=== PATIENT | female | born 1935 | race Caucasian/White ===

== ENCOUNTER 2016-08-01 03:37 | Inpatient (IN) | payer OTHER ==
[2016-08-01] VITALS (27 sets, daily range): BP systolic 92–134; BP diastolic 45–89; PULSE 61–81; TEMP 36.4–37.6; O2SAT 93–100; Ht 154.9 cm; Wt 97.7 kg
[~2016-08-01] VITALS: Ht 154.9 cm; Wt 97.7 kg
[~2016-08-01 03:37] MED LIST: ACET-1256 PO; ALBUAER2 INH; AMPI500C9 PO; ASPI-391 PO; ASPI81TA28 PO; CALCTAB5 PO; CRAN1TAB6 PO; CRS/10 PO; FURO-85 PO; LEVO88TA PO; LPR25 PO; MISCTAB78 PO; MULTTAB58 PO; NXM/40 PO; OXYB15TA12 PO; WARF1TAB PO
--- NOTE | 2016-08-01 04:28 | EMERGENCY ROOM VISIT NOTE ---
History Report prepared by Lottie: Niesha Mcdermott Under the Supervision of: Dr. Bettye Jefferson D.O. First contact with patient: 03:43 Chief Complaint: SHORTNESS OF BREATH Stated Complaint: SHORT OF BREATH,DIZZY,WEAK History of Present Illness The patient is a 81 year old female who presents to the Emergency Room with complaints of constant shortness of breath beginning [employer]. The patient states that she has been feeling weak and generally unwell for the past 6 days. She notes dizziness and some blurry vision. She has not seen her PCP for these symptoms. Tonight the patient got up to go to the bathroom and became short of breath walking to the bathroom. Her shortness of breath has persisted and is worse with exertion. The patient denies abdominal pain and new or worsening leg swelling. Her daughters state that she has not been eating or drinking well. She is on Coumadin. She describes increasing weakness. She has been experiencing black tarry stools for the past 3 days. Source of History: patient, family (daughters) Onset: CON[employer]CT [employer] Position: chest Quality: other (SOB) Timing: constant Modifying Factors (Worsening): exertion Associated Symptoms: + melena, + weakness, No abdominal pain Note: Pt notes dizziness and blurry vision. Review of Systems See HPI for pertinent positives & negatives. A total of 10 systems reviewed and were otherwise negative. Past Medical & Surgical Medical Problems: (1) Acute kidney injury (2) Bleeding (3) Bronchitis (4) Chronic kidney disease (CKD) stage G3a/A1, moderately decreased glomerular filtration rate (GFR) between 45-59 mL/min/1.73 square meter and albuminuria creatinine ratio less than 30 mg/g (5) Congestive heart failure (6) GI bleed (7) H/O blood clots (8) Heart disease (9) Hyperlipemia (10) Hypertension (11) Hypothyroid (12) Myocardial infarction (13) Obesity (14) Osteoarthritis (15) Pacemaker (16) Pneumonia Surgical Problems: (1) History of appendectomy (2) History of total right knee replacement Family History Cancer Diabetes mellitus Heart disease Hypertension Social History Smoking Status: Never Smoker Alcohol Use: none Marital Status: Occupation Status: retired Current/Historical Medications Scheduled Acetaminophen (Tylenol), 1,000 MG PO PRN Ampicillin (Ampicillin), 2,000 MG PO UD Aspirin (Aspirin Ec), 81 MG PO QPM Calcium (Caltrate), 600 MG PO QPM Cholecalciferol (Vitamin D3), 1,000 UNITS PO DAILY Cranberry (Vaccinium Macrocarp (Cranberry), 4,200 MG PO QAM Doxycycline Hyclate (Doxycycline Hyclate), 100 MG PO BID Esomeprazole Magnesium (Nexium), 20 MG PO QAM Estrogens, Conjugated (Premarin), 0.625 MG PO DAILY Estrogens, Conjugated (Premarin), 1 APPL PV 2XWK Levothyroxine Sodium (Synthroid), 88 MCG PO QAM Metoprolol Tartrate (Lopressor), 25 MG PO BID Misc Natural Products (Osteo Bi-Flex Advanced Do), 1 TAB PO QAM Multiple Vitamin (Multivitamin), 1 TAB PO QPM Nystatin (Topical) (Nystop), 1 APPLN TD BID Oxybutynin Chloride (Ditropan Xl), 30 MG PO DAILY Rosuvastatin Calcium (Crestor), 10 MG PO QPM Warfarin Sodium (Coumadin), 1 MG PO 5XWK Warfarin Sodium (Coumadin), 2 MG PO 2XWK Scheduled PRN Albuterol (Ventolin), 1 PUFFS INH QID PRN for Shortness of Breath Furosemide (Lasix), 20 MG PO Q2D PRN for leg swelling Allergies Coded Allergies: Naproxen (Verified Allergy, Unknown, MILD ERYTHEMA AROUND EYES AND FACE, ) TOLERATES CELEBREX WITHOUT ISSUES Spironolactone (Unverified Allergy, Unknown, HYPERKALEMIA, 08/01/16) Morphine (Verified Adverse Reaction, Unknown, HALLUCINATIONS, 08/01/16) Physical Exam Vital Signs Date Time Temp Pulse Resp B/P Pulse Ox O2 Delivery O2 Flow Rate FiO2 08/01/16 06:15 37.3 78 20 93/64 97 Nasal Cannula 2.0 08/01/16 06:13 37.3 75 20 93/64 99 2.0 08/01/16 06:04 37.3 77 20 120/87 98 08/01/16 05:00 81 20 118/55 96 Room Air 08/01/16 04:54 80 08/01/16 04:05 97 Room Air 08/01/16 03:40 36.9 81 22 127/71 98 Physical Exam General: The patient is an 81 year old female who appears pale. HEENT: Head - normocephalic and atraumatic Pupils are equal, round, and reactive to light. Extraocular eye muscles are intact, and sclera are anicteric. Nose - moist nasal mucosa without discharge. Mouth - moist buccal mucosa. Oropharynx is nonerythematous and there is no tonsillar exudate or edema noted. Neck: Supple; no JVD, nuchal rigidity, cervical lymphadenopathy, or auscultated bruits. Heart: Regular rate and rhythm. There is a normal S1 and S2 with no murmurs, clicks, or gallops appreciated. Lungs: Rales at the bases, diminished breath sounds throughout. Abdomen: Soft, completely nontender, nondistended, with good bowel sounds. There are no palpable pulsatile masses or hepatosplenomegaly. There is no guarding, rigidity, or rebound noted. Rectal: Black tarry stool that was heme positive. Extremities: No evidence of cyanosis or clubbing. Trace pedal edema. There are easily palpable peripheral pulses. Skin: Pale, warm and dry with good turgor and no rashes. Medical Decision & Procedures ER Provider Diagnostic Interpretation: 2-view chest x-ray as interpreted by myself reveals pacemaker in place, no pulmonary infiltrates, stable cardiomegaly, mild left bibasilar atelectasis. Laboratory Results 08/01/16 03:59 Red Blood Count 1.36, Mean Corpuscular Volume 100.7, Mean Corpuscular Hemoglobin 30.9, Mean Corpuscular Hemoglobin Concent 30.7, Mean Platelet Volume 9.9, Neutrophils (%) (Auto) 71.7, Lymphocytes (%) (Auto) 16.7, Monocytes (%) ( Auto) 9.3, Eosinophils (%) (Auto) 0.9, Basophils (%) (Auto) 0.4, Neutrophils # ( Auto) 5.88, Lymphocytes # (Auto) 1.37, Monocytes # (Auto) 0.76, Eosinophils # ( Auto) 0.07, Basophils # (Auto) 0.03 08/01/16 03:59 Test 08/01/16 03:59 White Blood Count 8.19 K/uL (4.8-10.8) Red Blood Count 1.36 M/uL (4.2-5.4) Hemoglobin 4.2 g/dL (12.0-16.0) Hematocrit 13.7 % (37-47) Mean Corpuscular Volume 100.7 fL (80-100) Mean Corpuscular Hemoglobin 30.9 pg (25-34) Mean Corpuscular Hemoglobin Concent 30.7 g/dl (32-36) Platelet Count 264 K/uL (130-400) Mean Platelet Volume 9.9 fL (7.4-10.4) Neutrophils (%) (Auto) 71.7 % Lymphocytes (%) (Auto) 16.7 % Monocytes (%) (Auto) 9.3 % Eosinophils (%) (Auto) 0.9 % Basophils (%) (Auto) 0.4 % Neutrophils # (Auto) 5.88 K/uL (1.4-6.5) Lymphocytes # (Auto) 1.37 K/uL (1.2-3.4) Monocytes # (Auto) 0.76 K/uL (0.11-0.59) Eosinophils # (Auto) 0.07 K/uL (0-0.5) Basophils # (Auto) 0.03 K/uL (0-0.2) RDW Standard Deviation 65.9 fL (36.4-46.3) RDW Coefficient of Variation 18.2 % (11.5-14.5) Immature Granulocyte % (Auto) 1.0 % Immature Granulocyte # (Auto) 0.08 K/uL (0.00-0.02) Nucleated RBC Absolute Count (auto) 0.09 K/uL (0-0) Nucleated Red Blood Cells % 1.1 % Polychromasia 1+ Anisocytosis PRESENT Activated Partial Thromboplast Time 31.0 SECONDS (21.0-31.0) Partial Thromboplastin Ratio 1.2 Anion Gap 13.0 mmol/L (3-11) Est Creatinine Clear Calc Drug Dose 36.4 ml/min Estimated GFR () 44.6 Estimated GFR (Non- 38.4 BUN/Creatinine Ratio 29.4 (10-20) Calcium Level 8.5 mg/dl (8.5-10.1) Magnesium Level 1.8 mg/dl (1.8-2.4) Total Bilirubin 0.2 mg/dl (0.2-1) Aspartate Amino Transf (AST/SGOT) 17 U/L (15-37) Alanine Aminotransferase (ALT/SGPT) 16 U/L (12-78) Alkaline Phosphatase 54 U/L (45-117) Total Creatine Kinase 170 U/L (26-192) Creatine Kinase MB 5.0 ng/ml (0.5-3.6) Creatine Kinase MB Ratio 2.9 (0-3.0) Pro-B-Type Natriuretic Peptide 2024 pg/ml (0-1800) Total Protein 5.8 gm/dl (6.4-8.2) Albumin 3.0 gm/dl (3.4-5.0) Globulin 2.8 gm/dl (2.5-4.0) Albumin/Globulin Ratio 1.1 (0.9-2) Thyroid Stimulating Hormone (TSH) 3.930 uIu/ml (0.300-4.500) Laboratory results per my review. Medications Administered Medications (Trade) Dose Ordered Sig/Ce Route Start Time Stop Time Status Last Admin Dose Admin Phytonadione 10 mg/Sodium Chloride 51 ml @ 102 mls/hr ONE ONCE IV 08/01/16 06:00 08/01/16 06:29 DC 08/01/16 06:16 102 MLS/HR Pantoprazole Sodium 80 mg/ Dextrose 120 ml @ 480 mls/hr ONE STAT IV 08/01/16 05:58 08/01/16 06:12 DC 08/01/16 06:46 480 MLS/HR Pantoprazole Sodium/Dextrose (Protonix Inj/D5 100ml) 100 ml @ 20 mls/hr Q5H IV 08/01/16 06:00 08/31/16 05:59 08/01/16 20:45 20 MLS/HR Procedure Type and cross for 2 units of packed red blood cells. Transfuse 2 units of packed red blood cells. ECG Indication: SOB/dyspnea Rate (beats per minute): 78 Rhythm: other (dual chamber paced) Findings: other (dual chamber paced) ED Course 0357: Past medical records reviewed. The patient was evaluated in room B9. A complete history and physical exam was performed. An IV lock was initiated and labs were drawn as above. A type and screen was performed. A twelve-lead EKG was performed. A chest x-ray was performed as described above. 0432: I reassessed the patient at this time. She informed me that she has been having black tarry stools for the past 3 days. She is on Coumadin. I added coags testing. 0454: I reassessed the patient and performed a rectal examination that revealed black tarry stool that was heme positive. 0519: I reassessed the patient at this time. She is resting comfortably. I discussed the results and treatment plan with the patient and her daughters. I obtained consent for a blood transfusion. I answered all pertaining questions that they had. They expressed understanding and verbalized agreement. 0529: I spoke with Dr. Bhat. We discussed the patient's results and treatment plan. The patient will be evaluated by the [facility] for further management. Medical Decision The patient is an 81 year old female who presents to the ED with shortness of breath. Differential diagnosis includes CHF, cardiac ischemia, acute renal failure, pneumonia, anemia, GI bleeding. White count 8.1, hemoglobin 4.2, hematocrit 13.7, platelet count 264, troponin 0.114, BNP 2024, glucose 116, BUN 38, creatinine 1.3, INR 3.6. This is an 81-year-old female patient who presents to the emergency department with increasing weakness and shortness of breath. The patient was extremely pale and physical exam. She was noted a black tarry stools over the past couple of days. She is currently on Coumadin. The patient had a hemoglobin less than 5 on laboratory testing. She was typed and crossed for 2 units of packed red blood cells. Rectal exam did reveal heme positive black tarry stools. The patient is suffering from severe anemia. This most likely the cause of her weakness and shortness of breath. INR is elevated at 3.6. I do not see any reason to reverse this at this time. The patient will receive a blood transfusion. I discussed the case with the [facility] and they will evaluate for further management. Consults Time Called: [phone] Consulting Physician: Dr. Bhat Returned Call: [phone] Bhat. We discussed the patient's results and treatment plan. The patient will be evaluated by the [facility] for further management. Impression Primary Impression: Severe anemia Additional Impression: Elevated troponin Critical Care I have personally spent greater than 30 minutes of critical care time in the direct management of this patient. This includes bedside care, interpretation of diagnostic studies, and testing, discussion with consultants, patient, and family members, and other required patient management activities. This 30 minutes is in excess of all separately billable procedures. Scribe Attestation The scribe's documentation has been prepared under my direction and personally reviewed by me in its entirety. I confirm that the note above accurately reflects all work, treatment, procedures, and medical decision making performed by me. Departure Information Dispostion Being Evaluated By Hospitalist Referrals Elizabeth Hutchison D.O. (PCP) Patient Instructions My [facility] Problem Qualifiers
[2016-08-01 04:46] LABS: BUN/CREATININE RATIO 29.4 (10-20); CALCIUM 8.5 mg/dl (8.5-10.1); CREATININE 1.3 mg/dl (0.60-1.20); POTASSIUM 4.5 mmol/L (3.5-5.1)
[2016-08-01 04:52] LABS: ANISOCYTOSIS PRESENT; BASO % 0.4 %; BASO ABS # 0.03 K/uL (0-0.2); COMPLETE YES; EOS % 0.9 %; HEMATOCRIT 13.7 % (37-47); LYMPH % 16.7 %; LYMPH ABS # 1.37 K/uL (1.2-3.4); MEAN CELL VOLUME 100.7 fL (80-100); MEAN CORPUSCULAR HEMOGLOBIN 30.9 pg (25-34); MEAN CORPUSCULAR HGB CONC 30.7 g/dl (32-36); MEAN PLATELET VOLUME 9.9 fL (7.4-10.4); MONO % 9.3 %; NEUT % 71.7 %; PLATELET COUNT 264 K/uL (130-400); POLYCHROMASIA 1+; RED BLOOD COUNT 1.36 M/uL (4.2-5.4); WHITE BLOOD COUNT 8.19 K/uL (4.8-10.8)
[2016-08-01 04:53] LABS: ALB/GLOB RATIO 1.1 (0.9-2); CKMB/CK RATIO 2.9 (0-3.0)
[2016-08-01 04:54] LABS: PARTIAL THROMBOPLASTIN RATIO 1.2; PROTHROMBIN TIME (PATIENT) 40.1 SECONDS (9.0-12.0)
[2016-08-01 05:01] LABS: INR 3.6 (0.9-1.1)
[2016-08-01] MEDS ORDERED: VITAMIN D3 PO (05:12)
[2016-08-01] MEDS ORDERED: CHOL1CAP57 PO (05:26)
[2016-08-01] MEDS ORDERED: ESOM20CA PO (05:31)
[2016-08-01] MEDS ORDERED: NYST100010 TD (05:42)
[2016-08-01] MEDS ORDERED: PRM625 PO (05:46)
[2016-08-01] MEDS ORDERED: PRMVC PV (05:48)
[2016-08-01] MEDS ORDERED: DOXY1TAB6 PO (05:53)
[2016-08-01] MEDS ORDERED: PANTOprazole INJ 80 MG in DEXTROSE 5% 100ML IV STA (05:58)
[2016-08-01] MEDS ORDERED: PHYTONADIONE INJ 10 MG in SODIUM CHLORIDE 0.9% 50ML 50 ML IV ONE (06:00)
[2016-08-01] MEDS ORDERED: HYDROmorphone INJ 1 MG/ML SYR IV PRN (06:30)
[2016-08-01] MEDS ORDERED: NITROGLYCERIN 0.4 MG SL PER TAB CHARGE SL PRN (06:30)
[2016-08-01] MEDS ORDERED: TRAMADOL HCL 50 MG TAB PO PRN (06:30)
[2016-08-01 06:35] LABS: MAGNESIUM 1.8 mg/dl (1.8-2.4); THYROID STIMULATING HORMONE 3.93 uIu/ml (0.300-4.500)
--- NOTE | 2016-08-01 07:10 | DIAGNOSTIC IMAGING REPORT ---
CHEST 2 VIEWS ROUTINE CLINICAL HISTORY: sob dyspnea COMPARISON STUDY: 12/04/2014 FINDINGS: Mild thoracic aorta ectasia. Diaphragms smooth. Minimal atelectatic change left base. Lungs otherwise appear clear. Permanent bipolar cardiac pacemaker. IMPRESSION: Chronic and postoperative change. No acute process. Electronically signed by: Earnest Zamora M.D. 08/01/2016 7:09 AM Dictated Date/Time: 08/01/2016 7:08 AM
[2016-08-01] MEDS: PANTOprazole INJ 40 MG in DEXTROSE 5% 100ML IV SCH ×4 (07:11→20:45)
[2016-08-01] MEDS ORDERED: INFLUENZA ADMINISTRATION CHARGE ONE (07:30)
[2016-08-01] MEDS ORDERED: PNEUMOCOCCAL ADMINISTRATION CHARGE ONE (07:30)
[2016-08-01] MEDS ORDERED: ACETAMINOPHEN 325 MG TAB PO ONE (07:30)
[2016-08-01] MEDS ORDERED: PNEUMOCOCCAL POLYSACCHARIDES 25 MCG/0.5 ML VIAL/SYR IM. ONE (07:30)
[2016-08-01] MEDS ORDERED: INFLUENZA VIRUS QUAD VACCINE 0.5 ML SYR IM. ONE (07:30)
[2016-08-01] MEDS: SODIUM CHLORIDE 0.45% 1000ML 1,000 ML IV SCH ×3 (08:00→23:10)
--- NOTE | 2016-08-01 09:30 | HISTORY & PHYSICAL EXAMINATION ---
DATE OF ADMISSION: 08/01/2016 PRIMARY CARE PHYSICIAN: Dr. Hutchison. CHIEF COMPLAINT: weakness, black stools. HISTORY OF PRESENT ILLNESS: Medical history is significant for coronary artery disease as per records, hypertension, hyperlipidemia, hypothyroidism. SSS sp PPM Recent gynecologic procedure, hysteroscopy polypectomy at same day surgery by Gynecology last 08/2015. One week history of shortness of breath at rest. No chest pain. Patient feeling weak. Patient also noted black stools. Denies abdominal pain, no hematemesis/coffee-ground emesis. Denies uncontrolled reflux symptoms. Recent Doxycycline antibiotic intake for cellulitis. Patient brought to the Emergency Room. Hemoglobin was noted to be 4. One unit packed RBC ordered in the Emergency Room. MEDICAL HISTORY: As above. 2D echo from November 2014 showed EF 55-60%. LVH, abnormal septal motion secondary to pacemaker activation No previous endoscopies in the past. SURGERIES : gynecologic procedures, pacemaker placement and her tonsils taken out, appendectomy, thyroid lump removal. HOME MEDICATIONS: Include, aspirin, Coumadin, metoprolol, Caltrate, Nexium, Premarin, Lasix, multivitamins, Ditropan, Crestor. ALLERGIES: MORPHINE, NAPROXEN, SPIRONOLACTONE. FAMILY HISTORY: Heart disease. PERSONAL AND SOCIAL HISTORY: Nonsmoker, no chronic intake of alcoholic beverages. Homemaker in younger years. REVIEW OF SYSTEMS: As per HPI, all other ROS negative. PHYSICAL EXAMINATION: VITAL SIGNS: Blood pressure was noted to be 137/79, pulse rate 81, heart rate 18, temperature 36.6, sats 98 on room air. GENERAL: Noted to be obese, slightly anxious, no distress. SKIN: Pallor. HEENT: Pale palpebral conjunctivae. Dry mucosa. NECK: Short neck. LUNGS: Decreased effort. HEART: Regular rate and rhythm. ABDOMEN: Some distention, no tenderness. RECTAL: As per ER MD, black tarry stools heme positive. EXTREMITIES: Minimal LE edema. no tenderness NEUROLOGIC: No gross focality. LABS: Hemoglobin 4 from 10 last June 2016, from 13 from September 2015, hematocrit 33, white cell count 8, platelets 64. Sodium was noted to be 144, potassium 4.5, chloride 109, CO2 of 22, BUN 38, creatinine 1.3, glucose 110. INR was noted to be 3.6. trop 0.11 EKG paced rhythm ASSESSMENT: 1. Upper gastrointestinal bleeding Coumadin coagulopathy possible etiologies : esophagitis, gastritis, peptic ulcer disease, gastric tumor. 2. Symptomatic anemia secondary to above 3. SSS sp PPM, paced rhythm, INR supratherapeutic. 4. CAD as per records 6. HTN, BP on the lower side 7. Acute renal failure secondary to illness, meds PLAN: PCU. Serial HH, transfuse pRBC to maintain hemoglobin greater than 8 (hx CAD) hold aspirin and Coumadin for now. reversal of INR in order with vitamin K and FFP PPI bolus drip GI consult. UGIB monitor crea response to IVF, hold home diuretics for now until crea at baseline DVT prophylaxis, SCDs while off Coumadin and INR less than 2. DNR. Total critical care time was 50 minutes. MTDD
--- NOTE | 2016-08-01 09:50 | GASTROINTESTINAL CONSULTATION ---
DATE OF CONSULTATION: 08/01/2016 CHIEF COMPLAINT: Shortness of breath. HISTORY OF PRESENT ILLNESS: The patient is an 81-year-old female who presented to the Emergency Room with a complaint of shortness of breath beginning about 4 days prior to admission. She states over the last week or so she has had dark sticky stool multiple times per day. The patient has a history of heart disease and is both on Coumadin and aspirin as an outpatient. She denies a history of peptic ulcer disease or abdominal discomfort at this time. She denies having nausea, vomiting, hematemesis or bright red blood from the back side. PAST MEDICAL HISTORY: 1. Chronic kidney disease. 2. Congestive heart failure. 3. Atherosclerotic coronary artery disease. 4. Hyperkalemia. 5. Hypercholesterolemia. 6. Hypertension. 7. Obesity. 8. Osteoarthritis. 9. Pneumonia. 10. Recurrent blood clots. PAST SURGICAL HISTORY: 1. Pacemaker. 2. No abdominal surgeries noted by patient. OUTPATIENT MEDICATIONS: 1. Acetaminophen 1000 mg p.r.n. 2. Ampicillin 2000 mg daily. 3. Aspirin 81 mg daily. 4. Excedrin p.r.n. 5. Nexium 40 mg q.a.m. and 20 mg q.p.m. 6. Metoprolol 25 mg twice daily. 7. Multivitamin. 8. Oxybutynin. 9. Crestor 10 mg daily. 10. Coumadin as an outpatient. ALLERGIES: NAPROXEN, ALDACTONE, MORPHINE. FAMILY HISTORY: No history of esophageal cancer, gastric cancer or colon cancer. SOCIAL HISTORY: The patient is a nonsmoker, denies drinking alcohol. The patient lives with her family in [facility]. REVIEW OF SYSTEMS: GENERAL: No fevers, no chills. CARDIAC: No chest pain. No palpitations. PULMONARY: No cough. The patient does have shortness of breath with minimal exertion. GASTROINTESTINAL: Please see history of present illness. GENITOURINARY: No dysuria. DERMATOLOGIC: No rashes. No itching. NEUROLOGIC: No headache. MUSCULOSKELETAL: No joint pains, no muscle pains. GENITOURINARY: No dysuria. ENDOCRINE: No polyuria, no polyphagia. PHYSICAL EXAMINATION: VITAL SIGNS: Temperature is 36.4, pulse 72, respiratory rate 26, blood pressure is 113/45. HEENT: No scleral icterus noted. No JVD noted. LUNGS: Clear to auscultation. CARDIAC: Systolic murmur heard. ABDOMEN: Soft, nontender. No hepatosplenomegaly appreciated. EXTREMITIES: Trace edema, painful on both sides. The patient has had bilateral knee replacements. LABORATORY: White blood count 8.1, hemoglobin 4.2, hematocrit 13.7, platelet count is 264. PT is 40. INR 3.6. Chemistry -- sodium 144, potassium 4.5, chloride is 109, BUN 38, creatinine 1.3. AST 17, ALT 16, alkaline phosphatase 54. CPK is 170. Troponin 0.114. BNP 2024. Albumin 3.0. IMPRESSION: An 81-year-old female presenting with melena, likely an upper gastrointestinal etiology. Given her profound anemia, heart failure and positive troponin, would recommend transfusion and stabilization prior to any anticipated interventions. The patient should also be seen by cardiology for cardiac clearance prior to any endoscopic interventions. RECOMMENDATIONS: 1. Reversal of INR please. 2. Transfusion as required. 3. Protonix bolus plus Protonix drip as you are doing. 4. N.p.o. 5. Upper endoscopy to be performed on Tuesday unless clinical status changes. 6. Please call with any questions or concerns.
[2016-08-01] MEDS: LEVOTHYROXINE 88 MCG TAB PO SCH (10:45)
[2016-08-01] MEDS: METOPROLOL TARTRATE 25 MG TAB PO SCH ×2 (10:45→20:46)
[2016-08-01 17:10] LABS: HEMATOCRIT 19.1 % (37-47)
[2016-08-01 17:16] LABS: INR 1.3 (0.9-1.1); PROTHROMBIN TIME (PATIENT) 13.8 SECONDS (9.0-12.0)
[2016-08-01] MEDS ORDERED: FUROSEMIDE INJ 20 MG in SYRINGE 0 ML IV ONE (17:45)
[2016-08-01 19:06] LABS: URINE APPEARANCE CLEAR (CLEAR); URINE BILIRUBIN NEG (NEG); URINE COLOR YELLOW; URINE NITRITE NEG (NEG); URINE SPECIFIC GRAVITY 1.004 (1.000-1.030); UROBILINOGEN NEG (NEG); ZZUR CULT IF INDIC CLEAN CATCH NO
[2016-08-01 19:09] LABS: MANUAL MICROSCOPIC REQUIRED? NO; REVIEW REQ? NO
[2016-08-01] MEDS: MULTIVITAMIN TAB PO SCH (20:45)
[2016-08-01] MEDS: ROSUVASTATIN CALCIUM 10 MG TAB PO SCH (20:45)
[2016-08-02] VITALS (12 sets, daily range): BP systolic 119–153; BP diastolic 50–68; PULSE 62–86; TEMP 36.5–37; O2SAT 93–98
[2016-08-02] MEDS: PANTOprazole INJ 40 MG in DEXTROSE 5% 100ML IV SCH ×5 (02:06→19:37)
[2016-08-02] MEDS: LEVOTHYROXINE 88 MCG TAB PO SCH (05:37)
[2016-08-02 05:53] LABS: BASO % 0.3 %; BASO ABS # 0.02 K/uL (0-0.2); EOS % 2.6 %; HEMATOCRIT 25.6 % (37-47); IG% 0.9 %; LYMPH % 15.8 %; LYMPH ABS # 1.22 K/uL (1.2-3.4); MEAN CELL VOLUME 89.8 fL (80-100); MEAN CORPUSCULAR HEMOGLOBIN 29.5 pg (25-34); MEAN CORPUSCULAR HGB CONC 32.8 g/dl (32-36); MEAN PLATELET VOLUME 9.9 fL (7.4-10.4); MONO % 10.9 %; NEUT % 69.5 %; PLATELET COUNT 172 K/uL (130-400); RED BLOOD COUNT 2.85 M/uL (4.2-5.4)
[2016-08-02 06:13] LABS: INR 1.1 (0.9-1.1); PROTHROMBIN TIME (PATIENT) 12.3 SECONDS (9.0-12.0)
[2016-08-02 06:23] LABS: BUN/CREATININE RATIO 27.3 (10-20); CALCIUM 7.9 mg/dl (8.5-10.1); CREATININE 1.2 mg/dl (0.60-1.20); POTASSIUM 3.8 mmol/L (3.5-5.1)
[2016-08-02 06:36] LABS: COMPLETE YES; POLYCHROMASIA 1+
[2016-08-02] MEDS: METOPROLOL TARTRATE 25 MG TAB PO SCH ×2 (07:52→20:57)
--- NOTE | 2016-08-02 09:31 | Cardiology Consultation ---
Cardiology Consultation Date of Consultation: Aug 02, 2016 Requesting Physician: Maeve Attending Agricultural Equipment Operator: Javad (Earnest Watts PA-C) History of Present Illness Ms. Pickard is a very pleasant 81 year old female who is being seen at the request of Dr. Mcfarlane. Reasons for consultation include CAD, clearance for endoscopy. Ms. Pickard presented to the [facility] ER on 08/01/2016 with complaints of shortness of breath, generalized weakness, dizziness, and fatigue. Symptoms have become progressively worse over the past week. Black stools noted for about the past week. On ASA 81 mg/day and Coumadin anticoagulation. Presenting INR was 3.5. Notes, on questioning, taking Excedrin for headaches intermittently, daily for the past few days. No abdominal pain. No chest pain or discomfort. No pleuritic pain. No palpitations. No resting dyspnea, orthopnea, PND, or increased peripheral edema. No syncope. No fevers. Hemoglobin was 4.2 g/dL on presentation. Recta exam was heme positive, black tarry stools. She was received 5 units of pRBC's with improvement in presenting symptoms. Hemoglobin 8.4 g/dL this morning. (Earnest Watts PA-C) History Past Medical/Surgical History: May 2013 NSTEMI secondary to presumed embolic event Third-degree heart block status post pacemaker placement on 03/08/2007, generator exchange December 31, 2014 Asymptomatic paroxysmal atrial fibrillation Chronic Coumadin anticoagulation Chart history of diastolic heart failure secondary to hypertension Stage III chronic kidney disease, followed by Dr. Townsend Gout Hypertension Dyslipidemia [place]ingo thyroiditis Osteoarthritis Osteoporosis Migraine headaches Obesity Scraping of cervical canal lining in 1971 Tubal ligation in 1971 Appendectomy Removal of thyroid lesion in 1983 Family History: Mother at 94 from natural causes. Father at 42, hunting accident. Social History: Lifelong nonsmoker. No alcohol. No illegal drug use. Lives in [place]. . Five children. (Earnest Watts PA-C) Review Of Systems Compete Review of Systems: Headaches. PRN Excedrin. No head trauma Blurred vision over the past few days. Dental extractions in late 2015. Chronic urinary incontinence D&C in 08/2015 Lower extremity cellulitis, treated with a course of doxycycline in mid May 2016 Chronic hip and knee discomfort. Complete review of systems is as stated above, negative, or noncontributory. (Earnest Watts PA-C) Allergies Coded Allergies: Naproxen (Verified Allergy, Unknown, MILD ERYTHEMA AROUND EYES AND FACE, ) TOLERATES CELEBREX WITHOUT ISSUES Spironolactone (Unverified Allergy, Unknown, HYPERKALEMIA, 08/01/16) Morphine (Verified Adverse Reaction, Unknown, HALLUCINATIONS, 08/01/16) Medications Reported Home Medications Medications Dose Route/Sig Max Daily Dose Days Date Category Dose Instructions Doxycycline Hyclate 100 Mg Tab 100 Mg PO BID 7 08/01/16 Reported Premarin (Estrogens, Conjugated) 14 Appln/30 Gm Cr 1 Appl PV 2XWK 08/01/16 Reported Premarin (Estrogens Conjugated) 0.625 Mg Tab 0.625 Mg PO DAILY 08/01/16 Reported Nystop (Nystatin (Topical)) 100,000 Unit/Gm Pow 1 Appln TD BID 08/01/16 Reported APPLY TO GROIN TWICE DAILY. Nexium (Esomeprazole Magnesium) 20 Mg Capcr 20 Mg PO QAM 08/01/16 Reported Vitamin D3 (Cholecalciferol) 1,000 Unit Cap 1,000 Units PO DAILY 08/01/16 Reported Tylenol (Acetaminophen) 500 Mg Tab 1,000 Mg PO PRN 09/08/15 Reported Cranberry (Cranberry (Vaccinium Macrocarp) 600 Mg Tab 4,200 Mg PO QAM 09/08/15 Reported Ampicillin 500 Mg Cap 2,000 Mg PO UD 09/08/15 Reported BEFORE DENTAL WORK Osteo Bi-Flex Advanced Do ([facility]) 1 Tab Tab 1 Tab PO QAM 09/08/15 Reported Coumadin (Warfarin Sodium) 1 Mg Tab 2 Mg PO 2XWK 30 07/15/15 Reported TAKE 2 MG ON WEDNESDAYS/SATURDAYS. Ventolin (Albuterol) Inh 1 Puffs INH QID PRN 5 07/15/15 Reported Lopressor (Metoprolol Tartrate) 25 Mg Tab 25 Mg PO BID 07/15/15 Reported Lasix (Furosemide) 20 Mg Tab 20 Mg PO Q2D PRN 07/15/15 Reported Coumadin (Warfarin Sodium) 1 Mg Tab 1 Mg PO 5XWK 07/02/14 Reported TAKE 1MG EVERY TUESDAY/TUESDAY/TUESDAY/TUESDAY/TUESDAY. Multivitamin (Multiple Vitamin) 1 Tab Tab 1 Tab PO QPM 07/02/14 Reported Crestor (Rosuvastatin Calcium) 10 Mg Tab 10 Mg PO QPM 06/12/13 Reported Ditropan Xl (Oxybutynin Chloride) 15 Mg Tab 30 Mg PO DAILY 06/12/13 Reported Aspirin Ec (Aspirin) 81 Mg Tab 81 Mg PO QPM 06/12/13 Reported Synthroid (Levothyroxine Sodium) 88 Mcg Tab 88 Mcg PO QAM 06/12/13 Reported Caltrate (Calcium) 600 Mg Tab 600 Mg PO QPM 01/12/07 Reported (Earnest Watts PA-C) Physical Exam Vital Signs (Last 8hrs): Last 8 Hrs Date Time Temp Pulse Resp B/P Pulse Ox O2 Delivery O2 Flow Rate FiO2 08/02/16 08:00 98 Nasal Cannula 2.0 08/02/16 08:00 36.9 82 18 131/56 93 Room Air 08/02/16 04:09 36.9 62 17 139/55 98 2.0 08/02/16 04:00 98 Nasal Cannula 2.0 08/02/16 02:07 37.0 70 18 119/50 98 2.0 08/02/16 01:14 36.9 62 18 133/56 97 2.0 General: A&Ox3. NAD. Obese. Examined in the bedside chair HEENT: Normocephalic. Atraumatic. Conjunctiva/sclera pale. Neck: No carotid bruits. No overt JVD. Heart: Distant heart sounds. RRR. No murmurs appreciated. Lungs: Clear bilateral without rales, rhonchi, or wheeze. Abdomen: +BS. Soft. Obese. Extremities: Minimal edema. No clubbing. No cyanosis. Pulses: radial=2/4, posterior tibial=1/4. Neuro: No focal deficits. Psychiatric: Normal affect. (Earnest Watts PA-C) Data Last 24 Hours Test 08/01/16 15:52 08/01/16 16:57 08/01/16 18:50 08/01/16 23:23 Hemoglobin 6.3 g/dL 7.3 g/dL Hematocrit 19.1 % 22.0 % Troponin I 0.202 ng/ml Prothrombin Time 13.8 SECONDS Prothromb Time International Ratio 1.3 Urine Color YELLOW Urine Appearance CLEAR Urine pH 5.0 Urine Specific [place] 1.004 Urine Protein NEG Urine Glucose (UA) NEG Urine Ketones NEG Urine Occult Blood NEG Urine Nitrite NEG Urine Bilirubin NEG Urine Urobilinogen NEG Urine Leukocyte Esterase NEG Test 08/02/16 05:30 White Blood Count 7.70 K/uL Red Blood Count 2.85 M/uL Hemoglobin 8.4 g/dL Hematocrit 25.6 % Mean Corpuscular Volume 89.8 fL Mean Corpuscular Hemoglobin 29.5 pg Mean Corpuscular Hemoglobin Concent 32.8 g/dl Platelet Count 172 K/uL Mean Platelet Volume 9.9 fL Neutrophils (%) (Auto) 69.5 % Lymphocytes (%) (Auto) 15.8 % Monocytes (%) (Auto) 10.9 % Eosinophils (%) (Auto) 2.6 % Basophils (%) (Auto) 0.3 % Neutrophils # (Auto) 5.35 K/uL Lymphocytes # (Auto) 1.22 K/uL Monocytes # (Auto) 0.84 K/uL Eosinophils # (Auto) 0.20 K/uL Basophils # (Auto) 0.02 K/uL RDW Standard Deviation 53.6 fL RDW Coefficient of Variation 17.1 % Immature Granulocyte % (Auto) 0.9 % Immature Granulocyte # (Auto) 0.07 K/uL Polychromasia 1+ Prothrombin Time 12.3 SECONDS Prothromb Time International Ratio 1.1 Sodium Level 145 mmol/L Potassium Level 3.8 mmol/L Chloride Level 109 mmol/L Carbon Dioxide Level 27 mmol/L Anion Gap 9.0 mmol/L Blood Urea Nitrogen 33 mg/dl Creatinine 1.20 mg/dl Est Creatinine Clear Calc Drug Dose 39.0 ml/min Estimated GFR () 49.1 Estimated GFR (Non- 42.4 BUN/Creatinine Ratio 27.3 Random Glucose 91 mg/dl Calcium Level 7.9 mg/dl Troponin I 0.216 ng/ml Diagnostic cardiac catheterization performed by Dr. Gonsalves on June 15, 2013 revealed the following: Dominant right coronary artery that was noted to be smooth in appearance, widely patent, and within normal limits with the exception of evidence within the posterior descending branch of the right coronary artery of residual thrombus. Artery was noted to be completely patent throughout its course except for streaking in the distal right coronary artery that was felt to e consistent with residual thrombus. No other findings were noted in the right coronary artery. Left main trunk was patent. The left circumflex was noted to consist principally of her large lateral marginal branch and a large posterior marginal branch. Left circumflex was described is smooth in appearance, widely patent common within normal limits. The ramus intermedius was within normal limits. The LAD did not extend around the apex, bifurcating into 2 equal large branches with LAD system noted to be smooth in appearance, widely patent, and within normal limits. Resting echocardiography interpreted by Dr. Cesar on December 05, 2014 ([facility]) demonstrated the following: Left ventricular systolic function is normal. EF 55 to 60%. Borderline concentric left ventricular hypertrophy. Abnormal septal motion secondary to pacemaker activation. Moderate tricuspid regurgitation. Normal right ventricular systolic pressure. July 20, 2016 Device Interrogation revealed an appropriately functioning [employer] Advisa dual chamber device. Mode AAIR-DDDR, 60-130 bpm. Battery VOlgevity was 6 years. Voltage was 2.99 V. KEATON: 2.83 V. Time in AT/AF: < 0.1%. RV paced 100% of the time. Admission EKG revealed an atrial sensed ventricular paced rhythm. Telemetry: Atrial sensed ventricular paced rhythm. No arrhythmias observed. Admission CXR revealed chronic and postoperative change, without acute process as per Dr. Zamora. (Earnest Watts PA-C) Assessment & Plan Complex 81-year-old female seen in preoperative cardiology consultation prior to EGD, presenting with symptomatic anemia felt to be secondary to an upper gastrointestinal bleed. Elevated troponin observed, likely secondary to demand ischemia from the profound anemia, without overt angina symptoms. Options discussed with patient and family. Risks explained. I see no overt cardiac contraindications to EGD. Recommend uninterrupted continuation of beta-mateo therapy. Coumadin anticoagulation to be resumed when OK with GI, likely without ongoing use of ASA and Excedrin. Further recommendations pending the above, evaluation by Dr. Farnsworth, and her ongoing hospitalization. (Earnest Watts PA-C) Cardiology attending: Pt seen and examined, agree with findings and assessment as per Earnest Alonso. EGD negative, for colonoscopy in AM. Risk remains the same, no need to delay from cardiac standpoint. Cont beta mateo. Cont to monitor on tele. (Gilbert Farnsworth D.O.)
--- NOTE | 2016-08-02 09:43 | Clinical Documentation Query ---
[facility] : CLINICAL DOCUMENTATION QUERIES QUERY 1 OF 2 Patient is an 81 year old female who presented with weakness and shortness of breath, subsequently admitted with an upper GI bleed in the setting of coumadin and ASA therapy. As appropriate, consider clarification as suggested below as this impacts DRG assignment and measures of risk of mortality and severity of illness. In your clinical opinion is this patient being managed for: ( + ) GI bleed due to Coumadin and ASA use in the setting of possible gastritis, esophagitis, gastric tumor ( ) Other explanation of clinical findings (Please Explain) ( ) Unable to determine (Please Define) ( ) Need to Discuss ( ) Not Agree The medical record reflects the following clinical findings, treatment, and risk factors. Clinical Indicators: As above Treatment: INR reversal, withholding of Coumadin, ASA, GI consultation, serial labs, PPI infusion. Risk Factors: Age, coumadin, ASA use. QUERY 2 OF 2 Documentation includes CHF, not otherwise specified. Echocardiogram from 2015 demonstrated an LVEF of 55-60%, LVH, and abnormal septal motion secondary to pacemaker activation. Home treatment includes daily Lasix which is currently being held secondary to RENUKA. In your clinical opinion is this patient being managed for: ( + ) Chronic diastolic congestive heart failure ( ) Other explanation of clinical findings (Please Explain) ( ) Unable to determine (Please Define) ( ) Need to Discuss ( ) Not Agree The medical record reflects the following clinical findings, treatment, and risk factors. Clinical Indicators: As above Treatment: Serial labs, daily weights, I/O, home treatment regimen includes daily Lasix Risk Factors: Age, hypertension, CAD with MT Please clarify and document your clinical opinion in the progress notes and discharge summary. Terms such as "probable", "suspected", "likely", "questionable", "possible", or "still to be ruled out" are acceptable. IF IN AGREEMENT, YOU MUST DOCUMENT ABOVE DIAGNOSTIC STATEMENT IN DAILY PROGRESS NOTES AND DISCHARGE SUMMARY. This document is not part of the patient's record. Thank You, Gil Sommers, GINA [phone]
[2016-08-02] MEDS ORDERED: PROPOFOL IV EMULSION 10 MG/ML 20 ML VIAL IV ONE (10:15)
[2016-08-02] MEDS ORDERED: LIDOCAINE HCL 2% 2 ML VIAL (20MG/ML) ONE (10:15)
--- NOTE | 2016-08-02 12:43 | Progress Note ---
Internal Med Progress Note Date of Service: Aug 02, 2016. Provider Documentation: SUBJECTIVE: The patient was seen and examined Denies any complaints Admitted with Tiredness and exertional SOB Has had Melena since Tuesday last Feels fine this morning OBJECTIVE: Vital Signs-as noted below Exam: General-no distress at rest Eyes-normal ENT-normal Neck-supple Lungs-clear to ausucltate bilaterally Heart-Regular,no murmur appreciated Abdomen-Benign,no masses,bowel sound present Extremities-No edema Neuro-AAOx3 Lab data as noted below. ASSESSMENT & PLAN: Acute Blood Loss Anemia Secondary to Upper gastrointestinal bleeding likely due to esophagitis, gastritis, peptic ulcer disease, gastric tumor. Complicated by Coumadin coagulopathy Symptomatic anemia secondary to above PPI bolus and continue as drip Hold aspirin and Coumadin for now. Continue Transfusion-transfused 1 total of 5 Units of PRBC GI consulted-appreciate Input Hb >8 this morning Endoscopy today SSS sp PPM, paced rhythm, INR supra therapeutic.-3.6 Received Vit K IV n ER and later on FFP Recheck INR-1.1 CAD as per records No Acute symptoms Appreciate Cardiology input HTN, BP on the lower side Acute renal failure secondary Monitor PRP-creatinine improved DVT prophylaxis, SCDs while off Coumadin and INR less than 2. DNR. DISPOSITION Awaited Discussed with the family members Vital Signs: Date Time Temp Pulse Resp B/P Pulse Ox O2 Delivery O2 Flow Rate FiO2 08/02/16 12:00 98 Nasal Cannula 2.0 08/02/16 09:12 36.8 62 20 190/79 98 Room Air 08/02/16 08:00 98 Nasal Cannula 2.0 08/02/16 08:00 36.9 82 18 131/56 93 Room Air 08/02/16 04:09 36.9 62 17 139/55 98 2.0 08/02/16 04:00 98 Nasal Cannula 2.0 08/02/16 02:07 37.0 70 18 119/50 98 2.0 08/02/16 01:14 36.9 62 18 133/56 97 2.0 08/02/16 00:58 36.8 68 20 120/68 94 08/02/16 00:00 98 Nasal Cannula 2.0 08/02/16 00:00 36.5 68 22 120/68 98 Nasal Cannula 2.0 08/01/16 20:54 36.8 66 18 123/59 96 2.0 08/01/16 20:00 98 Nasal Cannula 2.0 08/01/16 19:52 36.8 63 20 119/57 98 08/01/16 19:16 37.0 70 20 116/57 98 2.0 08/01/16 18:41 36.6 66 18 120/51 99 08/01/16 18:25 36.8 63 18 120/51 97 08/01/16 18:05 37.0 75 18 110/72 97 2.0 08/01/16 16:00 37.1 65 19 126/57 98 2.0 08/01/16 16:00 Nasal Cannula 2.0 08/01/16 15:40 36.4 63 19 125/55 97 08/01/16 15:24 36.5 62 20 92/51 97 Nasal Cannula 1.0 08/01/16 14:40 37.2 61 18 116/55 99 2.0 08/01/16 13:05 37.1 66 18 130/52 99 08/01/16 12:58 37.0 64 21 129/57 99 2.0 Lab Results: Results Past 24 Hours Test 08/01/16 15:52 08/01/16 16:57 08/01/16 18:50 08/01/16 23:23 Range/Units Hemoglobin 6.3 7.3 12.0-16.0 g/dL Hematocrit 19.1 22.0 37-47 % Troponin I 0.202 0-0.045 ng/ml Prothrombin Time 13.8 9.0-12.0 SECONDS Prothromb Time International Ratio 1.3 0.9-1.1 Urine Color YELLOW Urine Appearance CLEAR CLEAR Urine pH 5.0 4.5-7.5 Urine Specific [place] 1.004 1.000-1.030 Urine Protein NEG NEG Urine Glucose (UA) NEG NEG Urine Ketones NEG NEG Urine Occult Blood NEG NEG Urine Nitrite NEG NEG Urine Bilirubin NEG NEG Urine Urobilinogen NEG NEG Urine Leukocyte Esterase NEG NEG Test 08/02/16 05:30 Range/Units White Blood Count 7.70 4.8-10.8 K/uL Red Blood Count 2.85 4.2-5.4 M/uL Hemoglobin 8.4 12.0-16.0 g/dL Hematocrit 25.6 37-47 % Mean Corpuscular Volume 89.8 80-100 fL Mean Corpuscular Hemoglobin 29.5 25-34 pg Mean Corpuscular Hemoglobin Concent 32.8 32-36 g/dl Platelet Count 172 130-400 K/uL Mean Platelet Volume 9.9 7.4-10.4 fL Neutrophils (%) (Auto) 69.5 % Lymphocytes (%) (Auto) 15.8 % Monocytes (%) (Auto) 10.9 % Eosinophils (%) (Auto) 2.6 % Basophils (%) (Auto) 0.3 % Neutrophils # (Auto) 5.35 1.4-6.5 K/uL Lymphocytes # (Auto) 1.22 1.2-3.4 K/uL Monocytes # (Auto) 0.84 0.11-0.59 K/uL Eosinophils # (Auto) 0.20 0-0.5 K/uL Basophils # (Auto) 0.02 0-0.2 K/uL RDW Standard Deviation 53.6 36.4-46.3 fL RDW Coefficient of Variation 17.1 11.5-14.5 % Immature Granulocyte % (Auto) 0.9 % Immature Granulocyte # (Auto) 0.07 0.00-0.02 K/uL Polychromasia 1+ Prothrombin Time 12.3 9.0-12.0 SECONDS Prothromb Time International Ratio 1.1 0.9-1.1 Sodium Level 145 136-145 mmol/L Potassium Level 3.8 3.5-5.1 mmol/L Chloride Level 109 98-107 mmol/L Carbon Dioxide Level 27 21-32 mmol/L Anion Gap 9.0 3-11 mmol/L Blood Urea Nitrogen 33 7-18 mg/dl Creatinine 1.20 0.60-1.20 mg/dl Est Creatinine Clear Calc Drug Dose 39.0 ml/min Estimated GFR () 49.1 Estimated GFR (Non- 42.4 BUN/Creatinine Ratio 27.3 10-20 Random Glucose 91 70-99 mg/dl Calcium Level 7.9 8.5-10.1 mg/dl Troponin I 0.216 0-0.045 ng/ml
--- NOTE | 2016-08-02 12:59 | Anesthesiology Progress Note ---
Anesthesia Post Op Note Date & Time Aug 02, 2016 at 12:59 Vital Signs Pain Intensity: 0 Vital Signs Past 12 Hours Date Time Temp Pulse Resp B/P Pulse Ox O2 Delivery O2 Flow Rate FiO2 08/02/16 12:50 67 16 174/79 96 Room Air 08/02/16 12:35 71 16 141/63 96 Room Air 08/02/16 12:00 98 Nasal Cannula 2.0 08/02/16 09:12 36.8 62 20 190/79 98 Room Air 08/02/16 08:00 98 Nasal Cannula 2.0 08/02/16 08:00 36.9 82 18 131/56 93 Room Air 08/02/16 04:09 36.9 62 17 139/55 98 2.0 08/02/16 04:00 98 Nasal Cannula 2.0 08/02/16 02:07 37.0 70 18 119/50 98 2.0 08/02/16 01:14 36.9 62 18 133/56 97 2.0 Notes Mental Status: alert / awake / arousable, participated in evaluation Pt Amnestic to Procedure: Yes Nausea / Vomiting: adequately controlled Pain: adequately controlled Airway Patency, RR, SpO2: stable & adequate BP & HR: stable & adequate Hydration State: stable & adequate Anesthetic Complications: no major complications apparent
--- NOTE | 2016-08-02 13:05 | GI REPORT ---
Procedure Date: 08/02/2016 12:11 PM Procedure: Upper GI endoscopy Indications: Anemia Medicines: See the Anesthesia note for documentation of the administered medications Complications: No immediate complications. Estimated Blood Loss: Estimated blood loss: none. Procedure: Pre-Anesthesia Assessment: - ASA Grade Assessment: III - A patient with severe systemic disease. After obtaining informed consent, the endoscope was passed under direct vision. Throughout the procedure, the patient's blood pressure, pulse, and oxygen saturations were monitored continuously. The On-site loaner was introduced through the mouth, and advanced to the second part of duodenum. The upper GI endoscopy was accomplished without difficulty. The patient tolerated the procedure well. Findings: The examined esophagus was normal. The stomach was normal. The examined duodenum was normal. Impression: - Normal esophagus. - Normal stomach. - Normal examined duodenum. - No specimens collected. Recommendation: - Discharge patient to home. Justino Davidson M.D. Justino Davidson MD 08/02/2016 1:05:35 PM This report has been signed electronically. Note Initiated On: 08/02/2016 12:11 PM I attest to the content of the Intraoperative Record and orders documented therein, exceptions below
[2016-08-02 14:01] LABS: BUN/CREATININE RATIO 26.9 (10-20); CALCIUM 8.1 mg/dl (8.5-10.1); CREATININE 1.1 mg/dl (0.60-1.20); MAGNESIUM 1.8 mg/dl (1.8-2.4); PHOSPHORUS 2.9 mg/dl (2.5-4.9); POTASSIUM 3.7 mmol/L (3.5-5.1)
--- NOTE | 2016-08-02 14:27 | Progress Note ---
Progress Note She has no evidence of ongoing bleed, and EGD neg for GI source of blood loss. Will plan cscopy tomorrow - d/w pt, she is agreeable to this.
[2016-08-02] MEDS: SODIUM CHLORIDE 0.45% 1000ML 1,000 ML IV SCH ×2 (15:50→23:17)
[2016-08-02] MEDS ORDERED: BISACODYL 5 MG TABEC PO SCH (17:00)
[2016-08-02] MEDS ORDERED: POLYETHYLENE (MIRALAX) 17 GM PACK PO SCH ×2 (17:00→21:00)
[2016-08-02] MEDS: ROSUVASTATIN CALCIUM 10 MG TAB PO SCH (20:57)
[2016-08-02] MEDS: MULTIVITAMIN TAB PO SCH (20:59)
[2016-08-03] VITALS (10 sets, daily range): BP systolic 94–176; BP diastolic 41–84; PULSE 67–93; TEMP 36.5–37.5; O2SAT 92–97
[2016-08-03] MEDS: ACETAMINOPHEN 325 MG TAB PO PRN ×2 (00:27→17:24)
[2016-08-03] MEDS: PANTOprazole INJ 40 MG in DEXTROSE 5% 100ML IV SCH ×5 (00:41→22:53)
[2016-08-03] MEDS: LEVOTHYROXINE 88 MCG TAB PO SCH (05:44)
[2016-08-03 06:36] LABS: BASO % 0.3 %; BASO ABS # 0.02 K/uL (0-0.2); EOS % 3.9 %; HEMATOCRIT 24.7 % (37-47); IG% 0.5 %; LYMPH % 17.3 %; LYMPH ABS # 1.01 K/uL (1.2-3.4); MEAN CELL VOLUME 91.5 fL (80-100); MEAN CORPUSCULAR HEMOGLOBIN 30.4 pg (25-34); MEAN CORPUSCULAR HGB CONC 33.2 g/dl (32-36); MEAN PLATELET VOLUME 10.4 fL (7.4-10.4); MONO % 14.2 %; NEUT % 63.8 %; PLATELET COUNT 196 K/uL (130-400); WHITE BLOOD COUNT 5.83 K/uL (4.8-10.8)
[2016-08-03 07:44] LABS: COMPLETE YES; POLYCHROMASIA 1+
[2016-08-03] MEDS: METOPROLOL TARTRATE 25 MG TAB PO SCH ×2 (08:31→20:45)
--- NOTE | 2016-08-03 09:25 | Cardiology Follow-Up ---
Subjective General Date of Service: Aug 03, 2016. Chief Complaint: GI bleed Pt evaluation today including: conversation w/ patient, conversation w/ family , physical exam, chart review, lab review, review of studies, review of inpatient medication list History of Present Illness Patient seen and examined. Family at bedside For colonoscopy today No chest pain. No palpitations. Stable dyspnea, without orthopnea or PND Telemetry: Atrial sensed ventricular paced rhythm. No arrhythmias observed. Allergies Coded Allergies: Naproxen (Verified Allergy, Unknown, MILD ERYTHEMA AROUND EYES AND FACE, ) TOLERATES CELEBREX WITHOUT ISSUES Spironolactone (Unverified Allergy, Unknown, HYPERKALEMIA, 08/01/16) Morphine (Verified Adverse Reaction, Unknown, HALLUCINATIONS, 08/01/16) Social History Smoking Status: Never Smoker Hx Tobacco Use In Past Year?: No Hx Alcohol Use - Type And Amou: No Hx Substance Use - Type And Am: No Problem List Medical Problems: (1) Elevated INR Status: Acute (2) Elevated troponin Status: Acute (3) Severe anemia Status: Acute (4) Vaginal bleeding Status: Acute (5) Vaginal bleeding Status: Acute Physical Exam Vital Signs Last Vital Signs Documentation Date Time Temp Pulse Resp B/P Pulse Ox O2 Delivery O2 Flow Rate FiO2 08/03/16 08:00 Room Air 08/03/16 07:35 36.5 72 16 129/54 92 08/02/16 16:00 2.0 Physical Exam Constitutional: Level of Distress: NAD Psychiatric: Mental Status: active & alert Orientation: to time, to place, to person Memory: recent memory normal, remote memory normal Head: normocephalic, atraumatic Eyes: Pupils: PERRLA Neck: pertinent finding (Normal JVP) Lungs: Respiratory effort: no dyspnea Auscultation: breath sounds normal, no wheezing, no rales/crackles, no rhonchi Cardiovascular: Heart Auscultation: RRR, no rubs, II/ VINAY Abdomen: Bowel Sounds: normal Inspection & Palpation: soft, non-distended, no tenderness, guarding & rebound, no masses Extremities: no cyanosis, no clubbing, edema Neurologic: Cranial Nerves: grossly intact Assessment and Plan Assessment and Plan 81-year-old female admitted with symptomatic anemia, gastrointestinal bleeding. EGD OK on 08/02/2016. For colonoscopy today. ASA and Coumadin held. Elevated troponin observed, likely secondary to demand ischemia from the profound anemia, without overt angina symptoms. Options discussed with patient and family. Risks explained. No cardiac contraindications to colonoscopy today. Recommend uninterrupted continuation of beta-mateo therapy. Coumadin anticoagulation to be resumed when OK with GI, likely without ongoing use of ASA. Cardiology attending: Pt seen and examined, agree with findings and assessment as per Earnest Briceño For colonoscopy today. No cardiac complaints. ASA and coumadin held. Trop likely secondary to demand ischemia with a Hgb of 4. Will follow Laboratory Results Last 24 Hours Test 08/02/16 13:23 08/03/16 05:59 Sodium Level 143 mmol/L Potassium Level 3.7 mmol/L Chloride Level 108 mmol/L Carbon Dioxide Level 25 mmol/L Anion Gap 10.0 mmol/L Blood Urea Nitrogen 30 mg/dl Creatinine 1.10 mg/dl Est Creatinine Clear Calc Drug Dose 42.5 ml/min Estimated GFR () 54.5 Estimated GFR (Non- 47.0 BUN/Creatinine Ratio 26.9 Random Glucose 95 mg/dl Calcium Level 8.1 mg/dl Phosphorus Level 2.9 mg/dl Magnesium Level 1.8 mg/dl White Blood Count 5.83 K/uL Red Blood Count 2.70 M/uL Hemoglobin 8.2 g/dL Hematocrit 24.7 % Mean Corpuscular Volume 91.5 fL Mean Corpuscular Hemoglobin 30.4 pg Mean Corpuscular Hemoglobin Concent 33.2 g/dl Platelet Count 196 K/uL Mean Platelet Volume 10.4 fL Neutrophils (%) (Auto) 63.8 % Lymphocytes (%) (Auto) 17.3 % Monocytes (%) (Auto) 14.2 % Eosinophils (%) (Auto) 3.9 % Basophils (%) (Auto) 0.3 % Neutrophils # (Auto) 3.71 K/uL Lymphocytes # (Auto) 1.01 K/uL Monocytes # (Auto) 0.83 K/uL Eosinophils # (Auto) 0.23 K/uL Basophils # (Auto) 0.02 K/uL RDW Standard Deviation 55.7 fL RDW Coefficient of Variation 17.3 % Immature Granulocyte % (Auto) 0.5 % Immature Granulocyte # (Auto) 0.03 K/uL Polychromasia 1+
[2016-08-03] MEDS ORDERED: PROPOFOL IV EMULSION 10 MG/ML 20 ML VIAL IV ONE (12:24)
--- NOTE | 2016-08-03 13:39 | GI REPORT ---
Procedure Date: 08/03/2016 12:05 PM Procedure: Colonoscopy Indications: Anemia Medicines: See the Anesthesia note for documentation of the administered medications Complications: No immediate complications. Estimated Blood Loss: Estimated blood loss: none. Procedure: Pre-Anesthesia Assessment: - ASA Grade Assessment: IV - A patient with severe systemic disease that is a constant threat to life. After I obtained informed consent, the scope was passed under direct vision. Throughout the procedure, the patient's blood pressure, pulse, and oxygen saturations were monitored continuously. The scope was introduced through the anus and advanced to the terminal ileum. The colonoscopy was somewhat difficult due to restricted mobility of the colon. The pediatric scope could not be advanced beyond the sigmoid colon. An upper endoscope was used, and was advanced to the terminal ileum. The patient tolerated the procedure well. The quality of the bowel preparation was fair. Findings: The perianal and digital rectal examinations were normal. Multiple small and large-mouthed diverticula were found in the entire colon. Three sessile polyps were found in the ascending colon. The polyps were 3 to 5 mm in size. These polyps were removed with a cold snare. Resection and retrieval were complete. A 1 mm polyp was found in the ascending colon. The polyp was sessile. The polyp was removed with a cold biopsy forceps. Resection and retrieval were complete. There was a mild shallow ulceration at the splenic flexure, and mild narrowing of the colon. This is likely secondary to colonic ischemia. This is not a source of pt's anemia. The exam was otherwise without abnormality. No soure of anemia was found. Impression: - Diverticulosis in the entire examined colon. - Three 3 to 5 mm polyps in the ascending colon, removed with a cold snare. Resected and retrieved. - One 1 mm polyp in the ascending colon, removed with a cold biopsy forceps. Resected and retrieved. - Evidence of colonic ischemia at splenic flexure. Recommendation: - Discharge patient to floor. See chart for recommendations. Justino Davidson M.D. Justino Davidson MD 08/03/2016 1:38:29 PM This report has been signed electronically. Note Initiated On: 08/03/2016 12:05 PM I attest to the content of the Intraoperative Record and orders documented therein, exceptions below
--- NOTE | 2016-08-03 14:22 | Anesthesiology Progress Note ---
Anesthesia Post Op Note Date & Time Aug 03, 2016 at 14:22 Vital Signs Pain Intensity: 0 Vital Signs Past 12 Hours Date Time Temp Pulse Resp B/P Pulse Ox O2 Delivery O2 Flow Rate FiO2 08/03/16 14:11 67 21 154/92 96 Room Air 3.0 08/03/16 13:51 69 21 157/96 96 Room Air 08/03/16 13:36 69 20 151/64 94 Room Air 73 08/03/16 13:21 73 20 136/62 94 Room Air 3.0 08/03/16 12:01 37.2 93 20 152/86 94 Room Air 08/03/16 11:27 36.9 67 16 130/41 92 Room Air 08/03/16 09:56 Room Air 08/03/16 08:00 Room Air 08/03/16 07:35 36.5 72 16 129/54 92 Room Air 08/03/16 06:05 36.8 86 17 138/74 93 Room Air 08/03/16 04:22 36.8 86 17 138/74 93 Room Air 08/03/16 04:00 93 Room Air Notes Mental Status: alert / awake / arousable, participated in evaluation Pt Amnestic to Procedure: Yes Nausea / Vomiting: adequately controlled Pain: adequately controlled Airway Patency, RR, SpO2: stable & adequate BP & HR: stable & adequate Hydration State: stable & adequate Anesthetic Complications: no major complications apparent
--- NOTE | 2016-08-03 15:00 | Progress Note ---
Progress Note Colonoscopy today by Dr. Davidson: Diverticulosis in the entire examined colon. - Three 3 to 5 mm polyps in the ascending colon, removed with a cold snare. Resected and retrieved. - One 1 mm polyp in the ascending colon, removed with a cold biopsy forceps. Resected and retrieved. - Evidence of colonic ischemia at splenic flexure. Recommend: Regular diet. OP VCE OK to resume Coumadin in 3-4 days. (Odalis Wheeler,C.R.N.P.) Attg addendum: I discussed plan of care with family in great detail. Neither EGD nor cscopy showed source of GIB. She may have small bowel AVM's as possible cause for anemia. Will plan for outpt VCE; otherwise, no further inpt GI w/u planned. Please resume low dose ASA. Will defer need for anticoagulation to cardiology service, but if there is plan to continue, please wait 3 days prior to resuming. (Justino Davidson M.D.)
--- NOTE | 2016-08-03 15:07 | Progress Note ---
Internal Med Progress Note Date of Service: Aug 03, 2016. Provider Documentation: SUBJECTIVE: The patient was seen and examined Denies any complaints Admitted with Tiredness and exertional SOB Has had Melena since Tuesday last Feels fine this morning OBJECTIVE: Vital Signs-as noted below Exam: General-no distress at rest Eyes-normal ENT-normal Neck-supple Lungs-clear to ausucltate bilaterally Heart-Regular,no murmur appreciated Abdomen-Benign,no masses,bowel sound present Extremities-No edema Neuro-AAOx3 Lab data as noted below. ASSESSMENT & PLAN: Acute Blood Loss Anemia Secondary to Upper gastrointestinal bleeding likely due to esophagitis, gastritis, peptic ulcer disease, gastric tumor. Complicated by Coumadin coagulopathy Symptomatic anemia secondary to above PPI bolus and continue as drip Hold aspirin and Coumadin for now. Continue Transfusion-transfused 1 total of 5 Units of PRBC GI consulted-appreciate Input Hb >8 this morning EGD::Impression: - Normal esophagus. - Normal stomach. - Normal examined duodenum. - No specimens collected. Recommendation: - Discharge patient to floor Colonoscopy::- Three 3 to 5 mm polyps in the ascending colon, removed with a cold snare. Resected and retrieved. - One 1 mm polyp in the ascending colon, removed with a cold biopsy forceps. Resected and retrieved. - Evidence of colonic ischemia at splenic flexure. Recommend: Regular diet. OP VCE OK to resume Coumadin in 3-4 days. SSS sp PPM, paced rhythm, INR supra therapeutic.-3.6 Received Vit K IV n ER and later on FFP Recheck INR-1.1 will restart Coumadin in 3 to 4 days CAD as per records No Acute symptoms Appreciate Cardiology input and recommendation HTN, BP on the lower side Acute renal failure secondary Monitor PRP-creatinine improved DVT prophylaxis, SCDs while off Coumadin and INR less than 2. DNR. DISPOSITION Awaited Discussed with the family members Vital Signs: Date Time Temp Pulse Resp B/P Pulse Ox O2 Delivery O2 Flow Rate FiO2 08/03/16 14:25 Room Air 08/03/16 14:11 67 21 154/92 96 Room Air 3.0 08/03/16 13:51 69 21 157/96 96 Room Air 08/03/16 13:36 69 20 151/64 94 Room Air 73 08/03/16 13:21 73 20 136/62 94 Room Air 3.0 08/03/16 12:01 37.2 93 20 152/86 94 Room Air 08/03/16 11:27 36.9 67 16 130/41 92 Room Air 08/03/16 09:56 Room Air 08/03/16 08:00 Room Air 08/03/16 07:35 36.5 72 16 129/54 92 Room Air 08/03/16 06:05 36.8 86 17 138/74 93 Room Air 08/03/16 04:22 36.8 86 17 138/74 93 Room Air 08/03/16 04:00 93 Room Air 08/03/16 00:17 37.1 86 20 94/72 97 Room Air 08/03/16 00:01 97 Room Air 08/02/16 20:04 36.7 86 20 153/58 94 Room Air 08/02/16 20:00 94 Room Air 08/02/16 16:00 98 Nasal Cannula 2.0 08/02/16 15:56 36.5 70 18 121/67 95 Room Air Lab Results: Results Past 24 Hours Test 08/03/16 05:59 Range/Units White Blood Count 5.83 4.8-10.8 K/uL Red Blood Count 2.70 4.2-5.4 M/uL Hemoglobin 8.2 12.0-16.0 g/dL Hematocrit 24.7 37-47 % Mean Corpuscular Volume 91.5 80-100 fL Mean Corpuscular Hemoglobin 30.4 25-34 pg Mean Corpuscular Hemoglobin Concent 33.2 32-36 g/dl Platelet Count 196 130-400 K/uL Mean Platelet Volume 10.4 7.4-10.4 fL Neutrophils (%) (Auto) 63.8 % Lymphocytes (%) (Auto) 17.3 % Monocytes (%) (Auto) 14.2 % Eosinophils (%) (Auto) 3.9 % Basophils (%) (Auto) 0.3 % Neutrophils # (Auto) 3.71 1.4-6.5 K/uL Lymphocytes # (Auto) 1.01 1.2-3.4 K/uL Monocytes # (Auto) 0.83 0.11-0.59 K/uL Eosinophils # (Auto) 0.23 0-0.5 K/uL Basophils # (Auto) 0.02 0-0.2 K/uL RDW Standard Deviation 55.7 36.4-46.3 fL RDW Coefficient of Variation 17.3 11.5-14.5 % Immature Granulocyte % (Auto) 0.5 % Immature Granulocyte # (Auto) 0.03 0.00-0.02 K/uL Polychromasia 1+
[2016-08-03] MEDS ORDERED: NURSING VERBAL MED ORDER ONE (18:00)
[2016-08-03] MEDS: ROSUVASTATIN CALCIUM 10 MG TAB PO SCH (20:44)
[2016-08-03] MEDS: MULTIVITAMIN TAB PO SCH (20:45)
[2016-08-04] VITALS (11 sets, daily range): BP systolic 117–151; BP diastolic 51–78; PULSE 69–93; TEMP 36.6–37.4; O2SAT 92–97
[2016-08-04] MEDS: PANTOprazole INJ 40 MG in DEXTROSE 5% 100ML IV SCH ×2 (03:34→08:17)
[2016-08-04] MEDS: LEVOTHYROXINE 88 MCG TAB PO SCH (05:42)
[2016-08-04 05:49] LABS: BASO % 0.2 %; BASO ABS # 0.01 K/uL (0-0.2); EOS % 4.4 %; HEMATOCRIT 24.8 % (37-47); IG% 0.3 %; LYMPH % 16.3 %; LYMPH ABS # 1.04 K/uL (1.2-3.4); MEAN CELL VOLUME 92.2 fL (80-100); MEAN CORPUSCULAR HEMOGLOBIN 29.7 pg (25-34); MEAN CORPUSCULAR HGB CONC 32.3 g/dl (32-36); MONO % 14.2 %; NEUT % 64.6 %; PLATELET COUNT 190 K/uL (130-400); RED BLOOD COUNT 2.69 M/uL (4.2-5.4); WHITE BLOOD COUNT 6.39 K/uL (4.8-10.8)
[2016-08-04 06:24] LABS: COMPLETE YES
[2016-08-04 06:31] LABS: BUN/CREATININE RATIO 12.6 (10-20); MAGNESIUM 1.8 mg/dl (1.8-2.4); POTASSIUM 3.5 mmol/L (3.5-5.1)
[2016-08-04] MEDS: METOPROLOL TARTRATE 25 MG TAB PO SCH ×2 (08:16→21:18)
--- NOTE | 2016-08-04 09:19 | Cardiology Follow-Up ---
Subjective General Date of Service: Aug 04, 2016. Chief Complaint: GI bleed Pt evaluation today including: conversation w/ patient, physical exam, chart review, lab review, review of studies, review of inpatient medication list History of Present Illness Patient seen and examined. No chest pain. No palpitations. Stable dyspnea, without orthopnea or PND Telemetry: Atrial sensed ventricular paced rhythm. Allergies Coded Allergies: Naproxen (Verified Allergy, Unknown, MILD ERYTHEMA AROUND EYES AND FACE, ) TOLERATES CELEBREX WITHOUT ISSUES Spironolactone (Unverified Allergy, Unknown, HYPERKALEMIA, 08/01/16) Morphine (Verified Adverse Reaction, Unknown, HALLUCINATIONS, 08/01/16) Social History Smoking Status: Never Smoker Hx Tobacco Use In Past Year?: No Hx Alcohol Use - Type And Amou: No Hx Substance Use - Type And Am: No Problem List Medical Problems: (1) Elevated INR Status: Acute (2) Elevated troponin Status: Acute (3) Severe anemia Status: Acute (4) Vaginal bleeding Status: Acute (5) Vaginal bleeding Status: Acute Physical Exam Vital Signs Last Vital Signs Documentation Date Time Temp Pulse Resp B/P Pulse Ox O2 Delivery O2 Flow Rate FiO2 08/04/16 07:59 36.6 78 18 128/78 92 08/04/16 04:05 Room Air 08/03/16 14:11 3.0 Physical Exam Constitutional: Level of Distress: NAD Psychiatric: Mental Status: active & alert Orientation: to time, to place, to person Memory: recent memory normal, remote memory normal Head: normocephalic, atraumatic Eyes: Pupils: PERRLA Neck: pertinent finding (Normal JVP) Lungs: Respiratory effort: no dyspnea Auscultation: breath sounds normal, no wheezing, no rales/crackles, no rhonchi Cardiovascular: Heart Auscultation: RRR, no rubs, II/ VINAY Abdomen: Bowel Sounds: normal Inspection & Palpation: soft, non-distended, no tenderness, guarding & rebound, no masses Extremities: no cyanosis, no clubbing, edema Neurologic: Cranial Nerves: grossly intact Assessment and Plan Assessment and Plan 81-year-old female admitted with symptomatic anemia, gastrointestinal bleeding. Neither EGD nor colonoscopy revealed a source. Outpatient video endoscopy planned. Elevated troponin observed, likely secondary to demand ischemia from the profound anemia, without overt angina symptoms. Recommend uninterrupted continuation of beta-mateo therapy. Coumadin anticoagulation to be resumed in 3-4 days. Please call if any questions or concerns. Cardiology follow-up with Dr. Liam Cesar DO, [facility], [facility] on 09/15/2016 @ 9:25 AM Laboratory Results Last 24 Hours Test 08/04/16 05:27 White Blood Count 6.39 K/uL Red Blood Count 2.69 M/uL Hemoglobin 8.0 g/dL Hematocrit 24.8 % Mean Corpuscular Volume 92.2 fL Mean Corpuscular Hemoglobin 29.7 pg Mean Corpuscular Hemoglobin Concent 32.3 g/dl Platelet Count 190 K/uL Mean Platelet Volume 10.0 fL Neutrophils (%) (Auto) 64.6 % Lymphocytes (%) (Auto) 16.3 % Monocytes (%) (Auto) 14.2 % Eosinophils (%) (Auto) 4.4 % Basophils (%) (Auto) 0.2 % Neutrophils # (Auto) 4.13 K/uL Lymphocytes # (Auto) 1.04 K/uL Monocytes # (Auto) 0.91 K/uL Eosinophils # (Auto) 0.28 K/uL Basophils # (Auto) 0.01 K/uL RDW Standard Deviation 54.6 fL RDW Coefficient of Variation 16.6 % Immature Granulocyte % (Auto) 0.3 % Immature Granulocyte # (Auto) 0.02 K/uL Red Blood Cell Morphology Unremarkable Sodium Level 144 mmol/L Potassium Level 3.5 mmol/L Chloride Level 109 mmol/L Carbon Dioxide Level 26 mmol/L Anion Gap 9.0 mmol/L Blood Urea Nitrogen 13 mg/dl Creatinine 1.00 mg/dl Est Creatinine Clear Calc Drug Dose 46.8 ml/min Estimated GFR () 61.2 Estimated GFR (Non- 52.8 BUN/Creatinine Ratio 12.6 Random Glucose 93 mg/dl Calcium Level 8.0 mg/dl Magnesium Level 1.8 mg/dl
--- NOTE | 2016-08-04 11:20 | Progress Note ---
Internal Med Progress Note Date of Service: Aug 04, 2016. Provider Documentation: SUBJECTIVE: The patient was seen and examined Denies any complaints Admitted with Tiredness and exertional SOB Has had Melena before admission OBJECTIVE: Vital Signs-as noted below Exam: General-no distress at rest Eyes-normal ENT-normal Neck-supple Lungs-clear to ausucltate bilaterally Heart-Regular,no murmur appreciated Abdomen-Benign,no masses,bowel sound present Extremities-No edema Neuro-AAOx3 Lab data as noted below. ASSESSMENT & PLAN: Acute Blood Loss Anemia Secondary to Upper gastrointestinal bleeding likely due to esophagitis, gastritis, peptic ulcer disease, gastric tumor. Complicated by Coumadin coagulopathy Symptomatic anemia secondary to above PPI bolus and continue as drip Hold aspirin and Coumadin for now. Continue Transfusion-transfused 1 total of 5 Units of PRBC GI consulted-appreciate Input EGD::Impression: - Normal esophagus. - Normal stomach. - Normal examined duodenum. - No specimens collected. Recommendation: - Discharge patient to floor Colonoscopy::- Three 3 to 5 mm polyps in the ascending colon, removed with a cold snare. Resected and retrieved. - One 1 mm polyp in the ascending colon, removed with a cold biopsy forceps. Resected and retrieved. - Evidence of colonic ischemia at splenic flexure. Recommend: Regular diet. OP VCE OK to resume Coumadin in 3-4 days. Hb 8.0 this morning Start Iron,Protonix to oral Transfer to Medical Recheck Hb in AM -if >8 will discharge SSS sp PPM, paced rhythm, INR supra therapeutic.-3.6 Received Vit K IV n ER and later on FFP Recheck INR-1.1 will restart Coumadin in 2-3 days CAD as per records No Acute symptoms Appreciate Cardiology input and recommendation HTN, BP on the lower side Acute renal failure secondary Monitor PRP-Improved to Normal DVT prophylaxis, SCDs while off Coumadin and INR less than 2. DNR. DISPOSITION Awaited Discussed with the family members again today Discharge tomorow Vital Signs: Date Time Temp Pulse Resp B/P Pulse Ox O2 Delivery O2 Flow Rate FiO2 08/04/16 08:00 92 Room Air 08/04/16 07:59 36.6 78 18 128/78 92 08/04/16 04:05 36.8 74 25 133/58 92 Room Air 08/04/16 04:00 92 Room Air 08/04/16 00:04 37.4 74 27 117/51 93 Room Air 08/04/16 00:01 93 Room Air 08/03/16 20:22 37.5 93 20 176/59 93 Room Air 08/03/16 20:00 93 Room Air 08/03/16 16:05 36.9 70 24 158/84 92 Room Air 08/03/16 16:00 Room Air 08/03/16 14:25 Room Air 08/03/16 14:11 67 21 154/92 96 Room Air 3.0 08/03/16 13:51 69 21 157/96 96 Room Air 08/03/16 13:36 69 20 151/64 94 Room Air 73 08/03/16 13:21 73 20 136/62 94 Room Air 3.0 08/03/16 12:01 37.2 93 20 152/86 94 Room Air 08/03/16 11:27 36.9 67 16 130/41 92 Room Air Lab Results: Results Past 24 Hours Test 08/04/16 05:27 Range/Units White Blood Count 6.39 4.8-10.8 K/uL Red Blood Count 2.69 4.2-5.4 M/uL Hemoglobin 8.0 12.0-16.0 g/dL Hematocrit 24.8 37-47 % Mean Corpuscular Volume 92.2 80-100 fL Mean Corpuscular Hemoglobin 29.7 25-34 pg Mean Corpuscular Hemoglobin Concent 32.3 32-36 g/dl Platelet Count 190 130-400 K/uL Mean Platelet Volume 10.0 7.4-10.4 fL Neutrophils (%) (Auto) 64.6 % Lymphocytes (%) (Auto) 16.3 % Monocytes (%) (Auto) 14.2 % Eosinophils (%) (Auto) 4.4 % Basophils (%) (Auto) 0.2 % Neutrophils # (Auto) 4.13 1.4-6.5 K/uL Lymphocytes # (Auto) 1.04 1.2-3.4 K/uL Monocytes # (Auto) 0.91 0.11-0.59 K/uL Eosinophils # (Auto) 0.28 0-0.5 K/uL Basophils # (Auto) 0.01 0-0.2 K/uL RDW Standard Deviation 54.6 36.4-46.3 fL RDW Coefficient of Variation 16.6 11.5-14.5 % Immature Granulocyte % (Auto) 0.3 % Immature Granulocyte # (Auto) 0.02 0.00-0.02 K/uL Red Blood Cell Morphology Unremarkable Sodium Level 144 136-145 mmol/L Potassium Level 3.5 3.5-5.1 mmol/L Chloride Level 109 98-107 mmol/L Carbon Dioxide Level 26 21-32 mmol/L Anion Gap 9.0 3-11 mmol/L Blood Urea Nitrogen 13 7-18 mg/dl Creatinine 1.00 0.60-1.20 mg/dl Est Creatinine Clear Calc Drug Dose 46.8 ml/min Estimated GFR () 61.2 Estimated GFR (Non- 52.8 BUN/Creatinine Ratio 12.6 10-20 Random Glucose 93 70-99 mg/dl Calcium Level 8.0 8.5-10.1 mg/dl Magnesium Level 1.8 1.8-2.4 mg/dl
[2016-08-04] MEDS: FERROUS GLUCONATE 324 MG TAB PO SCH (18:09)
[2016-08-04] MEDS: PANTOprazole SOD 40 MG TAB PO SCH (21:18)
[2016-08-04] MEDS: ROSUVASTATIN CALCIUM 10 MG TAB PO SCH (21:18)
[2016-08-04] MEDS: MULTIVITAMIN TAB PO SCH (21:18)
[2016-08-05] MEDS: LEVOTHYROXINE 88 MCG TAB PO SCH (05:57)
[2016-08-05 07:26] LABS: BASO % 0.3 %; BASO ABS # 0.02 K/uL (0-0.2); EOS % 4.3 %; HEMATOCRIT 25.5 % (37-47); IG% 0.3 %; LYMPH % 15.7 %; LYMPH ABS # 0.99 K/uL (1.2-3.4); MEAN CELL VOLUME 91.7 fL (80-100); MEAN CORPUSCULAR HEMOGLOBIN 29.5 pg (25-34); MEAN CORPUSCULAR HGB CONC 32.2 g/dl (32-36); MEAN PLATELET VOLUME 9.8 fL (7.4-10.4); MONO % 16.3 %; NEUT % 63.1 %; PLATELET COUNT 209 K/uL (130-400); RED BLOOD COUNT 2.78 M/uL (4.2-5.4)
[2016-08-05] MEDS: METOPROLOL TARTRATE 25 MG TAB PO SCH (07:28)
[2016-08-05 07:45] LABS: COMPLETE YES; HYPOCHROMIA PRESENT
[2016-08-05 07:48] VITALS: BP 166/97; PULSE 87; TEMP 37; O2SAT 94
[2016-08-05] MEDS: PANTOprazole SOD 40 MG TAB PO SCH (08:54)
[2016-08-05] MEDS: FERROUS GLUCONATE 324 MG TAB PO SCH (08:54)
[2016-08-05 11:21] VITALS: BP 116/71; PULSE 69; TEMP 36.4; O2SAT 95
--- NOTE | 2016-08-05 11:45 | Progress Note ---
Internal Med Progress Note Date of Service: Aug 05, 2016. Provider Documentation: SUBJECTIVE: The patient was seen and examined Denies any complaints Admitted with Tiredness and exertional SOB Has had Melena before admission No more Melena Feels a lot better today ready to be discharged OBJECTIVE: Vital Signs-as noted below Exam: General-no distress at rest Eyes-normal ENT-normal Neck-supple Lungs-clear to ausucltate bilaterally Heart-Regular,no murmur appreciated Abdomen-Benign,no masses,bowel sound present Extremities-No edema Neuro-AAOx3 Lab data as noted below. ASSESSMENT & PLAN: Acute Blood Loss Anemia Secondary to Upper gastrointestinal bleeding likely due to esophagitis, gastritis, peptic ulcer disease, gastric tumor. Complicated by Coumadin coagulopathy Symptomatic anemia secondary to above PPI bolus and continue as drip Hold aspirin and Coumadin for now. Continue Transfusion-transfused a total of 5 Units of PRBC GI consulted-appreciate Input EGD::Impression: - Normal esophagus. - Normal stomach. - Normal examined duodenum. - No specimens collected. Recommendation: - Discharge patient to floor Colonoscopy::- Three 3 to 5 mm polyps in the ascending colon, removed with a cold snare. Resected and retrieved. - One 1 mm polyp in the ascending colon, removed with a cold biopsy forceps. Resected and retrieved. - Evidence of colonic ischemia at splenic flexure. Recommend: Regular diet. OP VCE OK to resume Coumadin in 3-4 days. Hb 8.0 this morning Start Iron,Protonix to oral Transfer to Medical Recheck Hb in AM -if >8 will discharge Will discharge today SSS sp PPM, paced rhythm, INR supra therapeutic.-3.6 Received Vit K IV n ER and later on FFP Recheck INR-1.1 will restart Coumadin in 2 days days No more Aspirin CAD as per records No Acute symptoms Appreciate Cardiology input and recommendation HTN, BP on the lower side Acute renal failure secondary Monitor PRP-Improved to Normal DVT prophylaxis, SCDs while off Coumadin and INR less than 2. DNR. DISPOSITION Awaited Discussed with the family members again today Discharge today Vital Signs: Date Time Temp Pulse Resp B/P Pulse Ox O2 Delivery O2 Flow Rate FiO2 08/05/16 11:21 36.4 69 16 116/71 95 Room Air 08/05/16 08:05 Room Air 08/05/16 07:48 37.0 87 16 166/97 94 Room Air 08/05/16 00:00 Room Air 08/04/16 23:45 37.0 93 20 147/74 93 08/04/16 21:17 77 151/69 08/04/16 20:15 Room Air 08/04/16 15:45 Room Air 08/04/16 15:10 36.6 69 18 122/60 94 Room Air 08/04/16 12:06 36.9 16 130/67 97 Room Air Lab Results: Results Past 24 Hours Test 08/05/16 07:08 Range/Units White Blood Count 6.30 4.8-10.8 K/uL Red Blood Count 2.78 4.2-5.4 M/uL Hemoglobin 8.2 12.0-16.0 g/dL Hematocrit 25.5 37-47 % Mean Corpuscular Volume 91.7 80-100 fL Mean Corpuscular Hemoglobin 29.5 25-34 pg Mean Corpuscular Hemoglobin Concent 32.2 32-36 g/dl Platelet Count 209 130-400 K/uL Mean Platelet Volume 9.8 7.4-10.4 fL Neutrophils (%) (Auto) 63.1 % Lymphocytes (%) (Auto) 15.7 % Monocytes (%) (Auto) 16.3 % Eosinophils (%) (Auto) 4.3 % Basophils (%) (Auto) 0.3 % Neutrophils # (Auto) 3.97 1.4-6.5 K/uL Lymphocytes # (Auto) 0.99 1.2-3.4 K/uL Monocytes # (Auto) 1.03 0.11-0.59 K/uL Eosinophils # (Auto) 0.27 0-0.5 K/uL Basophils # (Auto) 0.02 0-0.2 K/uL RDW Standard Deviation 52.9 36.4-46.3 fL RDW Coefficient of Variation 15.8 11.5-14.5 % Immature Granulocyte % (Auto) 0.3 % Immature Granulocyte # (Auto) 0.02 0.00-0.02 K/uL Hypochromasia PRESENT Macrocytosis PRESENT
[2016-08-05] MEDS ORDERED: FRRG PO (11:59)
--- NOTE | 2016-08-05 12:04 | Discharge Instructions ---
Discharge Instructions Admission Reason for Admission: Gi Bleed Discharge Discharge Diagnosis / Problem: Acute Blood Loss Anemia,S/P 5 Units of PRBC,No bleeding site in Endoscopies Discharge Goals Goal(s): Prevent Disease Progression Activity Recommendations Activity Limitations: resume your previous activity . Instructions / Follow-Up Instructions / Follow-Up Your Doctors office will call with appointment,Coagulation clinic will call for follow up.START TAKING COUMADIN FROM TUESDAY Current Hospital Diet Patient's current hospital diet: Regular Diet Discharge Diet Recommended Diet: Regular Diet Procedures Procedures Performed: EGD AND COLONOSCOPY Pending Studies Studies pending at discharge: no Medical Emergencies . Who to Call and When: Medical Emergencies: If at any time you feel your situation is an emergency, please call 911 immediately. . Non-Emergent Contact Non-Emergency issues call your: Primary Care Provider . Past History Medical & Surgical History: (1) Chronic kidney disease (CKD) stage G3a/A1, moderately decreased glomerular filtration rate (GFR) between 45-59 mL/min/1.73 square meter and albuminuria creatinine ratio less than 30 mg/g (2) GI bleed (3) Severe anemia (4) CAD (coronary artery disease) (5) Atrial fibrillation (6) Pacemaker (7) Diastolic CHF, chronic . "Provider Documentation" section prepared by Jannie Mcfarlane. VTE Core Measure Inpt VTE Proph given/why not?: SCD's
[2016-08-05 13:33] VITALS: BP 116/71; PULSE 69; TEMP 36.4; O2SAT 95
--- NOTE | 2016-08-05 17:25 | Discharge Summary ---
Discharge Summary Admission Date: Aug 01, 2016 at 06:21 Discharge Date: Aug 05, 2016 Principal Diagnosis: Acute Blood Loss Anemia,S/P 5 Units of PRBC,No bleeding site in Endoscopies Secondary Diagnoses/Problems: Please see H&P Procedures: EGD and Colonoscopy Consultations: Cardiology and GI Medication Reconciliation New Medications: Ferrous Gluconate (Ferrous Gluconate) 324 Mg Tab 324 MG PO BIDM for 30 Days, #60 TAB Continued Medications: Acetaminophen (Tylenol) 500 Mg Tab 1000 MG PO PRN, TAB Albuterol (Ventolin) Inh 1 PUFFS INH QID PRN for Shortness of Breath for 5 Days, INHALER Ampicillin (Ampicillin) 500 Mg Cap 2000 MG PO UD, CAP BEFORE DENTAL WORK Calcium (Caltrate) 600 Mg Tab 600 MG PO QPM, 0 Refills Cholecalciferol (Vitamin D3) 1,000 Unit Cap 1000 UNITS PO DAILY Cranberry (Vaccinium Macrocarp (Cranberry) 600 Mg Tab 4200 MG PO QAM Esomeprazole Magnesium (Nexium) 20 Mg Capcr 20 MG PO QAM, CAP Estrogens, Conjugated (Premarin) 0.625 Mg Tab 0.625 MG PO DAILY, TAB Estrogens, Conjugated (Premarin) 14 Appln/30 Gm Cr 1 APPL PV 2XWK Furosemide (Lasix) 20 Mg Tab 20 MG PO Q2D PRN for leg swelling, TAB Levothyroxine Sodium (Synthroid) 88 Mcg Tab 88 MCG PO QAM, TAB Metoprolol Tartrate (Lopressor) 25 Mg Tab 12.5 MG PO BID, TAB Misc Natural Products (Osteo Bi-Flex Advanced Do) 1 Tab Tab 1 TAB PO QAM Multiple Vitamin (Multivitamin) 1 Tab Tab 1 TAB PO QPM, TAB Nystatin (Topical) (Nystop) 100,000 Unit/Gm Pow 1 APPLN TD BID APPLY TO GROIN TWICE DAILY. Oxybutynin Chloride (Ditropan Xl) 15 Mg Tab 30 MG PO DAILY Rosuvastatin Calcium (Crestor) 10 Mg Tab 10 MG PO QPM, TAB Warfarin Sodium (Coumadin) 1 Mg Tab 1 MG PO 5XWK, TAB TAKE 1MG EVERY TUESDAY/TUESDAY/TUESDAY/TUESDAY/TUESDAY. Warfarin Sodium (Coumadin) 1 Mg Tab 2 MG PO 2XWK for 30 Days, TAB 5 Refills TAKE 2 MG ON WEDNESDAYS/SATURDAYS. Discontinued Medications: Aspirin (Aspirin Ec) 81 Mg Tab 81 MG PO QPM Doxycycline Hyclate (Doxycycline Hyclate) 100 Mg Tab 100 MG PO BID for 7 Days, #14 TAB Admission Information HPI (per Admitting provider): DATE OF ADMISSION: 08/01/2016 PRIMARY CARE PHYSICIAN: Dr. Hutchison. CHIEF COMPLAINT: weakness, black stools. HISTORY OF PRESENT ILLNESS: Medical history is significant for coronary artery disease as per records, hypertension, hyperlipidemia, hypothyroidism. SSS sp PPM Recent gynecologic procedure, hysteroscopy polypectomy at same day surgery by Gynecology last 08/2015. One week history of shortness of breath at rest. No chest pain. Patient feeling weak. Patient also noted black stools. Denies abdominal pain, no hematemesis/coffee-ground emesis. Denies uncontrolled reflux symptoms. Recent Doxycycline antibiotic intake for cellulitis. Patient brought to the Emergency Room. Hemoglobin was noted to be 4. One unit packed RBC ordered in the Emergency Room. MEDICAL HISTORY: As above. 2D echo from November 2014 showed EF 55-60%. LVH, abnormal septal motion secondary to pacemaker activation No previous endoscopies in the past. SURGERIES : gynecologic procedures, pacemaker placement and her tonsils taken out, appendectomy, thyroid lump removal. HOME MEDICATIONS: Include, aspirin, Coumadin, metoprolol, Caltrate, Nexium, Premarin, Lasix, multivitamins, Ditropan, Crestor. ALLERGIES: MORPHINE, NAPROXEN, SPIRONOLACTONE. FAMILY HISTORY: Heart disease. PERSONAL AND SOCIAL HISTORY: Nonsmoker, no chronic intake of alcoholic beverages. Homemaker in younger years. REVIEW OF SYSTEMS: As per HPI, all other ROS negative. PHYSICAL EXAMINATION: VITAL SIGNS: Blood pressure was noted to be 137/79, pulse rate 81, heart rate 18, temperature 36.6, sats 98 on room air. GENERAL: Noted to be obese, slightly anxious, no distress. SKIN: Pallor. HEENT: Pale palpebral conjunctivae. Dry mucosa. NECK: Short neck. LUNGS: Decreased effort. HEART: Regular rate and rhythm. ABDOMEN: Some distention, no tenderness. RECTAL: As per ER MD, black tarry stools heme positive. EXTREMITIES: Minimal LE edema. no tenderness NEUROLOGIC: No gross focality. LABS: Hemoglobin 4 from 10 last June 2016, from 13 from September 2015, hematocrit 33, white cell count 8, platelets 64. Sodium was noted to be 144, potassium 4.5, chloride 109, CO2 of 22, BUN 38, creatinine 1.3, glucose 110. INR was noted to be 3.6. trop 0.11 EKG paced rhythm ASSESSMENT: 1. Upper gastrointestinal bleeding Coumadin coagulopathy possible etiologies : esophagitis, gastritis, peptic ulcer disease, gastric tumor. 2. Symptomatic anemia secondary to above 3. SSS sp PPM, paced rhythm, INR supratherapeutic. 4. CAD as per records 6. HTN, BP on the lower side 7. Acute renal failure secondary to illness, meds PLAN: PCU. Serial HH, transfuse pRBC to maintain hemoglobin greater than 8 (hx CAD) hold aspirin and Coumadin for now. reversal of INR in order with vitamin K and FFP PPI bolus drip GI consult. UGIB monitor crea response to IVF, hold home diuretics for now until crea at baseline DVT prophylaxis, SCDs while off Coumadin and INR less than 2. DNR. Total critical care time was 50 minutes. Hospital Course Acute Blood Loss Anemia Secondary to Upper gastrointestinal bleeding likely due to esophagitis, gastritis, peptic ulcer disease, gastric tumor. Complicated by Coumadin coagulopathy Symptomatic anemia secondary to above PPI bolus and continue as drip Hold aspirin and Coumadin for now. Continue Transfusion-transfused a total of 5 Units of PRBC GI consulted-appreciate Input EGD::Impression: - Normal esophagus. - Normal stomach. - Normal examined duodenum. - No specimens collected. Recommendation: - Discharge patient to floor Colonoscopy::- Three 3 to 5 mm polyps in the ascending colon, removed with a cold snare. Resected and retrieved. - One 1 mm polyp in the ascending colon, removed with a cold biopsy forceps. Resected and retrieved. - Evidence of colonic ischemia at splenic flexure. Recommend: Regular diet. OP VCE OK to resume Coumadin in 3-4 days. Hb 8.0 this morning Start Iron,Protonix to oral Transfer to Medical Recheck Hb in AM -if >8 will discharge Will discharge today SSS sp PPM, paced rhythm, INR supra therapeutic.-3.6 Received Vit K IV n ER and later on FFP Recheck INR-1.1 will restart Coumadin in 2 days days No more Aspirin CAD as per records No Acute symptoms Appreciate Cardiology input and recommendation HTN, BP on the lower side Acute renal failure secondary Monitor PRP-Improved to Normal DVT prophylaxis, SCDs while off Coumadin and INR less than 2. DNR. DISPOSITION Awaited Discussed with the family members again today Discharge today Total time spent on discharge = 35 minutes This includes examination of the patient, discharge planning, medication reconciliation, and communication with other providers. Discharge Instructions Admission Reason for Admission: Gi Bleed Discharge Discharge Diagnosis / Problem: Acute Blood Loss Anemia,S/P 5 Units of PRBC,No bleeding site in Endoscopies Discharge Goals Goal(s): Prevent Disease Progression Activity Recommendations Activity Limitations: resume your previous activity . Instructions / Follow-Up Instructions / Follow-Up Your Doctors office will call with appointment,Coagulation clinic will call for follow up.START TAKING COUMADIN FROM TUESDAY Current Hospital Diet Patient's current hospital diet: Regular Diet Discharge Diet Recommended Diet: Regular Diet Procedures Procedures Performed: EGD AND COLONOSCOPY Pending Studies Studies pending at discharge: no Medical Emergencies . Who to Call and When: Medical Emergencies: If at any time you feel your situation is an emergency, please call 911 immediately. . Non-Emergent Contact Non-Emergency issues call your: Primary Care Provider . Past History Medical & Surgical History: (1) Chronic kidney disease (CKD) stage G3a/A1, moderately decreased glomerular filtration rate (GFR) between 45-59 mL/min/1.73 square meter and albuminuria creatinine ratio less than 30 mg/g (2) GI bleed (3) Severe anemia (4) CAD (coronary artery disease) (5) Atrial fibrillation (6) Pacemaker (7) Diastolic CHF, chronic . "Provider Documentation" section prepared by Jannie Mcfarlane. VTE Core Measure Inpt VTE Proph given/why not?: SCD's <Electronically signed by Jannie Mcfarlane M.D.> Additional Copies To Elizabeth Hutchison D.O.
[2016-12-10] MEDS ORDERED: PANT40TA PO (11:57)
== END 2016-08-05 13:45 | disposition home or self-care (01) | DRG 813 ==
LOC: ENRESERVDT → ENRESERVTM → C.EDB 03:38 → C.2E 06:21 → C.MSN 08-04 11:24
PROVIDERS: ADMIT Internal Medicine; ATTEND Internal Medicine
PROC: 0DJ08ZZ Inspection of Upper Intestinal Tract, Via Natural or Artificial Opening Endoscopic (ICD-10-PCS; principal; 2016-08-02 09:08)
PROC: 0DBK8ZX Excision of Ascending Colon, Via Natural or Artificial Opening Endoscopic, Diagnostic (ICD-10-PCS; 2016-08-03)
DX: D68.32 Hemorrhagic disorder due to extrinsic circulating anticoagulants (principal); N17.9 Acute kidney failure, unspecified; I50.32 Chronic diastolic (congestive) heart failure; Z68.41 Body mass index [BMI] 40.0-44.9, adult; D62 Acute posthemorrhagic anemia; K55.1 Chronic vascular disorders of intestine; K92.2 Gastrointestinal hemorrhage, unspecified; T45.515A Adverse effect of anticoagulants, initial encounter; K57.30 Diverticulosis of large intestine without perforation or abscess without bleeding; E78.5 Hyperlipidemia, unspecified; I48.0 Paroxysmal atrial fibrillation; N18.3 Chronic kidney disease, stage 3 (moderate); E03.9 Hypothyroidism, unspecified; I25.2 Old myocardial infarction; I25.10 Atherosclerotic heart disease of native coronary artery without angina pectoris; I12.9 Hypertensive chronic kidney disease with stage 1 through stage 4 chronic kidney disease, or unspecified chronic kidney disease; M10.9 Gout, unspecified; E66.9 Obesity, unspecified; Z66 Do not resuscitate; Z79.01 Long term (current) use of anticoagulants; Z79.82 Long term (current) use of aspirin; Z79.899 Other long term (current) drug therapy; Z95.0 Presence of cardiac pacemaker

== ENCOUNTER → 2016-10-27 | Outpatient (CLI) | payer OTHER ==
[~2016-10-27] MED LIST changes: -ASPI-391 PO; -ASPI81TA28 PO; +CHOL1CAP57 PO; +ESOM20CA PO; +FRRG PO; -NXM/40 PO; +NYST100010 TD; +PANT40TA PO; +PRM625 PO; +PRMVC PV
--- NOTE | 2016-10-27 13:33 | MAMMOGRAPHY REPORT ---
UNILATERAL LEFT DIGITAL DIAGNOSTIC MAMMOGRAM TOMOSYNTHESIS WITH CAD AND TARGETED LEFT ULTRASOUND: 10/27/2016 CLINICAL HISTORY: Six-month follow-up of left breast asymmetry. A biopsy was recommended of the asy mmetry, however, the patient opted for follow-up. TECHNIQUE: Breast tomosynthesis in addition to standard 2D mammography was performed. Current study was also evaluated with a Computer Aided Detection (CAD) system. Left CC and MLO 2-D and tomosynth esis images were obtained. COMPARISON: Comparison is made to exams dated: 04/19/2016 ultrasound, 04/19/2016 mammogram, 6 mammogram, 02/26/2015 mammogram, 08/22/2013 mammogram, and 07/13/2012 mammogram - [facility]. BREAST COMPOSITION: The tissue of the left breast is almost entirely fatty. FINDINGS: Again noted is a focal asymmetry in the left 12:00 breast which contains at least one punc bergeron calcification. The asymmetry measures approximately 10 x 5 x 9 mm, and is stable compared to t March 2016 exam although has slowly increased in size dating back to 2007. Given the slight in terval increase in size, the finding is indeterminant and biopsy is recommended. The remainder of t he left breast is stable compared to prior exams, without suspicious masses, calcifications, or area s of architectural distortion noted. Small cluster of benign-appearing calcifications in the left m edial breast is stable. Targeted ultrasound was performed of the left 12:00 and subareolar breast in the region of the mammo graphic asymmetry. No sonographic correlate for the asymmetry is seen. No suspicious masses are no trent. IMPRESSION: ACR BI-RADS CATEGORY 4: SUSPICIOUS, TARGETED ULTRASOUND ACR BI-RADS CATEGORY 4: SUSPICI OUS Stable size of the focal asymmetry with associated punctate calcification in the left 12:00 breast c ompared to the March 2016 exam. However, the mass has slowly increased compared to prior exams an d therefore the mass is indeterminant for malignancy. No sonographic correlate is evident. Recomme nd stereotactic biopsy for further evaluation. A phone call was made to the physician's office to confirm faxed results were received. The patient has been verbally notified of the results. She tentatively scheduled the biopsy before leaving the department. I will leave it up to the patient's referring physician if she can safely discontinue Coumadin prior to the procedure. Approximately 10% of breast cancers are not detected with mammography. A negative mammographic repor t should not delay biopsy if a clinically suggestive mass is present. Cecily Gold M.D. ah/:10/27/2016 11:35:02 Director Of Early Childhood: Ashlee CABAN)([place]), [facility] letter sent: Abnormal 4/5 BI-RADS Code: ACR BI-RADS Category 4: Suspicious Ultrasound BI-RADS: ACR BI-RADS Category 4: Suspic ious
== END | disposition home or self-care (01) ==
LOC: C.MAMM 09:58
PROVIDERS: ATTEND Family Medicine
DX: Z09 Encounter for follow-up examination after completed treatment for conditions other than malignant neoplasm (principal); N64.89 Other specified disorders of breast; R92.1 Mammographic calcification found on diagnostic imaging of breast; N63 Unspecified lump in breast

== ENCOUNTER → 2016-11-05 | Outpatient (CLI) | payer OTHER ==
--- NOTE | 2016-11-05 13:43 | Discharge Instructions ---
Discharge Instructions Procedure Procedure Date: November 05, 2016. Reason for visit: Left Calcs. Discharge Discharge Date: November 05, 2016. Discharge Diagnosis: status post breast biopsy Instructions Activity Recommendations: Additional Limitations (see below) Return to School/Work: no limitations Recommended Home Diet: No Limitations Provider Instructions: ACTIVITY RECOMMENDATIONS: * No lifting, pushing, pulling or exercising the affected side for three days. RETURN TO SCHOOL/WORK: * You may return to work/school after the procedure, but do not perform any strenuous activities for 24 to 48 hours. MEDICATIONS: * Tylenol (two 325 mg) every four to six hours if needed for mild pain (if not allergic to Tylenol). DIET: * Resume previous diet. SPECIAL CARE INSTRUCTIONS: * Keep biopsy site dry for 24 hours. May shower after 24 hours, but do not soak (bathe) incision. * May remove Tegaderm (plastic patch) tomorrow AFTER showering. * Leave the steri-strips on for one week. Allow the steri-strips to fall off by themselves. If not off after one week, you may remove them. You may place a Bandaid crosswise over the strips, if desired. * Apply ice 10 minutes on and 10 minutes off as needed. * Wear a bra at bedtime to sleep more comfortably for 2-3 days. * Your referring physician should have the results after approximately 5 to 7 business days. * Call for unusual bleeding, fever, drainage, etc or if you have any questions call during normal business hours or after hours call Dr Gold, [phone]. FOLLOW UP VISIT: Follow-up with Referring Physician as scheduled. Allergies Coded Allergies: Naproxen (Verified Allergy, Unknown, MILD ERYTHEMA AROUND EYES AND FACE, ) TOLERATES CELEBREX WITHOUT ISSUES Spironolactone (Unverified Allergy, Unknown, HYPERKALEMIA, 08/01/16) Morphine (Verified Adverse Reaction, Unknown, HALLUCINATIONS, 08/01/16) Mello Clarke Recommendations: Call your doctor if: * Temperature above 101 degrees * Pain not relieved by pain medicine ordered * There is increased drainage or redness from any incision * You have any unanswered questions or concerns. Your Doctors Instructions noted above were prepared by provider Cecily Gold. Patient Signature Section: Patient Instructions Signature Page Stacey Pickrad Patient (or Guardian) Signature/Date: I have read and understand the instructions given to me by my caregivers. Caregiver/RN/Doctor Signature/Date: The above-named patient and/or guardian has received patient instructions on this date. + Original Patient Signature Page (only) stays with chart. Please make copy for patient.
--- NOTE | 2016-11-05 15:06 | MAMMOGRAPHY REPORT ---
UNILATERAL LEFT DIGITAL DIAGNOSTIC MAMMOGRAM: 11/05/2016 CLINICAL HISTORY: Status post left breast stereotactic biopsy. TECHNIQUE: Left CC and ML views were obtained. COMPARISON: Comparison is made to exams dated: 10/27/2016 mammogram, 04/19/2016 mammogram, 03/03/2016 m ammogram, 02/26/2015 mammogram, and 10/27/2016 ultrasound - [facility]. BREAST COMPOSITION: The tissue of the left breast is almost entirely fatty. FINDINGS: A preprocedural left cc view was obtained for biopsy planning purposes. Postprocedural l eft CC and ML views were also obtained. A new biopsy marker clip is seen within the left breast sta tus post left breast stereotactic biopsy. There is inferior migration of the biopsy marker clip fro m the biopsy site by approximately 7 cm, likely due to accordion effect. No significant postbiopsy hematoma is seen. IMPRESSION: POST PROCEDURE IMAGING FOR MARKER PLACEMENT New biopsy marker clip status post left breast stereotactic biopsy, with inferior migration of the b iopsy marker clip as discussed above. Pathology results are pending. Approximately 10% of breast cancers are not detected with mammography. A negative mammographic repor t should not delay biopsy if a clinically suggestive mass is present. Cecily Gold M.D. ah/:11/05/2016 14:07:47 Accredited Farm Manager: Ines VALENTE(Eneida)(M), [facility] BI-RADS Code: Post Procedure Imaging For Marker Placement
--- NOTE | 2016-11-05 15:06 | MAMMOGRAPHY REPORT ---
STEREOTACTIC GUIDED BIOPSY LEFT BREAST: 11/05/2016 CLINICAL HISTORY: Focal asymmetry in the left 12:00 breast with associated calcification. PATIENT CONSENT: The procedure, risks, benefits, and alternatives of stereotactic biopsy with clip p lacement were discussed with the patient, and verbal and written consent was obtained. A timeout wa s performed immediately prior to the procedure. PROCEDURE DESCRIPTION: With stereotactic guidance, aseptic technique, and lidocaine as a local anest hetic (1% lidocaine to anesthetize the skin and 1% lidocaine with epinephrine to anesthetize the alexandru per tissues), the area of concern was sampled multiple times with a 9-gauge vacuum-assisted biopsy n eedle ([employer] Ev[employer]). The path of approach was caudocranial. The specimen radiograph demonstrates t he punctate calcification associated with the asymmetry to be present in the samples. A metallic ma rker clip was placed at the biopsy site. This was confirmed on postprocedure mammograms. Direct pr essure was applied at the biopsy site and hemostasis was readily achieved. The patient tolerated th e procedure without complication. She was given wound care instructions. COMPARISON: Comparison is made to exams dated: 10/27/2016 mammogram, 04/19/2016 ultrasound, 6 mammogram, 03/03/2016 mammogram, and 02/26/2015 mammogram - [facility]. IMPRESSION: STEREOTACTIC GUIDED BIOPSY Stereotactic biopsy of focal asymmetry with an associated punctate calcification in the left 12:00 b reast, with clip placement. The patient will receive pathology results from her referring provider. Cecily Gold M.D. ah/:11/05/2016 13:46:33 Hydroponics Grower: Ines VALENTE(Eneida)(M), [facility]
== END | disposition home or self-care (01) ==
LOC: C.MAMM 12:36
PROVIDERS: ATTEND Family Medicine
DX: N60.92 Unspecified benign mammary dysplasia of left breast (principal); N60.89 Other benign mammary dysplasias of unspecified breast; R92.0 Mammographic microcalcification found on diagnostic imaging of breast

== ENCOUNTER → 2016-12-10 | Outpatient (CLI) | payer OTHER ==
[2016-12-10 13:44] LABS: BLOOD UREA NITROGEN 26 mg/dl (7-18); BUN/CREATININE RATIO 25.8 (10-20); CARBON DIOXIDE 27 mmol/L (21-32); CHLORIDE 108 mmol/L (98-107); GLUCOSE 87 mg/dl (70-99); POTASSIUM 4.2 mmol/L (3.5-5.1); SODIUM 144 mmol/L (136-145)
[2016-12-10 13:45] LABS: PHOSPHORUS 2.8 mg/dl (2.5-4.9)
[2016-12-10 18:27] LABS: CALCIUM 9.5 mg/dl (8.5-10.1)
== END | disposition home or self-care (01) ==
LOC: C.LAB 12:00
PROVIDERS: ATTEND Internal Medicine
DX: Z01.818 Encounter for other preprocedural examination (principal); N18.3 Chronic kidney disease, stage 3 (moderate)

== ENCOUNTER → 2016-12-20 | Day surgery (SDC) | payer OTHER ==
[2016-12-10 11:57] VITALS: BMI 39.0
--- NOTE | 2016-12-10 12:42 | PAT Medication Instructions ---
Service Date Dec 10, 2016. Current Home Medication List Acetaminophen (Tylenol), 1,000 MG PO PRN Albuterol (Ventolin), 1 PUFFS INH QID PRN for Shortness of Breath Ampicillin (Ampicillin), 2,000 MG PO UD Calcium (Caltrate), 600 MG PO QPM Cholecalciferol (Vitamin D3), 2,000 UNITS PO QPM Cranberry (Vaccinium Macrocarp (Cranberry), 4,200 MG PO QAM Estrogens, Conjugated (Premarin), 1 APPL PV 2XWK Ferrous Gluconate (Ferrous Gluconate), 324 MG PO BIDM Furosemide (Lasix), 20 MG PO Q2D PRN for leg swelling Levothyroxine Sodium (Synthroid), 88 MCG PO QAM Metoprolol Tartrate (Lopressor), 12.5 MG PO BID Misc Natural Products (Osteo Bi-Flex Advanced Do), 1 TAB PO QAM Multiple Vitamin (Multivitamin), 1 TAB PO QPM Nystatin (Topical) (Nystop), 1 APPLN TD BID Oxybutynin Chloride (Ditropan Xl), 30 MG PO QPM Pantoprazole (Protonix), 40 MG PO QAM Rosuvastatin Calcium (Crestor), 10 MG PO QPM Warfarin Sodium (Coumadin), 1 MG PO 5XWK Warfarin Sodium (Coumadin), 2 MG PO 1xweek Medication Instructions For Your Scheduled Surgery Ampicillin (Ampicillin), 2,000 MG PO UD (only used prior to dental procedures) - Per surgeon/federal district clerk for instructions: Warfarin Sodium (Coumadin), 1 MG PO 5XWK Warfarin Sodium (Coumadin), 2 MG PO 1xweek - Hold the following medications starting 12/11/16: Cranberry (Vaccinium Macrocarp (Cranberry), 4,200 MG PO QAM - Hold the following medications 24 hours prior to surgery: Nystatin (Topical) (Nystop), 1 APPLN TD BID Estrogens, Conjugated (Premarin), 1 APPL PV 2XWK - Hold the following medications the morning of surgery: Misc Natural Products (Osteo Bi-Flex Advanced Do), 1 TAB PO QAM Furosemide (Lasix), 20 MG PO Q2D PRN for leg swelling Ferrous Gluconate (Ferrous Gluconate), 324 MG PO BIDM - Take the following medications the morning of surgery with a sip of water: Pantoprazole (Protonix), 40 MG PO QAM Metoprolol Tartrate (Lopressor), 12.5 MG PO BID Levothyroxine Sodium (Synthroid), 88 MCG PO QAM Albuterol (Ventolin), 1 PUFFS INH QID PRN for Shortness of Breath (bring with you to hospital morning of surgery; use if needed) Acetaminophen (Tylenol), 1,000 MG PO PRN (if needed) - Take the following medications as scheduled the night before surgery: Rosuvastatin Calcium (Crestor), 10 MG PO QPM Oxybutynin Chloride (Ditropan Xl), 30 MG PO QPM Multiple Vitamin (Multivitamin), 1 TAB PO QPM Metoprolol Tartrate (Lopressor), 12.5 MG PO BID Ferrous Gluconate (Ferrous Gluconate), 324 MG PO BIDM Cholecalciferol (Vitamin D3), 2,000 UNITS PO QPM Calcium (Caltrate), 600 MG PO QPM Albuterol (Ventolin), 1 PUFFS INH QID PRN for Shortness of Breath Acetaminophen (Tylenol), 1,000 MG PO PRN If you have any questions please call us at [phone] or [phone] or [phone]
[2016-12-10 13:13] LABS: HEMATOCRIT 41.7 % (37-47); MEAN CELL VOLUME 88.9 fL (80-100); MEAN CORPUSCULAR HEMOGLOBIN 30.1 pg (25-34); MEAN CORPUSCULAR HGB CONC 33.8 g/dl (32-36); MEAN PLATELET VOLUME 11.4 fL (7.4-10.4); PLATELET COUNT 211 K/uL (130-400); RED BLOOD COUNT 4.69 M/uL (4.2-5.4); WHITE BLOOD COUNT 5.96 K/uL (4.8-10.8)
[~2016-12-20] VITALS: Ht 157.5 cm; Wt 96.5 kg
[~2016-12-20] MED LIST changes: +ATROPINE SULFATE 0.1 MG/ML 5ML SYR IV PRN; +BUPIVACAINE 0.5 % 5 MG/1 ML MPF 30ML VIAL ONE; -ESOM20CA PO; +EpHEDrine SULFATE INJ 50 MG/ML AMP IV PRN; +FENTANYL CITRATE INJ 50 MCG/1 ML 2 ML VIAL IV PRN; +FENTANYL CITRATE INJ 50 MCG/1 ML 2 ML VIAL ONE; +ISOSULFAN BLUE 10 MG/ML VIAL 5 ML ONE; +LACTATED RINGER'S 1000ML 1,000 ML IV SCH; +LIDOCAINE HCL 2% 2 ML VIAL (20MG/ML) ONE; +LIDOCAINE/EPINEPHRINE 1% 20 ML VIAL ONE; +MIDAZOLAM HCL 1 MG/ML 2ML VIAL ONE; +ONDANSETRON INJ 2 MG/ML 2 ML VIAL IV PRN; +ONDANSETRON INJ 2 MG/ML 2 ML VIAL ONE; +OXYCODONE/ACETAMINOPHEN 5-325 TAB PO PRN; -PRM625 PO; +PROPOFOL IV EMULSION 10 MG/ML 20 ML VIAL IV ONE; +ROCURONIUM BROMIDE 10 MG/ML 5 ML VIAL ONE; +SODIUM CHLORIDE 0.9% 1000ML 1,000 ML IV SCH
[2016-12-20 10:11] VITALS: BP 176/90; PULSE 86; TEMP 36.7; O2SAT 95; Ht 157.5 cm; Wt 96.5 kg
[2016-12-20 10:38] LABS: INR 1.1 (0.9-1.1); PARTIAL THROMBOPLASTIN RATIO 1.1
--- NOTE | 2016-12-20 11:53 | History & Physical Bridge Note ---
H&P Re-Evaluation Bridge Note: I have examined the patient, reviewed the History & Physical and in the interval since the performance of the History & Physical I have noted the following changes of clinical significance: No changes noted
--- NOTE | 2016-12-20 15:13 | [facility] Post Operative Brief Note ---
Immediate Operative Summary Operative Date Dec 20, 2016. Pre-Operative Diagnosis Invasive ductal carcinoma, left breast. Post-Operative Diagnosis Same as preop. Procedure(s) Performed Left Breast Needle Localization, Lumpectomy Surgeon Dr. Kendrick Case Coordinator Surgeon(s) Alexandrea Joe, PAC Estimated Blood Loss 10 ml Findings See dictation Specimens A: Suspected cavity from left breast, white stitch anterior, black lateral, purple inferior (out of body at 1450) B: Clip site left breast, blue stitch inferior, white anterior, black lateral (out of body at 1455). Faxitron done in room at Dr. Askew called with report at 1502. Drains None Anesthesia General Complication(s) None Disposition Recovery Room / PACU
--- NOTE | 2016-12-20 15:17 | Discharge Instructions ---
Discharge Instructions Date of Service Dec 20, 2016. Admission Reason for Admission: Left Breast Malginant Neoplasm W/Hosp Loc Discharge Discharge Diagnosis / Problem: Same Discharge Goals Goal(s): Improve disease control Activity Recommendations Activity Limitations: per Instructions/Follow-up section . Instructions / Follow-Up Instructions / Follow-Up MEDICATIONS: Resume previous medications unless instructed otherwise by your surgeon. * Percocet 5/325 mg one tablet every 4 hours as needed for pain. SPECIAL CARE INSTRUCTIONS: * Wear bra day and night until seen in office. * May shower in 24 hours. Let water run over steri strips and pat dry. * Leave steri strips on for one week. * Call the surgeon's office with any questions or concerns - (ex. temperature higher than 101 degrees F, excessive bleeding or pain). FOLLOW UP VISIT: If not already scheduled, please call the office for a follow-up appointment for next week at . Current Hospital Diet Patient's current hospital diet: Discharge Diet Recommended Diet: Regular Diet Procedures Procedures Performed: Left Breast Needle Localization, Lumpectomy Pending Studies Studies pending at discharge: no Medical Emergencies . Who to Call and When: Medical Emergencies: If at any time you feel your situation is an emergency, please call 241 immediately. . Non-Emergent Contact Non-Emergency issues call your: Primary Care Provider, Surgeon Call Non-Emergent contact if: your pain is worsening, wound has increased redness, wound has increased pain . "Provider Documentation" section prepared by Earnest Kendrick. . VTE Core Measure Inpt VTE Proph given/why not?: Treatment not indicated
--- NOTE | 2016-12-20 15:48 | Anesthesiology Progress Note ---
Anesthesia Post Op Note Date & Time Dec 20, 2016 at 15:48 Vital Signs Pain Intensity: 0 Vital Signs Past 12 Hours Date Time Temp Pulse Resp B/P (MAP) Pulse Ox O2 Delivery O2 Flow Rate FiO2 12/20/16 15:40 60 15 152/89 100 Mask 8 12/20/16 15:30 61 15 168/79 100 Mask 10 12/20/16 15:24 36.5 62 20 162/75 100 Mask 10 12/20/16 10:11 36.7 86 20 176/90 (118) 95 Room Air Notes Mental Status: alert / awake / arousable, participated in evaluation Pt Amnestic to Procedure: Yes Nausea / Vomiting: adequately controlled Pain: adequately controlled Airway Patency, RR, SpO2: stable & adequate BP & HR: stable & adequate Hydration State: stable & adequate Anesthetic Complications: no major complications apparent
--- NOTE | 2016-12-20 16:00 | MAMMOGRAPHY REPORT ---
NEEDLE LOCALIZATION LEFT BREAST: 12/20/2016 CLINICAL HISTORY: 81-year-old woman with biopsy-proven left breast cancer in the central/6:00 posteri or left breast. She presents for preoperative needle and wire localization. Review of postprocedure mammograms after the stereotactic biopsy performed 11/05/2016, migration of the biopsy marker clip w as noted on the MLO view. The biopsy marker clip appeared inferiorly displaced from the biopsy cavit y by 7.3 cm. COMPARISON: Comparison is made to exams dated: 11/05/2016 stereotactic biopsy, 10/27/2016 ultrasound, mammogram, 04/19/2016 ultrasound, and 04/19/2016 mammogram - [facility]. PATIENT CONSENT: The risks of the procedure were explained to the patient and informed consent was ob tained. The patient denied allergy to lidocaine and also reported she did not eat or drink anything this morning that would preclude anesthesia. PROCEDURE DESCRIPTION: Prior to the procedure Diamond Picker left CC and ML 2-D digital images were obtained. A dumbbell shaped metallic biopsy marker is noted in the 6:00 posterior left breast. Best appreciat ed on the CC view is a 10 mm asymmetry which is just lateral and posterior to the biopsy marker clip. The customer service cashier ML view was compared to both the preprocedure and postprocedure lateral views of the left breast. Given the distance of the biopsy marker clip from the previous location of the biopsied mas s, a decision was made to localize both areas separately with different needles. With the patient standing and the left breast in CC from below compression, the asymmetry was visuali zed and targeted with an alphanumeric grid. The skin of the inferior left breast was cleansed with a lcohol. 1% buffered lidocaine without epinephrine was a web consultant as local anesthesia. A 10 cm Hawki ns 2 needle and wire combination was inserted into the breast. Then the biopsy marker clip was local ized. Additional buffered lidocaine was administered. A 3 cm Kopan's needle and wire were inserted into the breast. Adequate depth of the needles was confirmed within and LV view. After repositionin g both needles they were ultimately locked in placed and the patient left the department in satisfact ory condition, transferred to Hospital operating room. A specimen radiograph was obtained in the area of the biopsy marker clip. The surgical specimen demo nstrates a portion of the localizing needle and wire as well as the biopsy marker clip, compatible wi th successful preoperative localization and subsequent surgical excision. A specimen radiograph was not obtained for the longer 10 cm localizing needle as no radiographic abnormality remained after the biopsy. IMPRESSION: NEEDLE LOCALIZATION Status post preoperative localization for biopsy-proven carcinoma in the posterior left breast and se cond area of localization for the biopsy marker clip which was displaced from the biopsy cavity by 7 cm. The patient will receive notification of the final pathology results from her referring physician. Twyla Askew M.D. ay/:12/20/2016 15:24:51 Grill Attendant: Ines Lara, [facility]
--- NOTE | 2016-12-20 16:00 | MAMMOGRAPHY REPORT ---
SPECIMEN: 12/20/2016 CLINICAL HISTORY: Surgical specimen left breast. Please refer to the report from left breast image guided localization performed at the same time for full detail. IMPRESSION: SPECIMEN Please refer to the report from left breast image guided localization performed at the same time for full detail. Twyla Askew M.D. ay/:12/20/2016 14:44:57 County Coroner: Ines Lara, [facility]
[2016-12-20 16:15] VITALS: BP 148/78; PULSE 66; TEMP 36.4; O2SAT 94
[2016-12-20 16:45] VITALS: BP 122/76; PULSE 67; O2SAT 92
[2016-12-20 17:15] VITALS: BP 143/70; PULSE 66; TEMP 36.3; O2SAT 94
--- NOTE | 2016-12-20 20:32 | OPERATIVE REPORT ---
DATE OF OPERATION: 12/20/2016 PREOPERATIVE DIAGNOSIS: Carcinoma of the left breast. POSTOPERATIVE DIAGNOSIS: Same. PROCEDURE: Left breast needle-localized lumpectomy. SURGEON: Dr. Kendrick. DAY CARE HOME MOTHER: Alexandrea Joe PA-C FINDINGS: The patient had a previous biopsy of the left breast by stereotactic technique. 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 She was to have lumpectomy. The patient went for needle localization and I had a discussion with the radiologist. She contacted the personnel who had done the stereotactic biopsy and through there discussion, they felt that the clip had migrated for quite a distance up to 7 cm away from the biopsy cavity. For that reason, the clip was localized as well as the previous suspected area of biopsy, although that was not obvious by mammogram. Two lumpectomies were performed, although the tissue areas were fairly contiguous. The clip was within the specimen by radiography after it was removed. TECHNIQUE: The patient was taken to radiology where the 2 needle localizations were performed. She was then brought to the operating room where she was placed on the operating table, given intravenous sedation and the area was prepped and draped in the usual sterile fashion. We initially used local for the procedure; however, we maximized the amount of local and she was still having some discomfort, so general anesthesia was then induced. The course of the needles was placed on the skin and incision was chosen. This was marked on the skin. The skin was anesthetized with 50:50 mixture of 1% Xylocaine with epinephrine as well as 0.5% Marcaine. Skin incision was made and was carried down through the subcutaneous tissue. The shorter needle which localized the clip was able to be palpated after skin flaps were created medially and laterally. I then dissected deeply and was able to identify the deeper needle going to what was felt to be the previous biopsy cavity. I decided to dissect that first. Flaps were made just above the breast tissue working medially and laterally until I could feel the course of the needle. Then I worked deeply on the medial lateral side, then superiorly and then worked the posterior dissection. I encountered the needle and so elevated additional tissue behind it to include that in the specimen. Once I had that deep dissection out to the portion of the needle to be resected, the needle was cut and the final dissections were completed. The specimen was marked with a white stitch anteriorly, black stitch laterally and a purple stitch inferiorly. Hemostasis was obtained. I then performed the lateral, medial and superior dissections around the needle that was localizing the clip. Then I completed the lateral dissection and divided the medial and then completed the posterior dissection. This was also marked with a white stitch anteriorly, a black stitch laterally and a blue stitch inferiorly. The area was inspected for bleeding and none was seen. The deep tissues were approximated with interrupted 2-0 Vicryl. The deep subcutaneous tissue was closed with running 2-0 Vicryl. The superficial subcutaneous tissue was closed with running 3-0 Vicryl and the skin was closed with 4-0 Monocryl in a running subcuticular fashion. The skin was cleansed, dried, benzoin placed. Steri-Strips applied. The estimated blood loss was 10 mL. Sponge, needle and instrument counts were correct prior to closure. The patient tolerated the surgical procedure without complication and was transferred to recovery. I attest to the content of the Intraoperative Record and any orders documented therein. Any exception s are noted below.
== END | disposition home or self-care (01) ==
LOC: C.ACU 08:25
PROVIDERS: ATTEND Surgery
DX: C50.912 Malignant neoplasm of unspecified site of left female breast (principal); I48.91 Unspecified atrial fibrillation; N18.3 Chronic kidney disease, stage 3 (moderate); E78.5 Hyperlipidemia, unspecified; E06.3 Autoimmune thyroiditis; M10.9 Gout, unspecified; M19.90 Unspecified osteoarthritis, unspecified site; I13.0 Hypertensive heart and chronic kidney disease with heart failure and stage 1 through stage 4 chronic kidney disease, or unspecified chronic kidney disease; I50.30 Unspecified diastolic (congestive) heart failure; Z80.1 Family history of malignant neoplasm of trachea, bronchus and lung; Z80.42 Family history of malignant neoplasm of prostate; Z80.3 Family history of malignant neoplasm of breast

== ENCOUNTER → 2017-06-10 | Outpatient (CLI) | payer OTHER ==
[~2017-06-10] MED LIST changes: -ACET-1256 PO; -ATROPINE SULFATE 0.1 MG/ML 5ML SYR IV PRN; -BUPIVACAINE 0.5 % 5 MG/1 ML MPF 30ML VIAL ONE; -EpHEDrine SULFATE INJ 50 MG/ML AMP IV PRN; -FENTANYL CITRATE INJ 50 MCG/1 ML 2 ML VIAL IV PRN; -FENTANYL CITRATE INJ 50 MCG/1 ML 2 ML VIAL ONE; -ISOSULFAN BLUE 10 MG/ML VIAL 5 ML ONE; -LACTATED RINGER'S 1000ML 1,000 ML IV SCH; -LIDOCAINE HCL 2% 2 ML VIAL (20MG/ML) ONE; -LIDOCAINE/EPINEPHRINE 1% 20 ML VIAL ONE; -MIDAZOLAM HCL 1 MG/ML 2ML VIAL ONE; -ONDANSETRON INJ 2 MG/ML 2 ML VIAL IV PRN; -ONDANSETRON INJ 2 MG/ML 2 ML VIAL ONE; -OXYCODONE/ACETAMINOPHEN 5-325 TAB PO PRN; -PROPOFOL IV EMULSION 10 MG/ML 20 ML VIAL IV ONE; -ROCURONIUM BROMIDE 10 MG/ML 5 ML VIAL ONE; -SODIUM CHLORIDE 0.9% 1000ML 1,000 ML IV SCH
--- NOTE | 2017-06-10 12:55 | MAMMOGRAPHY REPORT ---
BILATERAL DIGITAL DIAGNOSTIC MAMMOGRAM TOMOSYNTHESIS WITH CAD: 06/10/2017 CLINICAL HISTORY: History of left breast cancer status post lumpectomy November 2016. The patient did no t undergo radiation therapy. She reports no current complaints. TECHNIQUE: Breast tomosynthesis in addition to standard 2D mammography was performed. Current study was also evaluated with a Computer Aided Detection (CAD) system. Bilateral CC and MLO 2-D and tomosy nthesis images and spot magnification left CC and ML views were obtained. COMPARISON: Comparison is made to exams dated: 12/20/2016 specimen, 12/20/2016 specimen, 11/05/2016 inessa mogram, 11/05/2016 stereotactic biopsy, 10/27/2016 ultrasound, and 10/27/2016 mammogram - [facility]. BREAST COMPOSITION: The tissue of both breasts is almost entirely fatty. FINDINGS: There are new post surgical changes in the left central breast from prior lumpectomy, incl uding new density and architectural distortion at the lumpectomy bed. A few new calcifications are s een at the lumpectomy bed, best seen on the spot magnification cc views, which are shown to be locate d in the inferior breast as well as the central breast on the true lateral view. The calcifications are punctate and linear in morphology. The calcifications are probably benign and may represent dyst rophic calcifications from fat necrosis. The remainder of both breasts are stable compared to prior exams, without suspicious masses, calcific ations, or areas of architectural distortion noted. 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 IMPRESSION: ACR-BI-RADS CATEGORY 3: PROBABLY BENIGN 1. New post surgical changes in the left breast from prior lumpectomy. A few new calcifications are seen at the lumpectomy bed, which are probably benign and may represent fat necrosis. Recommend foll ow-up diagnostic mammograms of the left breast in 6 months to reevaluate. 2. No mammographic evidence of malignancy in the right breast. Recommend follow-up in one year. The patient has been verbally notified of the results. Approximately 10% of breast cancers are not detected with mammography. A negative mammographic report should not delay biopsy if a clinically suggestive mass is present. Cecily Gold M.D. ah/:06/10/2017 11:57:41 Flat Bed Knitter: Ashlee CABAN)([place]), [facility] letter sent: Personal History 3 BI-RADS Code: ACR-BI-RADS Category 3: Probably Benign
== END | disposition home or self-care (01) ==
LOC: C.MAMM 10:52
PROVIDERS: ATTEND Family Medicine
DX: Z98.890 Other specified postprocedural states (principal); R92.1 Mammographic calcification found on diagnostic imaging of breast

== ENCOUNTER 2017-06-22 11:22 | Emergency (ER) | payer OTHER ==
[2017-06-22 11:25] VITALS: TEMP 36.5
[2017-06-22] MEDS ORDERED: ACETAMINOPHEN 500 MG TAB PO STA (12:04)
[2017-06-22] MEDS ORDERED: ONDANSETRON INJ 2 MG/ML 2 ML VIAL IV STA (12:04)
--- NOTE | 2017-06-22 12:13 | EMERGENCY ROOM VISIT NOTE ---
History Report prepared by Lottie: Ana Lilia Oconnell Under the Supervision of: Dr. Clayton Bejarano M.D. First contact with patient: 12:00 Chief Complaint: LEG PAIN,LEG INJURY Stated Complaint: R LEG PAIN History of Present Illness The patient is a 82 year old female with a past medical history of atrial fibrillation, CAD, CKD stage 3, CHF, GI bleed, blood clots, subacute thyroiditis, hyperlipidemia, hypertension, hypothyroid, myocardial infarction, and osteoarthritis who presents to the ED with a cc of waxing and waning right leg pain beginning 3-4 days ago. Positive erythema that began several months ago and cellulitis. The patient denies taking any medication for her pain or being on any antibiotics. The patient states that she takes Coumadin for blood clots. She notes that she does have compression stocking, but rarely wears them because they tend to fall down. Source of History: patient Onset: 3-4 days ago Position: leg (right) Quality: other (leg pain) Timing: waxes/wanes Review of Systems See HPI for pertinent positives and negatives. A total of ten systems were reviewed and were otherwise negative. Past Medical & Surgical Medical Problems: (1) Atrial fibrillation (2) Bleeding (3) Bronchitis (4) CAD (coronary artery disease) (5) Chronic kidney disease (CKD) stage G3a/A1, moderately decreased glomerular filtration rate (GFR) between 45-59 mL/min/1.73 square meter and albuminuria creatinine ratio less than 30 mg/g (6) Complete heart block (7) Diastolic CHF, chronic (8) GI bleed (9) H/O blood clots (10) Hx of subacute thyroiditis (11) Hyperlipemia (12) Hypertension (13) Hypothyroid (14) Migraine with aura (15) Myocardial infarction (16) Obesity (17) Osteoarthritis (18) Pacemaker (19) Pneumonia Surgical Problems: (1) H/O tubal ligation (2) History of appendectomy (3) History of total right knee replacement (4) S/P appendectomy (5) S/P placement of cardiac pacemaker (6) S/P removal of thyroid nodule (7) S/p scraping of cervical canal lining Family History Cancer Diabetes mellitus Heart disease Hypertension Social History Smoking Status: Never Smoker Alcohol Use: none Marital Status: Occupation Status: retired Current/Historical Medications Scheduled Amlodipine Besylate (Amlodipine Besylate), 1 TAB PO DAILY Ampicillin (Ampicillin), 2,000 MG PO UD Calcitriol (Calcitriol), 1 CAP PO UD Calcium Carbonate-Vitamin D W/ (Caltrate 600 Plus), 1 TAB PO DAILY Cephalexin Monohydrate (Keflex), 500 MG PO QID Cholecalciferol (Vitamin D3), 2,000 UNITS PO QPM Cranberry (Vaccinium Macrocarp (Cranberry), 4,200 MG PO QAM Ferrous Gluconate (Ferrous Gluconate), 1 TAB PO BIDM Furosemide (Lasix), 20 MG PO DAILY Levothyroxine Sodium (Synthroid), 88 MCG PO QAM Metoprolol Tartrate (Lopressor), 1 TAB PO BID Misc Natural Products (Osteo Bi-Flex Advanced Do), 1 TAB PO QAM Multiple Vitamin (Multivitamin), 1 TAB PO QPM Nystatin (Topical) (Nystop), 1 APPLN TD BID Oxybutynin Chloride (Oxybutynin Chloride Er), 1 TAB PO DAILY Pantoprazole (Protonix), 40 MG PO QAM Rosuvastatin Calcium (Crestor), 10 MG PO QPM Warfarin Sodium (Coumadin), 1 MG PO 5XWK Warfarin Sodium (Coumadin), 2 MG PO 1xweek Allergies Coded Allergies: Morphine (Verified Adverse Reaction, Unknown, HALLUCINATIONS, 06/22/17) NSAIDs (Verified Adverse Reaction, Unknown, MILD ERYTHEMA AROUND EYES AND FACE, 06/22/17) tolerates celebrex Spironolactone (Unverified Adverse Reaction, Unknown, HYPERKALEMIA, ) Physical Exam Vital Signs Date Time Temp Pulse Resp B/P (MAP) Pulse Ox O2 Delivery O2 Flow Rate FiO2 06/22/17 14:33 67 17 146/70 96 Room Air 06/22/17 13:07 63 17 158/90 93 Room Air 06/22/17 11:25 36.5 113 18 164/101 96 Room Air Physical Exam GENERAL: Obese. Awake, alert, well-appearing, NAD HENT: Normocephalic, atraumatic. EYES: Normal conjunctiva. Sclera non-icteric. NECK: Supple. No nuchal rigidity. FROM. RESPIRATORY: CTAB, no rhonchi, wheezing, crackles CARDIAC: Device in left chest. RRR, no MRG ABDOMEN: Soft, NTND, BS+ MSK: No chest wall TTP, no LE edema NEURO: GCS 15, CN 2-12 intact, moves all 4s on command SKIN: Some mild redness over bilateral anterior and posterior calves, no asymmetry in size, small area to posterior right skin grade 1 ulcer/wound without purulent drainage. No jaundice noted. Medical Decision & Procedures Laboratory Results 06/22/17 11:55 Red Blood Count 4.10, Mean Corpuscular Volume 94.1, Mean Corpuscular Hemoglobin 31.7, Mean Corpuscular Hemoglobin Concent 33.7, Mean Platelet Volume 11.9, Neutrophils (%) (Auto) 60.9, Lymphocytes (%) (Auto) 21.1, Monocytes (%) (Auto) 14.3, Eosinophils (%) (Auto) 3.0, Basophils (%) (Auto) 0.5, Neutrophils # (Auto ) 3.68, Lymphocytes # (Auto) 1.27, Monocytes # (Auto) 0.86, Eosinophils # (Auto ) 0.18, Basophils # (Auto) 0.03 06/22/17 05:21 Test 06/22/17 05:21 06/22/17 11:55 06/22/17 13:39 Anion Gap 6.0 mmol/L (3-11) Estimated GFR () 51.3 Estimated GFR (Non- 44.3 BUN/Creatinine Ratio 30.0 (10-20) Calcium Level 9.4 mg/dl (8.5-10.1) White Blood Count 6.03 K/uL (4.8-10.8) Red Blood Count 4.10 M/uL (4.2-5.4) Hemoglobin 13.0 g/dL (12.0-16.0) Hematocrit 38.6 % (37-47) Mean Corpuscular Volume 94.1 fL (80-100) Mean Corpuscular Hemoglobin 31.7 pg (25-34) Mean Corpuscular Hemoglobin Concent 33.7 g/dl (32-36) Platelet Count 199 K/uL (130-400) Mean Platelet Volume 11.9 fL (7.4-10.4) Neutrophils (%) (Auto) 60.9 % Lymphocytes (%) (Auto) 21.1 % Monocytes (%) (Auto) 14.3 % Eosinophils (%) (Auto) 3.0 % Basophils (%) (Auto) 0.5 % Neutrophils # (Auto) 3.68 K/uL (1.4-6.5) Lymphocytes # (Auto) 1.27 K/uL (1.2-3.4) Monocytes # (Auto) 0.86 K/uL (0.11-0.59) Eosinophils # (Auto) 0.18 K/uL (0-0.5) Basophils # (Auto) 0.03 K/uL (0-0.2) RDW Standard Deviation 47.8 fL (36.4-46.3) RDW Coefficient of Variation 14.0 % (11.5-14.5) Immature Granulocyte % (Auto) 0.2 % Immature Granulocyte # (Auto) 0.01 K/uL (0.00-0.02) Erythrocyte Sedimentation Rate 35 mm/hr (0-21) Prothrombin Time 28.7 SECONDS (9.0-12.0) Prothromb Time International Ratio 2.8 (0.9-1.1) Activated Partial Thromboplast Time 38.0 SECONDS (21.0-31.0) Partial Thromboplastin Ratio 1.5 Laboratory results reviewed by me Medications Administered Medications (Trade) Dose Ordered Sig/Ce Route Start Time Stop Time Status Last Admin Dose Admin Acetaminophen (Tylenol Tab) 1,000 mg NOW STAT PO 06/22/17 12:04 06/22/17 12:05 DC 06/22/17 12:59 1,000 MG Clindamycin HCl (Cleocin Cap) 450 mg NOW ONCE PO 06/22/17 12:45 06/22/17 12:46 DC 06/22/17 12:58 450 MG Cephalexin Monohydrate (Keflex Cap) 500 mg NOW ONCE PO 06/22/17 12:45 06/22/17 12:46 DC 06/22/17 12:58 500 MG ECG Indication: other (leg pain) Rate (beats per minute): 63 Rhythm: other (v-paced ) Findings: LBBB, Q waves (Inferior and anterior ), T-wave inversion (in high lateral leads), other (Wide QRS) ED Course 1209: The patient was evaluated in room C02. A complete history and physical exam was performed. 1331: I reevaluated the patient, who was resting comfortably. 1545: I reevaluated the patient. Discussed results and discharge instructions: She verbalized understanding and agreement. The patient is ready for discharge. Medical Decision The patient is a 82 year old female with a past medical history of atrial fibrillation, CAD, CKD stage 3, CHF, GI bleed, blood clots, subacute thyroiditis, hyperlipidemia, hypertension, hypothyroid, myocardial infarction, and osteoarthritis who presents to the ED with a cc of waxing and waning right leg pain beginning 3-4 days ago. Differential diagnosis: Etiologies such as cellulitis, abscess, MRSA infection, DVT, necrotizing fasciitis, dermatitis, drug eruption, as well as others were entertained.. Patient was seen and evaluated the bedside. Patient has complained of some mild pain in bilateral lower extremities. Patient believes this is been more chronic in nature. On exam the patient does have some redness to the bilateral lower extremities however there is very little warmth. Patient is a small area of open skin without any purulent drainage on the posterior aspect of her right calf. Patient does not display any asymmetry with regard to her lower extremities. Patient did have blood work that was completed and the patient was given antibiotics. Patient white blood cell count 6000. We were able to obtain records from her INR was checked this morning which was reportedly 2.5. Patient's BNP was fairly unremarkable. Patient's BUNs was slightly higher than normal patient was told that she likely needs some additional hydration. Patient was able tolerate by mouth fluids here and do not believe that she is to the hospital for this at this time. Given the patient's fairly normal white count with what I believe is likely some chronic venous stasis changes more so than cellulitis the patient should be suitable for outpatient follow-up and treatment. Patient was told to take antibiotics given the open wound that is very shallow. Patient was also told that she is placed in about appointment over the area and should place something underneath the leg in order to alleviate any pressure and/or subsequent pressure ulcers that could develop. Patient was given strict follow-up, discharge, and return precautions. All questions were answered. Patient was deemed suitable for outpatient follow-up at this time. Patient agreed with the plan of care and was safely discharged home. Medication Reconcilliation Current Medication List: was personally reviewed by me Blood Pressure Screening Patient's blood pressure: Elevated blood pressure Blood pressure disposition: Referred to PCP Impression Primary Impression: Leg pain, left Additional Impressions: Leg pain, right Lymphedema Cellulitis Scribe Attestation The scribe's documentation has been prepared under my direction and personally reviewed by me in its entirety. I confirm that the note above accurately reflects all work, treatment, procedures, and medical decision making performed by me. Departure Information Dispostion Home / Self-Care Prescriptions Cephalexin Monohydrate (Keflex) 500 Mg Cap 500 MG PO QID for 7 Days, #28 CAP Prov: Clayton Bejarano M.D. 06/22/17 Referrals Elizabeth Hutchison D.O. (PCP) Forms HOME CARE DOCUMENTATION FORM, IMPORTANT VISIT INFORMATION Patient Instructions Cellulitis Dc, ED Lymphedema, My [facility] Additional Instructions Please return to the emergency department if you have worsening or recurrent symptoms not amenable to at-home treatment. Please call for a follow-up appointment with her primary care physician. Please take your medications as prescribed. If you have other concerns and/or complaints please feel free to also call your primary care physician's office or return the ED for further evaluation, management, and treatment. Please try to continue to use compression stockings. He may apply antibiotic ointment to the small open area over the back of your right leg. You may also support the leg in order to remove pressure on the area. You may take 600 mg Ibuprofen every 6 hours as needed for pain with food for no more than 2 consecutive days. You may take tylenol 1000 mg every 6 hours as needed for pain. You may take motrin and tylenol separately or at the same time. Take your medications as prescribed. If taking an antibiotic consider taking a probiotic and/or eating yogurt, but at the least, please take with food as it can cause upset stomach. You have been examined and treated today on an emergency basis only. This is not a substitute for, or an effort to provide, complete comprehensive medical care. It is impossible to recognize and treat all injuries or illnesses in a single emergency department visit. It is therefore important that you follow up closely with [facility], your PCP, and/or your specialist(s). Call as soon as possible for an appointment. Thank you for your time and consideration. I look forward to speaking with you again soon. Please don't hesitate to call us if you have any questions. Problem Qualifiers Additional Impressions: Cellulitis Site of cellulitis: extremity Site of cellulitis of extremity: lower extremity Laterality: right Qualified Codes: L03.115 - Cellulitis of right lower limb
[2017-06-22 12:40] LABS: BASO % 0.5 %; BASO ABS # 0.03 K/uL (0-0.2); COMPLETE YES; HEMATOCRIT 38.6 % (37-47); IG% 0.2 %; LYMPH % 21.1 %; LYMPH ABS # 1.27 K/uL (1.2-3.4); MEAN CELL VOLUME 94.1 fL (80-100); MEAN CORPUSCULAR HEMOGLOBIN 31.7 pg (25-34); MEAN CORPUSCULAR HGB CONC 33.7 g/dl (32-36); MEAN PLATELET VOLUME 11.9 fL (7.4-10.4); MONO % 14.3 %; NEUT % 60.9 %; PLATELET COUNT 199 K/uL (130-400); WHITE BLOOD COUNT 6.03 K/uL (4.8-10.8)
[2017-06-22] MEDS ORDERED: NRV/5 PO (12:41)
[2017-06-22] MEDS ORDERED: CALCTAB7 PO (12:41)
[2017-06-22] MEDS ORDERED: OXYB15TA PO (12:41)
[2017-06-22] MEDS ORDERED: CEPHALEXIN MONOHYDRATE 250 MG CAP PO ONE (12:45)
[2017-06-22] MEDS ORDERED: CLINDAMYCIN HCL 150 MG CAP PO ONE (12:45)
[2017-06-22] MEDS ORDERED: CALC1CAP36 PO (12:56)
[2017-06-22] MEDS ORDERED: FERR325T18 PO (12:56)
[2017-06-22] MEDS ORDERED: CEPH500C PO (14:08)
[2017-06-22 14:14] LABS: INR 2.8 (0.9-1.1); PARTIAL THROMBOPLASTIN RATIO 1.5; PROTHROMBIN TIME (PATIENT) 28.7 SECONDS (9.0-12.0)
[2017-06-22 14:21] LABS: BLOOD UREA NITROGEN 35 mg/dl (7-18); CALCIUM 9.4 mg/dl (8.5-10.1); CARBON DIOXIDE 30 mmol/L (21-32); CHLORIDE 105 mmol/L (98-107); CREATININE 1.15 mg/dl (0.60-1.20); GLUCOSE 89 mg/dl (70-99); POTASSIUM 3.5 mmol/L (3.5-5.1); SODIUM 140 mmol/L (136-145)
[2017-06-22 14:33] VITALS: BP 146/70; PULSE 67; O2SAT 96
== END 2017-06-22 15:15 | disposition home or self-care (01) ==
LOC: C.EDB 11:23 → C.EDC 15:15
DX: M79.605 Pain in left leg (principal); M79.604 Pain in right leg; I89.0 Lymphedema, not elsewhere classified; L03.115 Cellulitis of right lower limb; S81.801A Unspecified open wound, right lower leg, initial encounter; X58.XXXA Exposure to other specified factors, initial encounter; I48.91 Unspecified atrial fibrillation; I25.10 Atherosclerotic heart disease of native coronary artery without angina pectoris; I13.0 Hypertensive heart and chronic kidney disease with heart failure and stage 1 through stage 4 chronic kidney disease, or unspecified chronic kidney disease; N18.3 Chronic kidney disease, stage 3 (moderate); I50.30 Unspecified diastolic (congestive) heart failure; E78.5 Hyperlipidemia, unspecified; E03.9 Hypothyroidism, unspecified; M19.90 Unspecified osteoarthritis, unspecified site; E06.1 Subacute thyroiditis; I25.2 Old myocardial infarction; E66.9 Obesity, unspecified; Z86.718 Personal history of other venous thrombosis and embolism; Z95.0 Presence of cardiac pacemaker; Z98.51 Tubal ligation status; Z96.651 Presence of right artificial knee joint; Z79.01 Long term (current) use of anticoagulants; Z83.3 Family history of diabetes mellitus; Z82.49 Family history of ischemic heart disease and other diseases of the circulatory system; I44.7 Left bundle-branch block, unspecified; R94.31 Abnormal electrocardiogram [ECG] [EKG]

== ENCOUNTER 2017-09-29 17:19 | Emergency (ER) | payer OTHER ==
[~2017-09-29] VITALS: Ht 157.5 cm; Wt 103.1 kg
[~2017-09-29 17:19] MED LIST changes: -ALBUAER2 INH; +CALC1CAP36 PO; -CALCTAB5 PO; +CALCTAB7 PO; +FERR325T18 PO; -FRRG PO; +NRV/5 PO; +OXYB15TA PO; -OXYB15TA12 PO; -PRMVC PV
[2017-09-29 17:39] VITALS: TEMP 36.8
[2017-09-29] MEDS ORDERED: SODIUM CHLORIDE 0.9% 500ML 500 ML IV STA (17:58)
--- NOTE | 2017-09-29 18:00 | EMERGENCY ROOM VISIT NOTE ---
History Report prepared by Lottie: Hermila Magallon Under the Supervision of: Dr. Otoniel Acuña D.O. First contact with patient: 17:45 Chief Complaint: DEHYDRATION Stated Complaint: CONFUSION, STRANGE BEHAVIOR, DEHYDRATED History of Present Illness The patient is a 82 year old female who presents to the Emergency Room with complaints of confusion beginning a week ago. Per family, the patient may have a UTI, as she had similar symptoms the last time she had a UTI. Per daughter, the patient has been more confused lately and has been saying things that do not make sense. Per granddaughter, the patient has had muffled hearing, blurry vision, and a cough, but no fevers. Per family, the patient has not started new medications and has not had recent falls. The patient denies having pain anywhere. She does report that her legs have been swollen for awhile. Her family reports that the patient's walking has been unsteady lately and that she has more so been shuffling. The patient reports having a normal appetite. Source of History: patient, family Onset: 1 week ago Position: other (global) Quality: other (confusion ) Associated Symptoms: + cough, No fevers Note: additional symptoms: muffled hearing, blurry vision Review of Systems See HPI for pertinent positives & negatives. A total of 10 systems reviewed and were otherwise negative. Past Medical & Surgical Medical Problems: (1) Atrial fibrillation (2) Bleeding (3) Bronchitis (4) CAD (coronary artery disease) (5) Chronic kidney disease (CKD) stage G3a/A1, moderately decreased glomerular filtration rate (GFR) between 45-59 mL/min/1.73 square meter and albuminuria creatinine ratio less than 30 mg/g (6) Complete heart block (7) Diastolic CHF, chronic (8) GI bleed (9) H/O blood clots (10) Hx of subacute thyroiditis (11) Hyperlipemia (12) Hypertension (13) Hypothyroid (14) Migraine with aura (15) Myocardial infarction (16) Obesity (17) Osteoarthritis (18) Pacemaker (19) Pneumonia Surgical Problems: (1) H/O tubal ligation (2) History of appendectomy (3) History of total right knee replacement (4) S/P appendectomy (5) S/P placement of cardiac pacemaker (6) S/P removal of thyroid nodule (7) S/p scraping of cervical canal lining Family History Cancer Diabetes mellitus Heart disease Hypertension Social History Smoking Status: Never Smoker Alcohol Use: none Marital Status: Occupation Status: retired Current/Historical Medications Scheduled Amlodipine Besylate (Amlodipine Besylate), 1 TAB PO DAILY Ampicillin (Ampicillin), 2,000 MG PO UD Calcitriol (Calcitriol), 1 CAP PO UD Calcium Carbonate-Vitamin D W/ (Caltrate 600 Plus), 1 TAB PO DAILY Cholecalciferol (Vitamin D3), 2,000 UNITS PO QPM Cranberry (Vaccinium Macrocarp (Cranberry), 4,200 MG PO QAM Ferrous Gluconate (Ferrous Gluconate), 1 TAB PO BIDM Furosemide (Lasix), 20 MG PO DAILY Levothyroxine Sodium (Synthroid), 88 MCG PO QAM Metoprolol Tartrate (Lopressor), 1 TAB PO BID Misc Natural Products (Osteo Bi-Flex Advanced Do), 1 TAB PO QAM Multiple Vitamin (Multivitamin), 1 TAB PO QPM Nystatin (Topical) (Nystop), 1 APPLN TD BID Oxybutynin Chloride (Oxybutynin Chloride Er), 1 TAB PO DAILY Pantoprazole (Protonix), 40 MG PO QAM Rosuvastatin Calcium (Crestor), 10 MG PO QPM Warfarin Sodium (Coumadin), 1 MG PO 5XWK Warfarin Sodium (Coumadin), 2 MG PO 1xweek Allergies Coded Allergies: Morphine (Verified Adverse Reaction, Unknown, HALLUCINATIONS, 06/22/17) NSAIDs (Verified Adverse Reaction, Unknown, MILD ERYTHEMA AROUND EYES AND FACE, 06/22/17) tolerates celebrex Spironolactone (Unverified Adverse Reaction, Unknown, HYPERKALEMIA, ) Physical Exam Vital Signs Date Time Temp Pulse Resp B/P (MAP) Pulse Ox O2 Delivery O2 Flow Rate FiO2 09/29/17 21:37 64 147/78 93 09/29/17 21:23 61 93 09/29/17 20:53 61 21 95 09/29/17 20:23 61 24 94 09/29/17 20:18 74 172/93 92 Room Air 09/29/17 19:50 60 23 93 09/29/17 19:31 122/97 09/29/17 19:20 60 22 92 09/29/17 19:15 61 27 92 Room Air 09/29/17 18:26 70 09/29/17 18:18 93 Room Air 09/29/17 17:39 36.8 64 20 148/88 92 Room Air Physical Exam GENERAL: Patient is awake, alert, and in no acute distress. Patient is resting comfortably and showing no signs of anxiety EYES: The conjunctivae are clear. The pupils are round and reactive. EARS, NOSE, MOUTH AND THROAT: The nose is without any evidence of any deformity. Mucous membranes are dry tongue is midline NECK: The neck is nontender and supple. RESPIRATORY: Diminished throughout, no tachypnea or conversational dyspnea noted. CARDIOVASCULAR: Regular rate and rhythm noted there no murmurs rubs or gallops normal S1 normal S2 GASTROINTESTINAL: The abdomen is soft. Bowel sounds are present in all quadrants. Abdomen is nontender MUSCULOSKELETAL/EXTREMITIES: There is no evidence of gross deformity full range of motion is noted in the hips and shoulders SKIN: There is no obvious evidence of any rash. There are no petechiae, pallor or cyanosis noted. Venous stasis changes noted bilaterally. Edema noted bilaterally. NEUROLOGIC: Patient is awake alert to person place and situation. Strength diminished but symmetric. Medical Decision & Procedures ER Provider Diagnostic Interpretation: Radiology results as stated below per my review and radiologist interpretation: CHEST ONE VIEW PORTABLE CLINICAL HISTORY: 82 years-old Female presenting with EVALUATE ALTERED MENTAL STATUS/WEAKNESS. TECHNIQUE: Portable upright AP view of the chest was obtained. COMPARISON: 08/01/2016. FINDINGS: Left subclavian pacer with leads to the right atrium and right ventricular apex. Atherosclerosis and tortuosity of the prominent thoracic aorta. Cardiac silhouette mildly enlarged, unchanged. Pulmonary vasculature mildly prominent. Mildly low lung volumes with hypoventilatory changes. No focal opacity. No large effusion or pneumothorax. Osseous structures normal. Upper abdomen normal. IMPRESSION: 1. Cardiomegaly with mild volume overload. No vicki pulmonary edema. 2. Mildly low lung volumes with hypoventilatory changes. Electronically signed by: Wicho Higgins M.D. 09/29/2017 6:18 PM Dictated Date/Time: 09/29/2017 6:17 PM HEAD WITHOUT CONTRAST (CT) CLINICAL HISTORY: 82 years-old Female presenting with EVALUATE ALTERED MENTAL STATUS/WEAKNESS, confusion for one week. TECHNIQUE: Multidetector CT imaging of the head was performed without the use of intravenous contrast. IV contrast: None. A dose lowering technique was used consistent with the principles of ALARA (as low as reasonably achievable). COMPARISON: 07/02/2014. CT DOSE (mGy.cm): The estimated cumulative dose is 537.48 mGy.cm. FINDINGS: Ethylene Oxide Panelboard Operator topogram: Unremarkable. Proportional ventricular and sulcal prominence with the exception of the vertex, which demonstrates a greater degree of sulcal effacement and gyral crowding. Abnormal decrease in the callosal angle, which measures approximately 40 degrees. Brain parenchyma normal in appearance with preserved lozada-white differentiation. No mass effect or midline shift. No hemorrhage or acute territorial infarct. No extra-axial fluid collection. Paranasal sinuses and mastoid air cells clear. Calvarium intact. IMPRESSION: 1. Findings suggest normal pressure hydrocephalus. No other evidence of acute intracranial pathology. Electronically signed by: Wicho Higgins M.D. 09/29/2017 6:48 PM Dictated Date/Time: 09/29/2017 6:45 PM Laboratory Results 09/29/17 17:55 Red Blood Count 4.27, Mean Corpuscular Volume 93.4, Mean Corpuscular Hemoglobin 31.1, Mean Corpuscular Hemoglobin Concent 33.3, Mean Platelet Volume 11.0, Neutrophils (%) (Auto) 60.7, Lymphocytes (%) (Auto) 22.8, Monocytes (%) (Auto) 12.3, Eosinophils (%) (Auto) 3.3, Basophils (%) (Auto) 0.6, Neutrophils # (Auto ) 3.83, Lymphocytes # (Auto) 1.44, Monocytes # (Auto) 0.78, Eosinophils # (Auto ) 0.21, Basophils # (Auto) 0.04 09/29/17 17:55 Test 09/29/17 17:55 09/29/17 18:21 09/29/17 18:35 White Blood Count 6.32 K/uL (4.8-10.8) Red Blood Count 4.27 M/uL (4.2-5.4) Hemoglobin 13.3 g/dL (12.0-16.0) Hematocrit 39.9 % (37-47) Mean Corpuscular Volume 93.4 fL (80-100) Mean Corpuscular Hemoglobin 31.1 pg (25-34) Mean Corpuscular Hemoglobin Concent 33.3 g/dl (32-36) Platelet Count 233 K/uL (130-400) Mean Platelet Volume 11.0 fL (7.4-10.4) Neutrophils (%) (Auto) 60.7 % Lymphocytes (%) (Auto) 22.8 % Monocytes (%) (Auto) 12.3 % Eosinophils (%) (Auto) 3.3 % Basophils (%) (Auto) 0.6 % Neutrophils # (Auto) 3.83 K/uL (1.4-6.5) Lymphocytes # (Auto) 1.44 K/uL (1.2-3.4) Monocytes # (Auto) 0.78 K/uL (0.11-0.59) Eosinophils # (Auto) 0.21 K/uL (0-0.5) Basophils # (Auto) 0.04 K/uL (0-0.2) RDW Standard Deviation 47.3 fL (36.4-46.3) RDW Coefficient of Variation 13.9 % (11.5-14.5) Immature Granulocyte % (Auto) 0.3 % Immature Granulocyte # (Auto) 0.02 K/uL (0.00-0.02) Prothrombin Time 24.9 SECONDS (9.0-12.0) Prothromb Time International Ratio 2.4 (0.9-1.1) Activated Partial Thromboplast Time 35.3 SECONDS (21.0-31.0) Partial Thromboplastin Ratio 1.4 Anion Gap 5.0 mmol/L (3-11) Est Creatinine Clear Calc Drug Dose 33.7 ml/min Estimated GFR () 39.1 Estimated GFR (Non- 33.7 BUN/Creatinine Ratio 23.5 (10-20) Calcium Level 9.9 mg/dl (8.5-10.1) Phosphorus Level 3.3 mg/dl (2.5-4.9) Magnesium Level 2.0 mg/dl (1.8-2.4) Total Bilirubin 0.5 mg/dl (0.2-1) Direct Bilirubin 0.2 mg/dl (0-0.2) Aspartate Amino Transf (AST/SGOT) 21 U/L (15-37) Alanine Aminotransferase (ALT/SGPT) 19 U/L (12-78) Alkaline Phosphatase 123 U/L (45-117) Troponin I < 0.015 ng/ml (0-0.045) Pro-B-Type Natriuretic Peptide 2288 pg/ml (0-1800) Total Protein 8.6 gm/dl (6.4-8.2) Albumin 3.9 gm/dl (3.4-5.0) Lipase 101 U/L (73-393) Thyroid Stimulating Hormone (TSH) 4.050 uIu/ml (0.300-4.500) Bedside Glucose 91 mg/dl (70-90) Urine Color YELLOW Urine Appearance CLEAR (CLEAR) Urine pH 5.0 (4.5-7.5) Urine Specific [place] 1.014 (1.000-1.030) Urine Protein NEG (NEG) Urine Glucose (UA) NEG (NEG) Urine Ketones NEG (NEG) Urine Occult Blood NEG (NEG) Urine Nitrite NEG (NEG) Urine Bilirubin NEG (NEG) Urine Urobilinogen NEG (NEG) Urine Leukocyte Esterase NEG (NEG) Urine Opiates Screen NEG (NEG) Urine Methadone, Qualitative NEG (NEG) Urine Barbiturates NEG (NEG) Urine Phencyclidine (PCP) Level NEG (NEG) Ur Amphetamine/Methamphetamine NEG (NEG) MDMA (Ecstasy) Screen NEG (NEG) Urine Benzodiazepines Screen NEG (NEG) Urine Cocaine Metabolite NEG (NEG) Urine Marijuana (THC) NEG (NEG) Date/Time Source Procedure Growth Status 09/29/17 18:35 Urine,Catheterized Urine Culture - Final NO GROWTH - LESS THAN 1,000 COLONIES/ML Complete Laboratory results per my review. Medications Administered Medications (Trade) Dose Ordered Sig/Ce Route Start Time Stop Time Status Last Admin Dose Admin Sodium Chloride 500 ml @ 999 mls/hr Q31M STAT IV 09/29/17 17:58 09/29/17 18:28 DC 09/29/17 18:00 999 MLS/HR ECG Per My Interpretation Indication: weakness Rate (beats per minute): 62 Rhythm: other (ventricular paced) Findings: other (no creek beats ) Change: no significant change ED Course 1753: The patient was evaluated in room B4B. A complete history and physical examination were performed. 1757: Ordered Sodium Chloride 500 ml @ 999 mls/hr IV. 2129: Upon reevaluation, the patient is resting. I discussed the results and treatment plan with her. She verbalized agreement of the treatment plan. She was discharged home. Medical Decision Differential diagnosis: Etiologies such as metabolic, infection, hypoglycemia, electrolyte abnormalities , cardiac sources, intracerebral event, toxicologic, neurologic, as well as others were entertained. Nursing notes reviewed. Additional history is obtained from the patient's daughters. The patient is an 82-year-old female who presented to the emergency department with family members for an evaluation. The patient was felt to be confused and having changes in her mental status. The patient's daughters state that she has had similar symptoms in the past with urinary tract infections. The patient was found to have some signs of dehydration on physical exam as well as laboratory studies. She was treated with IV fluids in the emergent department. On subsequent reevaluation she was feeling somewhat improved. I discussed the patient's laboratory and radiographic studies with her daughters. She was encouraged to continue all medications as prescribed. She was also encouraged to call her primary care physician to schedule a follow-up appointment. Otherwise I recommended that they return to the emergency department immediately if symptoms change worsen or the need arises. Medication Reconcilliation Current Medication List: was personally reviewed by me Blood Pressure Screening Patient's blood pressure: Elevated blood pressure Blood pressure disposition: Referred to PCP Impression Primary Impression: Altered mental status Additional Impression: Dehydration Scribe Attestation The scribe's documentation has been prepared under my direction and personally reviewed by me in its entirety. I confirm that the note above accurately reflects all work, treatment, procedures, and medical decision making performed by me. Departure Information Dispostion Home / Self-Care Referrals Elizabeth Hutchison D.O. (PCP) Forms HOME CARE DOCUMENTATION FORM, IMPORTANT VISIT INFORMATION, WORK / SCHOOL INSTRUCTIONS Patient Instructions ED Confusion, ED Dehydration, My [facility] Additional Instructions Call your family doctor in the morning to schedule a follow-up appointment. Continue all medications as prescribed. Return to the emergency department if symptoms change worsen or the need arises. Problem Qualifiers Primary Impression: Altered mental status Altered mental status type: unspecified Qualified Codes: R41.82 - Altered mental status, unspecified
[2017-09-29 18:08] LABS: BASO % 0.6 %; BASO ABS # 0.04 K/uL (0-0.2); EOS % 3.3 %; EOS ABS # 0.21 K/uL (0-0.5); HEMATOCRIT 39.9 % (37-47); HEMOGLOBIN 13.3 g/dL (12.0-16.0); IG# 0.02 K/uL (0.00-0.02); LYMPH % 22.8 %; LYMPH ABS # 1.44 K/uL (1.2-3.4); MEAN CELL VOLUME 93.4 fL (80-100); MEAN CORPUSCULAR HEMOGLOBIN 31.1 pg (25-34); MEAN CORPUSCULAR HGB CONC 33.3 g/dl (32-36); MONO % 12.3 %; MONO ABS # 0.78 K/uL (0.11-0.59); NEUT % 60.7 %; NEUT ABS # 3.83 K/uL (1.4-6.5); PLATELET COUNT 233 K/uL (130-400); RED CELL DISTRIBUTION WIDTH CV 13.9 % (11.5-14.5); RED CELL DISTRIBUTION WIDTH SD 47.3 fL (36.4-46.3); WHITE BLOOD COUNT 6.32 K/uL (4.8-10.8)
[2017-09-29 18:18] VITALS: O2SAT 93; Ht 157.5 cm; Wt 103.1 kg
--- NOTE | 2017-09-29 18:20 | DIAGNOSTIC IMAGING REPORT ---
CHEST ONE VIEW PORTABLE CLINICAL HISTORY: 82 years-old Female presenting with EVALUATE ALTERED MENTAL STATUS/WEAKNESS. TECHNIQUE: Portable upright AP view of the chest was obtained. COMPARISON: 08/01/2016. FINDINGS: Left subclavian pacer with leads to the right atrium and right ventricular apex. Atherosclerosis and tortuosity of the prominent thoracic aorta. Cardiac silhouette mildly enlarged, unchanged. Pulmonary vasculature mildly prominent. Mildly low lung volumes with hypoventilatory changes. No focal opacity. No large effusion or pneumothorax. Osseous structures normal. Upper abdomen normal. IMPRESSION: 1. Cardiomegaly with mild volume overload. No vicki pulmonary edema. 2. Mildly low lung volumes with hypoventilatory changes. Electronically signed by: Wicho Higgins M.D. 09/29/2017 6:18 PM Dictated Date/Time: 09/29/2017 6:17 PM
[2017-09-29 18:21] LABS: INR 2.4 (0.9-1.1); PTT PATIENT 35.3 SECONDS (21.0-31.0)
[2017-09-29 18:29] LABS: ALBUMIN 3.9 gm/dl (3.4-5.0); ALT/SGPT 19 U/L (12-78); AST/SGOT 21 U/L (15-37); BLOOD UREA NITROGEN 34 mg/dl (7-18); CALCIUM 9.9 mg/dl (8.5-10.1); CARBON DIOXIDE 31 mmol/L (21-32); CREATININE 1.44 mg/dl (0.60-1.20); GLUCOSE 83 mg/dl (70-99); LIPASE 101 U/L (73-393); POTASSIUM 3.7 mmol/L (3.5-5.1); SODIUM 141 mmol/L (136-145)
[2017-09-29 18:37] LABS: ALKALINE PHOSPHATASE 123 U/L (45-117); PHOSPHORUS 3.3 mg/dl (2.5-4.9); TOTAL PROTEIN 8.6 gm/dl (6.4-8.2)
--- NOTE | 2017-09-29 18:49 | DIAGNOSTIC IMAGING REPORT ---
HEAD WITHOUT CONTRAST (CT) CLINICAL HISTORY: 82 years-old Female presenting with EVALUATE ALTERED MENTAL STATUS/WEAKNESS, confusion for one week. TECHNIQUE: Multidetector CT imaging of the head was performed without the use of intravenous contrast. IV contrast: None. A dose lowering technique was used consistent with the principles of ALARA (as low as reasonably achievable). COMPARISON: 07/02/2014. CT DOSE (mGy.cm): The estimated cumulative dose is 537.48 mGy.cm. FINDINGS: Road Worker topogram: Unremarkable. Proportional ventricular and sulcal prominence with the exception of the vertex, which demonstrates a greater degree of sulcal effacement and gyral crowding. Abnormal decrease in the callosal angle, which measures approximately 40 degrees. Brain parenchyma normal in appearance with preserved lozada-white differentiation. No mass effect or midline shift. No hemorrhage or acute territorial infarct. No extra-axial fluid collection. Paranasal sinuses and mastoid air cells clear. Calvarium intact. IMPRESSION: 1. Findings suggest normal pressure hydrocephalus. No other evidence of acute intracranial pathology. Electronically signed by: Wicho Higgins M.D. 09/29/2017 6:48 PM Dictated Date/Time: 09/29/2017 6:45 PM
[2017-09-29 21:37] VITALS: BP 147/78; PULSE 64; O2SAT 93
== END 2017-09-29 21:46 | disposition home or self-care (01) ==
LOC: C.EDB 17:20
DX: R41.82 Altered mental status, unspecified (principal); E86.0 Dehydration; Z87.440 Personal history of urinary (tract) infections; I48.91 Unspecified atrial fibrillation; I25.10 Atherosclerotic heart disease of native coronary artery without angina pectoris; N18.3 Chronic kidney disease, stage 3 (moderate); I50.32 Chronic diastolic (congestive) heart failure; E78.5 Hyperlipidemia, unspecified; I13.0 Hypertensive heart and chronic kidney disease with heart failure and stage 1 through stage 4 chronic kidney disease, or unspecified chronic kidney disease; E03.9 Hypothyroidism, unspecified; I25.2 Old myocardial infarction; E66.9 Obesity, unspecified; M19.90 Unspecified osteoarthritis, unspecified site; Z87.01 Personal history of pneumonia (recurrent); Z95.0 Presence of cardiac pacemaker; Z98.51 Tubal ligation status; Z96.651 Presence of right artificial knee joint; Z80.9 Family history of malignant neoplasm, unspecified; Z83.3 Family history of diabetes mellitus; Z82.49 Family history of ischemic heart disease and other diseases of the circulatory system; Z79.899 Other long term (current) drug therapy; Z79.01 Long term (current) use of anticoagulants; Z88.5 Allergy status to narcotic agent; Z88.8 Allergy status to other drugs, medicaments and biological substances

== ENCOUNTER 2017-11-04 18:08 | Emergency (ER) | payer OTHER ==
[~2017-11-04] VITALS: Ht 165.1 cm; Wt 102.8 kg
[2017-11-04 18:13] VITALS: TEMP 36.9; Ht 165.1 cm; Wt 102.8 kg
--- NOTE | 2017-11-04 19:05 | DIAGNOSTIC IMAGING REPORT ---
CHEST ONE VIEW PORTABLE HISTORY: 82 years-old Female EVALUATE WEAKNESS acute weakness COMPARISON: Chest radiograph 09/29/2017 TECHNIQUE: Portable AP view of the chest FINDINGS: Cardiac silhouette is enlarged. Unchanged positioning of the leads from the left subclavian pacer. Mild pulmonary vascular congestion without overt pulmonary edema. No pneumothorax or large pleural effusion. Mild right hemidiaphragmatic elevation with subsegmental left basilar opacities. Degenerative changes of the shoulders and spine. IMPRESSION: 1. Cardiomegaly with mild pulmonary vascular congestion. 2. Subsegmental left basilar opacities favor atelectasis. 3. Mild right hemidiaphragmatic elevation. The above report was generated using voice recognition software. It may contain grammatical, syntax or spelling errors. Electronically signed by: Iglesia Byers M.D. 11/04/2017 7:04 PM Dictated Date/Time: 11/04/2017 7:02 PM
--- NOTE | 2017-11-04 19:12 | EMERGENCY ROOM VISIT NOTE ---
History Report prepared by Lottie: Liam Valencia Under the Supervision of: Dr. Clayton Bejarano M.D. First contact with patient: 18:19 Chief Complaint: CONFUSION Stated Complaint: CONFUSION/DELUSIONS History of Present Illness The patient is a 82 year old white female with a past medical history of AFib on coumadin, AZ/CAD, CHF, HLD, HTN, and a pacemaker who presents to the ED with a cc of intermittent confusion beginning a couple of months ago. Patient is present with her daughters. Daughters states that the patient's confusion has been getting worse overall since . They states that confusion is not worse during any particular time of the day. Daughters states that they took the patient to a neurologist but "they did not find anything". She states that she takes blood thinning medication. Patient states that she has a chronic cough. Patient denies smoking. Pertinent past medical history includes UTIs. Negative symptoms include any urinary symptoms. Source of History: patient Onset: Couple months ago Position: head Timing: intermittent Modifying Factors (Relieving): other (None) Associated Symptoms: + cough, No urinary symptoms Review of Systems See HPI for pertinent positives and negatives. A total of ten systems were reviewed and were otherwise negative. Past Medical & Surgical Medical Problems: (1) Atrial fibrillation (2) Bleeding (3) Bronchitis (4) CAD (coronary artery disease) (5) Chronic kidney disease (CKD) stage G3a/A1, moderately decreased glomerular filtration rate (GFR) between 45-59 mL/min/1.73 square meter and albuminuria creatinine ratio less than 30 mg/g (6) Complete heart block (7) Diastolic CHF, chronic (8) GI bleed (9) H/O blood clots (10) Hx of subacute thyroiditis (11) Hyperlipemia (12) Hypertension (13) Hypothyroid (14) Migraine with aura (15) Myocardial infarction (16) Obesity (17) Osteoarthritis (18) Pacemaker (19) Pneumonia Surgical Problems: (1) H/O tubal ligation (2) History of appendectomy (3) History of total right knee replacement (4) S/P appendectomy (5) S/P placement of cardiac pacemaker (6) S/P removal of thyroid nodule (7) S/p scraping of cervical canal lining Family History Cancer Diabetes mellitus Heart disease Hypertension Social History Smoking Status: Never Smoker Alcohol Use: none Marital Status: Occupation Status: retired Current/Historical Medications Scheduled Amlodipine Besylate (Amlodipine Besylate), 1 TAB PO DAILY Ampicillin (Ampicillin), 2,000 MG PO UD Calcitriol (Calcitriol), 1 CAP PO UD Calcium Carbonate-Vitamin D W/ (Caltrate 600 Plus), 1 TAB PO DAILY Cholecalciferol (Vitamin D3), 2,000 UNITS PO QPM Cranberry (Vaccinium Macrocarp (Cranberry), 4,200 MG PO QAM Ferrous Gluconate (Ferrous Gluconate), 1 TAB PO BIDM Furosemide (Lasix), 20 MG PO DAILY Levothyroxine Sodium (Synthroid), 88 MCG PO QAM Metoprolol Tartrate (Lopressor), 1 TAB PO BID Misc Natural Products (Osteo Bi-Flex Advanced Do), 1 TAB PO QAM Multiple Vitamin (Multivitamin), 1 TAB PO QPM Nystatin (Topical) (Nystop), 1 APPLN TD BID Oxybutynin Chloride (Oxybutynin Chloride Er), 1 TAB PO DAILY Pantoprazole (Protonix), 40 MG PO QAM Rosuvastatin Calcium (Crestor), 10 MG PO QPM Warfarin Sodium (Coumadin), 1 MG PO 5XWK Warfarin Sodium (Coumadin), 2 MG PO 1xweek Allergies Coded Allergies: Morphine (Verified Adverse Reaction, Unknown, HALLUCINATIONS, 11/04/17) NSAIDs (Verified Adverse Reaction, Unknown, MILD ERYTHEMA AROUND EYES AND FACE, 11/04/17) tolerates celebrex Spironolactone (Unverified Adverse Reaction, Unknown, HYPERKALEMIA, ) Physical Exam Vital Signs Date Time Temp Pulse Resp B/P (MAP) Pulse Ox O2 Delivery O2 Flow Rate FiO2 11/04/17 20:57 95 18 136/110 92 Room Air 11/04/17 19:28 61 11/04/17 19:20 90 Room Air 11/04/17 18:13 36.9 65 20 148/87 92 Room Air Physical Exam GENERAL: Awake, alert, well-appearing, NAD, wearing glasses, AO x 3 HENT: Normocephalic, atraumatic. EYES: Normal conjunctiva. Sclera non-icteric. PERRL. No anisocoria. NECK: Supple. No nuchal rigidity. FROM. RESPIRATORY: CTAB, no rhonchi, wheezing, crackles CARDIAC: RRR, no MRG ABDOMEN: Soft, NTND, BS+ MSK: No chest wall TTP, 2+ bilateral LLE edema, device in left chest NEURO: CN 2-12 intact, 5/5 upper and lower extremity strength, no dysmetria, no drift, good finger to nose, no sensory deficits. Finger count grossly normal. SKIN: No rash or jaundice noted. Medical Decision & Procedures ER Provider Diagnostic Interpretation: Radiology results as stated below per my review and radiologist interpretation: CHEST ONE VIEW PORTABLE HISTORY: 82 years-old Female EVALUATE WEAKNESS acute weakness COMPARISON: Chest radiograph 09/29/2017 TECHNIQUE: Portable AP view of the chest FINDINGS: Cardiac silhouette is enlarged. Unchanged positioning of the leads from the left subclavian pacer. Mild pulmonary vascular congestion without overt pulmonary edema. No pneumothorax or large pleural effusion. Mild right hemidiaphragmatic elevation with subsegmental left basilar opacities. Degenerative changes of the shoulders and spine. IMPRESSION: 1. Cardiomegaly with mild pulmonary vascular congestion. 2. Subsegmental left basilar opacities favor atelectasis. 3. Mild right hemidiaphragmatic elevation. The above report was generated using voice recognition software. It may contain grammatical, syntax or spelling errors. Electronically signed by: Iglesia Byers M.D. 11/04/2017 7:04 PM Laboratory Results 11/04/17 19:20 Red Blood Count 4.70, Mean Corpuscular Volume 90.0, Mean Corpuscular Hemoglobin 30.6, Mean Corpuscular Hemoglobin Concent 34.0, Mean Platelet Volume 11.0, Neutrophils (%) (Auto) 65.2, Lymphocytes (%) (Auto) 20.6, Monocytes (%) (Auto) 10.8, Eosinophils (%) (Auto) 2.7, Basophils (%) (Auto) 0.6, Neutrophils # (Auto ) 4.36, Lymphocytes # (Auto) 1.38, Monocytes # (Auto) 0.72, Eosinophils # (Auto ) 0.18, Basophils # (Auto) 0.04 11/04/17 19:20 Test 11/04/17 19:20 11/04/17 22:45 White Blood Count 6.69 K/uL (4.8-10.8) Red Blood Count 4.70 M/uL (4.2-5.4) Hemoglobin 14.4 g/dL (12.0-16.0) Hematocrit 42.3 % (37-47) Mean Corpuscular Volume 90.0 fL (80-100) Mean Corpuscular Hemoglobin 30.6 pg (25-34) Mean Corpuscular Hemoglobin Concent 34.0 g/dl (32-36) Platelet Count 220 K/uL (130-400) Mean Platelet Volume 11.0 fL (7.4-10.4) Neutrophils (%) (Auto) 65.2 % Lymphocytes (%) (Auto) 20.6 % Monocytes (%) (Auto) 10.8 % Eosinophils (%) (Auto) 2.7 % Basophils (%) (Auto) 0.6 % Neutrophils # (Auto) 4.36 K/uL (1.4-6.5) Lymphocytes # (Auto) 1.38 K/uL (1.2-3.4) Monocytes # (Auto) 0.72 K/uL (0.11-0.59) Eosinophils # (Auto) 0.18 K/uL (0-0.5) Basophils # (Auto) 0.04 K/uL (0-0.2) RDW Standard Deviation 45.9 fL (36.4-46.3) RDW Coefficient of Variation 13.9 % (11.5-14.5) Immature Granulocyte % (Auto) 0.1 % Immature Granulocyte # (Auto) 0.01 K/uL (0.00-0.02) Prothrombin Time 31.1 SECONDS (9.0-12.0) Prothromb Time International Ratio 3.0 (0.9-1.1) Activated Partial Thromboplast Time 38.7 SECONDS (21.0-31.0) Partial Thromboplastin Ratio 1.5 Anion Gap 6.0 mmol/L (3-11) Est Creatinine Clear Calc Drug Dose 39.1 ml/min Estimated GFR () 43.4 Estimated GFR (Non- 37.5 BUN/Creatinine Ratio 20.2 (10-20) Calcium Level 9.3 mg/dl (8.5-10.1) Phosphorus Level 3.3 mg/dl (2.5-4.9) Magnesium Level 1.7 mg/dl (1.8-2.4) Total Bilirubin 0.7 mg/dl (0.2-1) Direct Bilirubin 0.2 mg/dl (0-0.2) Aspartate Amino Transf (AST/SGOT) 21 U/L (15-37) Alanine Aminotransferase (ALT/SGPT) 20 U/L (12-78) Alkaline Phosphatase 126 U/L (45-117) Troponin I < 0.015 ng/ml (0-0.045) Pro-B-Type Natriuretic Peptide 1654 pg/ml (0-1800) Total Protein 8.8 gm/dl (6.4-8.2) Albumin 3.7 gm/dl (3.4-5.0) Lipase 99 U/L (73-393) Thyroid Stimulating Hormone (TSH) 2.290 uIu/ml (0.300-4.500) Urine Color YELLOW Urine Appearance CLEAR (CLEAR) Urine pH 5.0 (4.5-7.5) Urine Specific [place] 1.018 (1.000-1.030) Urine Protein NEG (NEG) Urine Glucose (UA) NEG (NEG) Urine Ketones NEG (NEG) Urine Occult Blood NEG (NEG) Urine Nitrite NEG (NEG) Urine Bilirubin NEG (NEG) Urine Urobilinogen NEG (NEG) Urine Leukocyte Esterase SMALL (NEG) Urine WBC (Auto) 1-5 /hpf (0-5) Urine RBC (Auto) 0-4 /hpf (0-4) Urine Hyaline Casts (Auto) 1-5 /lpf (0-5) Urine Epithelial Cells (Auto) >30 /lpf (0-5) Urine Bacteria (Auto) NEG (NEG) Laboratory results reviewed by me Medications Administered Medications (Trade) Dose Ordered Sig/Ce Route Start Time Stop Time Status Last Admin Dose Admin Magnesium Oxide (Mag-Ox Tab) 800 mg ONE STAT PO 11/04/17 20:07 11/04/17 20:08 DC 11/04/17 20:20 800 MG ECG Per My Interpretation Indication: other (Confusion) Rate (beats per minute): 62 Rhythm: other (V-paced) Findings: Q waves (Anterior and inferior), no ectopy, other (Wide QRS) ED Course 1824: The patient was evaluated in room C10. A complete history and physical exam was performed. 1907: I reevaluated the patient. Discussed results and discharge instructions. She verbalized understanding and agreement. The patient is ready for discharge. Medical Decision Nursing notes reviewed. Ancillary studies and prior records reviewed. The patient is a 82 year old white female with a past medical history of AFib on coumadin, AZ/CAD, CHF, HLD, HTN, and a pacemaker who presents to the ED with a cc of intermittent confusion beginning a couple of months ago. The patient's presentation and history were concerning for metabolic, infection , hypo/hyperglycemia, electrolyte abnormalities, cardiac sources, intracerebral event, toxicologic, neurologic, as well as others were entertained. Patient was seen and evaluated the bedside. Patient is a and O 3 with a GCS of 15 and the patient does not have a focal neurologic deficit. Per the daughters at the bedside they have been concerned about confusion. The patient has been worked up as an outpatient has been seen by the neurology service. She reportedly does have a history of hydrocephalus. The patient does have a history of urinary tract infections. She does complain of a mild cough but it is nonproductive. The patient is a non-smoker she denies any chest pain, shortness of breath, abdominal pain, nausea, vomiting. Patient did have blood work completed, EKG, troponin, chest x-ray, urinalysis. Patient's EKG is V paced and unchanged from priors. Patient blood work is fairly unremarkable. Patient did have mild hypomagnesemia which is repleted. Troponin is not elevated. Chest x-ray shows some vascular congestion but no evidence of pneumonia. Patient initially missed the year and had to give us urine specimen. Patient CT the brain did show ventriculomegaly but this is unchanged from priors. We did discuss that there may be some contributing component of possible NPH however she would also have urinary incontinence likely unsteady gait which is not present. The patient does have a follow-up with neurology. Given her waxing and waning symptoms with unremarkable blood work this may be related to possible delirium versus dementia. There also may be an element of NPH. We did discuss possibility of multiple TIAs however given the waxing waning time course which has been quite prolonged this may be possible but I believe less likely. UA does not show any evidence of urinary tract infection. I did have assistant case manager talk to the family about in-home care options. Patient does have a safe place to go this evening does have family that checks up on her with regularity. Patient was deemed suitable for outpatient follow-up and treatment at this time. Patient was given strict follow-up, discharge, and return precautions. All questions were answered. Patient was deemed suitable for outpatient follow- up at this time. Patient agreed with the plan of care and was safely discharged home. Head Trauma GCS Score: 15 Medication Reconcilliation Current Medication List: was personally reviewed by me Blood Pressure Screening Patient's blood pressure: Elevated blood pressure Blood pressure disposition: Referred to PCP Impression Primary Impression: Confusion Scribe Attestation The scribe's documentation has been prepared under my direction and personally reviewed by me in its entirety. I confirm that the note above accurately reflects all work, treatment, procedures, and medical decision making performed by me. Departure Information Dispostion Home / Self-Care Referrals Elizabeth Hutchison D.O. (PCP) Patient Instructions Delirium Care, Delirium Prevent, ED Confusion, My [facility] Additional Instructions Please return to the emergency department if you have worsening or recurrent symptoms not amenable to at-home treatment. Please call for a follow-up appointment with her primary care physician. Please take your medications as prescribed. If you have other concerns and/or complaints please feel free to also call your primary care physician's office or return the ED for further evaluation, management, and treatment. Take your medications as prescribed. You have been examined and treated today on an emergency basis only. This is not a substitute for, or an effort to provide, complete comprehensive medical care. It is impossible to recognize and treat all injuries or illnesses in a single emergency department visit. It is therefore important that you follow up closely with [facility], your PCP, and/or your specialist(s). Call as soon as possible for an appointment. Thank you for your time and consideration. I look forward to speaking with you again soon. Please don't hesitate to call us if you have any questions.
[2017-11-04 19:20] VITALS: O2SAT 90
[2017-11-04 19:35] LABS: BASO % 0.6 %; BASO ABS # 0.04 K/uL (0-0.2); EOS % 2.7 %; EOS ABS # 0.18 K/uL (0-0.5); HEMATOCRIT 42.3 % (37-47); HEMOGLOBIN 14.4 g/dL (12.0-16.0); IG# 0.01 K/uL (0.00-0.02); LYMPH % 20.6 %; LYMPH ABS # 1.38 K/uL (1.2-3.4); MEAN CORPUSCULAR HEMOGLOBIN 30.6 pg (25-34); MONO % 10.8 %; MONO ABS # 0.72 K/uL (0.11-0.59); NEUT % 65.2 %; NEUT ABS # 4.36 K/uL (1.4-6.5); PLATELET COUNT 220 K/uL (130-400); RED CELL DISTRIBUTION WIDTH CV 13.9 % (11.5-14.5); RED CELL DISTRIBUTION WIDTH SD 45.9 fL (36.4-46.3); WHITE BLOOD COUNT 6.69 K/uL (4.8-10.8)
[2017-11-04 19:46] LABS: PTT PATIENT 38.7 SECONDS (21.0-31.0)
[2017-11-04 19:52] LABS: ALBUMIN 3.7 gm/dl (3.4-5.0); ALT/SGPT 20 U/L (12-78); AST/SGOT 21 U/L (15-37); BLOOD UREA NITROGEN 27 mg/dl (7-18); CALCIUM 9.3 mg/dl (8.5-10.1); CARBON DIOXIDE 27 mmol/L (21-32); CREATININE 1.32 mg/dl (0.60-1.20); GLUCOSE 93 mg/dl (70-99); LIPASE 99 U/L (73-393); POTASSIUM 4.2 mmol/L (3.5-5.1); SODIUM 139 mmol/L (136-145)
[2017-11-04 20:00] LABS: ALKALINE PHOSPHATASE 126 U/L (45-117); PHOSPHORUS 3.3 mg/dl (2.5-4.9); TOTAL PROTEIN 8.8 gm/dl (6.4-8.2)
[2017-11-04] MEDS ORDERED: MAGNESIUM OXIDE 400 MG TAB PO STA (20:07)
--- NOTE | 2017-11-04 21:36 | DIAGNOSTIC IMAGING REPORT ---
HEAD CT NONCONTRAST CT DOSE: 537.48 mGy.cm HISTORY: EVALUATE WEAKNESS TECHNIQUE: Multiaxial CT images of the head were performed without the use of intravenous contrast. Automated exposure control was utilized for this study. A dose lowering technique was utilized adhering to the principles of ALARA. Comparison: Head CT 09/29/2017. Findings: The paranasal sinuses and mastoid air cells are clear. The calvarium and skull base are intact. There is no mass, hematoma, midline shift, acute infarct. Moderate ventriculomegaly, unchanged. Periventricular white matter hypodensity is also unchanged. This is nonspecific but favors microvascular ischemic change. Impression: No significant change compared to the prior study. No acute intracranial abnormality. Stable moderate ventriculomegaly. Electronically signed by: Hussain Killian M.D. 11/04/2017 9:34 PM Dictated Date/Time: 11/04/2017 9:31 PM
[2017-11-04 23:52] VITALS: BP 160/80; PULSE 61; O2SAT 91
== END 2017-11-04 23:59 | disposition home or self-care (01) ==
LOC: C.EDB 18:10 → C.EDC 23:59
DX: R41.0 Disorientation, unspecified (principal); R05 Cough; I48.91 Unspecified atrial fibrillation; E83.42 Hypomagnesemia; R94.02 Abnormal brain scan; E78.5 Hyperlipidemia, unspecified; I13.0 Hypertensive heart and chronic kidney disease with heart failure and stage 1 through stage 4 chronic kidney disease, or unspecified chronic kidney disease; N18.3 Chronic kidney disease, stage 3 (moderate); I25.10 Atherosclerotic heart disease of native coronary artery without angina pectoris; E03.9 Hypothyroidism, unspecified; Z79.01 Long term (current) use of anticoagulants; Z79.899 Other long term (current) drug therapy; Z95.0 Presence of cardiac pacemaker; Z82.49 Family history of ischemic heart disease and other diseases of the circulatory system; Z88.6 Allergy status to analgesic agent; Z88.8 Allergy status to other drugs, medicaments and biological substances

== ENCOUNTER 2017-11-08 18:25 | Inpatient (IN) | payer OTHER ==
[~2017-11-08] VITALS: Ht 157.5 cm; Wt 96.1 kg
[2017-11-08] MEDS ORDERED: AMOX500C3 PO (19:40)
[2017-11-08 19:41] LABS: BASO % 0.4 %; BASO ABS # 0.02 K/uL (0-0.2); EOS % 3.9 %; EOS ABS # 0.21 K/uL (0-0.5); HEMATOCRIT 38.7 % (37-47); HEMOGLOBIN 13.1 g/dL (12.0-16.0); IG# 0.01 K/uL (0.00-0.02); LYMPH % 20.7 %; LYMPH ABS # 1.13 K/uL (1.2-3.4); MEAN CELL VOLUME 89.8 fL (80-100); MEAN CORPUSCULAR HEMOGLOBIN 30.4 pg (25-34); MEAN CORPUSCULAR HGB CONC 33.9 g/dl (32-36); MEAN PLATELET VOLUME 10.6 fL (7.4-10.4); MONO % 13.8 %; MONO ABS # 0.75 K/uL (0.11-0.59); NEUT ABS # 3.33 K/uL (1.4-6.5); PLATELET COUNT 229 K/uL (130-400); RED CELL DISTRIBUTION WIDTH CV 14.1 % (11.5-14.5); RED CELL DISTRIBUTION WIDTH SD 46.7 fL (36.4-46.3); WHITE BLOOD COUNT 5.45 K/uL (4.8-10.8)
[2017-11-08 19:48] LABS: INR 2.6 (0.9-1.1)
[2017-11-08 20:18] LABS: ALBUMIN 3.7 gm/dl (3.4-5.0); ALT/SGPT 20 U/L (12-78); BLOOD UREA NITROGEN 24 mg/dl (7-18); CALCIUM 9.5 mg/dl (8.5-10.1); CARBON DIOXIDE 28 mmol/L (21-32); CREATININE 1.33 mg/dl (0.60-1.20); GLUCOSE 103 mg/dl (70-99); SODIUM 138 mmol/L (136-145)
--- NOTE | 2017-11-08 20:19 | DIAGNOSTIC IMAGING REPORT ---
HEAD WITHOUT CONTRAST (CT) CLINICAL HISTORY: 82 years-old Female with ams intermittent. Acutely altered mental status TECHNIQUE: Multiple axial CT images of the head were obtained without contrast. A dose lowering technique was utilized adhering to the principles of ALARA. CT DOSE: 537.48 mGy.cm COMPARISON: None. FINDINGS: No acute intracranial hemorrhage, midline shift, intracranial mass, hydrocephalus, territorial ischemia or abnormal extra-axial collection. Mild to moderate brain atrophy redemonstrated with moderate dilation of the lateral and third ventricles which appears to be out of proportion to the degree of cerebral atrophy. Transverse dimension of the lateral ventricles measures up to 4.6 cm, previously 4.8 cm. Mild ill-defined areas of low-attenuation within the periventricular white matter suggest chronic microvascular ischemic changes. Cerebral vascular calcifications are seen at the level of the skull base. The calvarium is intact. The paranasal sinuses, mastoid air cells, and middle ear cavities are clear. IMPRESSION: 1. No acute intracranial abnormality. 2. Redemonstration of moderate ventricular dilation which appears to be slightly out of proportion to the degree of cerebral atrophy. These findings may be secondary to ex vacuo changes or normal pressure hydrocephalus within the appropriate clinical setting. The above report was generated using voice recognition software. It may contain grammatical, syntax or spelling errors. Electronically signed by: Iglesia Byers M.D. 11/08/2017 8:17 PM Dictated Date/Time: 11/08/2017 8:14 PM
[2017-11-08 20:42] LABS: ALKALINE PHOSPHATASE 114 U/L (45-117); AST/SGOT 28 U/L (15-37); POTASSIUM 4.6 mmol/L (3.5-5.1); TOTAL PROTEIN 8.4 gm/dl (6.4-8.2)
--- NOTE | 2017-11-08 21:27 | EMERGENCY ROOM VISIT NOTE ---
History Report prepared by Lottie: Neda Bean Under the Supervision of: Dr. Janie Chawla D.O. First contact with patient: 18:39 Chief Complaint: CONFUSION Stated Complaint: CONFUSION SENT BY NEUROLOGY History of Present Illness The patient is an 82 year old female who presents to the Emergency Room with complaints of waxing and waning confusion starting 1.5 months ago. The patient' s daughter spoke with neurology today who recommended that she come to the ED to be admitted for further work up. The patient has been seen in the ED for this confusion in the past. She followed up with neurology as an outpatient and had blood work and a CT. Her confusion seems to be increasing in frequency and lasts for hours at a time. It seems to be worse when she wakes up from sleep. She denies any recent illness, travel, medication changes, or dietary changes. The patient states that she currently feels well. She herself has not noticed any confusion. She has headaches at times which she states are not as severe as the headaches she had in the past. She has a history of migraines. She denies any decreased appetite, change in bowel movement, urinary symptoms, dizziness, lightheadedness, increased leg swelling, or difficulty walking. She notes that she cannot have an MRI because of her pacemaker. Source of History: patient, family Onset: 1.5 months ago Position: head Quality: other (confusion) Timing: waxes/wanes Modifying Factors (Worsening): other (waking from sleep) Associated Symptoms: + headache, No urinary symptoms Review of Systems See HPI for pertinent positives & negatives. A total of 10 systems reviewed and were otherwise negative. Past Medical & Surgical Medical Problems: (1) ARF (acute renal failure) (2) Atrial fibrillation (3) Bleeding (4) Bronchitis (5) CAD (coronary artery disease) (6) Chronic kidney disease (CKD) stage G3a/A1, moderately decreased glomerular filtration rate (GFR) between 45-59 mL/min/1.73 square meter and albuminuria creatinine ratio less than 30 mg/g (7) Complete heart block (8) Confusion (9) Delirium (10) Diastolic CHF, chronic (11) GI bleed (12) H/O blood clots (13) Hx of subacute thyroiditis (14) Hyperlipemia (15) Hypertension (16) Hypothyroid (17) Migraine with aura (18) Myocardial infarction (19) Obesity (20) Osteoarthritis (21) Pacemaker (22) Pneumonia Surgical Problems: (1) H/O tubal ligation (2) History of appendectomy (3) History of total right knee replacement (4) S/P appendectomy (5) S/P placement of cardiac pacemaker (6) S/P removal of thyroid nodule (7) S/p scraping of cervical canal lining Family History Cancer Diabetes mellitus Heart disease Hypertension Social History Smoking Status: Never Smoker Alcohol Use: none Marital Status: Occupation Status: retired Current/Historical Medications Scheduled Amlodipine Besylate (Amlodipine Besylate), 1 TAB PO DAILY Amoxicillin (Amoxil), 2,000 MG PO UD Calcitriol (Calcitriol), 1 CAP PO MWF Calcium Carbonate-Vitamin D W/ (Caltrate 600 Plus), 1 TAB PO QPM Cholecalciferol (Vitamin D3), 2,000 UNITS PO QPM Cranberry (Vaccinium Macrocarp (Cranberry), 4,200 MG PO QAM Ferrous Gluconate (Ferrous Gluconate), 1 TAB PO BIDM Furosemide (Lasix), 20 MG PO DAILY Levothyroxine Sodium (Synthroid), 88 MCG PO QAM Metoprolol Tartrate (Lopressor), 1 TAB PO BID Misc Natural Products (Osteo Bi-Flex Advanced Do), 1 TAB PO DAILY Multiple Vitamin (Multivitamin), 1 TAB PO QPM Nystatin (Topical) (Nystop), 1 APPLN TD BID Oxybutynin Chloride (Oxybutynin Chloride Er), 1 TAB PO QPM Pantoprazole (Protonix), 40 MG PO QAM Rosuvastatin Calcium (Crestor), 10 MG PO QPM Warfarin Sodium (Coumadin), 1 MG PO 5XWK Warfarin Sodium (Coumadin), 2 MG PO 1xweek Allergies Coded Allergies: Morphine (Verified Adverse Reaction, Unknown, HALLUCINATIONS, 11/04/17) NSAIDs (Verified Adverse Reaction, Unknown, MILD ERYTHEMA AROUND EYES AND FACE, 11/04/17) tolerates celebrex Spironolactone (Unverified Adverse Reaction, Unknown, HYPERKALEMIA, ) Physical Exam Vital Signs Date Time Temp Pulse Resp B/P (MAP) Pulse Ox O2 Delivery O2 Flow Rate FiO2 11/08/17 22:08 60 18 131/85 95 Room Air 5/15/18 21:00 65 16 122/65 95 Room Air 11/08/17 20:30 61 11/08/17 18:31 37.2 66 18 101/46 93 Room Air Physical Exam GENERAL: alert, well appearing, well nourished, no distress, non-toxic EYE EXAM: normal conjunctiva, PERRL and EOM's grossly intact OROPHARYNX: no exudate, no erythema, lips, buccal mucosa, and tongue normal and mucous membranes are moist NECK: supple, no nuchal rigidity, no adenopathy, non-tender LUNGS: Clear to auscultation. Normal chest wall mechanics HEART: no murmurs, S1 normal and S2 normal ABDOMEN: abdomen soft, non-tender, normo-active bowel sounds, no masses, no rebound or guarding. BACK: Back is symmetrical on inspection and there is no deformity, no midline tenderness, no CVA tenderness. SKIN: no rashes and no bruising UPPER EXTREMITIES: upper extremities are grossly normal. LOWER EXTREMITIES: No pitting edema. NEURO EXAM: Normal sensorium, cranial nerves II-XII intact, normal speech, no weakness of arms, no weakness of legs. No drift. Finger to nose intact. Gross sensation intact. Medical Decision & Procedures ER Provider Diagnostic Interpretation: Radiology results have been interpreted by the radiologist and reviewed by me. HEAD WITHOUT CONTRAST (CT) CLINICAL HISTORY: 82 years-old Female with ams intermittent. Acutely altered mental status TECHNIQUE: Multiple axial CT images of the head were obtained without contrast. A dose lowering technique was utilized adhering to the principles of ALARA. CT DOSE: 537.48 mGy.cm COMPARISON: None. FINDINGS: No acute intracranial hemorrhage, midline shift, intracranial mass, hydrocephalus, territorial ischemia or abnormal extra-axial collection. Mild to moderate brain atrophy redemonstrated with moderate dilation of the lateral and third ventricles which appears to be out of proportion to the degree of cerebral atrophy. Transverse dimension of the lateral ventricles measures up to 4.6 cm, previously 4.8 cm. Mild ill-defined areas of low-attenuation within the periventricular white matter suggest chronic microvascular ischemic changes. Cerebral vascular calcifications are seen at the level of the skull base. The calvarium is intact. The paranasal sinuses, mastoid air cells, and middle ear cavities are clear. IMPRESSION: 1. No acute intracranial abnormality. 2. Redemonstration of moderate ventricular dilation which appears to be slightly out of proportion to the degree of cerebral atrophy. These findings may be secondary to ex vacuo changes or normal pressure hydrocephalus within the appropriate clinical setting. The above report was generated using voice recognition software. It may contain grammatical, syntax or spelling errors. Electronically signed by: Iglesia Byers M.D. 11/08/2017 8:17 PM Dictated Date/Time: 11/08/2017 8:14 PM Laboratory Results 11/08/17 19:30 Red Blood Count 4.31, Mean Corpuscular Volume 89.8, Mean Corpuscular Hemoglobin 30.4, Mean Corpuscular Hemoglobin Concent 33.9, Mean Platelet Volume 10.6, Neutrophils (%) (Auto) 61.0, Lymphocytes (%) (Auto) 20.7, Monocytes (%) (Auto) 13.8, Eosinophils (%) (Auto) 3.9, Basophils (%) (Auto) 0.4, Neutrophils # (Auto ) 3.33, Lymphocytes # (Auto) 1.13, Monocytes # (Auto) 0.75, Eosinophils # (Auto ) 0.21, Basophils # (Auto) 0.02 11/08/17 19:30 Test 11/08/17 19:30 11/08/17 21:00 11/08/17 21:25 White Blood Count 5.45 K/uL (4.8-10.8) Red Blood Count 4.31 M/uL (4.2-5.4) Hemoglobin 13.1 g/dL (12.0-16.0) Hematocrit 38.7 % (37-47) Mean Corpuscular Volume 89.8 fL (80-100) Mean Corpuscular Hemoglobin 30.4 pg (25-34) Mean Corpuscular Hemoglobin Concent 33.9 g/dl (32-36) Platelet Count 229 K/uL (130-400) Mean Platelet Volume 10.6 fL (7.4-10.4) Neutrophils (%) (Auto) 61.0 % Lymphocytes (%) (Auto) 20.7 % Monocytes (%) (Auto) 13.8 % Eosinophils (%) (Auto) 3.9 % Basophils (%) (Auto) 0.4 % Neutrophils # (Auto) 3.33 K/uL (1.4-6.5) Lymphocytes # (Auto) 1.13 K/uL (1.2-3.4) Monocytes # (Auto) 0.75 K/uL (0.11-0.59) Eosinophils # (Auto) 0.21 K/uL (0-0.5) Basophils # (Auto) 0.02 K/uL (0-0.2) RDW Standard Deviation 46.7 fL (36.4-46.3) RDW Coefficient of Variation 14.1 % (11.5-14.5) Immature Granulocyte % (Auto) 0.2 % Immature Granulocyte # (Auto) 0.01 K/uL (0.00-0.02) Prothrombin Time 26.6 SECONDS (9.0-12.0) Prothromb Time International Ratio 2.6 (0.9-1.1) Anion Gap 6.0 mmol/L (3-11) Est Creatinine Clear Calc Drug Dose 36.5 ml/min Estimated GFR () 43.0 Estimated GFR (Non- 37.1 BUN/Creatinine Ratio 17.9 (10-20) Calcium Level 9.5 mg/dl (8.5-10.1) Magnesium Level 1.7 mg/dl (1.8-2.4) Total Bilirubin 0.6 mg/dl (0.2-1) Aspartate Amino Transf (AST/SGOT) 28 U/L (15-37) Alanine Aminotransferase (ALT/SGPT) 20 U/L (12-78) Alkaline Phosphatase 114 U/L (45-117) Troponin I < 0.015 ng/ml (0-0.045) Total Protein 8.4 gm/dl (6.4-8.2) Albumin 3.7 gm/dl (3.4-5.0) Globulin 4.7 gm/dl (2.5-4.0) Albumin/Globulin Ratio 0.8 (0.9-2) Thyroid Stimulating Hormone (TSH) 3.450 uIu/ml (0.300-4.500) Chemistry Specimen Hemolysis Lyme Disease IgG Antibody NEG (NEG) Lyme Disease IgM Antibody NEG (NEG) Urine Color YELLOW Urine Appearance CLEAR (CLEAR) Urine pH 6.0 (4.5-7.5) Urine Specific [place] 1.016 (1.000-1.030) Urine Protein NEG (NEG) Urine Glucose (UA) NEG (NEG) Urine Ketones NEG (NEG) Urine Occult Blood NEG (NEG) Urine Nitrite NEG (NEG) Urine Bilirubin NEG (NEG) Urine Urobilinogen NEG (NEG) Urine Leukocyte Esterase NEG (NEG) Ammonia 13.0 umol/L (11-32) Laboratory results per my review. Medications Administered Medications (Trade) Dose Ordered Sig/Ce Route Start Time Stop Time Status Last Admin Dose Admin Doxycycline Hyclate 100 mg/ Dextrose 110 ml @ 50 mls/hr NOW STAT IV 11/08/17 22:19 11/09/17 00:30 11/08/17 22:53 50 MLS/HR ECG Per My Interpretation Indication: altered mental status Rate (beats per minute): 70 Rhythm: other (paced) Findings: no acute ischemic change, left axis deviation, other (prolonged intervals consistent with pacing) ED Course 1843: The patient was evaluated in room B4B. A complete history and physical exam was performed. 1899: I discussed the patient's case with Dr. Frost, [facility] neurology. She will look up the information on the patient and call back. 1911: Dr. Frost called back and recommended repeat head CT and labs. She states the patient will likely need an EEG. 2106: Upon reevaluation, the patient is stable. I discussed the findings and the treatment plan with the patient's family. They express agreement and understanding. She will be evaluated for further management. 2117: I reviewed the patient's case with Dr. Bhat, [facility]. He will evaluate the patient for further management. Medical Decision Differential diagnoses includes but is not limited to toxic, metabolic, infectious, traumatic, cardiac, neurologic, hematologic, psychiatric and inflammatory etiologies. Patient well-appearing here, awake alert and oriented, no focal neuro deficits. Patient with no recent trauma, no infection, no medication changes and recent labs and imaging did not show any acute pathology. Patient unable to undergo an MRI due to indwelling pacemaker. Case discussed with neurology at outside due to confusion regarding patient's presentation she had had outpatient neurology appointments already and this had been ongoing for 6 weeks. She recommended repeat head CT and labs which were all reassuring. Concern giving accompanying staring spells intermittently for possible partial complex seizures. She recommended admission for EEG and additional neuro evaluation and treatment. Patient and family were agreeable with this. Case discussed with [facility] for additional evaluation and management including my discussion with neurology. I do not suspect occult infectious etiology at this time. Patient with no obvious staring episodes or seizure-like activity while here. Patient with no other acute focal neuro deficits at this time. Medication Reconcilliation Current Medication List: was personally reviewed by me Blood Pressure Screening Patient's blood pressure: Normal blood pressure Blood pressure disposition: Did not require urgent referral Consults Time Called: 1856 Consulting Physician: Garth Finnegan neurology Returned Call: 1899 I discussed the patient's case with her. She will look up the information on the patient and call back. Additional Consults: Time Called: 2113 Consulted Physician: Garth Craven hospitalist Returned Call: 2117 Additional Comments: I reviewed the patient's case with him. He will evaluate the patient for further management. Impression Primary Impression: Altered mental status Additional Impressions: Hypomagnesemia Obesity Scribe Attestation The scribe's documentation has been prepared under my direction and personally reviewed by me in its entirety. I confirm that the note above accurately reflects all work, treatment, procedures, and medical decision making performed by me. Departure Information Dispostion Being Evaluated By Hospitalist Referrals Elizabeth Hutchison D.O. (PCP) Patient Instructions My [facility] Problem Qualifiers Primary Impression: Altered mental status Altered mental status type: transient alteration of awareness Qualified Codes : R40.4 - Transient alteration of awareness Additional Impressions: Obesity Obesity type: unspecified obesity type Obesity classification: unspecified obesity classification Serious obesity comorbidity presence: unspecified whether serious comorbidity present Qualified Codes: E66.9 - Obesity, unspecified
[2017-11-08] MEDS ORDERED: DOXYCYCLINE IV 100 MG in DEXTROSE 5% 100ML 100 ML IV STA (22:19)
--- NOTE | 2017-11-08 22:32 | DIAGNOSTIC IMAGING REPORT ---
CHEST ONE VIEW PORTABLE HISTORY: 82 years-old Female renal failure acute renal failure COMPARISON: Chest radiograph 11/04/2017 TECHNIQUE: Portable AP view of the chest FINDINGS: The patient is mildly rotated to the right. Cardiac silhouette is enlarged. Left subclavian pacer appears unchanged. No pneumothorax, large pleural effusion or overt pulmonary edema. Mild pulmonary vascular congestion. Subsegmental left greater than right bibasilar opacities suggest atelectasis. Mild right hemidiaphragmatic elevation. Degenerative changes of the shoulders and spine. IMPRESSION: Cardiomegaly with mild pulmonary vascular congestion . The above report was generated using voice recognition software. It may contain grammatical, syntax or spelling errors. Electronically signed by: Iglesia Byers M.D. 11/08/2017 10:30 PM Dictated Date/Time: 11/08/2017 10:29 PM
[2017-11-08] MEDS ORDERED: PROCHLORPERAZINE INJ 5 MG in SYRINGE 4 ML IV PRN (23:00)
[2017-11-08] MEDS ORDERED: NITROGLYCERIN 0.4 MG SL PER TAB CHARGE SL PRN (23:00)
[2017-11-08] MEDS ORDERED: TRAMADOL HCL 50 MG TAB PO PRN (23:00)
[2017-11-08] MEDS ORDERED: ACETAMINOPHEN 325 MG TAB PO PRN (23:00)
[2017-11-08 23:45] VITALS: BP 154/90; PULSE 65; TEMP 37; O2SAT 93; Ht 157.5 cm; Wt 96.1 kg
[2017-11-09] VITALS (9 sets, daily range): BP systolic 115–166; BP diastolic 62–102; PULSE 20–76; TEMP 36.4–36.9; O2SAT 90–93
[2017-11-09 05:41] LABS: BASO % 0.4 %; BASO ABS # 0.02 K/uL (0-0.2); EOS % 3.3 %; EOS ABS # 0.17 K/uL (0-0.5); HEMATOCRIT 35.9 % (37-47); IG# 0.02 K/uL (0.00-0.02); LYMPH % 24.3 %; LYMPH ABS # 1.26 K/uL (1.2-3.4); MEAN CORPUSCULAR HEMOGLOBIN 30.1 pg (25-34); MEAN CORPUSCULAR HGB CONC 33.4 g/dl (32-36); MEAN PLATELET VOLUME 10.9 fL (7.4-10.4); MONO % 14.6 %; MONO ABS # 0.76 K/uL (0.11-0.59); NEUT ABS # 2.96 K/uL (1.4-6.5); PLATELET COUNT 180 K/uL (130-400); RED CELL DISTRIBUTION WIDTH CV 14.1 % (11.5-14.5); RED CELL DISTRIBUTION WIDTH SD 46.4 fL (36.4-46.3); WHITE BLOOD COUNT 5.19 K/uL (4.8-10.8)
[2017-11-09 05:52] LABS: INR 2.6 (0.9-1.1)
[2017-11-09 06:07] LABS: CALCIUM 8.9 mg/dl (8.5-10.1); CREATININE 1.13 mg/dl (0.60-1.20)
[2017-11-09] MEDS: MAGNESIUM SULFATE 1GM / D5W 100 ML IV SCH ×5 (06:08→10:37)
[2017-11-09] MEDS: LEVOTHYROXINE 88 MCG TAB PO SCH (06:12)
[2017-11-09 06:24] LABS: POTASSIUM 3.9 mmol/L (3.5-5.1)
[2017-11-09] MEDS: FERROUS GLUCONATE 324 MG TAB PO SCH ×2 (08:03→17:09)
[2017-11-09] MEDS: METOPROLOL TARTRATE 25 MG TAB PO SCH ×2 (08:04→20:36)
[2017-11-09] MEDS: AMLODIPINE BESYLATE 5 MG TAB PO SCH (08:04)
[2017-11-09] MEDS: DOXYCYCLINE HYCLATE 100 MG CAP PO SCH ×2 (08:04→20:36)
[2017-11-09] MEDS: PANTOprazole SOD 40 MG TAB PO SCH (08:04)
--- NOTE | 2017-11-09 08:43 | HISTORY & PHYSICAL EXAMINATION ---
DATE OF ADMISSION: 11/08/2017 PRIMARY CARE DOCTOR: Dr. Hutchison CHIEF COMPLAINT: checkup as per the patient. Episodic confusion, sent by neurology as per family HISTORY OF PRESENT ILLNESS: History obtained from patient, family, and records. Patient is a fair historian. Medical history significant for chronic diastolic heart failure, SSS sp PPM on Coumadin, CAD as per records, hypertension. L Breast cancer status post surgery Recent confinement in last July 2016 for UGIB, Coumadin coagulopathy. Normal EGD, colonoscopy showed polyps. Coumadin eventually resumed. The last 6 weeks, the patient was noted by family to have episodic confusion, packing her bags to go somewhere, confused as to day and night. Patient had 2 ER visits, subsequently sent home. Seen by PCP last month, concern for possible dementia. Patient seen by [facility] in the office. Outpatient lab work normal. Possible element of depression as per notes. Family given information about possible initiation of therapy with Aricept and Namenda. Yesterday the patient was noted to have an episodic of disorientation. No chest pain, no SOB, Both legs always swollen as per family. Wound on the right posterior leg with some yellow drainage the last few days as per daughter. Patient denies bladder discomfort. Patient sent by the neurologist to the Emergency Room. Patient's mentation currently at baseline as per family. MEDICAL HISTORY: As above. SURGERIES: Pacemaker placement, tubal ligation, knee replacement, appendectomy, thyroid surgery, gynecologic procedures. HOME MEDICATIONS: Include Caltrate, vitamin D, cranberry, calcitriol, ferrous gluconate, Lasix, Synthroid, Lopressor, multivitamins, Nystop, oxybutynin, Protonix, Crestor, Coumadin. ALLERGIES: Allergic to MORPHINE, CYMBALTA, NSAIDs. FAMILY HISTORY: There is a family history of heart disease. PERSONAL AND SOCIAL HISTORY: Nonsmoker. No chronic intake of alcoholic beverages. Lives by herself in an apartment. REVIEW OF SYSTEMS: As per HPI, all 10 systems reviewed, all other ROS negative. PHYSICAL EXAMINATION: VITAL SIGNS: Blood pressure was noted to be 131/80, pulse rate 68, RR 18, temperature 37.2, sats 98 on room air. GENERAL: Noted to be obese, slightly anxious, no respiratory distress. Oriented to month and year. SKIN: Normal color, warm. HEENT: [place] palpebral conjunctiva. No ptosis. Dry mucosa. NECK: Short, supple. CHEST: Decreased effort. No tenderness. HEART: RRR, no murmurs EXTREMITIES: Induration of both lower extremities with an coin-sized open wound on the right posterior leg with scant drainage. DATA: EKG as per my interpretation paced rhythm. Chest x-ray, mild pulmonary congestion. CT head with demonstration of moderate ventricular dilatation, slightly out of portion, some degree of cerebral atrophy secondary to extensive white matter changes or NPH with an appropriate clinical setting. ASSESSMENT: 1. Delirium, episodic encephalopathy possible dementia, no previous diagnosis. Rule out partial complex seizures as per Neurology 2. Persistent leg swelling, pulmonary congestion on CXR sans dyspnea, overt weight gain symptoms possible subacute congestive heart failure. hx diastolic dysfunction EF 55-60% TTE 2014 3. Lower extremity cellulitis w/ draining RLE wound. no sepsis. Underlying venous insufficiency Home Norvasc possibly contributory to chronic leg swelling 4. SSS sp PPM, paced rhythm, on Coumadin. INR therapeutic. 5. Coronary artery disease as per records. 6. Acute renal failure. 7. hx breast cancer L sp surgery PLAN: PCU Updated 2D echo RE poss CHF. Baseline UA, monitor renal function for now. Hold home diuretics given equivocal volume status. EEG RE recurrent episodic confusion as per Neurology recommendations. Further eval/management of episodic encephalopathy as per [facility]. Doxycycline, local measures for lower extremity cellulitis. Decrease home Norvasc dose. PT and OT evaluation. DVT prophylaxis, Coumadin, INR 2-3. DNR PER THE PATIENT'S previous wishes. Patient's daughter requesting updates from providers. Miss Maureen West thru [phone]. MTDD
--- NOTE | 2017-11-09 14:20 | ECHOCARDIOGRAM REPORT ---
*NOTICE TO RECEIVING CONSTITUTION PARTY AGENCY This information is strictly Confidential and protected under [place] law. [place] law prohibits you from making any further disclosure of this information unless further disclosure is expressly permitted by the written consent of the person to whom it pertains or is authorized by law. A general authorization for the release of medical or other information is not sufficient for this purpose. Hospital accepts no responsibility if the information is made available to any other person, INCLUDING THE PATIENT. Interpretation Summary * Name: HERNAN CAMPOS Study Date: 11/09/2017 06:29 AM BP: 127/63 mmHg * Patient Location: [facility] HR: 61 * : 1935 (M/d/yyyy) Gender: Female Height: 62 in * Age: 82 yrs Ethnicity: [place] Weight: 224 lb * Ordering Physician: Tee Bhat * Referring Physician: Africa Santiago * Performed By: Jackie Marks RDCS * * Reason For Study: CHF * BSA: 2.0 m2 * -- Conclusions -- * The left ventricle is normal in size. * There is borderline concentric left ventricular hypertrophy. * Ejection Fraction = 60-65%. * Apical wall motion abnormality may reflect pacemaker activation. * The left atrium is moderately dilated. * The right atrium is mildly dilated. * The right ventricular systolic function is normal. * Aortic valve sclerosis mild, without significant aortic valvular stenosis. * There is mild mitral regurgitation. * There is severe tricuspid regurgitation. Procedure Details * A complete two-dimensional transthoracic echocardiogram was performed (2D, M-mode, Doppler and color flow Doppler). Left Ventricle * The left ventricle is normal in size. * There is borderline concentric left ventricular hypertrophy. * Ejection Fraction = 60-65%. * Left ventricular systolic function is normal. * Apical wall motion abnormality may reflect pacemaker activation. Right Ventricle * There is a pacemaker lead in the right ventricle. * The right ventricle is normal size. * The right ventricular systolic function is normal. Atria * The left atrium is moderately dilated. * The right atrium is mildly dilated. * No ASD detected; PFO is not assessed. Mitral Valve * The mitral valve anatomy is normal. * There is mild mitral regurgitation. Tricuspid Valve * The tricuspid valve is not well visualized, but is grossly normal. * There is severe tricuspid regurgitation. Aortic Valve * Aortic valve sclerosis mild, without significant aortic valvular stenosis. Pulmonic Valve * The pulmonic valve is not well visualized. Great Vessels * The aortic root and proximal ascending aorta are normal sized. Pericardium/Pleural * There is no pericardial effusion. MMode 2D Measurements and Calculations IVSd 1.1 cm LVIDd 3.6 cm LVIDs 2.4 cm LVPWd 1.2 cm IVS/LVPW 0.97 FS 33.8 % EDV(Teich) 53.8 ml ESV(Teich) 19.5 ml EF(Teich) 63.7 % EDV(cubed) 46.0 ml ESV(cubed) 13.3 ml EF(cubed) 71.0 % LV mass(C)d 133.2 grams LV mass(C)dI 66.4 grams/m\S\2 SV(Teich) 34.2 ml SI(Teich) 17.1 ml/m\S\2 SV(cubed) 32.6 ml SI(cubed) 16.3 ml/m\S\2 Ao root diam 3.1 cm Ao root area 7.4 cm\S\2 ACS 1.7 cm LA dimension 3.4 cm asc Aorta Diam 3.3 cm LA/Ao 1.1 LVOT diam 1.7 cm LVOT area 2.2 cm\S\2 LVAd ap4 20.3 cm\S\2 LVLd ap4 7.4 cm EDV(MOD-sp4) 45.6 ml EDV(sp4-el) 47.1 ml LVAs ap4 11.3 cm\S\2 LVLs ap4 6.1 cm ESV(MOD-sp4) 17.3 ml ESV(sp4-el) 17.9 ml EF(MOD-sp4) 62.0 % EF(sp4-el) 62.1 % LVAd ap2 24.3 cm\S\2 LVLd ap2 7.5 cm EDV(MOD-sp2) 64.9 ml EDV(sp2-el) 66.5 ml LVAs ap2 13.4 cm\S\2 LVLs ap2 6.3 cm ESV(MOD-sp2) 23.6 ml ESV(sp2-el) 24.0 ml EF(MOD-sp2) 63.6 % EF(sp2-el) 63.9 % LVLd %diff 1.4 % EDV(MOD-bp) 55.1 ml LVLs %diff 3.4 % ESV(MOD-bp) 20.5 ml EF(MOD-bp) 62.8 % SV(MOD-sp4) 28.3 ml SI(MOD-sp4) 14.1 ml/m\S\2 SV(MOD-sp2) 41.3 ml SI(MOD-sp2) 20.6 ml/m\S\2 SV(MOD-bp) 34.6 ml SI(MOD-bp) 17.2 ml/m\S\2 SV(sp4-el) 29.3 ml SI(sp4-el) 14.6 ml/m\S\2 SV(sp2-el) 42.5 ml SI(sp2-el) 21.2 ml/m\S\2 Doppler Measurements and Calculations MV E max irena 107.2 cm/sec MV A max irena 34.9 cm/sec MV E/A 3.1 MV dec time 0.27 sec Ao V2 max 149.3 cm/sec Ao max PG 8.9 mmHg Ao max PG (full) 4.8 mmHg SHARON(V,A) 1.5 cm\S\2 SHARON(V,D) 1.5 cm\S\2 LV V1 max PG 4.1 mmHg LV V1 max 101.4 cm/sec PA V2 max 90.9 cm/sec PA max PG 3.3 mmHg PA acc slope 880.5 cm/sec\S\2 PA acc time 0.08 sec TR max irena 254.4 cm/sec PA pr(Accel) 42.6 mmHg
--- NOTE | 2017-11-09 14:26 | Neurology Consultation ---
Neurology Consultation Date of Consultation: November 09, 2017. Attending Physician: Roland Merrill M.D. Primary Care Physician: Elizabeth Hutchison D.O. Reason for Consultation: episodic confusion History of Present Illness Source: patient, family Stacey is a 82 year old female with chronic diastolic heart failure, complete heart block, status post pacemaker placement, CAD, HTN, AF, on Coumadin. In the past 6 weeks, the patient was noted by family to have episodic confusion, packing her bags to go somewhere, confused as to day and night. She was brought to the ED x 2 and sent home and has been seen in neurology and in the past month for possible dementia. Outpatient followup B12 normal, likely element of depression and a discussion regarding starting Aricept or Namenda. She had another episode of disorientation, and difficulty ambulating due to LE swelling. She states she feel fine today. Daughter is in the room and states she is having episodic confusion. She is still living alone and is sleeping alot and not eating regularly. denies CP, SOB, abdominal pain, one sided weakness, numbness tingling, N, V, +incontinence, confusion, gait issues. Past Medical/Surgical History Medical Problems: (1) Altered mental status Status: Acute (2) Altered mental status Status: Acute (3) Cellulitis Status: Acute (4) Confusion Status: Acute (5) Dehydration Status: Acute (6) Elevated INR Status: Acute (7) Elevated troponin Status: Acute (8) Hypomagnesemia Status: Acute (9) Leg pain, left Status: Acute (10) Leg pain, right Status: Acute (11) Lymphedema Status: Acute (12) Severe anemia Status: Acute (13) Vaginal bleeding Status: Acute (14) Vaginal bleeding Status: Acute Social History Smoking Status: Never smoker Marital Status: Occupation Status: retired Allergies Coded Allergies: Morphine (Verified Adverse Reaction, Unknown, HALLUCINATIONS, 11/04/17) NSAIDs (Verified Adverse Reaction, Unknown, MILD ERYTHEMA AROUND EYES AND FACE, 11/04/17) tolerates celebrex Spironolactone (Unverified Adverse Reaction, Unknown, HYPERKALEMIA, ) Current Inpatient Medications Current Inpatient Medications Medications (Trade) Dose Ordered Sig/Ce Route Start Time Stop Time Status Last Admin Dose Admin Doxycycline Hyclate (Vibramycin Cap) 100 mg BID PO 11/09/17 09:00 11/19/17 08:59 11/09/17 08:04 100 MG Acetaminophen (Tylenol Tab) 650 mg Q4H PRN PO 11/08/17 23:00 12/08/17 22:59 Nitroglycerin (Nitrostat Tab) 0.4 mg UD PRN SL 11/08/17 23:00 12/08/17 22:59 Amlodipine Besylate (Norvasc Tab) 2.5 mg DAILY PO 11/09/17 09:00 12/09/17 08:59 11/09/17 08:04 2.5 MG Ferrous Gluconate (Ferrous Gluconate Tab) 324 mg BIDM PO 11/09/17 08:00 12/09/17 07:59 11/09/17 08:03 324 MG Levothyroxine Sodium (Synthroid Tab) 88 mcg DAILYBB PO 11/09/17 06:30 12/09/17 06:29 11/09/17 06:12 88 MCG Metoprolol Tartrate (Lopressor Tab) 25 mg BID PO 11/09/17 09:00 12/09/17 08:59 11/09/17 08:04 25 MG Multivitamins (Multivitamin Tab) 1 tab QPM PO 11/09/17 21:00 12/09/17 20:59 Pantoprazole Sodium (Protonix Tab) 40 mg QAM PO 11/09/17 09:00 12/09/17 08:59 11/09/17 08:04 40 MG Rosuvastatin Calcium (Crestor Tab) 10 mg QPM PO 11/09/17 21:00 12/09/17 20:59 Oxybutynin Chloride (Ditropan-Xl Tab) 15 mg QPM PO 11/09/17 21:00 12/09/17 20:59 Prochlorperazine Edisylate 5 mg/ Syringe 5 ml @ 5 mls/min Q6H PRN IV 11/08/17 23:00 12/08/17 22:59 Tramadol HCl (Ultram Tab) 25 mg Q6H PRN PO 11/08/17 23:00 12/08/17 22:59 Physical Exam Vital Signs (Past 24 Hrs): Date Time Temp Pulse Resp B/P (MAP) Pulse Ox O2 Delivery O2 Flow Rate FiO2 11/09/17 12:00 Room Air 5/16/18 11:41 36.5 60 16 118/63 (81) 91 Room Air 11/09/17 08:03 76 142/102 (115) 11/09/17 08:00 Room Air 11/09/17 07:19 36.9 61 16 127/63 (84) 90 Room Air 11/09/17 04:00 93 Room Air 11/09/17 03:30 36.6 72 20 166/84 (111) 93 Room Air 11/08/17 23:45 37.0 65 28 154/90 93 Room Air 11/08/17 23:25 60 16 131/85 98 Room Air 11/08/17 22:08 60 18 131/85 95 Room Air 11/08/17 21:00 65 16 122/65 95 Room Air 11/08/17 20:30 61 11/08/17 18:31 37.2 66 18 101/46 93 Room Air Physical Exam: Constitutional: appearance nourished, obese Ears, Nose, Mouth and Throat: mucous membranes moist, no injection and skin normal, eyes normal Cardiovascular: normal S-1 and S-2 and regular rate and rhythm Respiratory: course breath sounds Musculoskeletal: bilateral LE edema with ozzing leg cellulitis Skin: no stigmata of neurocutaneous disease noted and normal and intact Eyes: extraocular muscles intact (EOMI) and pupils equal, round and reactive to light (PERRL) NEUROLOGIC EXAMINATION: Mental status: Alert and interactive Oriented 2017, president Veronica, [facility] Oriented to person Speech fluent with no evidence of aphasia Cranial Nerves smile eye brow raise, tongue midline Reflexes: Deep tendon reflexes were symmetrical and decreased bilaterally LE Plantar responses were flexor. Sensory: decreased sensation to vibration intact to cool, GT proprioception intact Coordination: finger to nose no bi pass Gait/Stance: Posture lying in bed Motor: Negative for pronator drift of out stretched arms with eyes closed. Strength: biceps triceps hand director of dance intrinsics 5/5 bilaterally, hip flex against gravity no against resistance, plantar flex ext 5/5 bilaterally Laboratory Results Past 24 Hours: 11/09/17 05:14 Red Blood Count 3.99, Mean Corpuscular Volume 90.0, Mean Corpuscular Hemoglobin 30.1, Mean Corpuscular Hemoglobin Concent 33.4, Mean Platelet Volume 10.9, Neutrophils (%) (Auto) 57.0, Lymphocytes (%) (Auto) 24.3, Monocytes (%) (Auto) 14.6, Eosinophils (%) (Auto) 3.3, Basophils (%) (Auto) 0.4, Neutrophils # (Auto ) 2.96, Lymphocytes # (Auto) 1.26, Monocytes # (Auto) 0.76, Eosinophils # (Auto ) 0.17, Basophils # (Auto) 0.02 11/09/17 05:14 Test 11/08/17 19:30 11/08/17 21:00 11/08/17 21:25 11/09/17 05:14 Total Bilirubin 0.6 mg/dl (0.2-1) Aspartate Amino Transf (AST/SGOT) 28 U/L (15-37) Alanine Aminotransferase (ALT/SGPT) 20 U/L (12-78) Alkaline Phosphatase 114 U/L (45-117) Troponin I < 0.015 ng/ml (0-0.045) Total Protein 8.4 gm/dl (6.4-8.2) Albumin 3.7 gm/dl (3.4-5.0) Globulin 4.7 gm/dl (2.5-4.0) Albumin/Globulin Ratio 0.8 (0.9-2) Thyroid Stimulating Hormone (TSH) 3.450 uIu/ml (0.300-4.500) Chemistry Specimen Hemolysis Lyme Disease IgG Antibody NEG (NEG) Lyme Disease IgM Antibody NEG (NEG) Urine Color YELLOW Urine Appearance CLEAR (CLEAR) Urine pH 6.0 (4.5-7.5) Urine Specific [place] 1.016 (1.000-1.030) Urine Protein NEG (NEG) Urine Glucose (UA) NEG (NEG) Urine Ketones NEG (NEG) Urine Occult Blood NEG (NEG) Urine Nitrite NEG (NEG) Urine Bilirubin NEG (NEG) Urine Urobilinogen NEG (NEG) Urine Leukocyte Esterase NEG (NEG) Ammonia 13.0 umol/L (11-32) White Blood Count 5.19 K/uL (4.8-10.8) Red Blood Count 3.99 M/uL (4.2-5.4) Hemoglobin 12.0 g/dL (12.0-16.0) Hematocrit 35.9 % (37-47) Mean Corpuscular Volume 90.0 fL (80-100) Mean Corpuscular Hemoglobin 30.1 pg (25-34) Mean Corpuscular Hemoglobin Concent 33.4 g/dl (32-36) Platelet Count 180 K/uL (130-400) Mean Platelet Volume 10.9 fL (7.4-10.4) Neutrophils (%) (Auto) 57.0 % Lymphocytes (%) (Auto) 24.3 % Monocytes (%) (Auto) 14.6 % Eosinophils (%) (Auto) 3.3 % Basophils (%) (Auto) 0.4 % Neutrophils # (Auto) 2.96 K/uL (1.4-6.5) Lymphocytes # (Auto) 1.26 K/uL (1.2-3.4) Monocytes # (Auto) 0.76 K/uL (0.11-0.59) Eosinophils # (Auto) 0.17 K/uL (0-0.5) Basophils # (Auto) 0.02 K/uL (0-0.2) RDW Standard Deviation 46.4 fL (36.4-46.3) RDW Coefficient of Variation 14.1 % (11.5-14.5) Immature Granulocyte % (Auto) 0.4 % Immature Granulocyte # (Auto) 0.02 K/uL (0.00-0.02) Prothrombin Time 26.4 SECONDS (9.0-12.0) Prothromb Time International Ratio 2.6 (0.9-1.1) Anion Gap 5.0 mmol/L (3-11) Est Creatinine Clear Calc Drug Dose 42.1 ml/min Estimated GFR () 52.4 Estimated GFR (Non- 45.2 BUN/Creatinine Ratio 18.7 (10-20) Calcium Level 8.9 mg/dl (8.5-10.1) Magnesium Level 1.5 mg/dl (1.8-2.4) Imaging CT head- . No acute intracranial abnormality. Redemonstration of moderate ventricular dilation which appears to be slightly out of proportion to the degree of cerebral atrophy. These findings may be secondary to ex vacuo changes or normal pressure hydrocephalus within the appropriate clinical setting. CXR -Cardiomegaly with mild pulmonary vascular congestion . Impression 82 year old female with episodic confusion, gait dysfunction Plan 1. PT/OT for discharge needs 2. CT head with large ventricles likely ex vacuo 3. unable to have MRI due to pacemaker 4. care mgt for placement issues- likely will need higher level of care at discharge 5. EEG -preliminary read no seizure focas 6. discussed possible start of Aricept or Namenda at office visit - daughter would like to address 7. discussed likely depression is part of the disinterest and increased sleeping. Will start Zolfoft 25 mg daily and then after 7 days increase to 50 mg daily 8. after evaluation of Zoloft effects will discuss the start of Aricept in several months. I have seen and discussed above patient with Dr Africa Frost, neurology Pt seen and examined, suspect AD with fluctuation rather than sz. No evidence on gait testing of NPH. Pt spends much of day sleeping. Suspect she would benefit from more socialization such as a senior center.Will start Zoloft re above to see if that is helpful and will start Aricept as outpt. It is unclear re episodic confusion that pt would be safe without 24 hour day care. It may be reasonable to have inpt rehab and have detailed neuropsych testing at that time to determine competence, ability to live alone. CELI Frost MD
--- NOTE | 2017-11-09 17:40 | ELECTROENCEPHALOGRAPH REPORT ---
REQUESTING PHYSICIAN: Tee Bhat MD CLINICAL DIAGNOSIS: Confusion, question nonconvulsive seizure activity. ELECTROENCEPHALOGRAM DIAGNOSIS: Essentially normal during wakefulness. DESCRIPTION OF TRACING: This EEG was done as a bedside recording with photic stimulation and simultaneous video analysis of patient movement and behavior being obtained. Hyperventilation was not performed. Drowsiness and light sleep were not recorded. During wakefulness, there is evidence for a background rhythm in the alpha range of up to 9 to occasionally 10 Hz of maximum frequency and 30-40 microvolts of maximum amplitude. This is maximum in posterior head regions and bilaterally symmetrical. Polymorphic mid to slightly lower frequency theta activity of modest voltage is seen over all head regions without clear focal or regional predominance. Anterior head region maximum bilaterally symmetrical low voltage fast activity in the beta range is present. Photic stimulation provokes a modest driving response without a photomyogenic or photoparoxysmal component. At no time during the waking or drowsy tracings, there is evidence for potentially epileptogenic activity in the form of polyspike or spike wave bursts, focal sharp waves or focal spikes. INTERPRETATION: This EEG is essentially normal during wakefulness without evidence for focal or generalized encephalopathy and without evidence for potentially epileptogenic activity.
--- NOTE | 2017-11-09 18:35 | Progress Note ---
Internal Med Progress Note Date of Service: November 09, 2017. Provider Documentation: SUBJECTIVE: Patient on exam has been alert and able to answer questions appropriately with regards to time, place, home situation, and her activities. Patient's daughter has reported today that her mental status at baseline but patient has intermittent problems with memory OBJECTIVE: GENERAL: no distress Neuro: Oriented as above SKIN: Normal color, warm. Eyes: EOMI NECK: no JVD CHEST: fair air entry, no use of accessory muscles HEART: regular rate EXTREMITIES: redness of lower extremities, chronic skin changes of lower extremities, lower extremity skin is somewhat hard, wound on the right posterior leg ASSESSMENT & PLAN: Patient primarily admitted for intermittent episodes of memory deficits vs delirium and here in the hospital to rule out other etiologies of confusion -Patient had CT head images reviewed by neurology and that CT head with large ventricles likely ex vacuo rather than a normal pressure hydrocephalus -EEG -preliminary read no seizure focus -memory problems could be related to depression: neurology service started Zolfoft 25 mg daily and then after 7 days increase to 50 mg daily -may have component of dementia but this is not present today on exam: possible start of Aricept or Namenda at next neurology office visit for possible dementia -TSH normal, check B12, folate, RPR -no obvious sources of infection to cause altered mental status: UA negative, patient was started on doxycycline for possible lower extremity cellulitis but as per patient's family member Maureen West at bedside ([phone]) patient has chronic lower extremity leg and skin problems before without recent problems with memory, will continue doxycycline Patient has history of venous insufficiency, hx diastolic dysfunction EF 55-60% TTE 2014, Coronary artery disease, pacemaker and on Coumadin for atrial fibrillation, INR therapeutic. CXR: Cardiomegaly with mild pulmonary vascular congestion Echocardiogram 11/09/17 The left ventricle is normal in size. There is borderline concentric left ventricular hypertrophy. Ejection Fraction = 60-65%. Apical wall motion abnormality may reflect pacemaker activation. The left atrium is moderately dilated. The right atrium is mildly dilated. The right ventricular systolic function is normal. Aortic valve sclerosis mild, without significant aortic valvular stenosis. There is mild mitral regurgitation. There is severe tricuspid regurgitation. Patient has been breathing on room air and despite mild pulmonary congestion the echocardiogram shows normal systolic function. Will hold off giving Lasix at this time Home Norvasc may possibly be contributory to pedal edema but this has not been given in high doses and does not explain chronic lower extremity skin changes, can continue Norvasc Hypomagnesemia -serum magnesium as low as 1.5, patient has received a total of 4 grams of IV magnesium, check magnesium levels and replete as needed -avoid diuretics at this time RENUKA resolving, continue to monitor renal function PT/OT PT: She would benefit from rehab with P.T./OT services following discharge to improve her activity tolerance, balance, strength, and level of independence with mobility and ADLs. Vital Signs: Date Time Temp Pulse Resp B/P (MAP) Pulse Ox O2 Delivery O2 Flow Rate FiO2 11/09/17 16:09 92 Room Air 11/09/17 15:23 36.4 62 62 115/62 (79) 92 Room Air 20 11/09/17 12:00 Room Air 11/09/17 11:41 36.5 60 16 118/63 (81) 91 Room Air 11/09/17 08:03 76 142/102 (115) 11/09/17 08:00 Room Air 11/09/17 07:19 36.9 61 16 127/63 (84) 90 Room Air 11/09/17 04:00 93 Room Air 11/09/17 03:30 36.6 72 20 166/84 (111) 93 Room Air 11/08/17 23:45 37.0 65 28 154/90 93 Room Air 11/08/17 23:25 60 16 131/85 98 Room Air 11/08/17 22:08 60 18 131/85 95 Room Air 11/08/17 21:00 65 16 122/65 95 Room Air 11/08/17 20:30 61 Lab Results: Results Past 24 Hours Test 11/08/17 19:30 11/08/17 21:00 11/08/17 21:25 11/09/17 05:14 Range/Units White Blood Count 5.45 5.19 4.8-10.8 K/uL Red Blood Count 4.31 3.99 4.2-5.4 M/uL Hemoglobin 13.1 12.0 12.0-16.0 g/dL Hematocrit 38.7 35.9 37-47 % Mean Corpuscular Volume 89.8 90.0 80-100 fL Mean Corpuscular Hemoglobin 30.4 30.1 25-34 pg Mean Corpuscular Hemoglobin Concent 33.9 33.4 32-36 g/dl Platelet Count 229 180 130-400 K/uL Mean Platelet Volume 10.6 10.9 7.4-10.4 fL Neutrophils (%) (Auto) 61.0 57.0 % Lymphocytes (%) (Auto) 20.7 24.3 % Monocytes (%) (Auto) 13.8 14.6 % Eosinophils (%) (Auto) 3.9 3.3 % Basophils (%) (Auto) 0.4 0.4 % Neutrophils # (Auto) 3.33 2.96 1.4-6.5 K/uL Lymphocytes # (Auto) 1.13 1.26 1.2-3.4 K/uL Monocytes # (Auto) 0.75 0.76 0.11-0.59 K/uL Eosinophils # (Auto) 0.21 0.17 0-0.5 K/uL Basophils # (Auto) 0.02 0.02 0-0.2 K/uL RDW Standard Deviation 46.7 46.4 36.4-46.3 fL RDW Coefficient of Variation 14.1 14.1 11.5-14.5 % Immature Granulocyte % (Auto) 0.2 0.4 % Immature Granulocyte # (Auto) 0.01 0.02 0.00-0.02 K/uL Prothrombin Time 26.6 26.4 9.0-12.0 SECONDS Prothromb Time International Ratio 2.6 2.6 0.9-1.1 Sodium Level 138 142 136-145 mmol/L Potassium Level 4.6 3.9 3.5-5.1 mmol/L Chloride Level 105 106 98-107 mmol/L Carbon Dioxide Level 28 30 21-32 mmol/L Anion Gap 6.0 5.0 3-11 mmol/L Blood Urea Nitrogen 24 21 7-18 mg/dl Creatinine 1.33 1.13 0.60-1.20 mg/dl Est Creatinine Clear Calc Drug Dose 36.5 42.1 ml/min Estimated GFR () 43.0 52.4 Estimated GFR (Non- 37.1 45.2 BUN/Creatinine Ratio 17.9 18.7 10-20 Random Glucose 103 82 70-99 mg/dl Calcium Level 9.5 8.9 8.5-10.1 mg/dl Magnesium Level 1.7 1.5 1.8-2.4 mg/dl Total Bilirubin 0.6 0.2-1 mg/dl Aspartate Amino Transf (AST/SGOT) 28 15-37 U/L Alanine Aminotransferase (ALT/SGPT) 20 12-78 U/L Alkaline Phosphatase 114 45-117 U/L Troponin I < 0.015 0-0.045 ng/ml Total Protein 8.4 6.4-8.2 gm/dl Albumin 3.7 3.4-5.0 gm/dl Globulin 4.7 2.5-4.0 gm/dl Albumin/Globulin Ratio 0.8 0.9-2 Thyroid Stimulating Hormone (TSH) 3.450 0.300-4.500 uIu/ml Chemistry Specimen Hemolysis Lyme Disease IgG Antibody NEG NEG Lyme Disease IgM Antibody NEG NEG Urine Color YELLOW Urine Appearance CLEAR CLEAR Urine pH 6.0 4.5-7.5 Urine Specific [place] 1.016 1.000-1.030 Urine Protein NEG NEG Urine Glucose (UA) NEG NEG Urine Ketones NEG NEG Urine Occult Blood NEG NEG Urine Nitrite NEG NEG Urine Bilirubin NEG NEG Urine Urobilinogen NEG NEG Urine Leukocyte Esterase NEG NEG Ammonia 13.0 11-32 umol/L
[2017-11-09] MEDS ORDERED: MULTIVITAMIN TAB PO SCH (21:00)
[2017-11-09] MEDS ORDERED: ROSUVASTATIN CALCIUM 10 MG TAB PO SCH (21:00)
[2017-11-09] MEDS ORDERED: OXYBUTYNIN CHLORIDE 5 MG TABCR PO SCH (21:00)
[2017-11-10] MEDS: LEVOTHYROXINE 88 MCG TAB PO SCH (06:02)
[2017-11-10 06:16] LABS: BASO % 0.4 %; BASO ABS # 0.02 K/uL (0-0.2); EOS % 4.8 %; EOS ABS # 0.27 K/uL (0-0.5); HEMATOCRIT 38.7 % (37-47); HEMOGLOBIN 12.8 g/dL (12.0-16.0); IG# 0.01 K/uL (0.00-0.02); LYMPH ABS # 0.96 K/uL (1.2-3.4); MEAN CELL VOLUME 90.6 fL (80-100); MEAN CORPUSCULAR HGB CONC 33.1 g/dl (32-36); MEAN PLATELET VOLUME 10.9 fL (7.4-10.4); MONO % 11.7 %; MONO ABS # 0.66 K/uL (0.11-0.59); NEUT % 65.9 %; NEUT ABS # 3.73 K/uL (1.4-6.5); PLATELET COUNT 211 K/uL (130-400); RED CELL DISTRIBUTION WIDTH CV 14.3 % (11.5-14.5); RED CELL DISTRIBUTION WIDTH SD 46.9 fL (36.4-46.3); WHITE BLOOD COUNT 5.65 K/uL (4.8-10.8)
[2017-11-10 06:49] LABS: ALBUMIN 3.5 gm/dl (3.4-5.0); CALCIUM 9.2 mg/dl (8.5-10.1); CREATININE 1.16 mg/dl (0.60-1.20); POTASSIUM 4.3 mmol/L (3.5-5.1); TOTAL PROTEIN 7.6 gm/dl (6.4-8.2)
[2017-11-10 07:25] VITALS: BP 137/80; PULSE 61; TEMP 36.6; O2SAT 90
[2017-11-10 08:00] VITALS: O2SAT 90
[2017-11-10] MEDS: FERROUS GLUCONATE 324 MG TAB PO SCH ×2 (08:01→17:07)
[2017-11-10] MEDS: METOPROLOL TARTRATE 25 MG TAB PO SCH (08:01)
[2017-11-10] MEDS: PANTOprazole SOD 40 MG TAB PO SCH (08:01)
[2017-11-10] MEDS: DOXYCYCLINE HYCLATE 100 MG CAP PO SCH (08:01)
[2017-11-10] MEDS: AMLODIPINE BESYLATE 5 MG TAB PO SCH (08:03)
[2017-11-10] MEDS ORDERED: SERTRALINE HCL 50 MG TAB PO SCH (09:00)
[2017-11-10 11:14] VITALS: BP 131/84; PULSE 76; TEMP 36.3; O2SAT 91
--- NOTE | 2017-11-10 14:31 | Neurology Progress Notes ---
Neurology Progress Note Date of Service November 10, 2017. Faheem Ibarra is a 82 year old female with chronic diastolic heart failure, complete heart block, status post pacemaker placement, CAD, HTN, AF, on Coumadin. In the past 6 weeks, the patient was noted by family to have episodic confusion, packing her bags to go somewhere, confused as to day and night. She was brought to the ED x 2 and sent home and has been seen in neurology and in the past month for possible dementia. Outpatient followup B12 normal, likely element of depression and a discussion regarding starting Aricept or Namenda. She had another episode of disorientation, and difficulty ambulating due to LE swelling. She states she feel fine today. Today she is out of bed walking around the room. When asked if she should be walking without nursing she says no but she is fine. discussed being accepted at [facility] but she doesn't want to go there. denies CP, SOB, abdominal pain, one sided weakness, numbness tingling, N, V, +incontinence, confusion, gait issues. Objective Date Time Temp Pulse Resp B/P (MAP) Pulse Ox O2 Delivery O2 Flow Rate FiO2 11/10/17 11:14 36.3 76 18 131/84 (100) 91 Room Air 11/10/17 08:00 90 Room Air 11/10/17 07:25 36.6 61 16 137/80 (99) 90 Room Air 11/10/17 00:00 Room Air 11/09/17 23:57 36.4 63 18 154/96 (115) 91 Room Air 11/09/17 20:26 36.5 65 18 124/79 (94) 93 Room Air 11/09/17 20:00 Room Air 11/09/17 16:09 92 Room Air 11/09/17 15:23 36.4 62 62 115/62 (79) 92 Room Air 20 Last 24 Hours Test 11/09/17 19:01 11/10/17 05:43 Magnesium Level 2.6 mg/dl 2.3 mg/dl Vitamin B12 Level 516 pg/mL Folate > 24.00 ng/mL Rapid Plasma Reagin NONREACTIVE White Blood Count 5.65 K/uL Red Blood Count 4.27 M/uL Hemoglobin 12.8 g/dL Hematocrit 38.7 % Mean Corpuscular Volume 90.6 fL Mean Corpuscular Hemoglobin 30.0 pg Mean Corpuscular Hemoglobin Concent 33.1 g/dl Platelet Count 211 K/uL Mean Platelet Volume 10.9 fL Neutrophils (%) (Auto) 65.9 % Lymphocytes (%) (Auto) 17.0 % Monocytes (%) (Auto) 11.7 % Eosinophils (%) (Auto) 4.8 % Basophils (%) (Auto) 0.4 % Neutrophils # (Auto) 3.73 K/uL Lymphocytes # (Auto) 0.96 K/uL Monocytes # (Auto) 0.66 K/uL Eosinophils # (Auto) 0.27 K/uL Basophils # (Auto) 0.02 K/uL RDW Standard Deviation 46.9 fL RDW Coefficient of Variation 14.3 % Immature Granulocyte % (Auto) 0.2 % Immature Granulocyte # (Auto) 0.01 K/uL Prothrombin Time 20.3 SECONDS Prothromb Time International Ratio 2.0 Sodium Level 139 mmol/L Potassium Level 4.3 mmol/L Chloride Level 103 mmol/L Carbon Dioxide Level 31 mmol/L Anion Gap 5.0 mmol/L Blood Urea Nitrogen 23 mg/dl Creatinine 1.16 mg/dl Est Creatinine Clear Calc Drug Dose 40.9 ml/min Estimated GFR () 50.8 Estimated GFR (Non- 43.8 BUN/Creatinine Ratio 19.5 Random Glucose 92 mg/dl Calcium Level 9.2 mg/dl Total Bilirubin 0.5 mg/dl Aspartate Amino Transf (AST/SGOT) 22 U/L Alanine Aminotransferase (ALT/SGPT) 19 U/L Alkaline Phosphatase 101 U/L Total Protein 7.6 gm/dl Albumin 3.5 gm/dl Globulin 4.1 gm/dl Albumin/Globulin Ratio 0.9 Imaging: no new imaging Exam: gen: alert NAD neuro: know she is at [facility], 2018, [place] lungs: CTA CV RRR walking around room without walker and sits in chair when asked to sit down finger to nose no bi pass, no pronator drift Current Inpatient Medications Medications (Trade) Dose Ordered Sig/Ce Route Start Time Stop Time Status Last Admin Dose Admin Doxycycline Hyclate (Vibramycin Cap) 100 mg BID PO 11/09/17 09:00 11/19/17 08:59 11/10/17 08:01 100 MG Acetaminophen (Tylenol Tab) 650 mg Q4H PRN PO 11/08/17 23:00 12/08/17 22:59 Nitroglycerin (Nitrostat Tab) 0.4 mg UD PRN SL 11/08/17 23:00 12/08/17 22:59 Amlodipine Besylate (Norvasc Tab) 2.5 mg DAILY PO 11/09/17 09:00 12/09/17 08:59 11/10/17 08:03 2.5 MG Ferrous Gluconate (Ferrous Gluconate Tab) 324 mg BIDM PO 11/09/17 08:00 12/09/17 07:59 11/10/17 08:01 324 MG Levothyroxine Sodium (Synthroid Tab) 88 mcg DAILYBB PO 11/09/17 06:30 12/09/17 06:29 11/10/17 06:02 88 MCG Metoprolol Tartrate (Lopressor Tab) 25 mg BID PO 11/09/17 09:00 12/09/17 08:59 11/10/17 08:01 25 MG Multivitamins (Multivitamin Tab) 1 tab QPM PO 11/09/17 21:00 12/09/17 20:59 11/09/17 20:36 1 TAB Pantoprazole Sodium (Protonix Tab) 40 mg QAM PO 11/09/17 09:00 12/09/17 08:59 11/10/17 08:01 40 MG Rosuvastatin Calcium (Crestor Tab) 10 mg QPM PO 11/09/17 21:00 12/09/17 20:59 11/09/17 20:38 10 MG Oxybutynin Chloride (Ditropan-Xl Tab) 15 mg QPM PO 11/09/17 21:00 12/09/17 20:59 11/09/17 20:37 15 MG Prochlorperazine Edisylate 5 mg/ Syringe 5 ml @ 5 mls/min Q6H PRN IV 11/08/17 23:00 12/08/17 22:59 Sertraline HCl (Zoloft Tab) 25 mg QAM PO 11/10/17 09:00 11/16/17 09:01 11/10/17 08:00 25 MG Sertraline HCl (Zoloft Tab) 25 mg QAM PO 11/17/17 09:00 12/17/17 08:59 Impression 82 year old female with episodic confusion, gait dysfunction Plan 1. PT/OT for discharge needs 2. CT head with large ventricles likely ex vacuo 3. unable to have MRI due to pacemaker 4. care mgt for placement issues- likely will need higher level of care at discharge 5. EEG -preliminary read no seizure focus 6. discussed possible start of Aricept or Namenda at office visit - daughter would like to address 7. discussed likely depression is part of the disinterest and increased sleeping. Will start Zolfoft 25 mg daily and then after 7 days increase to 50 mg daily 8. after evaluation of Zoloft effects will discuss the start of Aricept in several months. 9. need to address with family patient living alone and concern for falls and confusion neurology follow up in 2-[address] Africa Frost or Africa GERONIMO I have discussed above patient with Dr Africa Frost, neurology Agree, CELI Frost MD
[2017-11-10 16:03] VITALS: BP 117/63; PULSE 64; TEMP 36.5; O2SAT 91
[2017-11-10] MEDS ORDERED: DXY100 PO (16:39)
[2017-11-10] MEDS ORDERED: WARFARIN SOD 1 MG TAB PO ONE (16:45)
--- NOTE | 2017-11-10 17:04 | Progress Note ---
Internal Med Progress Note Date of Service: November 10, 2017. Provider Documentation: SUBJECTIVE: Patient on exam has been alert and able to answer questions appropriately. Patient denies new complaints OBJECTIVE: GENERAL: no distress Neuro: Oriented as above SKIN: Normal color, warm. Eyes: EOMI NECK: no JVD CHEST: fair air entry, no use of accessory muscles HEART: regular rate EXTREMITIES: redness of lower extremities, chronic skin changes of lower extremities, lower extremity skin is somewhat hard, wound on the right posterior leg ASSESSMENT & PLAN: Hospital Course Patient primarily admitted for intermittent episodes of memory deficits vs delirium and here in the hospital to rule out other etiologies of confusion -Patient had CT head images reviewed by neurology and that CT head with large ventricles likely ex vacuo rather than a normal pressure hydrocephalus -EEG -preliminary read no seizure focus -memory problems could be related to depression: neurology service started Zolfoft 25 mg daily and then after 7 days increase to 50 mg daily -may have component of dementia but this is not present today on exam: possible start of Aricept or Namenda at next neurology office visit for possible dementia -TSH / B12 / Folate levels normal. RPR normal -no obvious sources of infection to cause altered mental status: UA negative, patient was started on doxycycline for possible lower extremity cellulitis but as per patient's family member Maureen West at bedside ([phone]) patient has chronic lower extremity leg and skin problems before without recent problems with memory -Patient to continue doxycycline as outpatient. Patient has history of venous insufficiency, hx diastolic dysfunction EF 55-60% TTE 2014, Coronary artery disease, pacemaker and on Coumadin for atrial fibrillation, INR therapeutic. Continue home dose coumadin CXR: Cardiomegaly with mild pulmonary vascular congestion Echocardiogram 11/09/17 The left ventricle is normal in size. There is borderline concentric left ventricular hypertrophy. Ejection Fraction = 60-65%. Apical wall motion abnormality may reflect pacemaker activation. The left atrium is moderately dilated. The right atrium is mildly dilated. The right ventricular systolic function is normal. Aortic valve sclerosis mild, without significant aortic valvular stenosis. There is mild mitral regurgitation. There is severe tricuspid regurgitation. Patient has been breathing on room air and despite mild pulmonary congestion the echocardiogram shows normal systolic function. Can resume home Lasix Continue home dose amlodipine for blood pressure Hypomagnesemia -on admission days the serum magnesium as low as 1.5, patient has received a total of 4 grams of IV magnesium and magnesium levels normalized -Can resume home Lasix on discharge RENUKA resolved, Can resume home Lasix on discharge Ambulatory dysfunction PT/OT PT: She would benefit from rehab with P.T./OT services following discharge to improve her activity tolerance, balance, strength, and level of independence with mobility and ADLs. Discharge Instructions Discharge to [facility] Patient should continue home medications. Continue Doxycycline for 7 more days for cellulitis of lower extremity. Wound care for lower extremities Other new medication is Zolfoft 25 mg daily and then after 7 days increase to 50 mg daily as per neurology service for depression Neurology follow up in 2-[address] Africa Frost or Africa Santiago PAC Vital Signs: Date Time Temp Pulse Resp B/P (MAP) Pulse Ox O2 Delivery O2 Flow Rate FiO2 11/10/17 16:03 36.5 64 20 117/63 (81) 91 Room Air 11/10/17 11:14 36.3 76 18 131/84 (100) 91 Room Air 11/10/17 08:00 90 Room Air 11/10/17 07:25 36.6 61 16 137/80 (99) 90 Room Air 11/10/17 00:00 Room Air 11/09/17 23:57 36.4 63 18 154/96 (115) 91 Room Air 11/09/17 20:26 36.5 65 18 124/79 (94) 93 Room Air 11/09/17 20:00 Room Air Lab Results: Results Past 24 Hours Test 11/09/17 19:01 11/10/17 05:43 Range/Units Magnesium Level 2.6 2.3 1.8-2.4 mg/dl Vitamin B12 Level 516 211-911 pg/mL Folate > 24.00 >5.38 ng/mL Rapid Plasma Reagin NONREACTIVE NONREACT White Blood Count 5.65 4.8-10.8 K/uL Red Blood Count 4.27 4.2-5.4 M/uL Hemoglobin 12.8 12.0-16.0 g/dL Hematocrit 38.7 37-47 % Mean Corpuscular Volume 90.6 80-100 fL Mean Corpuscular Hemoglobin 30.0 25-34 pg Mean Corpuscular Hemoglobin Concent 33.1 32-36 g/dl Platelet Count 211 130-400 K/uL Mean Platelet Volume 10.9 7.4-10.4 fL Neutrophils (%) (Auto) 65.9 % Lymphocytes (%) (Auto) 17.0 % Monocytes (%) (Auto) 11.7 % Eosinophils (%) (Auto) 4.8 % Basophils (%) (Auto) 0.4 % Neutrophils # (Auto) 3.73 1.4-6.5 K/uL Lymphocytes # (Auto) 0.96 1.2-3.4 K/uL Monocytes # (Auto) 0.66 0.11-0.59 K/uL Eosinophils # (Auto) 0.27 0-0.5 K/uL Basophils # (Auto) 0.02 0-0.2 K/uL RDW Standard Deviation 46.9 36.4-46.3 fL RDW Coefficient of Variation 14.3 11.5-14.5 % Immature Granulocyte % (Auto) 0.2 % Immature Granulocyte # (Auto) 0.01 0.00-0.02 K/uL Prothrombin Time 20.3 9.0-12.0 SECONDS Prothromb Time International Ratio 2.0 0.9-1.1 Sodium Level 139 136-145 mmol/L Potassium Level 4.3 3.5-5.1 mmol/L Chloride Level 103 98-107 mmol/L Carbon Dioxide Level 31 21-32 mmol/L Anion Gap 5.0 3-11 mmol/L Blood Urea Nitrogen 23 7-18 mg/dl Creatinine 1.16 0.60-1.20 mg/dl Est Creatinine Clear Calc Drug Dose 40.9 ml/min Estimated GFR () 50.8 Estimated GFR (Non- 43.8 BUN/Creatinine Ratio 19.5 10-20 Random Glucose 92 70-99 mg/dl Calcium Level 9.2 8.5-10.1 mg/dl Total Bilirubin 0.5 0.2-1 mg/dl Aspartate Amino Transf (AST/SGOT) 22 15-37 U/L Alanine Aminotransferase (ALT/SGPT) 19 12-78 U/L Alkaline Phosphatase 101 45-117 U/L Total Protein 7.6 6.4-8.2 gm/dl Albumin 3.5 3.4-5.0 gm/dl Globulin 4.1 2.5-4.0 gm/dl Albumin/Globulin Ratio 0.9 0.9-2
--- NOTE | 2017-11-10 17:06 | Discharge Instructions ---
Discharge Instructions Date of Service November 10, 2017. Admission Reason for Admission: Delirium Discharge Discharge Diagnosis / Problem: mental status was evaluated, depression, leg cellulitis, hypomagnesemia Discharge Goals Goal(s): Improve function, Improve disease control Activity Recommendations Activity Limitations: per Instructions/Follow-up section Shower/Bathe: no limitations . Instructions / Follow-Up Instructions / Follow-Up Hospital Course Patient primarily admitted for intermittent episodes of memory deficits vs delirium and here in the hospital to rule out other etiologies of confusion -Patient had CT head images reviewed by neurology and that CT head with large ventricles likely ex vacuo rather than a normal pressure hydrocephalus -EEG -preliminary read no seizure focus -memory problems could be related to depression: neurology service started Zolfoft 25 mg daily and then after 7 days increase to 50 mg daily -may have component of dementia but this is not present today on exam: possible start of Aricept or Namenda at next neurology office visit for possible dementia -TSH / B12 / Folate levels normal. RPR normal -no obvious sources of infection to cause altered mental status: UA negative, patient was started on doxycycline for possible lower extremity cellulitis but as per patient's family member Maureen West at bedside ([phone]) patient has chronic lower extremity leg and skin problems before without recent problems with memory -Patient to continue doxycycline as outpatient. Patient has history of venous insufficiency, hx diastolic dysfunction EF 55-60% TTE 2014, Coronary artery disease, pacemaker and on Coumadin for atrial fibrillation, INR therapeutic. Continue home dose coumadin CXR: Cardiomegaly with mild pulmonary vascular congestion Echocardiogram 11/09/17 The left ventricle is normal in size. There is borderline concentric left ventricular hypertrophy. Ejection Fraction = 60-65%. Apical wall motion abnormality may reflect pacemaker activation. The left atrium is moderately dilated. The right atrium is mildly dilated. The right ventricular systolic function is normal. Aortic valve sclerosis mild, without significant aortic valvular stenosis. There is mild mitral regurgitation. There is severe tricuspid regurgitation. Patient has been breathing on room air and despite mild pulmonary congestion the echocardiogram shows normal systolic function. Can resume home Lasix Continue home dose amlodipine for blood pressure Hypomagnesemia -on admission days the serum magnesium as low as 1.5, patient has received a total of 4 grams of IV magnesium and magnesium levels normalized -Can resume home Lasix on discharge RENUKA resolved, Can resume home Lasix on discharge Ambulatory dysfunction PT/OT PT: She would benefit from rehab with P.T./OT services following discharge to improve her activity tolerance, balance, strength, and level of independence with mobility and ADLs. Discharge Instructions Discharge to [facility] Patient should continue home medications. Continue Doxycycline for 7 more days for cellulitis of lower extremity. Wound care for lower extremities Other new medication is Zolfoft 25 mg daily and then after 7 days increase to 50 mg daily as per neurology service for depression Neurology follow up in 2-[address] Africa Frost or Africa Santiago [facility] Diet Patient's current hospital diet: AHA Diet (Heart Healthy) Discharge Diet Recommended Diet: AHA Diet (Heart Healthy) Pending Studies Studies pending at discharge: no Laboratory Results 11/10/17 05:43 Red Blood Count 4.27, Mean Corpuscular Volume 90.6, Mean Corpuscular Hemoglobin 30.0, Mean Corpuscular Hemoglobin Concent 33.1, Mean Platelet Volume 10.9, Neutrophils (%) (Auto) 65.9, Lymphocytes (%) (Auto) 17.0, Monocytes (%) (Auto) 11.7, Eosinophils (%) (Auto) 4.8, Basophils (%) (Auto) 0.4, Neutrophils # (Auto ) 3.73, Lymphocytes # (Auto) 0.96, Monocytes # (Auto) 0.66, Eosinophils # (Auto ) 0.27, Basophils # (Auto) 0.02 11/10/17 05:43 Test 11/08/17 19:30 11/08/17 21:00 11/08/17 21:25 11/09/17 19:01 Troponin I < 0.015 ng/ml (0-0.045) Thyroid Stimulating Hormone (TSH) 3.450 uIu/ml (0.300-4.500) Chemistry Specimen Hemolysis Lyme Disease IgG Antibody NEG (NEG) Lyme Disease IgM Antibody NEG (NEG) Urine Color YELLOW Urine Appearance CLEAR (CLEAR) Urine pH 6.0 (4.5-7.5) Urine Specific [place] 1.016 (1.000-1.030) Urine Protein NEG (NEG) Urine Glucose (UA) NEG (NEG) Urine Ketones NEG (NEG) Urine Occult Blood NEG (NEG) Urine Nitrite NEG (NEG) Urine Bilirubin NEG (NEG) Urine Urobilinogen NEG (NEG) Urine Leukocyte Esterase NEG (NEG) Ammonia 13.0 umol/L (11-32) Vitamin B12 Level 516 pg/mL (211-911) Folate > 24.00 ng/mL (>5.38) Rapid Plasma Reagin NONREACTIVE (NONREACT) Test 11/10/17 05:43 White Blood Count 5.65 K/uL (4.8-10.8) Red Blood Count 4.27 M/uL (4.2-5.4) Hemoglobin 12.8 g/dL (12.0-16.0) Hematocrit 38.7 % (37-47) Mean Corpuscular Volume 90.6 fL (80-100) Mean Corpuscular Hemoglobin 30.0 pg (25-34) Mean Corpuscular Hemoglobin Concent 33.1 g/dl (32-36) Platelet Count 211 K/uL (130-400) Mean Platelet Volume 10.9 fL (7.4-10.4) Neutrophils (%) (Auto) 65.9 % Lymphocytes (%) (Auto) 17.0 % Monocytes (%) (Auto) 11.7 % Eosinophils (%) (Auto) 4.8 % Basophils (%) (Auto) 0.4 % Neutrophils # (Auto) 3.73 K/uL (1.4-6.5) Lymphocytes # (Auto) 0.96 K/uL (1.2-3.4) Monocytes # (Auto) 0.66 K/uL (0.11-0.59) Eosinophils # (Auto) 0.27 K/uL (0-0.5) Basophils # (Auto) 0.02 K/uL (0-0.2) RDW Standard Deviation 46.9 fL (36.4-46.3) RDW Coefficient of Variation 14.3 % (11.5-14.5) Immature Granulocyte % (Auto) 0.2 % Immature Granulocyte # (Auto) 0.01 K/uL (0.00-0.02) Prothrombin Time 20.3 SECONDS (9.0-12.0) Prothromb Time International Ratio 2.0 (0.9-1.1) Anion Gap 5.0 mmol/L (3-11) Est Creatinine Clear Calc Drug Dose 40.9 ml/min Estimated GFR () 50.8 Estimated GFR (Non- 43.8 BUN/Creatinine Ratio 19.5 (10-20) Calcium Level 9.2 mg/dl (8.5-10.1) Magnesium Level 2.3 mg/dl (1.8-2.4) Total Bilirubin 0.5 mg/dl (0.2-1) Aspartate Amino Transf (AST/SGOT) 22 U/L (15-37) Alanine Aminotransferase (ALT/SGPT) 19 U/L (12-78) Alkaline Phosphatase 101 U/L (45-117) Total Protein 7.6 gm/dl (6.4-8.2) Albumin 3.5 gm/dl (3.4-5.0) Globulin 4.1 gm/dl (2.5-4.0) Albumin/Globulin Ratio 0.9 (0.9-2) Medical Emergencies . Who to Call and When: Medical Emergencies: If at any time you feel your situation is an emergency, please call 911 immediately. . Non-Emergent Contact Non-Emergency issues call your: Primary Care Provider Call Non-Emergent contact if: you have any medication questions . . "Provider Documentation" section prepared by Roland Merrill. .
[2017-11-10] MEDS ORDERED: ZLF50 PO (17:08)
--- NOTE | 2017-11-10 17:16 | Discharge Summary ---
Discharge Summary Date of Service November 10, 2017. Discharge Summary Admission Date: November 08, 2017 at 22:27 Discharge Date: November 10, 2017 Discharge Disposition: Rehab ([facility]) Principal Diagnosis: mental status was evaluated, depression, leg cellulitis, hypomagnesemia, ambulatory dysfunction, anticoagulated on coumadin for atrial fibrillation Medication Reconciliation New Medications: Doxycycline Hyclate (Doxycycline Hyclate) 100 Mg Cap 100 MG PO BID for 7 Days, #14 CAP Sertraline HCl (Sertraline HCl) 50 Mg Tab 25 MG PO QAM for 7 Days, #4 TAB Continued Medications: Amlodipine Besylate (Amlodipine Besylate) 5 Mg Tab 1 TAB PO DAILY Calcitriol (Calcitriol) 0.25 Mcg Cap 1 CAP PO MWF Calcium Carbonate-Vitamin D W/ (Caltrate 600 Plus) 1 Tab Tab 1 TAB PO QPM, TAB Cholecalciferol (Vitamin D3) 1,000 Unit Cap 2000 UNITS PO QPM Cranberry (Vaccinium Macrocarp (Cranberry) 600 Mg Tab 4200 MG PO QAM Ferrous Gluconate (Ferrous Gluconate) 324 Mg Tab 1 TAB PO BIDM Furosemide (Lasix) 20 Mg Tab 20 MG PO DAILY, TAB Levothyroxine Sodium (Synthroid) 88 Mcg Tab 88 MCG PO QAM, TAB Metoprolol Tartrate (Lopressor) 25 Mg Tab 1 TAB PO BID, TAB Misc Natural Products (Osteo Bi-Flex Advanced Do) 1 Tab Tab 1 TAB PO DAILY Multiple Vitamin (Multivitamin) 1 Tab Tab 1 TAB PO QPM, TAB Nystatin (Topical) (Nystop) 100,000 Unit/Gm Pow 1 APPLN TD BID APPLY TO GROIN TWICE DAILY. Oxybutynin Chloride (Oxybutynin Chloride Er) 15 Mg Tab 1 TAB PO QPM Pantoprazole (Protonix) 40 Mg Tab 40 MG PO QAM, TAB Rosuvastatin Calcium (Crestor) 10 Mg Tab 10 MG PO QPM, TAB Warfarin Sodium (Coumadin) 1 Mg Tab 1 MG PO 5XWK, TAB TAKE 1MG EVERY TUESDAY//TUESDAY/TUESDAY/TUESDAY, tuesday. Warfarin Sodium (Coumadin) 1 Mg Tab 2 MG PO 1xweek for 30 Days, TAB 5 Refills TAKE 2 MG ON Tuesday Discontinued Medications: Amoxicillin (Amoxil) 500 Mg Cap 2000 MG PO UD TAKE BEFORE BREAKFAST Admission Information HPI (per Admitting provider): CHIEF COMPLAINT: checkup as per the patient. Episodic confusion, sent by neurology as per family HISTORY OF PRESENT ILLNESS: History obtained from patient, family, and records. Patient is a fair historian. Medical history significant for chronic diastolic heart failure, SSS sp PPM on Coumadin, CAD as per records, hypertension. L Breast cancer status post surgery Recent confinement in last July 2016 for UGIB, Coumadin coagulopathy. Normal EGD, colonoscopy showed polyps. Coumadin eventually resumed. The last 6 weeks, the patient was noted by family to have episodic confusion, packing her bags to go somewhere, confused as to day and night. Patient had 2 ER visits, subsequently sent home. Seen by PCP last month, concern for possible dementia. Patient seen by [facility] in the office. Outpatient lab work normal. Possible element of depression as per notes. Family given information about possible initiation of therapy with Aricept and Namenda. Yesterday the patient was noted to have an episodic of disorientation. No chest pain, no SOB, Both legs always swollen as per family. Wound on the right posterior leg with some yellow drainage the last few days as per daughter. Patient denies bladder discomfort. Patient sent by the neurologist to the Emergency Room. Patient's mentation currently at baseline as per family. MEDICAL HISTORY: As above. SURGERIES: Pacemaker placement, tubal ligation, knee replacement, appendectomy, thyroid surgery, gynecologic procedures. HOME MEDICATIONS: Include Caltrate, vitamin D, cranberry, calcitriol, ferrous gluconate, Lasix, Synthroid, Lopressor, multivitamins, Nystop, oxybutynin, Protonix, Crestor, Coumadin. ALLERGIES: Allergic to MORPHINE, CYMBALTA, NSAIDs. FAMILY HISTORY: There is a family history of heart disease. PERSONAL AND SOCIAL HISTORY: Nonsmoker. No chronic intake of alcoholic beverages. Lives by herself in an apartment. REVIEW OF SYSTEMS: As per HPI, all 10 systems reviewed, all other ROS negative. Physical Exam (per Admitting): PHYSICAL EXAMINATION: VITAL SIGNS: Blood pressure was noted to be 131/80, pulse rate 68, RR 18, temperature 37.2, sats 98 on room air. GENERAL: Noted to be obese, slightly anxious, no respiratory distress. Oriented to month and year. SKIN: Normal color, warm. HEENT: [place] palpebral conjunctiva. No ptosis. Dry mucosa. NECK: Short, supple. CHEST: Decreased effort. No tenderness. HEART: RRR, no murmurs EXTREMITIES: Induration of both lower extremities with an coin-sized open wound on the right posterior leg with scant drainage. Hospital Course Hospital Course Patient primarily admitted for intermittent episodes of memory deficits vs delirium and here in the hospital to rule out other etiologies of confusion -Patient had CT head images reviewed by neurology and that CT head with large ventricles likely ex vacuo rather than a normal pressure hydrocephalus -EEG -preliminary read no seizure focus -memory problems could be related to depression: neurology service started Zolfoft 25 mg daily and then after 7 days increase to 50 mg daily -may have component of dementia but this is not present today on exam: possible start of Aricept or Namenda at next neurology office visit for possible dementia -TSH / B12 / Folate levels normal. RPR normal -no obvious sources of infection to cause altered mental status: UA negative, patient was started on doxycycline for possible lower extremity cellulitis but as per patient's family member Maureen West at bedside ([phone]) patient has chronic lower extremity leg and skin problems before without recent problems with memory -Patient to continue doxycycline as outpatient. Patient has history of venous insufficiency, hx diastolic dysfunction EF 55-60% TTE 2014, Coronary artery disease, pacemaker and on Coumadin for atrial fibrillation, INR therapeutic. Continue home dose coumadin CXR: Cardiomegaly with mild pulmonary vascular congestion Echocardiogram 11/09/17 The left ventricle is normal in size. There is borderline concentric left ventricular hypertrophy. Ejection Fraction = 60-65%. Apical wall motion abnormality may reflect pacemaker activation. The left atrium is moderately dilated. The right atrium is mildly dilated. The right ventricular systolic function is normal. Aortic valve sclerosis mild, without significant aortic valvular stenosis. There is mild mitral regurgitation. There is severe tricuspid regurgitation. Patient has been breathing on room air and despite mild pulmonary congestion the echocardiogram shows normal systolic function. Can resume home Lasix Continue home dose amlodipine for blood pressure Hypomagnesemia -on admission days the serum magnesium as low as 1.5, patient has received a total of 4 grams of IV magnesium and magnesium levels normalized -Can resume home Lasix on discharge RENUKA resolved, Can resume home Lasix on discharge Ambulatory dysfunction PT/OT PT: She would benefit from rehab with P.T./OT services following discharge to improve her activity tolerance, balance, strength, and level of independence with mobility and ADLs. Discharge Instructions Discharge to [facility] Patient should continue home medications. Continue Doxycycline for 7 more days for cellulitis of lower extremity. Wound care for lower extremities Other new medication is Zolfoft 25 mg daily and then after 7 days increase to 50 mg daily as per neurology service for depression Neurology follow up in 2-[address] Africa Frost or Africa GERONIMO Total time spent on discharge = 40 minutes This includes examination of the patient, discharge planning, medication reconciliation, and communication with other providers. Discharge Instructions see above
[2017-11-10 17:20] VITALS: BP 117/63; PULSE 64; TEMP 36.5; O2SAT 91
[2017-11-17] MEDS ORDERED: SERTRALINE HCL 50 MG TAB PO SCH (09:00)
== END 2017-11-10 17:47 | DRG 948 ==
LOC: C.EDB 18:28 → C.MED 22:27 → ENRESERV 23:01
PROVIDERS: ADMIT Hospitalist; ATTEND Hospitalist
DX: R41.0 Disorientation, unspecified (principal); I48.91 Unspecified atrial fibrillation; I25.10 Atherosclerotic heart disease of native coronary artery without angina pectoris; N18.3 Chronic kidney disease, stage 3 (moderate); I50.32 Chronic diastolic (congestive) heart failure; E78.5 Hyperlipidemia, unspecified; E03.9 Hypothyroidism, unspecified; I25.2 Old myocardial infarction; Z95.0 Presence of cardiac pacemaker; Z79.01 Long term (current) use of anticoagulants; L03.115 Cellulitis of right lower limb; N17.9 Acute kidney failure, unspecified; E83.42 Hypomagnesemia; R94.8 Abnormal results of function studies of other organs and systems; I36.1 Nonrheumatic tricuspid (valve) insufficiency; F32.9 Major depressive disorder, single episode, unspecified; F03.90 Unspecified dementia, unspecified severity, without behavioral disturbance, psychotic disturbance, mood disturbance, and anxiety

== ENCOUNTER → 2018-01-17 | Outpatient (CLI) | payer OTHER ==
[~2018-01-17] MED LIST changes: -AMPI500C9 PO; +DXY100 PO; +ZLF50 PO
[2018-01-17 13:25] LABS: INR 2.6 (0.9-1.1)
== END | disposition home or self-care (01) ==
LOC: C.LABOAKS 16:25
PROVIDERS: ATTEND Pharmacist Pharmacotherapy
DX: Z79.01 Long term (current) use of anticoagulants (principal); Z51.81 Encounter for therapeutic drug level monitoring

== ENCOUNTER → 2018-02-14 | Outpatient (CLI) | payer OTHER ==
[2018-02-14 13:07] LABS: INR 2.6 (0.9-1.1)
[2018-02-14 13:31] LABS: PHOSPHORUS 3.2 mg/dl (2.5-4.9)
== END | disposition home or self-care (01) ==
LOC: C.LABOAKS 16:16
PROVIDERS: ATTEND Family Medicine
DX: E03.9 Hypothyroidism, unspecified (principal); N18.3 Chronic kidney disease, stage 3 (moderate); I48.2 Chronic atrial fibrillation

== ENCOUNTER 2018-09-08 19:45 | Inpatient (IN) ==
--- NOTE | 2018-09-08 20:44 | XRay Report ---
XR chest 1V portable CLINICAL HISTORY: Weakness, acute change in mental status. Influenza. COMPARISON STUDY: 04/10/2018 FINDINGS: The heart is mildly enlarged. There is aortic tortuosity/ectasia. There is a left subclavia n dual-chamber central venous pacemaker. There is elevation of the interstitium, likely secondary to mild pulmonary vascular congestion/fluid overload. There are no pleural effusions.[ IMPRESSION: Cardiomegaly and radiographic evidence of mild pulmonary vascular congestion/fluid overlo ad. No evidence of lobar consolidation Electronically signed by: Lencho Rey M.D. 09/08/2018 8:43 PM
[2018-09-08 20:46] LABS: Basophils # (auto) 0.03 K/uL (0-0.2); Basophils % (auto) 0.4 %; Eosinophils # (auto) 0.22 K/uL (0-0.5); Eosinophils % (auto) 3.3 %; Hematocrit (blood only) 39.2 % (37-47); Hemoglobin 12.7 g/dL (12.0-16.0); Immature Granulocytes # (auto) 0.02 K/uL (0.00-0.02); Immature Granulocytes % (auto) 0.3 %; Lymphocytes # (auto) 1.02 K/uL (1.2-3.4); Lymphocytes % (auto) 15.3 %; Mean Corpuscular Hgb Conc 32.4 g/dL (32-36); Mean Corpuscular Volume 91.6 fL (80-100); Mean Platelet Volume 11.5 fL (7.4-10.4); Monocytes # (auto) 0.84 K/uL (0.11-0.59); Monocytes % (auto) 12.6 %; Neutrophils # (auto) 4.55 K/uL (1.4-6.5); Neutrophils % (auto) 68.1 %; Platelet Count 210 K/uL (130-400); RDW Coefficient of Variation 16.3 % (11.5-14.5); Red Blood Count 4.28 M/uL (4.2-5.4); White Blood Count 6.68 K/uL (4.8-10.8)
[2018-09-08 20:54] LABS: Alanine Aminotransferase 20 U/L (12-78); Albumin Level 3.9 gm/dl (3.4-5.0); Aspartate Aminotransferase 28 U/L (15-37); BUN Creatinine Ratio 21.4 (10-20); Blood Urea Nitrogen 21 mg/dl (7-18); Calcium 9.6 mg/dl (8.5-10.1); Carbon Dioxide 35 mmol/L (21-32); Chloride 103 mmol/L (98-107); Creatinine Clr Calc Pharmacy 49.3 ml/min; Est GFR (African American) 60.3; Est GFR (Non-African American) 52.1; Glucose 101 mg/dl (70-99); Magnesium 1.6 mg/dl (1.8-2.4); Potassium 3.6 mmol/L (3.5-5.1); Sodium 142 mmol/L (136-145)
[2018-09-08 21:02] LABS: INR 3.4 (0.9-1.1); Partial Thromboplastin Ratio 1.6; Partial Thromboplastin Time 43.7 Seconds (21.0-31.0); Prothrombin Time 32.2 Seconds (9.0-12.0)
[2018-09-08 21:06] LABS: Albumin Globulin Ratio 0.8 (0.9-2); Alkaline Phosphatase 170 U/L (45-117); Bilirubin,Total 0.9 mg/dl (0.2-1); Globulin 4.6 gm/dl (2.5-4.0); Total Protein 8.5 gm/dl (6.4-8.2); Troponin I < 0.015 ng/ml (0-0.045)
--- NOTE | 2018-09-08 21:29 | CT Scan Report ---
CT head/brain wo con CLINICAL HISTORY: confusion COMPARISON STUDY: 11/08/2017 TECHNIQUE: Axial CT of the brain is performed from the vertex to the skull base. IV contrast was not administered for this examination. A dose lowering technique was utilized adhering to the principles of ALARA. CT DOSE: 709.48 mGy.cm FINDINGS: No intra or extra-axial mass lesions are visualized. There is no CT evidence of acute cortical infarc tion. There is no evidence of midline shift. There is no acute hemorrhage. No calvarial fractures ar e visualized. There are patchy white matter hypodensities likely on a small vessel basis. There is persistent ventricular dilatation, similar to the prior study and again, slightly out of pro portion to the degree of atrophy. There is no evidence of acute sinusitis IMPRESSION: 1. No acute intracranial findings 2. Stable mild ventricular dilatation Electronically signed by: Lencho Rey M.D. 09/08/2018 9:27 PM
[2018-09-08] MEDS ORDERED: FUROSEMIDE 20 MG in SYRINGE 0 ML IV ONE ×2 (21:48→23:53)
[2018-09-08] MEDS ORDERED: FUROSEMIDE 40 MG/4 ML VIAL IV ONE (22:05)
[2018-09-08 22:06] LABS: Appearance Urine Clear (Clear); Bacteria Urine Automated 4+ (Negative); Bilirubin Urine Negative (Negative); Blood Urine Trace (Negative); Color Urine Dark Yellow; Glucose Urine UA Negative (Negative); Ketones Urine Negative (Negative); Leukocyte Esterase Urine Negative (Negative); Nitrite Urine Positive (Negative); Protein Urine 1+ (Negative); RBC Urine Automated 0-4 /hpf (0-4); Specific Gravity Urine 1.019 (1.000-1.030); Urobilinogen Urine Negative (Negative)
--- NOTE | 2018-09-08 23:11 | History & Physical Report ---
Date of Service September 08, 2018 Assessment & Plan (1) Acute on chronic diastolic CHF (congestive heart failure): 83-year-old female with a past medical history of diastolic congestive heart failure, hypertension, sick sinus syndrome status post pacemaker, dementia, venous insufficiency/recurrent lower extremity cellulitis presents with increased confusion and shortness of breath Acute hypoxic respiratory distress in the setting of acute on chronic diastolic heart failure Patient currently has a new oxygen requirement, crackles were appreciated on exam and subjectively the family says that her lower extremity edema is worsened, chest x-ray showed mild pulmonary congestion We will admit to telemetry, diuresis follow I's and O's, weights, Perla catheter in place Previous echo on 11/09/2017 EF of 60-65%, aortic sclerosis without significant stenosis. We will repeat echo. Treating with IV Lasix, 40 mg in the ED, low-sodium diet, 1500 cc fluid restriction Ordering BNP, EKG to be done in the ED Metabolic encephalopathyacute on chronic, baseline dementia As noted in HPI patient has increased hallucinations over the past 6 months, recently had her Aricept stopped as a possible contributor to hallucinations It is possible that the patient has had increased hallucinations over the past couple days secondary to hypoxia Head CT was negative, did show stable ventricle dilation which was seen on previous imaging PT/OT, speech consult Check TSH, B12 CAD/hypertension Continue metoprolol, amlodipine Continue rosuvastatin Sick sinus syndrome status post pacemaker placement INR is 3.4, will hold Coumadin, follow INR Depression Continue sertraline Venous insufficiency, recurrent lower extremity cellulitis Worsening edema and likely secondary to CHF, if the patient develops fevers or white count, would consider adding on antibiotic treatment Asymptomatic bacteriuria We will follow cultures, recommend adding antibiotic if develops fevers/white count CODE STATUS DNR DVT prophylaxis Resume Coumadin when INR is between 2-3 (2) Hypothyroid: (3) Hypertension: (4) Hyperlipemia: (5) CAD (coronary artery disease): (6) Atrial fibrillation: (7) Pacemaker: (8) Diastolic CHF, chronic: (9) Dementia: History of Present Illness Primary Care Provider: DEL 83-year-old female with a past medical history of diastolic congestive heart failure, hypertension, sick sinus syndrome status post pacemaker, dementia, venous insufficiency/recurrent lower extremity cellulitis presents with increased confusion and shortness of breath noted by family. Family remarks that the patient has been experiencing hallucinations over the past 6 months and that they have recently increased in recent days. The patient states that she is aware that she is having hallucinationsshe states that she hears music that is not there. The family saysthat her Aricept was recently stopped as her PCP was concerned that this was the culprit for worsening hallucinations. In addition, the patient notes increased shortness of breath. She states that she is more dyspneic with exertion and has dyspnea at rest as well. Patient had the flu 3 weeks ago. She denies any signs and symptoms of gastrointestinal or URI infections. She denies dysuria. The patient is a resident of the [place]. Review of systems Constitutional; patient denies fevers, chills, night sweats Chest; denies chest pain, but his shortness of breath as described above and has an occasional cough, no hemoptysis, occasional nosebleeds GI; no abdominal pain, no nausea vomiting or diarrhea ; no dysuria, no increased frequency Allergies Allergy/AdvReac Type Severity Reaction Status Date / Time morphine AdvReac Unknown HALLUCINATI Verified 09/08/18 22:53 ONS NSAIDS (Non-Steroidal AdvReac Unknown MILD Verified 09/08/18 22:53 Anti-Inflamma ERYTHEMA AROUND EYES AND FACE spironolactone AdvReac Unknown HYPERKALEMI Unverified 09/08/18 22:53 A Home Medications Home Medications Medication Instructions Recorded Confirmed Type acetaminophen [Tylenol Extra 500 mg PO QID PRN 09/08/18 09/08/18 History Strength] amlodipine [Norvasc] 5 mg PO DAILY 09/08/18 09/08/18 History amoxicillin 2,000 mg PO DIRECTED 09/08/18 09/08/18 History calcitriol 0.25 mcg PO 3XWK 09/08/18 09/08/18 History calcium carbonate [Tums] 200 mg PO TID PRN 09/08/18 09/08/18 History calcium carbonate-vitamin D3 1 tab PO QPM 09/08/18 09/08/18 History [Oyster Shell Calcium-Vit D3] cholecalciferol (vitamin D3) 2,000 unit PO QPM 09/08/18 09/08/18 History [Vitamin D3] docusate sodium [Colace] 100 mg PO BID PRN 09/08/18 09/08/18 History ferrous gluconate 324 mg PO BID 09/08/18 09/08/18 History furosemide [Lasix] 20 mg PO DAILY 09/08/18 09/08/18 History levothyroxine [Synthroid] 88 mcg PO DAILY 09/08/18 09/08/18 History metoprolol tartrate 25 mg PO BID 09/08/18 09/08/18 History multivitamin [Daily-Radha] 1 tab PO DAILY 09/08/18 09/08/18 History oxybutynin chloride [Ditropan XL] 15 mg PO QPM 09/08/18 09/08/18 History pantoprazole [Protonix] 40 mg PO DAILY 09/08/18 09/08/18 History rosuvastatin [Crestor] 10 mg PO HS 09/08/18 09/08/18 History sertraline [Zoloft] 100 mg PO DAILY 09/08/18 09/08/18 History warfarin [Coumadin] 1 mg PO DAILY 09/08/18 09/08/18 History Past Med/Surg History Medical History Dementia (Chronic) Hyperlipemia (Chronic) Osteoarthritis (Chronic) Obesity (Chronic) Hypothyroid (Chronic) Hypertension (Chronic) Diastolic CHF, chronic (Chronic) Complete heart block (Chronic) Pacemaker (Chronic) Atrial fibrillation (Chronic) "paroxysmal" Hx of subacute thyroiditis (Chronic) CAD (coronary artery disease) (Chronic) Migraine with aura (Chronic) Surgical History S/P placement of cardiac pacemaker (Chronic) "03/08/07 dual chamber [employer]onic ADDR01; Dr Galdamez; generator exchange December 31, 2014" On 08/02/16 14:09 Nichole Reyes wrote "03/08/07 dual chamber [employer]onic ADDR01; Dr Galdamez; replaced 2014" H/O tubal ligation (Chronic) S/P appendectomy (Chronic) S/P removal of thyroid nodule (Chronic) Family History Other No significant family history Social History Preferred Language: Japanese Communication Ability: Effective Manager Of Transportation Required: No Beliefs That Will Affect Care: None Current Living Situation: Personal Care Facility Other Information That Helps Us Care for You: No Feels Safe at Home: Yes Safety Concerns: Feels Safe At This Time Smoking Status: Never smoker Hx Alcohol Use: No Hx Substance Use: No Review of Systems All systems reviewed, negative except for mentioned in HPI Physical Exam Vital Signs (Past 24 Hours): Last Vital Signs Temp 36.8 C 09/08/18 19:53 Pulse 6 L 09/08/18 22:37 Resp 20 09/08/18 22:37 BP 120/96 09/08/18 20:44 Pulse Ox 91 09/08/18 22:37 Constitutional: WD/WN, vitals as above Eyes: PERRL, conjunctivae normal, anicteric sclerae ENMT: external ear and nose normal, oropharynx normal Respiratory: + labored breathing; + abnormal respiratory effort Auscultation: + diminished lung sounds (Bilateral bases) and + crackles ( bilateral ); no wheezes Cardiovascular: RRR, no murmur, no edema Gastrointestinal (Abdomen): normal bowel sounds, soft, nontender, no hepatosplenomegaly Musculoskeletal: Head/Neck/Chest: normocephalic and head atraumatic Extremities: strength 5/5 throughout Skin: Bilateral lower extremity edema +3, dry/erythematous skin of bilateral lower extremities, warmth to bilateral extremities Neurologic: normal touch/pain/proprioception, CN's II-XI intact bilaterally, moves all extremities and awake Cranial Nerves: PERRL Alert and oriented to person place, but not time. Answering questions appropriately Results & Data Laboratory Results Laboratory Last Values WBC 6.68 K/uL (4.8-10.8) 09/08/18 Unknown RBC 4.28 M/uL (4.2-5.4) 09/08/18 Unknown Hgb 12.7 g/dL (12.0-16.0) 09/08/18 Unknown Hct 39.2 % (37-47) 09/08/18 Unknown MCV 91.6 fL (80-100) 09/08/18 Unknown MCH 29.7 pg (25-34) 09/08/18 Unknown MCHC 32.4 g/dL (32-36) 09/08/18 Unknown RDW Std Deviation 54.0 fL (36.4-46.3) H 09/08/18 Unknown RDW Coeff of Libby 16.3 % (11.5-14.5) H 09/08/18 Unknown Plt Count 210 K/uL (130-400) 09/08/18 Unknown MPV 11.5 fL (7.4-10.4) H 09/08/18 Unknown Immature Gran % (Auto) 0.3 % 09/08/18 Unknown Neut % (Auto) 68.1 % 09/08/18 Unknown Lymph % (Auto) 15.3 % 09/08/18 Unknown Kidder % (Auto) 12.6 % 09/08/18 Unknown Eos % (Auto) 3.3 % 09/08/18 Unknown Baso % (Auto) 0.4 % 09/08/18 Unknown Immature Gran # (Auto) 0.02 K/uL (0.00-0.02) 09/08/18 Unknown Neut # (Auto) 4.55 K/uL (1.4-6.5) 09/08/18 Unknown Lymph # (Auto) 1.02 K/uL (1.2-3.4) L 09/08/18 Unknown Kidder # (Auto) 0.84 K/uL (0.11-0.59) H 09/08/18 Unknown Eos # (Auto) 0.22 K/uL (0-0.5) 09/08/18 Unknown Baso # (Auto) 0.03 K/uL (0-0.2) 09/08/18 Unknown PT 32.2 Seconds (9.0-12.0) H 09/08/18 Unknown INR 3.4 (0.9-1.1) H 09/08/18 Unknown APTT 43.7 Seconds (21.0-31.0) H 09/08/18 Unknown PTT Ratio 1.6 09/08/18 Unknown Sodium 142 mmol/L (136-145) 09/08/18 Unknown Potassium 3.6 mmol/L (3.5-5.1) 09/08/18 Unknown Chloride 103 mmol/L (98-107) 09/08/18 Unknown Carbon Dioxide 35 mmol/L (21-32) H 09/08/18 Unknown Anion Gap 4.0 (3-11) 09/08/18 Unknown BUN 21 mg/dl (7-18) H 09/08/18 Unknown Creatinine 1.00 mg/dl (0.6-1.2) 09/08/18 Unknown Est Cr Clr Drug Dosing 49.3 ml/min 09/08/18 Unknown Est GFR ( Amer) 60.3 09/08/18 Unknown Est GFR (Non-Af Amer) 52.1 09/08/18 Unknown BUN/Creatinine Ratio 21.4 (10-20) H 09/08/18 Unknown Glucose 101 mg/dl (70-99) H 09/08/18 Unknown POC Glucose 99 (70-99) 09/08/18 19:58 Calcium 9.6 mg/dl (8.5-10.1) 09/08/18 Unknown Magnesium 1.6 mg/dl (1.8-2.4) L 09/08/18 Unknown Total Bilirubin 0.9 mg/dl (0.2-1) 09/08/18 Unknown AST 28 U/L (15-37) 09/08/18 Unknown ALT 20 U/L (12-78) 09/08/18 Unknown Alkaline Phosphatase 170 U/L (45-117) H 09/08/18 Unknown Troponin I < 0.015 ng/ml (0-0.045) 09/08/18 Unknown Total Protein 8.5 gm/dl (6.4-8.2) H 09/08/18 Unknown Albumin 3.9 gm/dl (3.4-5.0) 09/08/18 Unknown Globulin 4.6 gm/dl (2.5-4.0) H 09/08/18 Unknown Albumin/Globulin Ratio 0.8 (0.9-2) L 09/08/18 Unknown TSH 3.640 uIu/ml (0.300-4.500) 09/08/18 Unknown Urine Color Dark Yellow 09/08/18 21:44 Urine Appearance Clear (Clear) 09/08/18 21:44 Urine pH 6.0 (4.5-7.5) 09/08/18 21:44 Ur Specific Kennedy 1.019 (1.000-1.030) 09/08/18 21:44 Urine Protein 1+ (Negative) H 09/08/18 21:44 Urine Glucose (UA) Negative (Negative) 09/08/18 21:44 Urine Ketones Negative (Negative) 09/08/18 21:44 Urine Blood Trace (Negative) H 09/08/18 21:44 Urine Nitrite Positive (Negative) H 09/08/18 21:44 Urine Bilirubin Negative (Negative) 09/08/18 21:44 Urine Urobilinogen Negative (Negative) 09/08/18 21:44 Ur Leukocyte Esterase Negative (Negative) 09/08/18 21:44 Urine WBC (Auto) 1-5 /hpf (0-5) 09/08/18 21:44 Urine RBC (Auto) 0-4 /hpf (0-4) 09/08/18 21:44 U Hyaline Cast (Auto) 1-5 /lpf (0-5) 09/08/18 21:44 U Epithel Cells (Auto) 10-20 /lpf (0-5) H 09/08/18 21:44 Urine Bacteria (Auto) 4+ (Negative) H 09/08/18 21:44 Diagnostic Findings XRay Report Patient: HERNAN CAMPOS Date: 09/08/18 MR#: [id number]: C/O MYRNA ANTONIO Acct ID:[id number]: [id number] [employer] Date: [address] [place] [address] Zip: [place] [address] Age: 83Location: ED Sex: F Room/Bed: Att Phy: Diagnosis: CONFUSION Leanna Phy: [facility] Date: 09/08/18 Fam Phy: Interpreting Phy: Lencho Rey MD Admit Phy: Ordering Phy: TEMP,ED cc: ~ XR chest 1V portable CLINICAL HISTORY: Weakness, acute change in mental status. Influenza. COMPARISON STUDY: 04/10/2018 FINDINGS: The heart is mildly enlarged. There is aortic tortuosity/ectasia. There is a left subclavian dual-chamber central venous pacemaker. There is elevation of the interstitium, likely secondary to mild pulmonary vascular congestion/fluid overload. There are no pleural effusions.[ IMPRESSION: Cardiomegaly and radiographic evidence of mild pulmonary vascular congestion/fluid overload. No evidence of lobar consolidation Electronically signed by: Lencho Rey M.D. 09/08/2018 8:43 PM Dictated: 09/08/182041 Transcribed: 09/08/182041 [phone] Scan Report Patient: HERNAN CAMPOS Date: 09/08/18 MR#: [id number]: C/O MYRNA ANTONIO Acct ID:[id number]: [id number] [employer] Date: [address] [place] [address] Zip: [place] [id number] Age: 83Location: ED Sex: F Room/Bed: Att Phy: Diagnosis: CONFUSION Leanna Phy: [facility] Date: 09/08/18 [facility] Phy: Interpreting Phy: Lencho Rey MD Admit Phy: Ordering Phy: Gil Avalos M.D. cc: ~ CT head/brain wo con CLINICAL HISTORY: confusion COMPARISON STUDY: 11/08/2017 TECHNIQUE: Axial CT of the brain is performed from the vertex to the skull base. IV contrast was not administered for this examination. A dose lowering technique was utilized adhering to the principles of ALARA. CT DOSE: 709.48 mGy.cm FINDINGS: No intra or extra-axial mass lesions are visualized. There is no CT evidence of acute cortical infarction. There is no evidence of midline shift. There is no acute hemorrhage. No calvarial fractures are visualized. There are patchy white matter hypodensities likely on a small vessel basis. There is persistent ventricular dilatation, similar to the prior study and again, slightly out of proportion to the degree of atrophy. There is no evidence of acute sinusitis IMPRESSION: 1. No acute intracranial findings 2. Stable mild ventricular dilatation Electronically signed by: Lencho Rey M.D. 09/08/2018 9:27 PM Dictated: 09/08/182125 Transcribed: 09/08/182125 Supervising Physician Co-Signing Physician Notes Patient seen and examined, chart reviewed, case discussed with Dr. Cartagena and I agree with his assessment and plan as above. Patient is an 83yo C female with history of CHF, pacer, venous insufficiency presenting with hallucinations. On exam she is afebrile, hypertensive, tachypneic at 24bpm, 81% on room air - O2 placed Sleeping comfortably, arousable Heart +S1/S2, regular Lungs diminished breath sounds, no rales/rhonchi/wheezes Abd - +BS, soft, NT/ND Ext stasis dermatitis Labs and images reviewed 83yo female with hallucinations, confusion, SOB. Seems to be volume overloaded -Diuresis with IV Lasix -Will treat UTI with IV Ceftriaxone as it may be contributing to confusion -Remainder of plan as above
--- NOTE | 2018-09-08 23:18 | Emergency Department Note ---
Entered by John Baig acting as a scribe for Gil Avalos MD History of Present Illness General Chief complaint: Altered Mental Status Stated complaint: CONFUSION Time Seen by Provider: 09/08/18 20:45 Source: family (daughter) History of Present Illness Onset (ago): hour(s) (prior to arrival) Location: head (altered mental status) Pain Consistency: + other (worsening) Relieved By: + none Associated symptoms: + denies other symptoms (urinary symptoms, trouble breathing) and + other (dehydrated, right leg pain); no fever/chills The patient is a 83 year old F who presents to the Emergency Room with complaints of worsening altered mental status starting prior to arrival. The HPI was provided by the patients daughter. She states that the patient currently lives at the [facility]. She notes that she was called because the patient fell down to the ground after sitting on her bed. She adds that the patient currently has leg swelling. She states that the facility that she is staying at usually wraps her legs, which helps with her leg swelling, but did not today. She notes that the patient is normally confused at baseline but has worsening hallucinations this week. She adds that the patient did not eat or drink today. She states that the patient is currently dehydrated and has right leg pain. She denies that the patient has a fever, urinary symptoms, trouble breathing. She states that the patient is currently on warfarin and Lasiks. She notes that the patient has a history of right leg arthritis and the flu a couple of weeks ago. She denies that the patient has a history of asthma. The HPI is limited due to the patients condition of dementia. Home Medications Home Medications Medication Instructions Recorded Confirmed Type acetaminophen [Tylenol Extra 500 mg PO QID PRN 09/08/18 09/08/18 History Strength] amlodipine [Norvasc] 5 mg PO DAILY 09/08/18 09/08/18 History amoxicillin 2,000 mg PO DIRECTED 09/08/18 09/08/18 History calcitriol 0.25 mcg PO 3XWK 09/08/18 09/08/18 History calcium carbonate [Tums] 200 mg PO TID PRN 09/08/18 09/08/18 History calcium carbonate-vitamin D3 1 tab PO QPM 09/08/18 09/08/18 History [Oyster Shell Calcium-Vit D3] cholecalciferol (vitamin D3) 2,000 unit PO QPM 09/08/18 09/08/18 History [Vitamin D3] docusate sodium [Colace] 100 mg PO BID PRN 09/08/18 09/08/18 History ferrous gluconate 324 mg PO BID 09/08/18 09/08/18 History furosemide [Lasix] 20 mg PO DAILY 09/08/18 09/08/18 History levothyroxine [Synthroid] 88 mcg PO DAILY 09/08/18 09/08/18 History metoprolol tartrate 25 mg PO BID 09/08/18 09/08/18 History multivitamin [Daily-Radha] 1 tab PO DAILY 09/08/18 09/08/18 History oxybutynin chloride [Ditropan XL] 15 mg PO QPM 09/08/18 09/08/18 History pantoprazole [Protonix] 40 mg PO DAILY 09/08/18 09/08/18 History rosuvastatin [Crestor] 10 mg PO HS 09/08/18 09/08/18 History sertraline [Zoloft] 100 mg PO DAILY 09/08/18 09/08/18 History warfarin [Coumadin] 1 mg PO DAILY 09/08/18 09/08/18 History Allergies Allergy/AdvReac Type Severity Reaction Status Date / Time morphine AdvReac Unknown HALLUCINATI Verified 09/08/18 22:53 ONS NSAIDS (Non-Steroidal AdvReac Unknown MILD Verified 09/08/18 22:53 Anti-Inflamma ERYTHEMA AROUND EYES AND FACE spironolactone AdvReac Unknown HYPERKALEMI Unverified 09/08/18 22:53 A Past Med/Surg History Medical History Dementia (Chronic) Hyperlipemia (Chronic) Osteoarthritis (Chronic) Obesity (Chronic) Hypothyroid (Chronic) Hypertension (Chronic) Diastolic CHF, chronic (Chronic) Complete heart block (Chronic) Pacemaker (Chronic) Atrial fibrillation (Chronic) "paroxysmal" Hx of subacute thyroiditis (Chronic) CAD (coronary artery disease) (Chronic) Migraine with aura (Chronic) Surgical History S/P placement of cardiac pacemaker (Chronic) "03/08/07 dual chamber [employer]onic ADDR01; Dr Galdamez; generator exchange December 31, 2014" On 08/02/16 14:09 Nichole Reyes wrote "03/08/07 dual chamber Medtronic ADDR01; Dr Galdamez; replaced 2014" H/O tubal ligation (Chronic) S/P appendectomy (Chronic) S/P removal of thyroid nodule (Chronic) Family History Other No significant family history Social History Communication Ability: Effective Beliefs That Will Affect Care: None Current Living Situation: Personal Care Facility Other Information That Helps Us Care for You: No Feels Safe at Home: Yes Safety Concerns: Feels Safe At This Time Smoking Status: Never smoker Hx Alcohol Use: No Hx Substance Use: No Review of Systems See HPI for pertinent positives & negatives. and A total of 10 systems reviewed and were otherwise negative ROS is limited due to the patient's condition of dementia. Physical Exam Vital Signs Vital Signs - 24 hr 09/08/18 19:53 09/08/18 19:59 09/08/18 20:32 Temperature 36.8 C Temperature Source Oral Sepsis Recent Fever Within 48 Hours No Sepsis Action Taken by Nursing No Action Required Pulse Rate 74 60 Pulse Rate [Finger] Pulse Rhythm Regular Pulse Rhythm [Finger] Pulse Strength [Finger] Respiratory Rate 20 Respiratory Effort / Characteristics Respiratory Depth Normal Respiratory Pattern Blood Pressure 181/112 H Blood Pressure [Left Arm] Blood Pressure [Right Arm] Blood Pressure Mean 135 Blood Pressure Mean [Left Arm] Blood Pressure Mean [Right Arm] Blood Pressure Position [Left Arm] Blood Pressure Position [Right Arm] Pulse Oximetry 89 L 92 92 Pulse Oximetry [Right Index Finger] Oxygen Delivery Method Room Air Nasal Cannula Nasal Cannula Oxygen Delivery Method [Right Index Finger] Oxygen Flow Rate 3 3 Oxygen Flow Rate [Right Index Finger] Fraction of Inspired Oxygen SaO2/FiO2 Ratio 09/08/18 20:36 09/08/18 20:44 09/08/18 22:37 Temperature Temperature Source Sepsis Recent Fever Within 48 Hours Sepsis Action Taken by Nursing Pulse Rate Pulse Rate [Finger] 65 6 L Pulse Rhythm Pulse Rhythm [Finger] Pulse Strength [Finger] Respiratory Rate 18 20 Respiratory Effort / Characteristics Respiratory Depth Normal Respiratory Pattern Blood Pressure Blood Pressure [Left Arm] 120/96 Blood Pressure [Right Arm] Blood Pressure Mean Blood Pressure Mean [Left Arm] 104 Blood Pressure Mean [Right Arm] Blood Pressure Position [Left Arm] Blood Pressure Position [Right Arm] Pulse Oximetry 91 Pulse Oximetry [Right Index Finger] Oxygen Delivery Method Nasal Cannula Nasal Cannula Nasal Cannula Oxygen Delivery Method [Right Index Finger] Oxygen Flow Rate 3 3 3 Oxygen Flow Rate [Right Index Finger] Fraction of Inspired Oxygen 92 SaO2/FiO2 Ratio 09/08/18 23:57 09/09/18 00:50 09/09/18 01:36 Temperature 36.5 C Temperature Source Oral Sepsis Recent Fever Within 48 Hours Sepsis Action Taken by Nursing Pulse Rate 62 Pulse Rate [Finger] 72 Pulse Rhythm Pulse Rhythm [Finger] Irregular Pulse Strength [Finger] Normal Respiratory Rate 18 20 Respiratory Effort / Characteristics Non-Labored Spontaneous SOB on Exertion Respiratory Depth Normal Normal Respiratory Pattern Regular Regular Blood Pressure 152/80 H Blood Pressure [Left Arm] 172/99 H Blood Pressure [Right Arm] Blood Pressure Mean Blood Pressure Mean [Left Arm] 123 Blood Pressure Mean [Right Arm] Blood Pressure Position [Left Arm] Blood Pressure Position [Right Arm] Pulse Oximetry 95 94 Pulse Oximetry [Right Index Finger] Oxygen Delivery Method Nasal Cannula Nasal Cannula Nasal Cannula Oxygen Delivery Method [Right Index Finger] Oxygen Flow Rate 3 3 Oxygen Flow Rate [Right Index Finger] Fraction of Inspired Oxygen 2 SaO2/FiO2 Ratio 4700 09/09/18 04:54 09/09/18 06:20 09/09/18 08:00 Temperature 37.4 C 36.7 C Temperature Source Oral Oral Sepsis Recent Fever Within 48 Hours Sepsis Action Taken by Nursing Pulse Rate Pulse Rate [Finger] 70 67 Pulse Rhythm Pulse Rhythm [Finger] Regular Pulse Strength [Finger] Normal Respiratory Rate 24 18 Respiratory Effort / Characteristics SOB on Exertion Non-Labored Spontaneous Respiratory Depth Normal Respiratory Pattern Regular Blood Pressure Blood Pressure [Left Arm] 171/91 H 167/78 H Blood Pressure [Right Arm] Blood Pressure Mean Blood Pressure Mean [Left Arm] 117 107 Blood Pressure Mean [Right Arm] Blood Pressure Position [Left Arm] Lying Blood Pressure Position [Right Arm] Pulse Oximetry 81 L 91 Pulse Oximetry [Right Index Finger] 92 Oxygen Delivery Method Room Air Nasal Cannula Oxygen Delivery Method [Right Index Finger] Nasal Cannula Oxygen Flow Rate 3 Oxygen Flow Rate [Right Index Finger] 2 Fraction of Inspired Oxygen SaO2/FiO2 Ratio 09/09/18 12:01 09/09/18 15:21 Temperature 36.7 C 37.2 C Temperature Source Oral Oral Sepsis Recent Fever Within 48 Hours Sepsis Action Taken by Nursing Pulse Rate Pulse Rate [Finger] 62 64 Pulse Rhythm Pulse Rhythm [Finger] Pulse Strength [Finger] Respiratory Rate 18 20 Respiratory Effort / Characteristics Respiratory Depth Normal Normal Respiratory Pattern Blood Pressure Blood Pressure [Left Arm] 115/75 Blood Pressure [Right Arm] 153/79 H Blood Pressure Mean Blood Pressure Mean [Left Arm] 88 Blood Pressure Mean [Right Arm] 103 Blood Pressure Position [Left Arm] Sitting Blood Pressure Position [Right Arm] Lying Pulse Oximetry 93 91 Pulse Oximetry [Right Index Finger] Oxygen Delivery Method Nasal Cannula Nasal Cannula Oxygen Delivery Method [Right Index Finger] Oxygen Flow Rate 2 2 Oxygen Flow Rate [Right Index Finger] Fraction of Inspired Oxygen SaO2/FiO2 Ratio General: Chronically-ill appearing older female in no acute distress. Wearing supplemental oxygen. HEENT: Normal cephalic atraumatic. Pupils are equal round and reactive to light. Extraocular movements are intact. Oropharynx is pink with moist mucous membranes. No swelling of the mouth lips or tongue. Neck: Supple with a midline trachea. No meningeal signs or stiffness, no JVD or bruits. No Stridor. Chest: Clear to auscultation bilaterally. No wheezes or rhonchi. No increased work of breathing. Crackles in bases of lungs. Heart: regular rate and rhythm. Abdomen: Soft nontender, nondistended without rebound guarding or rigidity. Extremities: No cyanosis clubbing. No calf tenderness or assymetry. Bilateral lower extremity edema and redness. Spine/Back. Non tender to palpation. No CVA tenderness Skin: Good turgor without rashes. Skin breakdown on right leg. Neurologic exam: Cranial nerves two through 12 are intact. Motor and sensation are intact and symmetrical throughout. Alert and oriented to person place and year. Course 2047: Past medical records reviewed. The patient was evaluated in room A3, and a complete history and physical examination were performed. 2152: I reviewed the patient's case with Dr. Zora Fuller PA-C. She will evaluate the patient for further management. Consultations Consultation #1: I reviewed the patient's case with Dr. Zora Fuller PA-C. She will evaluate the patient for further management. Time: 21:53 Administered Medications Acetaminophen (Tylenol) 650 mg PO Q4H PRN PRN Reason: Pain or Fever Stop: 10/09/18 00:43 Last Admin: 09/09/18 13:27 Dose: 650 mg Documented by: [id number] Ceftriaxone Sodium 1,000 mg/ (Dextrose) 50 mls @ 100 mls/hr IV Q24H [facility]; Protocol Stop: 09/11/18 07:00 Last Infusion: 09/09/18 07:13 Dose: 0 mls/hr Documented by: [id number] Admin: 09/09/18 06:43 Dose: 100 mls/hr Documented by: [id number] Furosemide 20 mg/ Syringe 2 mls @ 4 mls/min IV DAILY LETY Stop: 10/09/18 09:29 Last Admin: 09/09/18 10:21 Dose: 4 mls/min Documented by: [id number] Levothyroxine Sodium 50 mcg/ (Syringe) 2.5 mls @ 2 mls/min IV DAILY@0900 LETY Stop: 10/09/18 11:44 Last Admin: 09/09/18 13:31 Dose: 2 mls/min Documented by: [id number] Levothyroxine Sodium (Synthroid) 88 mcg PO DAILYBB LETY Stop: 10/09/18 06:29 Last Admin: 09/09/18 06:20 Dose: Not Given Documented by: [id number] Pantoprazole Sodium (Protonix) 40 mg PO DAILY LETY Stop: 10/09/18 08:59 Last Admin: 09/09/18 10:27 Dose: Not Given Documented by: [id number] Sertraline HCl (Zoloft) 100 mg PO DAILY LETY Stop: 10/09/18 08:59 Last Admin: 09/09/18 10:27 Dose: Not Given Documented by: [id number] Discontinued Medications Amlodipine Besylate (Norvasc) 5 mg PO DAILY LETY Stop: 10/09/18 08:59 Last Admin: 09/09/18 09:54 Dose: Not Given Documented by: [id number] Furosemide (Lasix) Confirm Administered Dose 40 mg IV .STK-MED ONE Stop: 09/08/18 22:06 Last Admin: 09/08/18 22:07 Dose: 20 mg Documented by: [id number] Furosemide (Lasix) 20 mg PO DAILY LETY Stop: 10/09/18 08:59 Last Admin: 09/09/18 09:54 Dose: Not Given Documented by: [id number] Furosemide 20 mg/ Syringe 2 mls @ 4 mls/min IV ONE ONE Stop: 09/08/18 21:49 Last Admin: 09/08/18 22:07 Dose: Not Given Documented by: [id number] Furosemide 20 mg/ Syringe 2 mls @ 4 mls/min IV ONE ONE Stop: 09/08/18 23:54 Last Admin: 09/09/18 02:25 Dose: 4 mls/min Documented by: [id number] Furosemide 20 mg/ Syringe 2 mls @ 4 mls/min IV ONE ONE Stop: 09/09/18 13:26 Last Admin: 09/09/18 14:06 Dose: 4 mls/min Documented by: [id number] Metoprolol Tartrate (Lopressor) 25 mg PO BID LETY Stop: 10/09/18 08:59 Last Admin: 09/09/18 09:54 Dose: Not Given Documented by: [id number] Tramadol HCl (Ultram) 50 mg PO NOW STA Stop: 09/09/18 16:52 Last Admin: 09/09/18 17:13 Dose: 50 mg Documented by: [id number] Medical Decision Making Differential Diagnosis Differential Diagnosis includes: CHF, intracranial process, CVA, cardiac disease, infection, PNA, sepsis Medical Records Attestation: I reviewed the patient's medical records. Home Medications Current Medication List: was personally reviewed by me Laboratory Data Attestation: I reviewed the patient's lab results. Result diagrams: 09/09/18 05:29 09/09/18 05:29 Lab Results 09/08/18 09/08/18 09/08/18 Range/Units 19:58 21:44 Unknown WBC 6.68 (4.8-10.8) K/uL RBC 4.28 (4.2-5.4) M/uL Hgb 12.7 (12.0-16.0) g/dL Hct 39.2 (37-47) % MCV 91.6 (80-100) fL MCH 29.7 (25-34) pg MCHC 32.4 (32-36) g/dL RDW Std Deviation 54.0 H (36.4-46.3) fL RDW Coeff of Libby 16.3 H (11.5-14.5) % Plt Count 210 (130-400) K/uL MPV 11.5 H (7.4-10.4) fL Immature Gran % (Auto) 0.3 % Neut % (Auto) 68.1 % Lymph % (Auto) 15.3 % Ellsworth % (Auto) 12.6 % Eos % (Auto) 3.3 % Baso % (Auto) 0.4 % Immature Gran # (Auto) 0.02 (0.00-0.02) K/uL Neut # (Auto) 4.55 (1.4-6.5) K/uL Lymph # (Auto) 1.02 L (1.2-3.4) K/uL Ellsworth # (Auto) 0.84 H (0.11-0.59) K/uL Eos # (Auto) 0.22 (0-0.5) K/uL Baso # (Auto) 0.03 (0-0.2) K/uL PT (9.0-12.0) Seconds INR (0.9-1.1) APTT (21.0-31.0) Seconds PTT Ratio Sodium (136-145) mmol/L Potassium (3.5-5.1) mmol/L Chloride (98-107) mmol/L Carbon Dioxide (21-32) mmol/L Anion Gap (3-11) BUN (7-18) mg/dl Creatinine (0.6-1.2) mg/dl Est Cr Clr Drug Dosing ml/min Est GFR ( Amer) Est GFR (Non-Af Amer) BUN/Creatinine Ratio (10-20) Glucose (70-99) mg/dl POC Glucose 99 (70-99) Calcium (8.5-10.1) mg/dl Magnesium (1.8-2.4) mg/dl Total Bilirubin (0.2-1) mg/dl AST (15-37) U/L ALT (12-78) U/L Alkaline Phosphatase (45-117) U/L Troponin I (0-0.045) ng/ml NT-Pro-B Natriuret Pep (0-1800) pg/ml Total Protein (6.4-8.2) gm/dl Albumin (3.4-5.0) gm/dl Globulin (2.5-4.0) gm/dl Albumin/Globulin Ratio (0.9-2) Vitamin B12 TSH (0.300-4.500) uIu/ml Urine Color Dark Yellow Urine Appearance Clear (Clear) Urine pH 6.0 (4.5-7.5) Ur Specific Gillett 1.019 (1.000-1.030) Urine Protein 1+ H (Negative) Urine Glucose (UA) Negative (Negative) Urine Ketones Negative (Negative) Urine Blood Trace H (Negative) Urine Nitrite Positive H (Negative) Urine Bilirubin Negative (Negative) Urine Urobilinogen Negative (Negative) Ur Leukocyte Esterase Negative (Negative) Urine WBC (Auto) 1-5 (0-5) /hpf Urine RBC (Auto) 0-4 (0-4) /hpf U Hyaline Cast (Auto) 1-5 (0-5) /lpf U Epithel Cells (Auto) 10-20 H (0-5) /lpf Urine Bacteria (Auto) 4+ H (Negative) 09/08/18 09/08/18 09/09/18 Range/Units Unknown Unknown 05:29 WBC (4.8-10.8) K/uL RBC (4.2-5.4) M/uL Hgb (12.0-16.0) g/dL Hct (37-47) % MCV (80-100) fL MCH (25-34) pg MCHC (32-36) g/dL RDW Std Deviation (36.4-46.3) fL RDW Coeff of Libby (11.5-14.5) % Plt Count (130-400) K/uL MPV (7.4-10.4) fL Immature Gran % (Auto) % Neut % (Auto) % Lymph % (Auto) % Ellsworth % (Auto) % Eos % (Auto) % Baso % (Auto) % Immature Gran # (Auto) (0.00-0.02) K/uL Neut # (Auto) (1.4-6.5) K/uL Lymph # (Auto) (1.2-3.4) K/uL Ellsworth # (Auto) (0.11-0.59) K/uL Eos # (Auto) (0-0.5) K/uL Baso # (Auto) (0-0.2) K/uL PT 32.2 H (9.0-12.0) Seconds INR 3.4 H (0.9-1.1) APTT 43.7 H (21.0-31.0) Seconds PTT Ratio 1.6 Sodium 142 142 (136-145) mmol/L Potassium 3.6 3.5 (3.5-5.1) mmol/L Chloride 103 101 (98-107) mmol/L Carbon Dioxide 35 H 36 H (21-32) mmol/L Anion Gap 4.0 5.0 (3-11) BUN 21 H 19 H (7-18) mg/dl Creatinine 1.00 0.95 (0.6-1.2) mg/dl Est Cr Clr Drug Dosing 49.3 51.1 ml/min Est GFR ( Amer) 60.3 64.2 Est GFR (Non-Af Amer) 52.1 55.4 BUN/Creatinine Ratio 21.4 H 20.3 H (10-20) Glucose 101 H 98 (70-99) mg/dl POC Glucose (70-99) Calcium 9.6 9.4 (8.5-10.1) mg/dl Magnesium 1.6 L (1.8-2.4) mg/dl Total Bilirubin 0.9 (0.2-1) mg/dl AST 28 (15-37) U/L ALT 20 (12-78) U/L Alkaline Phosphatase 170 H (45-117) U/L Troponin I < 0.015 (0-0.045) ng/ml NT-Pro-B Natriuret Pep 3495 H (0-1800) pg/ml Total Protein 8.5 H (6.4-8.2) gm/dl Albumin 3.9 (3.4-5.0) gm/dl Globulin 4.6 H (2.5-4.0) gm/dl Albumin/Globulin Ratio 0.8 L (0.9-2) Vitamin B12 TSH 3.640 (0.300-4.500) uIu/ml Urine Color Urine Appearance (Clear) Urine pH (4.5-7.5) Ur Specific Gillett (1.000-1.030) Urine Protein (Negative) Urine Glucose (UA) (Negative) Urine Ketones (Negative) Urine Blood (Negative) Urine Nitrite (Negative) Urine Bilirubin (Negative) Urine Urobilinogen (Negative) Ur Leukocyte Esterase (Negative) Urine WBC (Auto) (0-5) /hpf Urine RBC (Auto) (0-4) /hpf U Hyaline Cast (Auto) (0-5) /lpf U Epithel Cells (Auto) (0-5) /lpf Urine Bacteria (Auto) (Negative) 09/09/18 09/09/18 09/09/18 Range/Units 05:29 05:29 16:32 WBC 6.52 (4.8-10.8) K/uL RBC 3.85 L (4.2-5.4) M/uL Hgb 11.3 L (12.0-16.0) g/dL Hct 35.6 L (37-47) % MCV 92.5 (80-100) fL MCH 29.4 (25-34) pg MCHC 31.7 L (32-36) g/dL RDW Std Deviation 54.3 H (36.4-46.3) fL RDW Coeff of Libby 16.3 H (11.5-14.5) % Plt Count 183 (130-400) K/uL MPV 10.7 H (7.4-10.4) fL Immature Gran % (Auto) 0.2 % Neut % (Auto) 69.8 % Lymph % (Auto) 12.0 % Ellsworth % (Auto) 14.6 % Eos % (Auto) 2.9 % Baso % (Auto) 0.5 % Immature Gran # (Auto) 0.01 (0.00-0.02) K/uL Neut # (Auto) 4.56 (1.4-6.5) K/uL Lymph # (Auto) 0.78 L (1.2-3.4) K/uL Ellsworth # (Auto) 0.95 H (0.11-0.59) K/uL Eos # (Auto) 0.19 (0-0.5) K/uL Baso # (Auto) 0.03 (0-0.2) K/uL PT 34.6 H (9.0-12.0) Seconds INR 3.7 H (0.9-1.1) APTT (21.0-31.0) Seconds PTT Ratio Sodium (136-145) mmol/L Potassium (3.5-5.1) mmol/L Chloride (98-107) mmol/L Carbon Dioxide (21-32) mmol/L Anion Gap (3-11) BUN (7-18) mg/dl Creatinine (0.6-1.2) mg/dl Est Cr Clr Drug Dosing ml/min Est GFR ( Amer) Est GFR (Non-Af Amer) BUN/Creatinine Ratio (10-20) Glucose (70-99) mg/dl POC Glucose (70-99) Calcium (8.5-10.1) mg/dl Magnesium (1.8-2.4) mg/dl Total Bilirubin (0.2-1) mg/dl AST (15-37) U/L ALT (12-78) U/L Alkaline Phosphatase (45-117) U/L Troponin I (0-0.045) ng/ml NT-Pro-B Natriuret Pep (0-1800) pg/ml Total Protein (6.4-8.2) gm/dl Albumin (3.4-5.0) gm/dl Globulin (2.5-4.0) gm/dl Albumin/Globulin Ratio (0.9-2) Vitamin B12 Cancelled TSH (0.300-4.500) uIu/ml Urine Color Urine Appearance (Clear) Urine pH (4.5-7.5) Ur Specific Gillett (1.000-1.030) Urine Protein (Negative) Urine Glucose (UA) (Negative) Urine Ketones (Negative) Urine Blood (Negative) Urine Nitrite (Negative) Urine Bilirubin (Negative) Urine Urobilinogen (Negative) Ur Leukocyte Esterase (Negative) Urine WBC (Auto) (0-5) /hpf Urine RBC (Auto) (0-4) /hpf U Hyaline Cast (Auto) (0-5) /lpf U Epithel Cells (Auto) (0-5) /lpf Urine Bacteria (Auto) (Negative) Imaging Data Radiologist's Impression: Radiology results as stated below per my review and the radiologist's interpretation: XR chest 1V portable CLINICAL HISTORY: Weakness, acute change in mental status. Influenza. COMPARISON STUDY: 04/10/2018 FINDINGS: The heart is mildly enlarged. There is aortic tortuosity/ectasia. There is a left subclavian dual-chamber central venous pacemaker. There is elevation of the interstitium, likely secondary to mild pulmonary vascular congestion/fluid overload. There are no pleural effusions.[ IMPRESSION: Cardiomegaly and radiographic evidence of mild pulmonary vascular congestion/fluid overload. No evidence of lobar consolidation Electronically signed by: Lencho Rey M.D. 09/08/2018 8:[address] head/brain wo con CLINICAL HISTORY: confusion COMPARISON STUDY: 11/08/2017 TECHNIQUE: Axial CT of the brain is performed from the vertex to the skull bas e. IV contrast was not administered for this examination. A dose lowering technique was utilized adhering to the principles of ALARA. CT DOSE: 709.48 mGy.cm FINDINGS: No intra or extra-axial mass lesions are visualized. There is no CT evidence of acute cortical infarction. There is no evidence of midline shift. There is no acute hemorrhage. No calvarial fractures are visualized. There are patchy white matter hypodensities likely on a small vessel basis. There is persistent ventricular dilatation, similar to the prior study and again, slightly out of proportion to the degree of atrophy. There is no evidence of acute sinusitis IMPRESSION: 1. No acute intracranial findings 2. Stable mild ventricular dilatation Electronically signed by: Lencho Rey M.D. 09/08/2018 9:27 PM ECG Data Attestation: I personally reviewed and interpreted this ECG as follows: Indication: altered mental status Rate (beats per minute): 68 Rhythm: other (ventricularly paced) Findings: no acute ischemic change and no ectopy Comparison ECG Date: from (11/09/17) Change: no significant change Blood Pressure Blood Pressure Findings: Elevated blood pressure Blood Pressure Disposition: further management by hospitalist MDM Narrative This patient comes in as described above. She is brought in by her family after being found in the residential week and has had some increasing confusion she had either slumped or falling out of bed. She seems to be doing better when she came here her oxygen saturation was low and they placed her on oxygen. She appears in no distress. She does have peripheral edema. On exam she does have some crackles and concern for CHF. Her chest x-ray does have a CHF component. She was given Lasix 20 mg IV. I did a CAT scan of her head is unremarkable. She has no white count or fever to suggest sepsis or significant infection she has no acute electrolyte or metabolic abnormalities. She has no focal neurologic deficits. Her urinalysis does have bacteria have only a few white cells and it is possible she could have a UTI as well. I do think she needs to be admitted/observe for further inpatient treatment and evaluation and I have consulted the [facility] hospitalist to see her in the ER for these measures. Impression & Plan Altered mental status, CHF (congestive heart failure), Acute UTI, Weakness Discharge Plan Visit Data *Final* Discharge Date/Time: 09/08/18 23:57 Chief Complaint: Altered Mental Status Stated Complaint: CONFUSION ED Provider: Gil Avalos Discharge Problem: Altered mental status, CHF (congestive heart failure), Acute UTI, Weakness Patient Disposition: Admitted As Inpatient Discharge Instructions Interventions: ED Discharge Assessment Last Done: 09/08/18 23:57 Discharge Problem: Altered mental status Qualifiers: Altered mental status type: disorientation Qualified Code(s): R41.0 - Disorientation, unspecified CHF (congestive heart failure) Qualifiers: Heart failure type: unspecified Heart failure chronicity: acute Qualified Code(s): I50.9 - Heart failure, unspecified The scribe's documentation has been prepared under my direction and personally reviewed by me in its entirety. I confirm that the note above accurately reflects all work, treatment, procedures, and medical decision making performed by me.
[2018-09-09 00:15] LABS: NT Pro B Type Natriuretic Pept 3495 pg/ml (0-1800)
[2018-09-09] MEDS ORDERED: ALUMINUM/MAGNESIUM SUSP 30 ML UDC PO PRN (00:44)
[2018-09-09] MEDS ORDERED: DOCUSATE SODIUM 100 MG CAP PO PRN (00:44)
[2018-09-09] MEDS ORDERED: ACETAMINOPHEN 500 MG TAB PO PRN (00:44)
[2018-09-09] MEDS ORDERED: MAGNESIUM HYDROXIDE SUSP 30 ML UDC PO PRN (00:44)
[2018-09-09 05:55] LABS: Basophils # (auto) 0.03 K/uL (0-0.2); Basophils % (auto) 0.5 %; Eosinophils # (auto) 0.19 K/uL (0-0.5); Eosinophils % (auto) 2.9 %; Hematocrit (blood only) 35.6 % (37-47); Hemoglobin 11.3 g/dL (12.0-16.0); Immature Granulocytes # (auto) 0.01 K/uL (0.00-0.02); Immature Granulocytes % (auto) 0.2 %; Lymphocytes # (auto) 0.78 K/uL (1.2-3.4); Mean Corpuscular Hgb Conc 31.7 g/dL (32-36); Mean Corpuscular Volume 92.5 fL (80-100); Mean Platelet Volume 10.7 fL (7.4-10.4); Monocytes # (auto) 0.95 K/uL (0.11-0.59); Monocytes % (auto) 14.6 %; Neutrophils # (auto) 4.56 K/uL (1.4-6.5); Neutrophils % (auto) 69.8 %; Platelet Count 183 K/uL (130-400); RDW Coefficient of Variation 16.3 % (11.5-14.5); RDW Standard Deviation 54.3 fL (36.4-46.3); Red Blood Count 3.85 M/uL (4.2-5.4); White Blood Count 6.52 K/uL (4.8-10.8)
[2018-09-09 06:16] LABS: Prothrombin Time 34.6 Seconds (9.0-12.0)
[2018-09-09 06:20] LABS: INR 3.7 (0.9-1.1)
[2018-09-09] MEDS: LEVOTHYROXINE SODIUM 88 MCG TABLET PO SCH (06:20)
[2018-09-09 06:21] LABS: BUN Creatinine Ratio 20.3 (10-20); Calcium 9.4 mg/dl (8.5-10.1); Creatinine Clr Calc Pharmacy 51.1 ml/min; Est GFR (African American) 64.2; Est GFR (Non-African American) 55.4; Potassium 3.5 mmol/L (3.5-5.1)
[2018-09-09] MEDS: cefTRIAXone SODIUM 1,000 MG in DEXTROSE 5% 50 ML IV SCH (06:43)
[2018-09-09] MEDS ORDERED: AMLODIPINE BESYLATE 5 MG TAB PO SCH (09:00)
[2018-09-09] MEDS ORDERED: FUROSEMIDE 20 MG TAB PO SCH (09:00)
[2018-09-09] MEDS ORDERED: METOPROLOL TARTRATE 25 MG TAB PO SCH (09:00)
[2018-09-09] MEDS ORDERED: METOPROLOL TARTRATE 1 MG/ML VIAL IV PRN (09:44)
[2018-09-09] MEDS ORDERED: cefTRIAXone SODIUM 1,000 MG in DEXTROSE 5% 50 ML IV SCH (10:00)
[2018-09-09] MEDS: FUROSEMIDE 20 MG in SYRINGE 0 ML IV SCH (10:21)
[2018-09-09] MEDS: PANTOprazole 40 MG TAB PO SCH (10:27)
[2018-09-09] MEDS: SERTRALINE HCL 100 MG TABLET PO SCH (10:27)
--- NOTE | 2018-09-09 11:18 | Family Medicine Progress Note ---
Date of Service September 09, 2018 Assessment & Plan (1) Acute on chronic diastolic CHF (congestive heart failure): 83-year-old female with extensive PMHx that includes CHF, sick sinus syndrome with pacemaker, baseline dementia who presents currently with AMS and hypoxia. Acute hypoxic respiratory distress in the setting of acute on chronic diastolic heart failure -Pt seems to have been getting more salt in diet recently - Imaging showed volume overloaded, has new oxygen requirement with crackles on exam -40mg Lasix IV given today. Also low sodium diet and water restriction 1500cc -In negative fluid balance overnight. -will continue to monitor -Repeat echo shows no change from previous in 2018 with EF of 60-65%, LV and RV hypertrophy and moderate TR Metabolic encephalopathyacute on chronic, baseline dementia Patient has increased hallucinations over the past 6 months -Aricept stopped recently as a possible contributor to hallucinations -Grew >100, 000 E. Coli colonies - started on rocephin. Could also be contributor. Head CT was negative, TSH and Vit B12 pending PT/OT, speech consult -Was unable to take PO meds this morning so most held but Lasix, Lopressor, Levothyroxine converted to IV. Will continue to give IV after mental status has improved and remains improved for some time. CAD/hypertension Continue metoprolol, amlodipine Continue rosuvastatin Sick sinus syndrome status post pacemaker placement INR is still high at 3.7 today - will continue to hold Coumadin -continue to trend INR Depression Continue sertraline Venous insufficiency, recurrent lower extremity cellulitis likely secondary to CHF -currently asymptomatic Probable UTI -Urine cultures grew >100, 000 E coli colonies -afebrile, normal WBC but AMS so treated with Rocephin 1G for 3 days. CODE STATUS DNR DVT prophylaxis Resume Coumadin when INR is between 2-3 (2) Hypothyroid: (3) Hypertension: (4) Hyperlipemia: (5) CAD (coronary artery disease): (6) Atrial fibrillation: (7) Pacemaker: (8) Diastolic CHF, chronic: (9) Dementia: Supervising Physician Co-Signing Physician Notes Resident Physician Supervision Note: I independently interviewed and examined the patient and verified the balderrama history and physical, reviewed labs and image studies, discussed the case with the resident Dr. Godinez and agree with the findings and care plan. Subjective Stacey was agitated in bed this morning. Nonresponsive to orientation questions. Responded no to questions of chest pain or dysuria. Responded yes to questions of trouble breathing and abdominal pain. Denied heaadache, N/V. Review of Systems Other (Responsive to some questions due to AMS.) Physical Exam Vital Signs (Past 24 Hours): Last Vital Signs Temp 36.7 C 09/09/18 08:00 Pulse 67 09/09/18 08:00 Resp 18 09/09/18 08:00 BP 167/78 H 09/09/18 08:00 Pulse Ox 91 09/09/18 08:00 General: Moving head from side to side, somewhat agitated with mouth movements. HEENT: NC/AT, PERRLA, EOMI, nasal cannula in nares, oropharynx moist. NO JVD appreciated. Chest: Nontender to palpation. CV: RRR. Resp: Breath sounds with fine crackles bilaterally, no increased effort of breathing. Abdomen: Soft, mildly tender, nondistended. No guarding. No organomegaly appreciated. Extremities: Chronic venous stasis on lower extremities but no pitting edema. Results & Data Laboratory Results Laboratory Results - last 24 hr 09/08/18 09/08/18 09/08/18 19:58 21:44 Unknown WBC 6.68 RBC 4.28 Hgb 12.7 Hct 39.2 MCV 91.6 MCH 29.7 MCHC 32.4 RDW Std Deviation 54.0 H RDW Coeff of Libby 16.3 H Plt Count 210 MPV 11.5 H Immature Gran % (Auto) 0.3 Neut % (Auto) 68.1 Lymph % (Auto) 15.3 [place] % (Auto) 12.6 Eos % (Auto) 3.3 Baso % (Auto) 0.4 Immature Gran # (Auto) 0.02 Neut # (Auto) 4.55 Lymph # (Auto) 1.02 L [place] # (Auto) 0.84 H Eos # (Auto) 0.22 Baso # (Auto) 0.03 PT INR APTT PTT Ratio Sodium Potassium Chloride Carbon Dioxide Anion Gap BUN Creatinine Est Cr Clr Drug Dosing Est GFR ( Amer) Est GFR (Non-Af Amer) BUN/Creatinine Ratio Glucose POC Glucose 99 Calcium Magnesium Total Bilirubin AST ALT Alkaline Phosphatase Troponin I NT-Pro-B Natriuret Pep Total Protein Albumin Globulin Albumin/Globulin Ratio TSH Urine Color Dark Yellow Urine Appearance Clear Urine pH 6.0 Ur Specific [place] 1.019 Urine Protein 1+ H Urine Glucose (UA) Negative Urine Ketones Negative Urine Blood Trace H Urine Nitrite Positive H Urine Bilirubin Negative Urine Urobilinogen Negative Ur Leukocyte Esterase Negative Urine WBC (Auto) 1-5 Urine RBC (Auto) 0-4 U Hyaline Cast (Auto) 1-5 U Epithel Cells (Auto) 10-20 H Urine Bacteria (Auto) 4+ H 09/08/18 09/08/18 09/09/18 Unknown Unknown 05:29 WBC RBC Hgb Hct MCV MCH MCHC RDW Std Deviation RDW Coeff of Libby Plt Count MPV Immature Gran % (Auto) Neut % (Auto) Lymph % (Auto) [place] % (Auto) Eos % (Auto) Baso % (Auto) Immature Gran # (Auto) Neut # (Auto) Lymph # (Auto) [place] # (Auto) Eos # (Auto) Baso # (Auto) PT 32.2 H INR 3.4 H APTT 43.7 H PTT Ratio 1.6 Sodium 142 142 Potassium 3.6 3.5 Chloride 103 101 Carbon Dioxide 35 H 36 H Anion Gap 4.0 5.0 BUN 21 H 19 H Creatinine 1.00 0.95 Est Cr Clr Drug Dosing 49.3 51.1 Est GFR ( Amer) 60.3 64.2 Est GFR (Non-Af Amer) 52.1 55.4 BUN/Creatinine Ratio 21.4 H 20.3 H Glucose 101 H 98 POC Glucose Calcium 9.6 9.4 Magnesium 1.6 L Total Bilirubin 0.9 AST 28 ALT 20 Alkaline Phosphatase 170 H Troponin I < 0.015 NT-Pro-B Natriuret Pep 3495 H Total Protein 8.5 H Albumin 3.9 Globulin 4.6 H Albumin/Globulin Ratio 0.8 L TSH 3.640 Urine Color Urine Appearance Urine pH Ur Specific [place] Urine Protein Urine Glucose (UA) Urine Ketones Urine Blood Urine Nitrite Urine Bilirubin Urine Urobilinogen Ur Leukocyte Esterase Urine WBC (Auto) Urine RBC (Auto) U Hyaline Cast (Auto) U Epithel Cells (Auto) Urine Bacteria (Auto) 09/09/18 09/09/18 05:29 05:29 WBC 6.52 RBC 3.85 L Hgb 11.3 L Hct 35.6 L MCV 92.5 MCH 29.4 MCHC 31.7 L RDW Std Deviation 54.3 H RDW Coeff of Libby 16.3 H Plt Count 183 MPV 10.7 H Immature Gran % (Auto) 0.2 Neut % (Auto) 69.8 Lymph % (Auto) 12.0 [place] % (Auto) 14.6 Eos % (Auto) 2.9 Baso % (Auto) 0.5 Immature Gran # (Auto) 0.01 Neut # (Auto) 4.56 Lymph # (Auto) 0.78 L [place] # (Auto) 0.95 H Eos # (Auto) 0.19 Baso # (Auto) 0.03 PT 34.6 H INR 3.7 H APTT PTT Ratio Sodium Potassium Chloride Carbon Dioxide Anion Gap BUN Creatinine Est Cr Clr Drug Dosing Est GFR ( Amer) Est GFR (Non-Af Amer) BUN/Creatinine Ratio Glucose POC Glucose Calcium Magnesium Total Bilirubin AST ALT Alkaline Phosphatase Troponin I NT-Pro-B Natriuret Pep Total Protein Albumin Globulin Albumin/Globulin Ratio TSH Urine Color Urine Appearance Urine pH Ur Specific [place] Urine Protein Urine Glucose (UA) Urine Ketones Urine Blood Urine Nitrite Urine Bilirubin Urine Urobilinogen Ur Leukocyte Esterase Urine WBC (Auto) Urine RBC (Auto) U Hyaline Cast (Auto) U Epithel Cells (Auto) Urine Bacteria (Auto) Medications Administered Home Medications acetaminophen [Tylenol Extra Strength] 500 mg PO QID PRN 09/08/18 [History Confirmed 09/08/18] amlodipine [Norvasc] 5 mg PO DAILY 09/08/18 [History Confirmed 09/08/18] amoxicillin 2,000 mg PO DIRECTED 09/08/18 [History Confirmed 09/08/18] calcitriol 0.25 mcg PO 3XWK 09/08/18 [History Confirmed 09/08/18] calcium carbonate [Tums] 200 mg PO TID PRN 09/08/18 [History Confirmed 09/08/18] calcium carbonate-vitamin D3 [Oyster Shell Calcium-Vit D3] 1 tab PO QPM 09/08/18 [History Confirmed 09/08/18] cholecalciferol (vitamin D3) [Vitamin D3] 2,000 unit PO QPM 09/08/18 [History Confirmed 09/08/18] docusate sodium [Colace] 100 mg PO BID PRN 09/08/18 [History Confirmed 09/08/18] ferrous gluconate 324 mg PO BID 09/08/18 [History Confirmed 09/08/18] furosemide [Lasix] 20 mg PO DAILY 09/08/18 [History Confirmed 09/08/18] levothyroxine [Synthroid] 88 mcg PO DAILY 09/08/18 [History Confirmed 09/08/18] metoprolol tartrate 25 mg PO BID 09/08/18 [History Confirmed 09/08/18] multivitamin [Daily-Radha] 1 tab PO DAILY 09/08/18 [History Confirmed 09/08/18] oxybutynin chloride [Ditropan XL] 15 mg PO QPM 09/08/18 [History Confirmed 09/08/18] pantoprazole [Protonix] 40 mg PO DAILY 09/08/18 [History Confirmed 09/08/18] rosuvastatin [Crestor] 10 mg PO HS 09/08/18 [History Confirmed 09/08/18] sertraline [Zoloft] 100 mg PO DAILY 09/08/18 [History Confirmed 09/08/18] warfarin [Coumadin] 1 mg PO DAILY 09/08/18 [History Confirmed 09/08/18] Active Medications Acetaminophen (Tylenol) 650 mg PO Q4H PRN PRN Reason: Pain or Fever Stop: 10/09/18 00:43 Al Hydrox/Mg Hydrox/Simethicone (Maalox) 15 ml PO Q4H PRN PRN Reason: Dyspepsia Stop: 10/09/18 00:43 Docusate Sodium (Colace) 100 mg PO BID PRN PRN Reason: Constipation Stop: 10/09/18 00:43 Ceftriaxone Sodium 1,000 mg/ (Dextrose) 50 mls @ 100 mls/hr IV Q24H [facility]; Protocol Stop: 09/11/18 07:00 Last Infusion: 09/09/18 07:13 Dose: Infused Documented by: Furosemide 20 mg/ Syringe 2 mls @ 4 mls/min IV DAILY [facility] Stop: 10/09/18 09:29 Last Admin: 09/09/18 10:21 Dose: 4 mls/min Documented by: Levothyroxine Sodium 50 mcg/ (Syringe) 2.5 mls @ 2 mls/min IV DAILY@0900 [facility] Stop: 10/09/18 11:44 Levothyroxine Sodium (Synthroid) 88 mcg PO DAILYBB [facility] Stop: 10/09/18 06:29 Last Admin: 09/09/18 06:20 Dose: Not Given Documented by: Magnesium Hydroxide (Milk Of Magnesia) 30 ml PO Q12H PRN PRN Reason: Constipation Stop: 10/09/18 00:43 Metoprolol Tartrate (Lopressor) 5 mg IV Q4H PRN PRN Reason: sbp>160 or dbp>110. Stop: 10/09/18 09:43 Oxybutynin Chloride (Ditropan Xl) 15 mg PO QPM [facility] Stop: 10/09/18 20:59 Pantoprazole Sodium (Protonix) 40 mg PO DAILY [facility] Stop: 10/09/18 08:59 Last Admin: 09/09/18 10:27 Dose: Not Given Documented by: Rosuvastatin Calcium (Crestor) 10 mg PO HS [facility] Stop: 10/09/18 20:59 Sertraline HCl (Zoloft) 100 mg PO DAILY [facility] Stop: 10/09/18 08:59 Last Admin: 09/09/18 10:27 Dose: Not Given Documented by: Resident Activity Tracking Resident Involvement: Resident Care Provided Care Provided: Adult Hospital Medicine
[2018-09-09] MEDS ORDERED: FUROSEMIDE 20 MG in SYRINGE 0 ML IV ONE (13:25)
[2018-09-09] MEDS: ACETAMINOPHEN 325 MG TAB PO PRN ×2 (13:27→23:44)
[2018-09-09] MEDS: LEVOTHYROXINE SODIUM 50 MCG in SYRINGE 0 ML IV SCH (13:31)
--- NOTE | 2018-09-09 15:40 | XRay Report ---
RIGHT FOOT 3 VIEWS CLINICAL HISTORY: Right foot pain. FINDINGS: 3 portable views of the right foot are obtained. No prior studies are available for compari son at the time of dictation. The skeletal structures are osteopenic. No fracture is seen. There is h allux valgus, with advanced arthritic change at the first metatarsophalangeal joint. Milder osteoarth ritic changes at the tarsometatarsal joints. Degenerative spurring is seen along the dorsal aspect of the tarsal bones. There is a tiny plantar calcaneal enthesophyte. Soft tissue edema is noted through out the foot. IMPRESSION: 1. Diffuse soft tissue edema with no acute bony abnormality identified. 2. Osteopenia with hallux valgus and degenerative change as above. Electronically signed by: Felipe Quesada M.D. 09/09/2018 3:39 PM
[2018-09-09] MEDS ORDERED: TRAMADOL HCL 50 MG TABLET PO STA (16:51)
--- NOTE | 2018-09-09 18:01 | XRay Report ---
ABDOMEN 2 VIEWS CLINICAL HISTORY: Generalized abdominal pain. FINDINGS: Supine and erect portable abdominal radiographs are obtained. No prior studies are availabl e for comparison at the time of dictation. The examination is degraded by large body habitus. There i s no radiographic evidence of bowel obstruction. No intraperitoneal free air is seen. There are no ab normal abdominal calcifications. Phlebolith are seen in the pelvis. The heart is enlarged. A cardiac pacemaker is noted. The skeletal structures are osteopenic. Lumbosacral spondylosis is observed. The bony pelvis is intact as imaged. IMPRESSION: Nonobstructed abdominal bowel gas pattern. Electronically signed by: Felipe Quesada M.D. 09/09/2018 6:00 PM
[2018-09-09] MEDS: OXYBUTYNIN CHLORIDE XL 5 MG TABCR PO SCH (20:05)
[2018-09-09] MEDS: ROSUVASTATIN CALCIUM 10 MG TAB PO SCH (20:06)
[2018-09-10 06:19] LABS: Basophils # (auto) 0.02 K/uL (0-0.2); Basophils % (auto) 0.2 %; Hematocrit (blood only) 34.3 % (37-47); Hemoglobin 11.1 g/dL (12.0-16.0); Immature Granulocytes # (auto) 0.02 K/uL (0.00-0.02); Immature Granulocytes % (auto) 0.2 %; Lymphocytes # (auto) 1.09 K/uL (1.2-3.4); Lymphocytes % (auto) 11.3 %; Mean Corpuscular Hgb Conc 32.4 g/dL (32-36); Mean Platelet Volume 10.8 fL (7.4-10.4); Monocytes # (auto) 1.78 K/uL (0.11-0.59); Monocytes % (auto) 18.5 %; Neutrophils # (auto) 6.71 K/uL (1.4-6.5); Neutrophils % (auto) 69.8 %; Platelet Count 162 K/uL (130-400); Red Blood Count 3.77 M/uL (4.2-5.4); White Blood Count 9.62 K/uL (4.8-10.8)
[2018-09-10 06:51] LABS: Albumin Level 2.9 gm/dl (3.4-5.0); BUN Creatinine Ratio 20.1 (10-20); Calcium 8.8 mg/dl (8.5-10.1); Creatinine Clr Calc Pharmacy 46.3 ml/min; Est GFR (African American) 58.2; Est GFR (Non-African American) 50.2; Potassium 3.1 mmol/L (3.5-5.1)
[2018-09-10 06:58] LABS: Albumin Globulin Ratio 0.7 (0.9-2); Bilirubin,Total 1.1 mg/dl (0.2-1); Total Protein 6.9 gm/dl (6.4-8.2)
[2018-09-10] MEDS: cefTRIAXone SODIUM 1,000 MG in DEXTROSE 5% 50 ML IV SCH (07:55)
[2018-09-10] MEDS: FUROSEMIDE 20 MG in SYRINGE 0 ML IV SCH (08:46)
[2018-09-10] MEDS: POTASSIUM CHLORIDE / WTR 10 MEQ/100 ML PLCT IV SCH ×4 (09:24→12:21)
[2018-09-10] MEDS: LEVOTHYROXINE SODIUM 50 MCG in SYRINGE 0 ML IV SCH (09:24)
[2018-09-10 11:42] LABS: Prothrombin Time 36.8 Seconds (9.0-12.0)
--- NOTE | 2018-09-10 13:19 | Family Medicine Progress Note ---
Date of Service September 10, 2018 Assessment & Plan (1) Acute on chronic diastolic CHF (congestive heart failure): 83-year-old female with extensive PMHx that includes CHF, sick sinus syndrome with pacemaker, baseline dementia who presents currently with AMS and hypoxia. Acute hypoxic respiratory distress in the setting of acute on chronic diastolic heart failure -Improving. -Negative fluid balance overnight -Lasix 20mg IV treatment, low sodium diet, 1500cc water restriction -exacerbation likely due to recent change in diet according to family. -wean O2 supplementation. -Repeat echo shows no change from previous in 2018 with EF of 60-65%, LV and RV hypertrophy and moderate TR Metabolic encephalopathyacute on chronic, baseline dementia -Currently confused but AAOx2 -Grew >100, 000 E. Coli colonies - started on [id number]. Could also be contributor. Head CT was negative, TSH and Vit B12 normal -Home meds changed to IV meds, PO held. HYPOKALEMIA -Potassium 3.1 -Treated with KCl IV 4 bags today. -Will likely require additional supplementation for resolution. CAD/hypertension Continue metoprolol, amlodipine Continue rosuvastatin Sick sinus syndrome status post pacemaker placement Supratherapeutic INR INR is still high at 4.0 today, likely due to cardiac issues. - will continue to hold Coumadin -continue to trend INR Depression Continue sertraline Venous insufficiency, recurrent lower extremity cellulitis likely secondary to CHF -currently asymptomatic Probable UTI -Urine cultures grew >100, 000 E coli colonies -afebrile, normal WBC but AMS so treated with Rocephin 1G for 3 days. CODE STATUS DNR DVT prophylaxis Resume Coumadin when INR is between 2-3 PT/OT (2) Hypothyroid: (3) Hypertension: (4) Hyperlipemia: (5) CAD (coronary artery disease): (6) Atrial fibrillation: (7) Pacemaker: (8) Diastolic CHF, chronic: (9) Dementia: Supervising Physician Co-Signing Physician Notes Resident Physician Supervision Note: I independently interviewed and examined the patient and verified the balderrama history and physical, reviewed labs and image studies, discussed the case with the resident Dr. Godinez and agree with the findings and care plan. Subjective Pt was confused this morning, AAOx2. Stated that she was NOT in pain today, just tired. Denied headache, chest pain, SOB, N/V, diarrhea, constipation or leg pain. Review of Systems All systems reviewed & are unremarkable except as noted in HPI & below Physical Exam Vital Signs (Past 24 Hours): Last Vital Signs Temp 37 C 09/10/18 11:43 Pulse 62 09/10/18 11:43 Resp 24 09/10/18 11:43 BP 144/76 H 09/10/18 11:43 Pulse Ox 94 09/10/18 11:43 General: Sitting up in bed, fatigued. HEENT: NC/AT, PERRLA, EOMI, nasal cannula in nares. NO JVD appreciated. Chest: Nontender to palpation. CV: RRR. Resp: Breath sounds with fine crackles bilaterally, no increased effort of breathing. Abdomen: Soft, nontender, nondistended. No guarding. No organomegaly appreciated. Extremities: Chronic venous stasis on lower extremities with 1+ pitting edema. Results & Data Laboratory Results Laboratory Results - last 24 hr 09/09/18 09/09/18 09/10/18 16:32 18:01 05:47 WBC 9.62 RBC 3.77 L Hgb 11.1 L Hct 34.3 L MCV 91.0 MCH 29.4 MCHC 32.4 RDW Std Deviation 53.0 H RDW Coeff of Libby 16.0 H Plt Count 162 MPV 10.8 H Immature Gran % (Auto) 0.2 Neut % (Auto) 69.8 Lymph % (Auto) 11.3 [place] % (Auto) 18.5 Eos % (Auto) 0.0 Baso % (Auto) 0.2 Immature Gran # (Auto) 0.02 Neut # (Auto) 6.71 H Lymph # (Auto) 1.09 L [place] # (Auto) 1.78 H Eos # (Auto) 0.00 Baso # (Auto) 0.02 PT INR Sodium Potassium Chloride Carbon Dioxide Anion Gap BUN Creatinine Est Cr Clr Drug Dosing Est GFR ( Amer) Est GFR (Non-Af Amer) BUN/Creatinine Ratio Glucose Calcium Total Bilirubin AST ALT Alkaline Phosphatase Total Protein Albumin Globulin Albumin/Globulin Ratio Vitamin B12 Cancelled 516 09/10/18 09/10/18 05:47 10:56 WBC RBC Hgb Hct MCV MCH MCHC RDW Std Deviation RDW Coeff of Libby Plt Count MPV Immature Gran % (Auto) Neut % (Auto) Lymph % (Auto) [place] % (Auto) Eos % (Auto) Baso % (Auto) Immature Gran # (Auto) Neut # (Auto) Lymph # (Auto) [place] # (Auto) Eos # (Auto) Baso # (Auto) PT 36.8 H INR 4.0 H Sodium 142 Potassium 3.1 L Chloride 98 Carbon Dioxide 37 H Anion Gap 7.0 BUN 21 H Creatinine 1.03 Est Cr Clr Drug Dosing 46.3 Est GFR ( Amer) 58.2 Est GFR (Non-Af Amer) 50.2 BUN/Creatinine Ratio 20.1 H Glucose 111 H Calcium 8.8 Total Bilirubin 1.1 H AST 23 ALT 17 Alkaline Phosphatase 156 H Total Protein 6.9 Albumin 2.9 L Globulin 4.0 Albumin/Globulin Ratio 0.7 L Vitamin B12 Medications Administered Home Medications acetaminophen [Tylenol Extra Strength] 500 mg PO QID PRN 09/08/18 [History Confirmed 09/08/18] amlodipine [Norvasc] 5 mg PO DAILY 09/08/18 [History Confirmed 09/08/18] amoxicillin 2,000 mg PO DIRECTED 09/08/18 [History Confirmed 09/08/18] calcitriol 0.25 mcg PO 3XWK 09/08/18 [History Confirmed 09/08/18] calcium carbonate [Tums] 200 mg PO TID PRN 09/08/18 [History Confirmed 09/08/18] calcium carbonate-vitamin D3 [Oyster Shell Calcium-Vit D3] 1 tab PO QPM 09/08/18 [History Confirmed 09/08/18] cholecalciferol (vitamin D3) [Vitamin D3] 2,000 unit PO QPM 09/08/18 [History Confirmed 09/08/18] docusate sodium [Colace] 100 mg PO BID PRN 09/08/18 [History Confirmed 09/08/18] ferrous gluconate 324 mg PO BID 09/08/18 [History Confirmed 09/08/18] furosemide [Lasix] 20 mg PO DAILY 09/08/18 [History Confirmed 09/08/18] levothyroxine [Synthroid] 88 mcg PO DAILY 09/08/18 [History Confirmed 09/08/18] metoprolol tartrate 25 mg PO BID 09/08/18 [History Confirmed 09/08/18] multivitamin [Daily-Radha] 1 tab PO DAILY 09/08/18 [History Confirmed 09/08/18] oxybutynin chloride [Ditropan XL] 15 mg PO QPM 09/08/18 [History Confirmed 09/08/18] pantoprazole [Protonix] 40 mg PO DAILY 09/08/18 [History Confirmed 09/08/18] rosuvastatin [Crestor] 10 mg PO HS 09/08/18 [History Confirmed 09/08/18] sertraline [Zoloft] 100 mg PO DAILY 09/08/18 [History Confirmed 09/08/18] warfarin [Coumadin] 1 mg PO DAILY 09/08/18 [History Confirmed 09/08/18] Active Medications Acetaminophen (Tylenol) 650 mg PO Q4H PRN PRN Reason: Pain or Fever Stop: 10/09/18 00:43 Last Admin: 09/09/18 23:44 Dose: 650 mg Documented by: Al Hydrox/Mg Hydrox/Simethicone (Maalox) 15 ml PO Q4H PRN PRN Reason: Dyspepsia Stop: 10/09/18 00:43 Docusate Sodium (Colace) 100 mg PO BID PRN PRN Reason: Constipation Stop: 10/09/18 00:43 Ceftriaxone Sodium 1,000 mg/ (Dextrose) 50 mls @ 100 mls/hr IV Q24H [facility]; Protocol Stop: 09/11/18 07:00 Last Infusion: 09/10/18 08:25 Dose: Infused Documented by: Furosemide 20 mg/ Syringe 2 mls @ 4 mls/min IV DAILY [facility] Stop: 10/09/18 09:29 Last Admin: 09/10/18 08:46 Dose: 4 mls/min Documented by: Levothyroxine Sodium 50 mcg/ (Syringe) 2.5 mls @ 2 mls/min IV DAILY@0900 [facility] Stop: 10/09/18 11:44 Last Admin: 09/10/18 09:24 Dose: 2 mls/min Documented by: Levothyroxine Sodium (Synthroid) 88 mcg PO DAILYBB [facility] Stop: 10/09/18 06:29 Last Admin: 09/09/18 06:20 Dose: Not Given Documented by: Magnesium Hydroxide (Milk Of Magnesia) 30 ml PO Q12H PRN PRN Reason: Constipation Stop: 10/09/18 00:43 Metoprolol Tartrate (Lopressor) 5 mg IV Q4H PRN PRN Reason: sbp>160 or dbp>110. Stop: 10/09/18 09:43 Oxybutynin Chloride (Ditropan Xl) 15 mg PO QPM [facility] Stop: 10/09/18 20:59 Last Admin: 09/09/18 20:05 Dose: 15 mg Documented by: Pantoprazole Sodium (Protonix) 40 mg PO DAILY [facility] Stop: 10/09/18 08:59 Last Admin: 09/09/18 10:27 Dose: Not Given Documented by: Rosuvastatin Calcium (Crestor) 10 mg PO HS [facility] Stop: 10/09/18 20:59 Last Admin: 09/09/18 20:06 Dose: 10 mg Documented by: Sertraline HCl (Zoloft) 100 mg PO DAILY [facility] Stop: 10/09/18 08:59 Last Admin: 09/09/18 10:27 Dose: Not Given Documented by: Resident Activity Tracking Resident Involvement: Resident Care Provided Care Provided: Adult Hospital Medicine
[2018-09-10] MEDS: ROSUVASTATIN CALCIUM 10 MG TAB PO SCH (19:32)
[2018-09-10] MEDS: OXYBUTYNIN CHLORIDE XL 5 MG TABCR PO SCH (19:32)
[2018-09-10] MEDS: ACETAMINOPHEN 325 MG TAB PO PRN (19:39)
[2018-09-11 06:01] LABS: Basophils # (auto) 0.01 K/uL (0-0.2); Basophils % (auto) 0.1 %; Hematocrit (blood only) 32.7 % (37-47); Hemoglobin 10.7 g/dL (12.0-16.0); Immature Granulocytes # (auto) 0.03 K/uL (0.00-0.02); Immature Granulocytes % (auto) 0.3 %; Lymphocytes # (auto) 0.77 K/uL (1.2-3.4); Lymphocytes % (auto) 6.6 %; Mean Corpuscular Hgb Conc 32.7 g/dL (32-36); Mean Corpuscular Volume 90.3 fL (80-100); Mean Platelet Volume 10.2 fL (7.4-10.4); Monocytes # (auto) 1.93 K/uL (0.11-0.59); Monocytes % (auto) 16.5 %; Neutrophils # (auto) 8.93 K/uL (1.4-6.5); Neutrophils % (auto) 76.5 %; Platelet Count 143 K/uL (130-400); RDW Standard Deviation 52.7 fL (36.4-46.3); Red Blood Count 3.62 M/uL (4.2-5.4); White Blood Count 11.67 K/uL (4.8-10.8)
[2018-09-11 06:27] LABS: INR 2.9 (0.9-1.1); Prothrombin Time 27.3 Seconds (9.0-12.0)
[2018-09-11 06:41] LABS: Alanine Aminotransferase 14 U/L (12-78); Albumin Level 2.8 gm/dl (3.4-5.0); Aspartate Aminotransferase 22 U/L (15-37); BUN Creatinine Ratio 19.9 (10-20); Blood Urea Nitrogen 20 mg/dl (7-18); Calcium 8.6 mg/dl (8.5-10.1); Carbon Dioxide 37 mmol/L (21-32); Chloride 95 mmol/L (98-107); Est GFR (African American) 59.6; Est GFR (Non-African American) 51.4; Glucose 121 mg/dl (70-99); Potassium 3.4 mmol/L (3.5-5.1); Sodium 136 mmol/L (136-145)
[2018-09-11 06:43] LABS: Albumin Globulin Ratio 0.7 (0.9-2); Alkaline Phosphatase 158 U/L (45-117); Bilirubin,Total 1.1 mg/dl (0.2-1); Globulin 4.2 gm/dl (2.5-4.0)
[2018-09-11] MEDS: FUROSEMIDE 20 MG in SYRINGE 0 ML IV SCH (07:58)
[2018-09-11] MEDS: PANTOprazole 40 MG TAB PO SCH (08:32)
[2018-09-11] MEDS: SERTRALINE HCL 100 MG TABLET PO SCH (08:32)
[2018-09-11] MEDS: METOPROLOL TARTRATE 25 MG TAB PO SCH ×2 (08:32→21:17)
--- NOTE | 2018-09-11 10:26 | XRay Report ---
XR chest 1V portable HISTORY: hypoxia COMPARISON: Chest 09/08/2018. FINDINGS: No pneumothorax. No pleural effusions. The heart remains mildly enlarged. Mild interstitial pulmonary edema persists. Left-sided dual-chamber pacemaker. There are low lung volumes with elevati on of the right hemidiaphragm. No new focal lung consolidations to suggest pneumonia. IMPRESSION: Cardiomegaly with mild interstitial pulmonary edema. Electronically signed by: Hussain Killian M.D. 09/11/2018 10:25 AM
--- NOTE | 2018-09-11 11:55 | Family Medicine Progress Note ---
Date of Service September 11, 2018 Assessment & Plan (1) Acute on chronic diastolic CHF (congestive heart failure): 83-year-old female with a past medical history of diastolic congestive heart failure, hypertension, sick sinus syndrome status post pacemaker, dementia, venous insufficiency/recurrent lower extremity cellulitis presents with increased confusion and shortness of breath Acute hypoxic respiratory distress in the setting of acute on chronic diastolic heart failure Continue care on telemetry, diuresis follow I's and O's, weights, Perla catheter in place -Negative fluid balance, -4 L since admission Previous echo on 11/09/2017 EF of 60-65%, aortic sclerosis without significant stenosis. Repeat ECHO since admission did not show significant changes Treating with IV Lasix 20 mg IV daily, low-sodium diet, 1500 cc fluid restriction -Follow BMP Metabolic encephalopathyacute on chronic, baseline dementia Increased hallucinations over the past 6 months, recently had her Aricept stopped as a possible contributor to hallucinations It is possible that the patient has had increased hallucinations secondary to hypoxia Head CT was negative, did show stable ventricle dilation which was seen on previous imaging PT/OT, speech consult--no concern for aspiration TSH, B12 wnl CAD/hypertension Continue metoprolol, amlodipine Continue rosuvastatin Sick sinus syndrome status post pacemaker placement INR therapuetic, cont. warfarin Depression Continue sertraline Venous insufficiency, recurrent lower extremity cellulitis Worsening edema and likely secondary to CHF, if the patient develops fevers or white count, would consider adding on antibiotic treatment -Improving with diuresis Asymptomatic bacteriuria Continue Rocephin 1 gram daily CODE STATUS DNR DVT prophylaxis Continue rocephin (2) CHF (congestive heart failure): (3) Altered mental status: (4) Acute UTI: (5) Dementia: Supervising Physician Co-Signing Physician Notes I personally examined the patient and verified all balderrama points of history and exam, discussed case, and agree with decision making with Dr Cartagena Denies complaints. Breathing is okay. Daughter notes that her legs are sore. Daughter notes that she is definitely more confused than baseline. Have an extensive discussion with the daughter on CHF, venous stasis, delirium, as well as placement options. Vitals noted, in general she is awake and alert appears easily confused no distress. HEENT normocephalic atraumatic mucous membranes moist. Breathing is unlabored no accessory muscle use good effort. Extremities show visible diffuse lower extremity edema with skin stretching. She also some chronic venous stasis type changes. Acute on chronic diastolic CHFdiuresing well, continue, add ARB. Sodium restriction. Discussed that diuresis will not be able to affect a big change on the venous stasis component of this. Deliriumappears to be multifactorial encephalopathy, related to med changes (Aricept), infection (UTI), metabolic parameters (CHF/hypoxia), and environmental factors (hospital stay) Otherwise as above, anticoagulated for DVT prophylaxis. Subjective 83-year-old female with a history of diastolic heart failure, sick sinus syndrome status post pacemaker, baseline dementia presented to the hospital respiratory distress with hypoxia, likely secondary to acute on chronic congestive heart failure. Today the patient is resting comfortably. She is alert and oriented to person and place, but not time. He she denies any pain or trouble breathing at this time. Review of systems Constitutional; no fevers, chills Cardio; no chest pain, no palpitations Respiratory; no shortness of breath, no cough GI; no abdominal pain, no nausea/vomiting/diarrhea Physical Exam Vital Signs (Past 24 Hours): Last Vital Signs Temp 37.6 C H 09/11/18 07:46 Pulse 67 09/11/18 07:46 Resp 18 09/11/18 07:46 BP 149/75 H 09/11/18 07:46 Pulse Ox 90 09/11/18 07:46 Constitutional: WD/WN, vitals as above Eyes: PERRL, conjunctivae normal, anicteric sclerae ENMT: external ear and nose normal, oropharynx normal Respiratory: normal respiratory effort, lungs clear to auscultation normal respiratory effort; no labored breathing Auscultation: + diminished lung sounds (Bilateral bases) and + crackles ( bilateral ); no wheezes Cardiovascular: RRR, no murmur, no edema Gastrointestinal (Abdomen): normal bowel sounds, soft, nontender, no hepatosplenomegaly Musculoskeletal: Head/Neck/Chest: normocephalic and head atraumatic Extremities: strength 5/5 throughout Neurologic: normal touch/pain/proprioception, CN's II-XI intact bilaterally, moves all extremities and awake Cranial Nerves: PERRL Results & Data Laboratory Results Laboratory Last Values WBC 11.67 K/uL (4.8-10.8) H 09/11/18 05:49 RBC 3.62 M/uL (4.2-5.4) L 09/11/18 05:49 Hgb 10.7 g/dL (12.0-16.0) L 09/11/18 05:49 Hct 32.7 % (37-47) L 09/11/18 05:49 MCV 90.3 fL (80-100) 09/11/18 05:49 MCH 29.6 pg (25-34) 09/11/18 05:49 MCHC 32.7 g/dL (32-36) 09/11/18 05:49 RDW Std Deviation 52.7 fL (36.4-46.3) H 09/11/18 05:49 RDW Coeff of Libby 16.0 % (11.5-14.5) H 09/11/18 05:49 Plt Count 143 K/uL (130-400) 09/11/18 05:49 MPV 10.2 fL (7.4-10.4) 09/11/18 05:49 Immature Gran % (Auto) 0.3 % 09/11/18 05:49 Neut % (Auto) 76.5 % 09/11/18 05:49 Lymph % (Auto) 6.6 % 09/11/18 05:49 [place] % (Auto) 16.5 % 09/11/18 05:49 Eos % (Auto) 0.0 % 09/11/18 05:49 Baso % (Auto) 0.1 % 09/11/18 05:49 Immature Gran # (Auto) 0.03 K/uL (0.00-0.02) H 09/11/18 05:49 Neut # (Auto) 8.93 K/uL (1.4-6.5) H 09/11/18 05:49 Lymph # (Auto) 0.77 K/uL (1.2-3.4) L 09/11/18 05:49 [place] # (Auto) 1.93 K/uL (0.11-0.59) H 09/11/18 05:49 Eos # (Auto) 0.00 K/uL (0-0.5) 09/11/18 05:49 Baso # (Auto) 0.01 K/uL (0-0.2) 09/11/18 05:49 PT 27.3 Seconds (9.0-12.0) H 09/11/18 05:49 INR 2.9 (0.9-1.1) H 09/11/18 05:49 APTT 43.7 Seconds (21.0-31.0) H 09/08/18 Unknown PTT Ratio 1.6 09/08/18 Unknown Sodium 136 mmol/L (136-145) 09/11/18 05:49 Potassium 3.4 mmol/L (3.5-5.1) L 09/11/18 05:49 Chloride 95 mmol/L (98-107) L 09/11/18 05:49 Carbon Dioxide 37 mmol/L (21-32) H 09/11/18 05:49 Anion Gap 4.0 (3-11) 09/11/18 05:49 BUN 20 mg/dl (7-18) H 09/11/18 05:49 Creatinine 1.01 mg/dl (0.6-1.2) 09/11/18 05:49 Est Cr Clr Drug Dosing Not Reportable 09/11/18 05:49 Est GFR ( Amer) 59.6 09/11/18 05:49 Est GFR (Non-Af Amer) 51.4 09/11/18 05:49 BUN/Creatinine Ratio 19.9 (10-20) 09/11/18 05:49 Glucose 121 mg/dl (70-99) H 09/11/18 05:49 POC Glucose 99 (70-99) 09/08/18 19:58 Calcium 8.6 mg/dl (8.5-10.1) 09/11/18 05:49 Magnesium 1.6 mg/dl (1.8-2.4) L 09/08/18 Unknown Total Bilirubin 1.1 mg/dl (0.2-1) H 09/11/18 05:49 AST 22 U/L (15-37) 09/11/18 05:49 ALT 14 U/L (12-78) 09/11/18 05:49 Alkaline Phosphatase 158 U/L (45-117) H 09/11/18 05:49 Troponin I < 0.015 ng/ml (0-0.045) 09/08/18 Unknown NT-Pro-B Natriuret Pep 3495 pg/ml (0-1800) H 03/15/19 Unknown Total Protein 7.0 gm/dl (6.4-8.2) 09/11/18 05:49 Albumin 2.8 gm/dl (3.4-5.0) L 09/11/18 05:49 Globulin 4.2 gm/dl (2.5-4.0) H 09/11/18 05:49 Albumin/Globulin Ratio 0.7 (0.9-2) L 09/11/18 05:49 Vitamin B12 516 pg/ml (211-911) 09/09/18 18:01 TSH 3.640 uIu/ml (0.300-4.500) 09/08/18 Unknown Urine Color Dark Yellow 09/08/18 21:44 Urine Appearance Clear (Clear) 09/08/18 21:44 Urine pH 6.0 (4.5-7.5) 09/08/18 21:44 Ur Specific [place] 1.019 (1.000-1.030) 09/08/18 21:44 Urine Protein 1+ (Negative) H 09/08/18 21:44 Urine Glucose (UA) Negative (Negative) 09/08/18 21:44 Urine Ketones Negative (Negative) 09/08/18 21:44 Urine Blood Trace (Negative) H 09/08/18 21:44 Urine Nitrite Positive (Negative) H 09/08/18 21:44 Urine Bilirubin Negative (Negative) 09/08/18 21:44 Urine Urobilinogen Negative (Negative) 09/08/18 21:44 Ur Leukocyte Esterase Negative (Negative) 09/08/18 21:44 Urine WBC (Auto) 1-5 /hpf (0-5) 09/08/18 21:44 Urine RBC (Auto) 0-4 /hpf (0-4) 09/08/18 21:44 U Hyaline Cast (Auto) 1-5 /lpf (0-5) 09/08/18 21:44 U Epithel Cells (Auto) 10-20 /lpf (0-5) H 09/08/18 21:44 Urine Bacteria (Auto) 4+ (Negative) H 09/08/18 21:44 Resident Activity Tracking Resident Involvement: Resident Care Provided Care Provided: Adult Hospital Medicine (1) CHF (congestive heart failure) Heart failure chronicity: acute Heart failure type: unspecified Qualified Code(s): I50.9 - Heart failure, unspecified (2) Altered mental status Altered mental status type: disorientation Qualified Code(s): R41.0 - Disorientation, unspecified
[2018-09-11] MEDS: WARFARIN SOD 1 MG TAB PO SCH (16:16)
[2018-09-11] MEDS: IRBESARTAN 75 MG TAB PO SCH (16:17)
[2018-09-11] MEDS ORDERED: ALBUT/IPRATROP 3MG/0.5MG NEB 3 ML VIAL NEB PRN (18:10)
[2018-09-11] MEDS ORDERED: ALBUT/IPRATROP 3MG/0.5MG NEB 3 ML VIAL NEB STA (18:10)
--- NOTE | 2018-09-11 18:28 | XRay Report ---
XR chest 1V portable CLINICAL HISTORY: Suspected aspiration COMPARISON STUDY: 09/11/2018 FINDINGS: The heart remains enlarged. There is mild pulmonary vascular congestion. An area of apparen t increased markings[in the right apex, is likely secondary to overlying chest wall soft tissue. Ther e are no significant pleural effusions. A left subclavian dual chamber central venous pacemaker is vi sualized. IMPRESSION: Persistent cardiomegaly and radiographic evidence of congestive failure/fluid overload. N o evidence of lobar consolidation Electronically signed by: Lencho Rey M.D. 09/11/2018 6:27 PM
[2018-09-11] MEDS: EUCERIN CR 120 GM JAR EXT SCH (21:17)
[2018-09-11] MEDS: ROSUVASTATIN CALCIUM 10 MG TAB PO SCH (21:17)
[2018-09-11] MEDS: OXYBUTYNIN CHLORIDE XL 5 MG TABCR PO SCH (21:17)
[2018-09-12] MEDS: LEVOTHYROXINE SODIUM 88 MCG TABLET PO SCH (05:50)
[2018-09-12 07:47] LABS: Basophils # (auto) 0.01 K/uL (0-0.2); Basophils % (auto) 0.1 %; Eosinophils # (auto) 0.04 K/uL (0-0.5); Eosinophils % (auto) 0.5 %; Hematocrit (blood only) 33.7 % (37-47); Hemoglobin 10.6 g/dL (12.0-16.0); Immature Granulocytes # (auto) 0.03 K/uL (0.00-0.02); Immature Granulocytes % (auto) 0.3 %; Lymphocytes # (auto) 0.82 K/uL (1.2-3.4); Lymphocytes % (auto) 9.3 %; Mean Corpuscular Hgb Conc 31.5 g/dL (32-36); Mean Corpuscular Volume 92.3 fL (80-100); Mean Platelet Volume 10.7 fL (7.4-10.4); Monocytes % (auto) 13.6 %; Neutrophils % (auto) 76.2 %; Platelet Count 157 K/uL (130-400); RDW Coefficient of Variation 15.8 % (11.5-14.5); RDW Standard Deviation 53.6 fL (36.4-46.3); Red Blood Count 3.65 M/uL (4.2-5.4)
[2018-09-12 07:55] LABS: INR 2.5 (0.9-1.1); Prothrombin Time 23.8 Seconds (9.0-12.0)
[2018-09-12 08:19] LABS: BUN Creatinine Ratio 28.1 (10-20); Calcium 9.1 mg/dl (8.5-10.1); Creatinine Clr Calc Pharmacy 52.5 ml/min; Est GFR (African American) 68.5; Est GFR (Non-African American) 59.1; Potassium 3.4 mmol/L (3.5-5.1)
--- NOTE | 2018-09-12 09:11 | Family Medicine Progress Note ---
Date of Service September 12, 2018 Assessment & Plan (1) Acute on chronic diastolic CHF (congestive heart failure): 83-year-old female with a past medical history of diastolic congestive heart failure, hypertension, sick sinus syndrome status post pacemaker, dementia, venous insufficiency/recurrent lower extremity cellulitis presents with increased confusion and shortness of breath Acute hypoxic respiratory distress in the setting of acute on chronic diastolic heart failure Continue diuresisIV Lasix 20 mg IV daily, follow I's and O's, weights, Perla catheter in place Previous echo on 11/09/2017 EF of 60-65%, aortic sclerosis without significant stenosis. Repeat ECHO since admission did not show significant changes Treating with IV Lasix 20 mg IV daily, low-sodium diet, 1500 cc fluid restriction -Follow BMP Concern for aspiration pneumonia/fever Patient aspirated with dinner last night and spiked a fever last night Starting patient on Unasyn Changing her diet to pured/nectar thick liquids Recommend swallow study, repeat speech eval Patient recently finished a course of Rocephin for bacteriuria. Metabolic encephalopathyacute on chronic, baseline dementia Increased hallucinations over the past 6 months, recently had her Aricept stopped as a possible contributor to hallucinations It is possible that the patient has had increased hallucinations secondary to hypoxia Head CT was negative, did show stable ventricle dilation which was seen on previous imaging PT/OT, speech consult--no concern for aspiration TSH, B12 wnl CAD/hypertension Continue metoprolol, amlodipine Continue rosuvastatin Sick sinus syndrome status post pacemaker placement INR therapuetic, cont. warfarin Depression Continue sertraline Venous insufficiency, recurrent lower extremity cellulitis Worsening edema and likely secondary to CHF, if the patient develops fevers or white count, would consider adding on antibiotic treatment -Improving with diuresis Asymptomatic bacteriuria Completed course of Rocephin, 3 days DC'd Perla CODE STATUS DNR DVT prophylaxis Continue rocephin Disposition; physical therapy recommends rehab/half-way, will have case management discussed with patient and family regarding placement. Continued inpatient medical care for aspiration pneumonia and CHF. (2) CHF (congestive heart failure): (3) Altered mental status: (4) Acute UTI: (5) Dementia: Supervising Physician Co-Signing Physician Notes I personally examined the patient and verified all balderrama points of history and exam, discussed case, and agree with decision making with Dr Cartagena Had a rough night, had an apparent aspiration event and a fever. Breathing feels better now. Vitals noted, in general she is awake and alert appears easily confused no distress. HEENT normocephalic atraumatic mucous membranes moist. Breathing is unlabored no accessory muscle use good effort, does show some coarse rhonchi. Acute on chronic diastolic CHFappears overall euvolemic now. Continue diuresis and arb. Continue vigilance and supportive care Aspiration event/feverUnasyn, repeat speech eval pending, oxygen, supportive care. Deliriumappears to be multifactorial encephalopathy, related to med changes (Aricept), infection (UTI), metabolic parameters (CHF/hypoxia), and environmental factors (hospital stay), this appears overall stable. Otherwise as above, anticoagulated for DVT prophylaxis. Subjective 83-year-old female with a history of diastolic heart failure, sick sinus syndrome status post pacemaker, baseline dementia presented to the hospital respiratory distress with hypoxia, likely secondary to acute on chronic congestive heart failure. Today the patient is resting comfortably, she does report choking yesterday with dinner. She has not had any trouble breathing since, but had a fever last night. Review of systems Constitutional; fevers last night, no chills, no night sweats Cardio; no chest pain, no palpitations Respiratory; moderately dyspneic at rest, no cough GI; no abdominal pain, no nausea/vomiting/diarrhea Physical Exam Vital Signs (Past 24 Hours): Last Vital Signs Temp 36.7 C 09/12/18 07:31 Pulse 65 09/12/18 07:31 Resp 22 09/12/18 07:31 BP 135/75 09/12/18 07:31 Pulse Ox 94 09/12/18 07:31 Constitutional: WD/WN, vitals as above Eyes: PERRL, conjunctivae normal, anicteric sclerae ENMT: external ear and nose normal, oropharynx normal Respiratory: normal respiratory effort, lungs clear to auscultation normal respiratory effort; no labored breathing Auscultation: + diminished lung sounds (Bilateral bases) and + crackles ( bilateral ); no wheezes Cardiovascular: RRR, no murmur, no edema Gastrointestinal (Abdomen): normal bowel sounds, soft, nontender, no hepatosplenomegaly Musculoskeletal: Head/Neck/Chest: normocephalic and head atraumatic Extremities: strength 5/5 throughout Neurologic: normal touch/pain/proprioception, CN's II-XI intact bilaterally, moves all extremities and awake Cranial Nerves: PERRL Results & Data Laboratory Results Laboratory Last Values WBC 8.80 K/uL (4.8-10.8) 09/12/18 07:22 RBC 3.65 M/uL (4.2-5.4) L 09/12/18 07:22 Hgb 10.6 g/dL (12.0-16.0) L 09/12/18 07:22 Hct 33.7 % (37-47) L 09/12/18 07:22 MCV 92.3 fL (80-100) 09/12/18 07:22 MCH 29.0 pg (25-34) 09/12/18 07:22 MCHC 31.5 g/dL (32-36) L 09/12/18 07:22 RDW Std Deviation 53.6 fL (36.4-46.3) H 09/12/18 07:22 RDW Coeff of Libby 15.8 % (11.5-14.5) H 09/12/18 07:22 Plt Count 157 K/uL (130-400) 09/12/18 07:22 MPV 10.7 fL (7.4-10.4) H 09/12/18 07:22 Immature Gran % (Auto) 0.3 % 09/12/18 07:22 Neut % (Auto) 76.2 % 09/12/18 07:22 Lymph % (Auto) 9.3 % 09/12/18 07:22 [place] % (Auto) 13.6 % 09/12/18 07:22 Eos % (Auto) 0.5 % 09/12/18 07:22 Baso % (Auto) 0.1 % 09/12/18 07:22 Immature Gran # (Auto) 0.03 K/uL (0.00-0.02) H 09/12/18 07:22 Neut # (Auto) 6.70 K/uL (1.4-6.5) H 09/12/18 07:22 Lymph # (Auto) 0.82 K/uL (1.2-3.4) L 09/12/18 07:22 [place] # (Auto) 1.20 K/uL (0.11-0.59) H 09/12/18 07:22 Eos # (Auto) 0.04 K/uL (0-0.5) 09/12/18 07:22 Baso # (Auto) 0.01 K/uL (0-0.2) 09/12/18 07:22 PT 23.8 Seconds (9.0-12.0) H 09/12/18 07:22 INR 2.5 (0.9-1.1) H 09/12/18 07:22 APTT 43.7 Seconds (21.0-31.0) H 09/08/18 Unknown PTT Ratio 1.6 09/08/18 Unknown Sodium 140 mmol/L (136-145) 09/12/18 07:22 Potassium 3.4 mmol/L (3.5-5.1) L 09/12/18 07:22 Chloride 98 mmol/L (98-107) 09/12/18 07:22 Carbon Dioxide 38 mmol/L (21-32) H 09/12/18 07:22 Anion Gap 5.0 (3-11) 09/12/18 07:22 BUN 25 mg/dl (7-18) H 09/12/18 07:22 Creatinine 0.90 mg/dl (0.6-1.2) 09/12/18 07:22 Est Cr Clr Drug Dosing 52.5 ml/min 09/12/18 07:22 Est GFR ( Amer) 68.5 09/12/18 07:22 Est GFR (Non-Af Amer) 59.1 09/12/18 07:22 BUN/Creatinine Ratio 28.1 (10-20) H 09/12/18 07:22 Glucose 88 mg/dl (70-99) 09/12/18 07:22 POC Glucose 99 (70-99) 09/08/18 19:58 Calcium 9.1 mg/dl (8.5-10.1) 09/12/18 07:22 Magnesium 1.6 mg/dl (1.8-2.4) L 09/08/18 Unknown Total Bilirubin 1.1 mg/dl (0.2-1) H 09/11/18 05:49 AST 22 U/L (15-37) 09/11/18 05:49 ALT 14 U/L (12-78) 09/11/18 05:49 Alkaline Phosphatase 158 U/L (45-117) H 09/11/18 05:49 Troponin I < 0.015 ng/ml (0-0.045) 09/08/18 Unknown NT-Pro-B Natriuret Pep 3495 pg/ml (0-1800) H 09/08/18 Unknown Total Protein 7.0 gm/dl (6.4-8.2) 09/11/18 05:49 Albumin 2.8 gm/dl (3.4-5.0) L 09/11/18 05:49 Globulin 4.2 gm/dl (2.5-4.0) H 09/11/18 05:49 Albumin/Globulin Ratio 0.7 (0.9-2) L 09/11/18 05:49 Vitamin B12 516 pg/ml (211-911) 09/09/18 18:01 TSH 3.640 uIu/ml (0.300-4.500) 09/08/18 Unknown Urine Color Dark Yellow 09/08/18 21:44 Urine Appearance Clear (Clear) 09/08/18 21:44 Urine pH 6.0 (4.5-7.5) 09/08/18 21:44 Ur Specific [place] 1.019 (1.000-1.030) 09/08/18 21:44 Urine Protein 1+ (Negative) H 09/08/18 21:44 Urine Glucose (UA) Negative (Negative) 09/08/18 21:44 Urine Ketones Negative (Negative) 09/08/18 21:44 Urine Blood Trace (Negative) H 09/08/18 21:44 Urine Nitrite Positive (Negative) H 09/08/18 21:44 Urine Bilirubin Negative (Negative) 09/08/18 21:44 Urine Urobilinogen Negative (Negative) 09/08/18 21:44 Ur Leukocyte Esterase Negative (Negative) 09/08/18 21:44 Urine WBC (Auto) 1-5 /hpf (0-5) 09/08/18 21:44 Urine RBC (Auto) 0-4 /hpf (0-4) 09/08/18 21:44 U Hyaline Cast (Auto) 1-5 /lpf (0-5) 09/08/18 21:44 U Epithel Cells (Auto) 10-20 /lpf (0-5) H 09/08/18 21:44 Urine Bacteria (Auto) 4+ (Negative) H 09/08/18 21:44 Resident Activity Tracking Resident Involvement: Resident Care Provided Care Provided: Adult Hospital Medicine (1) CHF (congestive heart failure) Heart failure chronicity: acute Heart failure type: unspecified Qualified Code(s): I50.9 - Heart failure, unspecified (2) Altered mental status Altered mental status type: disorientation Qualified Code(s): R41.0 - Disorientation, unspecified
[2018-09-12] MEDS ORDERED: POTASSIUM CHLORIDE PWD 20 MEQ PACK PO STA (09:42)
[2018-09-12] MEDS: IRBESARTAN 75 MG TAB PO SCH (09:45)
[2018-09-12] MEDS: METOPROLOL TARTRATE 25 MG TAB PO SCH ×2 (09:45→21:32)
[2018-09-12] MEDS: PANTOprazole 40 MG TAB PO SCH (09:46)
[2018-09-12] MEDS: AMPICILLIN/SULBACTAM SOD 1,500 MG in 0.9 % SODIUM CHLORIDE 100 ML IV SCH ×3 (09:46→21:34)
[2018-09-12] MEDS: FUROSEMIDE 20 MG in SYRINGE 0 ML IV SCH (09:46)
[2018-09-12] MEDS: SERTRALINE HCL 100 MG TABLET PO SCH (09:46)
[2018-09-12] MEDS: EUCERIN CR 120 GM JAR EXT SCH ×2 (09:47→21:34)
[2018-09-12] MEDS: WARFARIN SOD 1 MG TAB PO SCH (16:21)
[2018-09-12] MEDS: ROSUVASTATIN CALCIUM 10 MG TAB PO SCH (21:32)
[2018-09-12] MEDS: OXYBUTYNIN CHLORIDE XL 5 MG TABCR PO SCH (21:33)
[2018-09-13] MEDS ORDERED: LORazepam 0.25 MG/0.5 ML VIAL IV STA (01:40)
[2018-09-13] MEDS: AMPICILLIN/SULBACTAM SOD 1,500 MG in 0.9 % SODIUM CHLORIDE 100 ML IV SCH (02:00)
[2018-09-13] MEDS ORDERED: LORazepam 0.25 MG/0.5 ML VIAL IV ONE (02:21)
[2018-09-13 07:13] LABS: INR 2.3 (0.9-1.1); Prothrombin Time 22.3 Seconds (9.0-12.0)
[2018-09-13] MEDS: LEVOTHYROXINE SODIUM 88 MCG TABLET PO SCH (07:23)
[2018-09-13 07:24] LABS: Basophils # (auto) 0.01 K/uL (0-0.2); Basophils % (auto) 0.1 %; Eosinophils # (auto) 0.17 K/uL (0-0.5); Eosinophils % (auto) 2.3 %; Hematocrit (blood only) 34.1 % (37-47); Hemoglobin 10.7 g/dL (12.0-16.0); Immature Granulocytes # (auto) 0.04 K/uL (0.00-0.02); Immature Granulocytes % (auto) 0.5 %; Lymphocytes # (auto) 0.87 K/uL (1.2-3.4); Lymphocytes % (auto) 11.6 %; Mean Corpuscular Hgb Conc 31.4 g/dL (32-36); Mean Corpuscular Volume 93.4 fL (80-100); Mean Platelet Volume 10.5 fL (7.4-10.4); Monocytes # (auto) 0.97 K/uL (0.11-0.59); Neutrophils # (auto) 5.41 K/uL (1.4-6.5); Neutrophils % (auto) 72.5 %; Platelet Count 172 K/uL (130-400); RDW Coefficient of Variation 15.7 % (11.5-14.5); RDW Standard Deviation 54.3 fL (36.4-46.3); Red Blood Count 3.65 M/uL (4.2-5.4); White Blood Count 7.47 K/uL (4.8-10.8)
[2018-09-13] MEDS: METOPROLOL TARTRATE 25 MG TAB PO SCH ×2 (07:37→20:41)
[2018-09-13] MEDS: PANTOprazole 40 MG TAB PO SCH (07:37)
[2018-09-13] MEDS: SERTRALINE HCL 100 MG TABLET PO SCH (07:37)
[2018-09-13] MEDS: IRBESARTAN 75 MG TAB PO SCH (07:37)
[2018-09-13] MEDS: AMOXICILLIN/CLAVULANATE 875 MG TAB PO SCH ×2 (07:38→17:24)
[2018-09-13] MEDS: EUCERIN CR 120 GM JAR EXT SCH ×2 (07:38→20:41)
[2018-09-13 07:54] LABS: BUN Creatinine Ratio 32.6 (10-20); Creatinine Clr Calc Pharmacy 52.3 ml/min; Est GFR (African American) 68.5; Est GFR (Non-African American) 59.1; Potassium 3.9 mmol/L (3.5-5.1)
[2018-09-13] MEDS ORDERED: POTASSIUM CHLORIDE PWD 20 MEQ PACK PO ONE (09:00)
[2018-09-13 09:14] LABS: Base Excess VBG 11.9 mEq/L; Oxygen Saturation VBG 74.3 %; pH VBG 7.37 (7.36-7.41)
[2018-09-13] MEDS: FUROSEMIDE 20 MG in SYRINGE 0 ML IV SCH (09:43)
[2018-09-13] MEDS ORDERED: FUROSEMIDE 20 MG in SYRINGE 0 ML IV ONE (09:45)
--- NOTE | 2018-09-13 10:57 | Family Medicine Progress Note ---
Date of Service September 13, 2018 Assessment & Plan (1) Acute on chronic diastolic CHF (congestive heart failure): 83-year-old female with a past medical history of diastolic congestive heart failure, hypertension, sick sinus syndrome status post pacemaker, dementia, venous insufficiency/recurrent lower extremity cellulitis presents with increased confusion and shortness of breath Acute hypoxic respiratory distress in the setting of acute on chronic diastolic heart failure Continue diuresisgiven the patient 40 mg of IV Lasix this morning, and got a VBG which showed a PCO2 of 72. Previous echo on 11/09/2017 EF of 60-65%, aortic sclerosis without significant stenosis. Repeat ECHO since admission did not show significant changes . Treating with IV Lasix 20 mg IV daily, low-sodium diet, 1500 cc fluid restriction -Follow BMP Concern for aspiration pneumonia/fever Patient aspirated on 09/11/2018 and subsequently spiked a fever Continue Augmentin 875 twice daily, start antibiotics on 09/12/2018 Changing her diet to pured/nectar thick liquids Recommend swallow study, repeat speech eval Patient recently finished a course of Rocephin for bacteriuria. Metabolic encephalopathyacute on chronic, baseline dementia Increased hallucinations over the past 6 months, recently had her Aricept stopped as a possible contributor to hallucinations It is possible that the patient has had increased hallucinations secondary to hypoxia Head CT was negative, did show stable ventricle dilation which was seen on previous imaging PT/OT, speech consult--no concern for aspiration TSH, B12 wnl CAD/hypertension Continue metoprolol, amlodipine Continue rosuvastatin Sick sinus syndrome status post pacemaker placement INR therapuetic, cont. warfarin Depression Continue sertraline Venous insufficiency, recurrent lower extremity cellulitis Worsening edema and likely secondary to CHF, if the patient develops fevers or white count, would consider adding on antibiotic treatment -Improving with diuresis Asymptomatic bacteriuria Completed course of Rocephin, 3 days DC'd Perla CODE STATUS DNR DVT prophylaxis Continue rocephin Disposition; physical therapy recommends rehab/shelter, will have case management discussed with patient and family regarding placement. Continued inpatient medical care for aspiration pneumonia and CHF. (2) CHF (congestive heart failure): (3) Altered mental status: (4) Acute UTI: (5) Dementia: Supervising Physician Co-Signing Physician Notes I personally examined the patient and verified all balderrama points of history and exam, discussed case, and agree with decision making with Dr Cartagena No new complaints, appeared more short of breath earlier, but feeling better now. Daughter present and updated extensively. Vitals noted, in general she is awake and alert appears easily confused no distress. HEENT normocephalic atraumatic mucous membranes moist. Lungs are overall clear, except for some very faint dependent rales. Acute on chronic diastolic CHFcontinue ARB. Appear to have slightly worsened whenever reverting back towards home regimen, additional diuresis provided today, will likely need to increase her home regimen to 40 mg daily. Aspiration event/feverspeech input appreciated, continue Augmentin, oxygen, supportive care. Hypercapnia on VBGuncertain if it is related to sleep apnea/OHS versus how much the lorazepam she was given played a role. That said common things being common, sleep apnea/OHS certainly would be likely. Overnight pulse ox/a.m. ABG to clarify further. Deliriumappears to be multifactorial encephalopathy, related to med changes (Aricept), infection (UTI), metabolic parameters (CHF/hypoxia), and environmental factors (hospital stay), this appears overall stable, and as discussed with family, will likely take quite a while to resolve.. Otherwise as above, anticoagulated for DVT prophylaxis. Subjective 83-year-old female with a history of diastolic heart failure, sick sinus syndrome status post pacemaker, baseline dementia presented to the hospital respiratory distress with hypoxia, likely secondary to acute on chronic congestive heart failure. Patient this morning has difficulty waking up. She is answering my questions with yes or no answers with her eyes closed. She is on 5 L this morning. Nurse describes that overnight she became very anxious, was given a one-time dose of Ativan. Review of systems Constitutional; no fevers, no chills, no night sweats Cardio; no chest pain, no palpitations Respiratory; moderately dyspneic at rest, no cough GI; no abdominal pain, no nausea/vomiting/diarrhea Physical Exam Vital Signs (Past 24 Hours): Last Vital Signs Temp 36.5 C 09/13/18 08:35 Pulse 60 09/13/18 08:35 Resp 20 09/13/18 08:35 BP 136/76 09/13/18 08:35 Pulse Ox 94 09/13/18 08:35 Constitutional: WD/WN, vitals as above Eyes: PERRL, conjunctivae normal, anicteric sclerae ENMT: external ear and nose normal, oropharynx normal Respiratory: normal respiratory effort, lungs clear to auscultation normal respiratory effort; no labored breathing Auscultation: + diminished lung sounds (Bilateral bases) and + crackles ( bilateral ); no wheezes Cardiovascular: RRR, no murmur, no edema Gastrointestinal (Abdomen): normal bowel sounds, soft, nontender, no hepatosplenomegaly Musculoskeletal: Head/Neck/Chest: normocephalic and head atraumatic Extremities: strength 5/5 throughout Neurologic: normal touch/pain/proprioception, CN's II-XI intact bilaterally, moves all extremities and awake Cranial Nerves: PERRL Results & Data Laboratory Results Laboratory Last Values WBC 7.47 K/uL (4.8-10.8) 09/13/18 07:02 RBC 3.65 M/uL (4.2-5.4) L 09/13/18 07:02 Hgb 10.7 g/dL (12.0-16.0) L 09/13/18 07:02 Hct 34.1 % (37-47) L 09/13/18 07:02 MCV 93.4 fL (80-100) 09/13/18 07:02 MCH 29.3 pg (25-34) 09/13/18 07:02 MCHC 31.4 g/dL (32-36) L 09/13/18 07:02 RDW Std Deviation 54.3 fL (36.4-46.3) H 09/13/18 07:02 RDW Coeff of Libby 15.7 % (11.5-14.5) H 09/13/18 07:02 Plt Count 172 K/uL (130-400) 09/13/18 07:02 MPV 10.5 fL (7.4-10.4) H 09/13/18 07:02 Immature Gran % (Auto) 0.5 % 09/13/18 07:02 Neut % (Auto) 72.5 % 09/13/18 07:02 Lymph % (Auto) 11.6 % 09/13/18 07:02 [place] % (Auto) 13.0 % 09/13/18 07:02 Eos % (Auto) 2.3 % 09/13/18 07:02 Baso % (Auto) 0.1 % 09/13/18 07:02 Immature Gran # (Auto) 0.04 K/uL (0.00-0.02) H 09/13/18 07:02 Neut # (Auto) 5.41 K/uL (1.4-6.5) 09/13/18 07:02 Lymph # (Auto) 0.87 K/uL (1.2-3.4) L 09/13/18 07:02 [place] # (Auto) 0.97 K/uL (0.11-0.59) H 09/13/18 07:02 Eos # (Auto) 0.17 K/uL (0-0.5) 09/13/18 07:02 Baso # (Auto) 0.01 K/uL (0-0.2) 09/13/18 07:02 PT 22.3 Seconds (9.0-12.0) H 09/13/18 06:38 INR 2.3 (0.9-1.1) H 09/13/18 06:38 APTT 43.7 Seconds (21.0-31.0) H 09/08/18 Unknown PTT Ratio 1.6 09/08/18 Unknown VBG pH 7.37 (7.36-7.41) 09/13/18 09:03 VBG pCO2 72 mmHg (38-50) H 09/13/18 09:03 VBG pO2 41 mmHg 09/13/18 09:03 VBG HCO3 40 mmol/L 09/13/18 09:03 VBG O2 Saturation 74.3 % 09/13/18 09:03 VBG Base Excess 11.9 mEq/L 09/13/18 09:03 Barometric Pressure 739.5 mm/Hg 09/13/18 09:03 Sodium 139 mmol/L (136-145) 09/13/18 07:02 Potassium 3.9 mmol/L (3.5-5.1) 09/13/18 07:02 Chloride 98 mmol/L (98-107) 09/13/18 07:02 Carbon Dioxide 37 mmol/L (21-32) H 09/13/18 07:02 Anion Gap 4.0 (3-11) 09/13/18 07:02 BUN 29 mg/dl (7-18) H 09/13/18 07:02 Creatinine 0.90 mg/dl (0.6-1.2) 09/13/18 07:02 Est Cr Clr Drug Dosing 52.3 ml/min 09/13/18 07:02 Est GFR ( Amer) 68.5 09/13/18 07:02 Est GFR (Non-Af Amer) 59.1 09/13/18 07:02 BUN/Creatinine Ratio 32.6 (10-20) H 09/13/18 07:02 Glucose 98 mg/dl (70-99) 09/13/18 07:02 POC Glucose 99 (70-99) 09/08/18 19:58 Calcium 9.0 mg/dl (8.5-10.1) 09/13/18 07:02 Magnesium 1.6 mg/dl (1.8-2.4) L 09/08/18 Unknown Total Bilirubin 1.1 mg/dl (0.2-1) H 09/11/18 05:49 AST 22 U/L (15-37) 09/11/18 05:49 ALT 14 U/L (12-78) 09/11/18 05:49 Alkaline Phosphatase 158 U/L (45-117) H 09/11/18 05:49 Troponin I < 0.015 ng/ml (0-0.045) 09/08/18 Unknown NT-Pro-B Natriuret Pep 3495 pg/ml (0-1800) H 09/08/18 Unknown Total Protein 7.0 gm/dl (6.4-8.2) 09/11/18 05:49 Albumin 2.8 gm/dl (3.4-5.0) L 09/11/18 05:49 Globulin 4.2 gm/dl (2.5-4.0) H 09/11/18 05:49 Albumin/Globulin Ratio 0.7 (0.9-2) L 09/11/18 05:49 Vitamin B12 516 pg/ml (211-911) 09/09/18 18:01 TSH 3.640 uIu/ml (0.300-4.500) 09/08/18 Unknown Urine Color Dark Yellow 09/08/18 21:44 Urine Appearance Clear (Clear) 09/08/18 21:44 Urine pH 6.0 (4.5-7.5) 09/08/18 21:44 Ur Specific [place] 1.019 (1.000-1.030) 09/08/18 21:44 Urine Protein 1+ (Negative) H 09/08/18 21:44 Urine Glucose (UA) Negative (Negative) 09/08/18 21:44 Urine Ketones Negative (Negative) 09/08/18 21:44 Urine Blood Trace (Negative) H 09/08/18 21:44 Urine Nitrite Positive (Negative) H 09/08/18 21:44 Urine Bilirubin Negative (Negative) 09/08/18 21:44 Urine Urobilinogen Negative (Negative) 09/08/18 21:44 Ur Leukocyte Esterase Negative (Negative) 09/08/18 21:44 Urine WBC (Auto) 1-5 /hpf (0-5) 09/08/18 21:44 Urine RBC (Auto) 0-4 /hpf (0-4) 09/08/18 21:44 U Hyaline Cast (Auto) 1-5 /lpf (0-5) 09/08/18 21:44 U Epithel Cells (Auto) 10-20 /lpf (0-5) H 09/08/18 21:44 Urine Bacteria (Auto) 4+ (Negative) H 09/08/18 21:44 Resident Activity Tracking Resident Involvement: Resident Care Provided Care Provided: Adult Hospital Medicine (1) CHF (congestive heart failure) Heart failure chronicity: acute Heart failure type: unspecified Qualified Code(s): I50.9 - Heart failure, unspecified (2) Altered mental status Altered mental status type: disorientation Qualified Code(s): R41.0 - Disorientation, unspecified
[2018-09-13] MEDS: WARFARIN SOD 1 MG TAB PO SCH (17:24)
[2018-09-13] MEDS: OXYBUTYNIN CHLORIDE XL 5 MG TABCR PO SCH (20:40)
[2018-09-13] MEDS: ROSUVASTATIN CALCIUM 10 MG TAB PO SCH (20:40)
[2018-09-14] MEDS: LEVOTHYROXINE SODIUM 88 MCG TABLET PO SCH (05:50)
[2018-09-14] MEDS: EUCERIN CR 120 GM JAR EXT SCH ×2 (07:40→21:32)
[2018-09-14 08:54] LABS: HCO3 ABG 40 mmol/L (19-24); Oxygen Saturation ABG 91.1 % (90-95); PCO2 ABG 63 mmHg (35-46); PO2 ABG 64 mm/Hg (80-95); pH ABG 7.42 (7.35-7.45)
[2018-09-14 08:55] LABS: Basophils # (auto) 0.02 K/uL (0-0.2); Basophils % (auto) 0.3 %; Eosinophils # (auto) 0.52 K/uL (0-0.5); Eosinophils % (auto) 6.9 %; Hematocrit (blood only) 35.1 % (37-47); Hemoglobin 10.8 g/dL (12.0-16.0); Immature Granulocytes # (auto) 0.04 K/uL (0.00-0.02); Immature Granulocytes % (auto) 0.5 %; Lymphocytes # (auto) 0.77 K/uL (1.2-3.4); Lymphocytes % (auto) 10.2 %; Mean Corpuscular Hgb Conc 30.8 g/dL (32-36); Mean Corpuscular Volume 94.6 fL (80-100); Mean Platelet Volume 10.5 fL (7.4-10.4); Monocytes # (auto) 1.05 K/uL (0.11-0.59); Monocytes % (auto) 13.9 %; Neutrophils # (auto) 5.16 K/uL (1.4-6.5); Neutrophils % (auto) 68.2 %; Platelet Count 189 K/uL (130-400); RDW Coefficient of Variation 15.4 % (11.5-14.5); RDW Standard Deviation 54.1 fL (36.4-46.3); Red Blood Count 3.71 M/uL (4.2-5.4); White Blood Count 7.56 K/uL (4.8-10.8)
[2018-09-14] MEDS ORDERED: FUROSEMIDE 20 MG TAB PO SCH (09:00)
[2018-09-14 09:06] LABS: Allen Test Pos (Pos)
[2018-09-14 09:25] LABS: BUN Creatinine Ratio 32.2 (10-20); Calcium 9.6 mg/dl (8.5-10.1); Creatinine Clr Calc Pharmacy 59.3 ml/min; Est GFR (African American) 80.2; Est GFR (Non-African American) 69.2; Potassium 3.8 mmol/L (3.5-5.1)
[2018-09-14] MEDS: FUROSEMIDE 20 MG TAB PO SCH (09:42)
[2018-09-14] MEDS: PANTOprazole 40 MG TAB PO SCH (09:42)
[2018-09-14] MEDS: AMOXICILLIN/CLAVULANATE 875 MG TAB PO SCH ×2 (09:42→17:28)
[2018-09-14] MEDS: IRBESARTAN 75 MG TAB PO SCH (09:42)
[2018-09-14] MEDS: METOPROLOL TARTRATE 25 MG TAB PO SCH ×2 (09:42→21:30)
[2018-09-14] MEDS: SERTRALINE HCL 100 MG TABLET PO SCH (09:42)
--- NOTE | 2018-09-14 15:08 | Family Medicine Progress Note ---
Date of Service September 14, 2018 Assessment & Plan (1) Acute on chronic diastolic CHF (congestive heart failure): 83-year-old female with a past medical history of diastolic congestive heart failure, hypertension, sick sinus syndrome status post pacemaker, dementia, venous insufficiency/recurrent lower extremity cellulitis presents with increased confusion and shortness of breath Acute hypoxic respiratory distress in the setting of acute on chronic diastolic heart failure Continue diuresischanging maintenence Lasix from 20 mg to 40 mg PO daily. Would recommend outpatient BMP checks. Previous echo on 11/09/2017 EF of 60-65%, aortic sclerosis without significant stenosis, diastolic dysfunction. Repeat ECHO since admission did not show significant changes . Continue low-sodium diet, 1500 cc fluid restriction -Follow BMP Hypercapnia -New O2 requirement, possible sleep apnea, obesity hypoventilation syndrome--overnight pulse ox -Seeking approval for CPAP/BIPAP prior to dc to [facility] Concern for aspiration pneumonia/fever Patient aspirated on 09/11/2018 and subsequently spiked a fever Continue Augmentin 875 twice daily, start antibiotics on 09/12/2018, continue for 10 day course until 09/21/2018 Speech recommends minced moist diet, no rice Metabolic encephalopathyacute on chronic, baseline dementia Increased hallucinations over the past 6 months, recently had her Aricept stopped as a possible contributor to hallucinations It is possible that the patient has had increased hallucinations secondary to hypoxia/fluid overload Head CT was negative, did show stable ventricle dilation which was seen on previous imaging PT/OT, speech consult--no concern for aspiration TSH, B12 wnl CAD/hypertension Continue metoprolol, amlodipine Continue rosuvastatin Sick sinus syndrome status post pacemaker placement INR therapuetic, cont. warfarin Depression Continue sertraline Venous insufficiency, recurrent lower extremity cellulitis -Improving with diuresis Asymptomatic bacteriuria Completed course of Rocephin, 3 days DC'd Perla CODE STATUS DNR DVT prophylaxis -Cont. Warfarin Disposition; overnight pulse ox, case management currently seeking approval for CPAP, possbile DC to [facility] tomorrow (2) CHF (congestive heart failure): (3) Altered mental status: (4) Acute UTI: (5) Dementia: Supervising Physician Co-Signing Physician Notes I personally examined the patient and verified all balderrama points of history and exam, discussed case, and agree with decision making with Dr Cartagena no new issues. overnight pulse ox not able to be completed, therefore noninvasive positive pressure for sleep unable to be set up at [facility]. HEENT normocephalic atraumatic mucous membranes moist. heart regular, lungs clear this afternoon. Acute on chronic diastolic CHFcontinue ARB. and lasix at higher dosing, will likely need to increase her home regimen to 40 mg daily. Aspiration event/feverspeech input appreciated, continue Augmentin, oxygen, supportive care. appearing stable in this regard Hypercapnia - ABG this AM suggests apnea processes, need overnight pulse ox to get proper equipment set up. still will likely need sleep study to calibrate after discharge but getting equipment set up should be helpful prior to dc Deliriumappears to be multifactorial encephalopathy, related to med changes (Aricept), infection (UTI), metabolic parameters (CHF/hypoxia), and environmental factors (hospital stay), this appears overall stable, will likely take quite a while to resolve.. Otherwise as above, anticoagulated for DVT prophylaxis. Subjective 83-year-old female with a history of diastolic heart failure, sick sinus syndrome status post pacemaker, baseline dementia presented to the hospital with respiratory distress with hypoxia, likely secondary to acute on chronic congestive heart failure. More alert this am. Answering questions. Denies acute complaints. Evidently she did not tolerate overnight pulse ox per report, but the patient is unaware of this. Review of systems Constitutional; no fevers, no chills, no night sweats Cardio; no chest pain, no palpitations Respiratory; moderately dyspneic at rest, no cough GI; no abdominal pain, no nausea/vomiting/diarrhea Physical Exam Vital Signs (Past 24 Hours): Last Vital Signs Temp 36.9 C 09/14/18 08:00 Pulse 64 09/14/18 08:00 Resp 18 09/14/18 08:00 BP 152/86 H 09/14/18 08:00 Pulse Ox 92 09/14/18 08:00 Constitutional: WD/WN, vitals as above Eyes: PERRL, conjunctivae normal, anicteric sclerae ENMT: external ear and nose normal, oropharynx normal Respiratory: normal respiratory effort, lungs clear to auscultation normal respiratory effort; no labored breathing Auscultation: + diminished lung sounds (Bilateral bases) and + crackles ( bilateral ); no wheezes Cardiovascular: RRR, no murmur, no edema Gastrointestinal (Abdomen): normal bowel sounds, soft, nontender, no hepatosplenomegaly Musculoskeletal: Head/Neck/Chest: normocephalic and head atraumatic Extremities: strength 5/5 throughout Neurologic: normal touch/pain/proprioception, CN's II-XI intact bilaterally, moves all extremities and awake Cranial Nerves: PERRL Results & Data Laboratory Results Laboratory Last Values WBC 7.56 K/uL (4.8-10.8) 09/14/18 08:39 RBC 3.71 M/uL (4.2-5.4) L 09/14/18 08:39 Hgb 10.8 g/dL (12.0-16.0) L 09/14/18 08:39 Hct 35.1 % (37-47) L 09/14/18 08:39 MCV 94.6 fL (80-100) 09/14/18 08:39 MCH 29.1 pg (25-34) 09/14/18 08:39 MCHC 30.8 g/dL (32-36) L 09/14/18 08:39 RDW Std Deviation 54.1 fL (36.4-46.3) H 09/14/18 08:39 RDW Coeff of Libby 15.4 % (11.5-14.5) H 09/14/18 08:39 Plt Count 189 K/uL (130-400) 09/14/18 08:39 MPV 10.5 fL (7.4-10.4) H 09/14/18 08:39 Immature Gran % (Auto) 0.5 % 09/14/18 08:39 Neut % (Auto) 68.2 % 09/14/18 08:39 Lymph % (Auto) 10.2 % 09/14/18 08:39 [place] % (Auto) 13.9 % 09/14/18 08:39 Eos % (Auto) 6.9 % 09/14/18 08:39 Baso % (Auto) 0.3 % 09/14/18 08:39 Immature Gran # (Auto) 0.04 K/uL (0.00-0.02) H 09/14/18 08:39 Neut # (Auto) 5.16 K/uL (1.4-6.5) 09/14/18 08:39 Lymph # (Auto) 0.77 K/uL (1.2-3.4) L 09/14/18 08:39 [place] # (Auto) 1.05 K/uL (0.11-0.59) H 09/14/18 08:39 Eos # (Auto) 0.52 K/uL (0-0.5) H 09/14/18 08:39 Baso # (Auto) 0.02 K/uL (0-0.2) 09/14/18 08:39 PT 22.3 Seconds (9.0-12.0) H 09/13/18 06:38 INR 2.3 (0.9-1.1) H 09/13/18 06:38 APTT 43.7 Seconds (21.0-31.0) H 09/08/18 Unknown PTT Ratio 1.6 09/08/18 Unknown ABG pH 7.42 (7.35-7.45) 09/14/18 08:39 ABG pCO2 63 mmHg (35-46) H 09/14/18 08:39 ABG pO2 64 mm/Hg (80-95) L 09/14/18 08:39 ABG HCO3 40 mmol/L (19-24) H 09/14/18 08:39 ABG O2 Saturation 91.1 % (90-95) 09/14/18 08:39 ABG Base Excess 13.1 mEq/L (-9-1.8) H 09/14/18 08:39 Víctor Test Pos (Pos) 09/14/18 08:39 VBG pH 7.37 (7.36-7.41) 09/13/18 09:03 VBG pCO2 72 mmHg (38-50) H 09/13/18 09:03 VBG pO2 41 mmHg 09/13/18 09:03 VBG HCO3 40 mmol/L 09/13/18 09:03 VBG O2 Saturation 74.3 % 09/13/18 09:03 VBG Base Excess 11.9 mEq/L 09/13/18 09:03 Barometric Pressure 731.7 mm/Hg 09/14/18 08:39 Oxygen Given 2L 09/14/18 08:39 Sodium 140 mmol/L (136-145) 09/14/18 08:39 Potassium 3.8 mmol/L (3.5-5.1) 09/14/18 08:39 Chloride 99 mmol/L (98-107) 09/14/18 08:39 Carbon Dioxide 39 mmol/L (21-32) H 09/14/18 08:39 Anion Gap 2.0 (3-11) L 09/14/18 08:39 BUN 26 mg/dl (7-18) H 09/14/18 08:39 Creatinine 0.79 mg/dl (0.6-1.2) 09/14/18 08:39 Est Cr Clr Drug Dosing 59.3 ml/min 09/14/18 08:39 Est GFR ( Amer) 80.2 09/14/18 08:39 Est GFR (Non-Af Amer) 69.2 09/14/18 08:39 BUN/Creatinine Ratio 32.2 (10-20) H 09/14/18 08:39 Glucose 96 mg/dl (70-99) 09/14/18 08:39 POC Glucose 99 (70-99) 09/08/18 19:58 Calcium 9.6 mg/dl (8.5-10.1) 09/14/18 08:39 Magnesium 1.6 mg/dl (1.8-2.4) L 09/08/18 Unknown Total Bilirubin 1.1 mg/dl (0.2-1) H 09/11/18 05:49 AST 22 U/L (15-37) 09/11/18 05:49 ALT 14 U/L (12-78) 09/11/18 05:49 Alkaline Phosphatase 158 U/L (45-117) H 09/11/18 05:49 Troponin I < 0.015 ng/ml (0-0.045) 09/08/18 Unknown NT-Pro-B Natriuret Pep 3495 pg/ml (0-1800) H 09/08/18 Unknown Total Protein 7.0 gm/dl (6.4-8.2) 09/11/18 05:49 Albumin 2.8 gm/dl (3.4-5.0) L 09/11/18 05:49 Globulin 4.2 gm/dl (2.5-4.0) H 09/11/18 05:49 Albumin/Globulin Ratio 0.7 (0.9-2) L 09/11/18 05:49 Vitamin B12 516 pg/ml (211-911) 09/09/18 18:01 TSH 3.640 uIu/ml (0.300-4.500) 09/08/18 Unknown Urine Color Dark Yellow 09/08/18 21:44 Urine Appearance Clear (Clear) 09/08/18 21:44 Urine pH 6.0 (4.5-7.5) 09/08/18 21:44 Ur Specific [place] 1.019 (1.000-1.030) 09/08/18 21:44 Urine Protein 1+ (Negative) H 09/08/18 21:44 Urine Glucose (UA) Negative (Negative) 09/08/18 21:44 Urine Ketones Negative (Negative) 09/08/18 21:44 Urine Blood Trace (Negative) H 09/08/18 21:44 Urine Nitrite Positive (Negative) H 09/08/18 21:44 Urine Bilirubin Negative (Negative) 09/08/18 21:44 Urine Urobilinogen Negative (Negative) 09/08/18 21:44 Ur Leukocyte Esterase Negative (Negative) 09/08/18 21:44 Urine WBC (Auto) 1-5 /hpf (0-5) 09/08/18 21:44 Urine RBC (Auto) 0-4 /hpf (0-4) 09/08/18 21:44 U Hyaline Cast (Auto) 1-5 /lpf (0-5) 09/08/18 21:44 U Epithel Cells (Auto) 10-20 /lpf (0-5) H 09/08/18 21:44 Urine Bacteria (Auto) 4+ (Negative) H 09/08/18 21:44 Resident Activity Tracking Resident Involvement: Resident Care Provided Care Provided: Adult Hospital Medicine (1) CHF (congestive heart failure) Heart failure chronicity: acute Heart failure type: unspecified Qualified Code(s): I50.9 - Heart failure, unspecified (2) Altered mental status Altered mental status type: disorientation Qualified Code(s): R41.0 - Disorientation, unspecified
[2018-09-14] MEDS: WARFARIN SOD 1 MG TAB PO SCH (17:28)
[2018-09-14] MEDS: ROSUVASTATIN CALCIUM 10 MG TAB PO SCH (21:30)
[2018-09-14] MEDS: OXYBUTYNIN CHLORIDE XL 5 MG TABCR PO SCH (21:30)
[2018-09-15] MEDS: LEVOTHYROXINE SODIUM 88 MCG TABLET PO SCH (06:33)
[2018-09-15 07:01] LABS: Basophils # (auto) 0.02 K/uL (0-0.2); Basophils % (auto) 0.3 %; Eosinophils # (auto) 0.48 K/uL (0-0.5); Eosinophils % (auto) 7.9 %; Hematocrit (blood only) 36.9 % (37-47); Hemoglobin 11.3 g/dL (12.0-16.0); Immature Granulocytes # (auto) 0.02 K/uL (0.00-0.02); Immature Granulocytes % (auto) 0.3 %; Lymphocytes # (auto) 0.84 K/uL (1.2-3.4); Lymphocytes % (auto) 13.8 %; Mean Corpuscular Hgb Conc 30.6 g/dL (32-36); Mean Corpuscular Volume 95.3 fL (80-100); Mean Platelet Volume 10.3 fL (7.4-10.4); Monocytes # (auto) 0.96 K/uL (0.11-0.59); Monocytes % (auto) 15.7 %; Neutrophils # (auto) 3.78 K/uL (1.4-6.5); Platelet Count 211 K/uL (130-400); RDW Coefficient of Variation 15.5 % (11.5-14.5); RDW Standard Deviation 53.9 fL (36.4-46.3); Red Blood Count 3.87 M/uL (4.2-5.4)
[2018-09-15 07:09] LABS: INR 2.8 (0.9-1.1); Prothrombin Time 26.6 Seconds (9.0-12.0)
[2018-09-15 07:30] LABS: BUN Creatinine Ratio 26.1 (10-20); Creatinine Clr Calc Pharmacy 51.6 ml/min; Est GFR (African American) 67.6; Est GFR (Non-African American) 58.3; Potassium 3.9 mmol/L (3.5-5.1)
[2018-09-15] MEDS: METOPROLOL TARTRATE 25 MG TAB PO SCH (08:36)
[2018-09-15] MEDS: PANTOprazole 40 MG TAB PO SCH (08:36)
[2018-09-15] MEDS: EUCERIN CR 120 GM JAR EXT SCH (08:36)
[2018-09-15] MEDS: SERTRALINE HCL 100 MG TABLET PO SCH (08:36)
[2018-09-15] MEDS: FUROSEMIDE 20 MG TAB PO SCH (08:36)
[2018-09-15] MEDS: IRBESARTAN 75 MG TAB PO SCH (08:36)
[2018-09-15] MEDS: AMOXICILLIN/CLAVULANATE 875 MG TAB PO SCH (09:13)
--- NOTE | 2018-09-15 11:53 | Discharge Summary ---
Date of Service September 15, 2018 Admission HPI Per Admitting Provider 83-year-old female with a past medical history of diastolic congestive heart failure, hypertension, sick sinus syndrome status post pacemaker, dementia, venous insufficiency/recurrent lower extremity cellulitis presents with increased confusion and shortness of breath noted by family. Family remarks that the patient has been experiencing hallucinations over the past 6 months and that they have recently increased in recent days. The patient states that she is aware that she is having hallucinationsshe states that she hears music that is not there. The family saysthat her Aricept was recently stopped as her PCP was concerned that this was the culprit for worsening hallucinations. In addition, the patient notes increased shortness of breath. She states that she is more dyspneic with exertion and has dyspnea at rest as well. Patient had the flu 3 weeks ago. She denies any signs and symptoms of gastrointestinal or URI infections. She denies dysuria. The patient is a resident of the [place]. Review of systems Constitutional; patient denies fevers, chills, night sweats Chest; denies chest pain, but his shortness of breath as described above and has an occasional cough, no hemoptysis, occasional nosebleeds GI; no abdominal pain, no nausea vomiting or diarrhea ; no dysuria, no increased frequency Admission Exam (Per Admitting) Constitutional WD/WN, vitals as above Eyes PERRL, conjunctivae normal, anicteric sclerae ENMT external ear and nose normal, oropharynx normal Respiratory normal respiratory effort, lungs clear to auscultation normal respiratory effort; no labored breathing Auscultation: no wheezes Cardiovascular RRR, no murmur, no edema Extremities: + edema (bilateral hand swelling) Gastrointestinal (Abdomen) normal bowel sounds, soft, nontender, no hepatosplenomegaly Musculoskeletal Head/Neck/Chest: normocephalic and head atraumatic Extremities: strength 5/5 throughout Neurologic normal touch/pain/proprioception, CN's II-XI intact bilaterally, moves all extremities and awake Cranial Nerves: PERRL Psychiatric A+Ox3, euthymic affect Discharge Data Consultations 09/08/18 22:36 ED Decision to Admit Stat 09/09/18 00:44 Consult Case Management - Discharge Planning Routine Hospital Course (1) Acute on chronic diastolic CHF (congestive heart failure): 83F with a past medical history of diastolic congestive heart failure, hypertension, sick sinus syndrome status post pacemaker, dementia, venous insufficiency/recurrent lower extremity cellulitis presents with increased confusion and shortness of breath. In the hospital we gave IV Lasix, restricted sodium, measured weights and titrated oxygen requirement. Hospital course is complicated with an aspiration event while eating rice. We are recommending avoidance of rice in the future. Speech therapy also recommended a mince moist diet. Pt will be discharged on 6 days of Augmentin. Additionally an overnight pulse ox and morning ABG suggested sleep apnea. We will give an Rx for a CPAP at 8mmHg setting and recommend further outpatient sleep apnea testing. {} Acute hypoxic respiratory distress in the setting of acute on chronic diastolic heart failure On discharge we are increasing the Lasix home dose from 20 mg to 40 mg PO daily. Echo on 11/09/2017 EF of 60-65%, aortic sclerosis without significant stenosis, diastolic dysfunction. Repeat ECHO since admission did not show significant changes. We advise on continuing a low-sodium diet, 1500 cc fluid restriction Period BMPs advised with new Lasix dose. {} Hypercapnia Morning ABG on 08/17/18 showed PCO2 of 63, PO2 of 64, and pHCO3 of 40. Overnight pulse ox showed 11 desaturation events. Will give Rx for CPAP machine. Per respiratory team, starting pressure of 8mmHg, recommend formal sleep study testing as outpatient. {} Aspiration Pneumonia Patient aspirated on 09/11/2018 and subsequently spiked a fever, augmentin started on 09/12/18, will discharge with 6 more days of Augmentin to complete a 10 day course. {} Diet Recommendations: speech therapy recommends minced moist diet, no rice with no large concerns for aspiration. {} Baseline of Mild to Moderate Dementia Increased hallucinations over the past 6 months, recently had her Aricept stopped as a possible contributor to hallucinations Head CT was negative, did show stable ventricle dilation which was seen on previous imaging TSH, B12 wnl {} CAD/hypertension Continue home metoprolol, amlodipine on discharge. Continue rosuvastatin on discharge. {} Sick sinus syndrome status post pacemaker placement INR therapuetic, cont. warfarin {} Depression Continue sertraline {} Asymptomatic bacteriuria Completed course of Rocephin, 3 days CODE STATUS DNR (2) CHF (congestive heart failure): (3) Altered mental status: (4) Acute UTI: (5) Dementia: Supervising Physician Co-Signing Physician Notes I personally examined the patient and verified all balderrama points of history and exam, discussed case, and agree with decision making with Dr Cartagena no new issues. stable for juno. HEENT normocephalic atraumatic mucous membranes moist. heart regular, clear except for faint scattered rales c/w atelectasis Acute on chronic diastolic CHFcontinue ARB. and lasix at higher dosing, follow weights, BMP Aspiration event/feverspeech input appreciated, continue Augmentin through tomorrow, wean oxygen as possible, supportive care, aspiration precautions/speech recommendations Hypercapnia - ABG seems c/w a degree of AMISH, overnight pulse ox actually appears a bit more mild. for now CPAP at 8cmH2O, then sleep study and management per sleep medicine once study formally able to be done Deliriumappears to be multifactorial encephalopathy, related to med changes (Aricept), infection (UTI), metabolic parameters (CHF/hypoxia), and environmental factors (hospital stay), this appears overall stable, will likely take quite a while to resolve.. Otherwise as above, anticoagulated for DVT prophylaxis. stable for juno Resident Activity Tracking Resident Involvement: Resident Care Provided Care Provided: Adult Hospital Medicine
[2018-09-15] MEDS: WARFARIN SOD 1 MG TAB PO SCH (15:46)
== END 2018-09-15 16:15 | DRG 291 ==
LOC: ED 19:45 → 2S 23:20 → SUATTDRO 23:20 → 2S 23:57 → 4E 09-11 15:46